=== PATIENT | male | born 1940 | race Caucasian/White ===

== ENCOUNTER 2021-06-15 15:12 | Inpatient (IN) ==
--- NOTE | 2021-06-15 16:25 | Emergency Department Note ---
Impression & Plan Hypotension, Hypomagnesemia, Acute hyponatremia, Elevated lactic acid level, Weakness ED Provider Note NAME: EZRA MACIAS AGE: 80 SEX: M : 1940 ARRIVES VIA: Ambulance INFORMANT: [Patient][nursing, family] ED PROVIDER(S): [Amaury Fu MD] CHIEF COMPLAINT: Weakness HISTORY OF PRESENT ILLNESS: The patient is an 80-year-old male who has been in [place] for just over 24 hours. He came from [place]. He came from a rehab center there. The patient has been having weakness and falling for the last 5 or so weeks. He has fallen at least 5 times. The patient states that he was seen in the ER several times and again, was to rehab. The rehab did not help him with his strength. He still is very short of breath doing anything and he is very short of breath lying flat. He has to sleep sitting up. The patient states there is a sore forming on the area of his sacrum which has been present for months. It just will not heal. The patient states that the weakness is generalized, it is not one-sided. He has not had fever, chills or cough although, he does feel cold all the time. No urinary burning although, he does have some urinary incontinence. The patient states that he has lost 40 pounds in the last few months. Of note, the patient's blood pressure was 70/30 prior to arrival. He was given a 400 cc saline bolus and the blood pressure has improved. His blood sugar was recorded at 317. He initially, when his blood pressure was low, complained of left facial numbness. The numbness seems to have resolved. The patient blames the Moderna vaccine for his issues. All his problems started after this vaccination. REVIEW OF SYSTEMS: See HPI for pertinent positives and negatives. A total of ten systems were reviewed and were otherwise negative. PMHx/PSHx: See Below SOCIAL HISTORY: See Below. PHYSICAL EXAM: GENERAL: Patient is in no acute distress. HEENT: No acute trauma, normocephalic atraumatic, mucous membranes moist, no nasal congestion, no scleral icterus. NECK: No stridor, no adenopathy, no meningismus, trachea is midline. LUNGS: Clear to auscultation bilaterally, no wheeze, no rhonchi, breath sounds equal. Breath sounds diminished bilaterally. HEART: Without murmurs gallops or rubs, regular rate and rhythm. Distant heart tones. ABDOMEN: Soft, nontender, bowel sounds positive, no hernias, no peritonitis. EXTREMITIES: No cyanosis, mild bilateral pedal edema, full range of motion of all the joints without pain or difficulty, no signs for acute trauma. NEUROLOGIC: Oriented x 3, no acute motor or sensory deficits, no focal weakness. Does seem generally weak. SKIN: No rash, no jaundice, no diaphoresis. Buttock: He does have an open fairly superficial wound to the superior sacrum. There is some surrounding erythema. A dressing is in place. DIFFERENTIAL DIAGNOSIS: Infection, dehydration, metabolic abnormality, hypo/hyperglycemia, vaccine reaction, malignancy, Doris Lima syndrome. Electrolyte disturbance, anemia, hypoxia, cardiac sources, intracerebral event, toxicologic issues, stroke, TIA, as well as other pathologies. EMERGENCY DEPARTMENT COURSE/PROCEDURES: ECG: Indication was weakness. The ECG shows a ventricular pacemaker with a rate of 70. There is no ST elevation, no PVCs. The QTc is 505. Continuous Cardiac Monitoring: An order was placed for continuous cardiac monitoring. The monitor shows a rate of 70 with ventricular pacemaker. Critical Care Note: I have personally spent 43 minutes of critical care time in the direct management of this patient. This includes bedside care, interpretation of diagnostic studies, and testing, discussion with consultants, patient, and family members, and other required patient management activities. This 43 minutes is in excess of all separately billable procedures. MEDICAL DECISION MAKING: There is no leukocytosis. The patient does have a mild anemia with a hemoglobin around 10. There was a normal platelet count. Sed rate was not significantly elevated. Sodium was low at 131, there was some mild renal insufficiency with a creatinine of 1.54. Magnesium was quite low at 1.3. Lactic acid level was elevated at over 3. No concerning liver enzyme elevation. The patient appeared to be in a euthyroid state. ECG showed a ventricular pacemaker, no acute ischemic change. Cardiac enzyme testing x1 is not consistent with acute cardiac injury. Urinalysis does not show infection. Covid testing returned negative. Lyme disease testing returned negative. Chest x-ray did not show pneumonia or CHF. Brain CT showed some atrophy, no acute bleed or mass-effect. Patient presents hypotensive. The patient received IV saline, 500 cc. His blood pressure has improved. He was given IV magnesium, 2 g. He received IV cefepime as empiric antibiotic therapy. The patient presents with weakness and fatigue. He was hypotensive. He has several electrolyte abnormalities which certainly could be at least partly responsible for his presentation. He has an open sacral wound which may have led to some bacteremia. Given his findings, given his history, I do think a hospital stay is warranted. I spoke to the patient and case management. I spoke to his family. The on-call hospitalist was consulted. Past Med/Surg History Medical History Diabetes mellitus Hypertension Pacemaker Social History Smoking Status: Former smoker Do You Dip or Chew Tobacco: No; Hx Alcohol Use: Yes Alcohol type: wine Hx Substance Use: No Preferred Language: Iranian Communication Ability: Effective Beliefs That Will Affect Care: None Current Living Situation: [facility] Other Information That Helps Us Care for You: No Feels Safe at Home: Yes Safety Concerns: Feels Safe At This Time Assistive Devices: Walker and Wheelchair Allergies Allergies Allergy/AdvReac Type Severity Reaction Status Date / Time lisinopril Allergy Unknown Unknown Verified 06/15/21 17:27 Home Meds Home Medications Medication Instructions Recorded Confirmed acetaminophen 325 mg tablet 650 mg PO Q6 PRN 06/15/21 06/15/21 aspirin 81 mg tablet,delayed 81 mg PO DAILY 06/15/21 06/15/21 release (Aspirin Low Dose) atorvastatin 20 mg tablet 10 mg PO DAILY 06/15/21 06/15/21 carboxymethylcellulose sodium 0.5 1 drp OPHTHALMIC (EYE) 6XD PRN 06/15/21 06/15/21 % eye drops carvedilol 25 mg tablet 25 mg PO Q12H 06/15/21 06/15/21 ferrous sulfate 324 mg (65 mg 324 mg PO 3XWK 06/15/21 06/15/21 iron) tablet,delayed release finasteride 5 mg tablet 5 mg PO DAILY 06/15/21 06/15/21 fluticasone propionate 50 1 spray INTRANASAL BID PRN 06/15/21 06/15/21 mcg/actuation nasal spray,suspension glucose 4 gram chewable tablet 16 g PO UD PRN 06/15/21 06/15/21 insulin glargine 100 unit/mL 10 unit SUBCUT BID 06/15/21 06/15/21 subcutaneous solution (Lantus U-100 Insulin) ketoconazole 2 % shampoo 1 ea TOPICAL 3XWK 06/15/21 06/15/21 levothyroxine 88 mcg tablet 88 mcg PO DAILY 06/15/21 06/15/21 lidocaine 5 % topical ointment 1 applic TOPICAL Q6 PRN 06/15/21 06/15/21 loratadine 10 mg tablet 10 mg PO DAILY 06/15/21 06/15/21 losartan 100 mg tablet 100 mg PO DAILY 06/15/21 06/15/21 melatonin 3 mg tablet 3 mg PO HS PRN 06/15/21 06/15/21 menthol 0.44 %-zinc oxide 20.6 % 1 applic TOPICAL DAILY 06/15/21 06/15/21 topical ointment (Calmoseptine) metformin 1,000 mg tablet 1,000 mg PO BID 06/15/21 06/15/21 multivitamin with iron-mineral 1 tab PO DAILY 06/15/21 06/15/21 nifedipine 90 mg tablet,extended 90 mg PO QAM 06/15/21 06/15/21 release 24 hr omega 2-jyj-otk-fish oil 1,000 mg 1 cap PO BID 06/15/21 06/15/21 (120 mg-180 mg) capsule (Fish Oil) omeprazole 20 mg capsule,delayed 20 mg PO BID 06/15/21 06/15/21 release polyethylene glycol 3350 17 17 g PO DAILY PRN 06/15/21 06/15/21 gram/dose oral powder (Miralax) semaglutide (Ozempic) 0.5 mg SUBCUT WK 06/15/21 06/15/21 tamsulosin 0.4 mg capsule 0.4 mg PO BID 06/15/21 06/15/21 terbinafine HCl 1 % topical cream 1 applic TOPICAL BID 06/15/21 06/15/21 trazodone 50 mg tablet 50 mg PO HS 06/15/21 06/15/21 vit C 250 mg-vit E 90 mg-zinc 40 1 tab PO BID 06/15/21 06/15/21 mg-copper 1 [id number] capsule (PreserVision AREDS-2) Results & Data (ED) Vital Signs Vital Signs - 24 hr 06/15/21 15:16 06/15/21 15:21 06/15/21 15:29 Temperature 36.5 C Temperature Source Oral Pulse Rate 69 70 Pulse Rate from SpO2 Sensor 69 Pulse Rhythm Regular Pulse Strength Normal Respiratory Rate 24 20 Respiratory Effort / Characteristics Non-Labored Respiratory Depth Normal Respiratory Pattern Regular Blood Pressure 107/48 L 107/48 L Blood Pressure Mean 67 67 Blood Pressure Position Lying Pulse Oximetry 98 99 Oxygen Delivery Method Room Air Room Air Oxygen Flow Rate 98 Sepsis Recent Fever Within 48 Hours No Sepsis New/Unexplained Change in Mental Status No Sepsis Action Taken by Nursing No Action Required 06/15/21 15:30 06/15/21 15:54 06/15/21 16:00 Temperature Temperature Source Pulse Rate 69 71 66 Pulse Rate from SpO2 Sensor 69 72 66 Pulse Rhythm Pulse Strength Respiratory Rate 21 24 24 Respiratory Effort / Characteristics Respiratory Depth Respiratory Pattern Blood Pressure 97/46 L 103/56 L 88/58 L Blood Pressure Mean 63 71 68 Blood Pressure Position Pulse Oximetry 98 98 97 Oxygen Delivery Method Oxygen Flow Rate Sepsis Recent Fever Within 48 Hours Sepsis New/Unexplained Change in Mental Status Sepsis Action Taken by Nursing 06/15/21 16:15 06/15/21 16:20 06/15/21 16:30 Temperature Temperature Source Pulse Rate 78 71 Pulse Rate from SpO2 Sensor 71 Pulse Rhythm Pulse Strength Respiratory Rate 24 22 Respiratory Effort / Characteristics Respiratory Depth Respiratory Pattern Blood Pressure 105/66 97/53 L Blood Pressure Mean 79 67 Blood Pressure Position Pulse Oximetry 98 93 Oxygen Delivery Method Room Air Oxygen Flow Rate Sepsis Recent Fever Within 48 Hours Sepsis New/Unexplained Change in Mental Status Sepsis Action Taken by Nursing 06/15/21 16:45 06/15/21 17:00 06/15/21 17:16 Temperature Temperature Source Pulse Rate 76 87 69 Pulse Rate from SpO2 Sensor 68 Pulse Rhythm Pulse Strength Respiratory Rate 24 26 H 21 Respiratory Effort / Characteristics Respiratory Depth Respiratory Pattern Blood Pressure 101/59 L 106/48 L 78/56 L Blood Pressure Mean 73 67 63 Blood Pressure Position Pulse Oximetry 98 Oxygen Delivery Method Oxygen Flow Rate Sepsis Recent Fever Within 48 Hours Sepsis New/Unexplained Change in Mental Status Sepsis Action Taken by Nursing 06/15/21 17:30 06/15/21 17:45 06/15/21 18:11 Temperature Temperature Source Pulse Rate 66 68 70 Pulse Rate from SpO2 Sensor 68 69 Pulse Rhythm Pulse Strength Respiratory Rate 19 23 20 Respiratory Effort / Characteristics Respiratory Depth Respiratory Pattern Blood Pressure 102/53 L 101/52 L 94/72 L Blood Pressure Mean 69 68 79 Blood Pressure Position Pulse Oximetry 98 96 Oxygen Delivery Method Oxygen Flow Rate Sepsis Recent Fever Within 48 Hours Sepsis New/Unexplained Change in Mental Status Sepsis Action Taken by Nursing 06/15/21 18:15 06/15/21 18:30 06/15/21 18:45 Temperature Temperature Source Pulse Rate 68 67 63 Pulse Rate from SpO2 Sensor 67 66 67 Pulse Rhythm Pulse Strength Respiratory Rate 27 H 18 19 Respiratory Effort / Characteristics Respiratory Depth Respiratory Pattern Blood Pressure 116/60 102/49 L 110/53 L Blood Pressure Mean 78 66 72 Blood Pressure Position Pulse Oximetry 99 98 95 Oxygen Delivery Method Oxygen Flow Rate Sepsis Recent Fever Within 48 Hours Sepsis New/Unexplained Change in Mental Status Sepsis Action Taken by Nursing 06/15/21 19:00 06/15/21 19:30 Temperature Temperature Source Pulse Rate 69 63 Pulse Rate from SpO2 Sensor 64 63 Pulse Rhythm Pulse Strength Respiratory Rate 27 H 21 Respiratory Effort / Characteristics Respiratory Depth Respiratory Pattern Blood Pressure 110/57 L 108/57 L Blood Pressure Mean 74 74 Blood Pressure Position Pulse Oximetry 96 98 Oxygen Delivery Method Oxygen Flow Rate Sepsis Recent Fever Within 48 Hours Sepsis New/Unexplained Change in Mental Status Sepsis Action Taken by [facility] Medications Current Medication List: was personally reviewed by me Laboratory Data Attestation: I reviewed the patient's lab results. Result diagrams: 06/15/21 15:49 06/15/21 15:49 Lab Results 06/15/21 06/15/21 06/15/21 Range/Units 15:49 15:49 15:49 WBC 6.30 (4.8-10.8) K/uL RBC 3.31 L (4.7-6.1) M/uL Hgb 10.2 L (14.0-18.0) g/dL Hct 29.1 L (42-52) % MCV 87.9 (80-100) fL MCH 30.8 (25-34) pg MCHC 35.1 (32-36) g/dL RDW Std Deviation 42.1 (36.4-46.3) fL RDW Coeff of Dinorah 13.0 (11.5-14.5) % Plt Count 328 (130-400) K/uL MPV 9.0 (7.4-10.4) fL Immature Gran % (Auto) 0.3 % Neut % (Auto) 66.6 % Lymph % (Auto) 21.9 % [place] % (Auto) 9.0 % Eos % (Auto) 1.9 % Baso % (Auto) 0.3 % Neut # (Auto) 4.19 (1.4-6.5) K/uL Lymph # (Auto) 1.38 (1.2-3.4) K/uL [place] # (Auto) 0.57 (0.11-0.59) K/uL Eos # (Auto) 0.12 (0-0.5) K/uL Baso # (Auto) 0.02 (0-0.2) K/uL Immature Gran # (Auto) 0.02 (0.00-0.02) K/uL ESR (0-20) mm/hr Sodium 131 L (136-145) mmol/L Potassium 4.2 (3.5-5.1) mmol/L Chloride 94 L (98-107) mmol/L Carbon Dioxide 31 (21-32) mmol/L Anion Gap 6.0 (3-11) BUN 34 H (7-18) mg/dl Creatinine 1.54 H (0.6-1.4) mg/dl Est Cr Clr Drug Dosing 37.0 ml/min Est GFR ( Amer) 48.7 ml/min Est GFR (Non-Af Amer) 42.0 ml/min BUN/Creatinine Ratio 22.2 H (10-20) Glucose 254 H (70-99) mg/dl Lactate 3.2 H* (0.4-2.0) mmol/L Calcium 8.8 (8.5-10.1) mg/dl Phosphorus 2.5 (2.5-4.9) mg/dl Magnesium 1.3 L (1.8-2.4) mg/dl Total Bilirubin 0.4 (0.2-1) mg/dl AST 15 (15-37) U/L ALT 18 (12-78) U/L Alkaline Phosphatase 98 (45-117) U/L Total Creatine Kinase 255 (39-308) U/L Troponin I < 0.015 (0-0.045) ng/ml Total Protein 6.5 (6.4-8.2) gm/dl Albumin 3.0 L (3.4-5.0) gm/dl Globulin 3.5 (2.5-4.0) gm/dl Albumin/Globulin Ratio 0.9 (0.9-2) TSH 4.490 (0.300-4.500) uIu/ml Lyme Disease IgG Ab (Negative) Lyme Disease IgM Ab (Negative) COVID-19 Eval Order SARS-CoV-2 (PCR) (Negative) 06/15/21 06/15/21 06/15/21 Range/Units 15:49 15:49 16:30 WBC (4.8-10.8) K/uL RBC (4.7-6.1) M/uL Hgb (14.0-18.0) g/dL Hct (42-52) % MCV (80-100) fL MCH (25-34) pg MCHC (32-36) g/dL RDW Std Deviation (36.4-46.3) fL RDW Coeff of Dinorah (11.5-14.5) % Plt Count (130-400) K/uL MPV (7.4-10.4) fL Immature Gran % (Auto) % Neut % (Auto) % Lymph % (Auto) % [place] % (Auto) % Eos % (Auto) % Baso % (Auto) % Neut # (Auto) (1.4-6.5) K/uL Lymph # (Auto) (1.2-3.4) K/uL [place] # (Auto) (0.11-0.59) K/uL Eos # (Auto) (0-0.5) K/uL Baso # (Auto) (0-0.2) K/uL Immature Gran # (Auto) (0.00-0.02) K/uL ESR 22 H (0-20) mm/hr Sodium (136-145) mmol/L Potassium (3.5-5.1) mmol/L Chloride (98-107) mmol/L Carbon Dioxide (21-32) mmol/L Anion Gap (3-11) BUN (7-18) mg/dl Creatinine (0.6-1.4) mg/dl Est Cr Clr Drug Dosing ml/min Est GFR ( Amer) ml/min Est GFR (Non-Af Amer) ml/min BUN/Creatinine Ratio (10-20) Glucose (70-99) mg/dl Lactate (0.4-2.0) mmol/L Calcium (8.5-10.1) mg/dl Phosphorus (2.5-4.9) mg/dl Magnesium (1.8-2.4) mg/dl Total Bilirubin (0.2-1) mg/dl AST (15-37) U/L ALT (12-78) U/L Alkaline Phosphatase (45-117) U/L Total Creatine Kinase (39-308) U/L Troponin I (0-0.045) ng/ml Total Protein (6.4-8.2) gm/dl Albumin (3.4-5.0) gm/dl Globulin (2.5-4.0) gm/dl Albumin/Globulin Ratio (0.9-2) TSH (0.300-4.500) uIu/ml Lyme Disease IgG Ab Negative (Negative) Lyme Disease IgM Ab Negative (Negative) COVID-19 Eval Order Covid19 at [facility] SARS-CoV-2 (PCR) (Negative) 06/15/21 Range/Units 16:30 WBC (4.8-10.8) K/uL RBC (4.7-6.1) M/uL Hgb (14.0-18.0) g/dL Hct (42-52) % MCV (80-100) fL MCH (25-34) pg MCHC (32-36) g/dL RDW Std Deviation (36.4-46.3) fL RDW Coeff of Dinorah (11.5-14.5) % Plt Count (130-400) K/uL MPV (7.4-10.4) fL Immature Gran % (Auto) % Neut % (Auto) % Lymph % (Auto) % [place] % (Auto) % Eos % (Auto) % Baso % (Auto) % Neut # (Auto) (1.4-6.5) K/uL Lymph # (Auto) (1.2-3.4) K/uL [place] # (Auto) (0.11-0.59) K/uL Eos # (Auto) (0-0.5) K/uL Baso # (Auto) (0-0.2) K/uL Immature Gran # (Auto) (0.00-0.02) K/uL ESR (0-20) mm/hr Sodium (136-145) mmol/L Potassium (3.5-5.1) mmol/L Chloride (98-107) mmol/L Carbon Dioxide (21-32) mmol/L Anion Gap (3-11) BUN (7-18) mg/dl Creatinine (0.6-1.4) mg/dl Est Cr Clr Drug Dosing ml/min Est GFR ( Amer) ml/min Est GFR (Non-Af Amer) ml/min BUN/Creatinine Ratio (10-20) Glucose (70-99) mg/dl Lactate (0.4-2.0) mmol/L Calcium (8.5-10.1) mg/dl Phosphorus (2.5-4.9) mg/dl Magnesium (1.8-2.4) mg/dl Total Bilirubin (0.2-1) mg/dl AST (15-37) U/L ALT (12-78) U/L Alkaline Phosphatase (45-117) U/L Total Creatine Kinase (39-308) U/L Troponin I (0-0.045) ng/ml Total Protein (6.4-8.2) gm/dl Albumin (3.4-5.0) gm/dl Globulin (2.5-4.0) gm/dl Albumin/Globulin Ratio (0.9-2) TSH (0.300-4.500) uIu/ml Lyme Disease IgG Ab (Negative) Lyme Disease IgM Ab (Negative) COVID-19 Eval Order SARS-CoV-2 (PCR) NEGATIVE (Negative) Administered Medications Sodium Chloride (Nss 1000ml) 1,000 mls @ 80 mls/hr IV .[id number] DINORAH Stop: 06/16/21 10:25 Last Admin: 06/15/21 23:38 Dose: 80 mls/hr Documented by: [id number] Discontinued Medications Sodium Chloride (Nss 1000ml) 500 mls @ 999 mls/hr IV .Q31M ONE Stop: 06/15/21 17:02 Last Infusion: 06/15/21 18:26 Dose: 0 mls/hr Documented by: [id number] Admin: 06/15/21 17:43 Dose: 999 mls/hr Documented by: [id number] Magnesium Sulfate/Dextrose (Magnesium Sulfate / D5w) 1 gm in 100 mls @ 100 mls/hr IV Q1H DINORAH Stop: 06/15/21 18:43 Last Infusion: 06/15/21 20:51 Dose: 0 mls/hr Documented by: [id number] Admin: 06/15/21 18:44 Dose: 100 mls/hr Documented by: [id number] Infusion: 06/15/21 17:44 Dose: 100 mls/hr Documented by: [id number] Admin: 06/15/21 17:43 Dose: 100 mls/hr Documented by: [id number] Cefepime HCl (Maxipime) 2,000 mg in 20 mls @ 5 mls/min IV NOW STA; Protocol Stop: 06/15/21 16:57 Last Admin: 06/15/21 17:42 Dose: 5 mls/min Documented by: [id number] Thiamine HCl 200 mg/ Sodium (Chloride) 52 mls @ 208 mls/hr IV NOW STA Stop: 06/15/21 19:46 Last Infusion: 06/15/21 21:19 Dose: 0 mls/hr Documented by: [id number] Admin: 06/15/21 21:03 Dose: 208 mls/hr Documented by: [id number] Magnesium Sulfate/Dextrose (Magnesium Sulfate / D5w) 1 gm in 100 mls @ 50 mls/hr IV Q2H STA Stop: 06/15/21 21:31 Last Infusion: 06/15/21 23:32 Dose: 0 mls/hr Documented by: [id number] Admin: 06/15/21 20:45 Dose: 50 mls/hr Documented by: [id number] Imaging Data Radiologist's Impression: Chest X-Ray 06/15/21 16:20 XR chest 1V portable HISTORY: 80 years-old Male weakness acute weakness COMPARISON: None TECHNIQUE: Portable AP view the chest FINDINGS: Cardiac silhouette is mildly enlarged. Left subclavian pacer/AICD. Mild right hemidiaphragm elevation. No pneumothorax, pleural effusion, airspace consolidation or overt pulmonary edema. Degenerative changes of the shoulders and spine. IMPRESSION: No acute process. ACT 112: Negative or not required by law. The above report was generated using voice recognition software. It may contain grammatical, syntax or spelling errors. Electronically signed by: Cesar Davis M.D. 06/15/2021 4:[address] 06/15/21 16:[address] DOSE: 614.27 mGy.cm HISTORY: weakness TECHNIQUE: Multiaxial CT images of the head were performed without the use of intravenous contrast. Automated exposure control was utilized for this study. A dose lowering technique was utilized adhering to the principles of ALARA. Comparison: None. Findings: The paranasal sinuses and mastoid air cells are clear. The calvarium and skull base are intact. There is no mass, hematoma, midline shift, acute infarct. White matter hypodensity is nonspecific but suggestive of microvascular ischemic change. The ventricles and sulci demonstrate mild age-related involutional changes. Impression: No acute intracranial abnormality. ACT 112: Negative or not required by law. Electronically signed by: Ap Gandhi M.D. 06/15/2021 6:23 PM Discharge Plan Visit Data Chief Complaint: Hypotension Stated Complaint: HYPOTENSION ED Provider: Amaury Fu Discharge Problem: Hypotension, Hypomagnesemia, Acute hyponatremia, Elevated lactic acid level, Weakness Patient Disposition: Admitted As Inpatient Condition: Fair Discharge Instructions Interventions: ED Discharge Assessment Last Done: 06/15/21 21:21
[2021-06-15 16:26] LABS: Basophils # (auto) 0.02 K/uL (0-0.2); Basophils % (auto) 0.3 %; Eosinophils # (auto) 0.12 K/uL (0-0.5); Eosinophils % (auto) 1.9 %; Hematocrit (blood only) 29.1 % (42-52); Hemoglobin 10.2 g/dL (14.0-18.0); Immature Granulocytes # (auto) 0.02 K/uL (0.00-0.02); Immature Granulocytes % (auto) 0.3 %; Lymphocytes # (auto) 1.38 K/uL (1.2-3.4); Lymphocytes % (auto) 21.9 %; Mean Corpuscular Hemoglobin 30.8 pg (25-34); Mean Corpuscular Hgb Conc 35.1 g/dL (32-36); Mean Corpuscular Volume 87.9 fL (80-100); Monocytes # (auto) 0.57 K/uL (0.11-0.59); Neutrophils # (auto) 4.19 K/uL (1.4-6.5); Neutrophils % (auto) 66.6 %; Platelet Count 328 K/uL (130-400); RDW Standard Deviation 42.1 fL (36.4-46.3); Red Blood Count 3.31 M/uL (4.7-6.1)
--- NOTE | 2021-06-15 16:29 | XRay Report ---
XR chest 1V portable HISTORY: 80 years-old Male weakness acute weakness COMPARISON: None TECHNIQUE: Portable AP view the chest FINDINGS: Cardiac silhouette is mildly enlarged. Left subclavian pacer/AICD. Mild right hemidiaphragm elevation . No pneumothorax, pleural effusion, airspace consolidation or overt pulmonary edema. Degenerative ch anges of the shoulders and spine. IMPRESSION: No acute process. ACT 112: Negative or not required by law. The above report was generated using voice recognition software. It may contain grammatical, syntax o r spelling errors. Electronically signed by: Cesar Davis M.D. 06/15/2021 4:27 PM
[2021-06-15] MEDS ORDERED: SODIUM CHLORIDE 0.9% 1000ML 500 ML IV ONE (16:32)
[2021-06-15 16:36] LABS: Alanine Aminotransferase 18 U/L (12-78); Aspartate Aminotransferase 15 U/L (15-37); BUN Creatinine Ratio 22.2 (10-20); Blood Urea Nitrogen 34 mg/dl (7-18); Calcium 8.8 mg/dl (8.5-10.1); Carbon Dioxide 31 mmol/L (21-32); Chloride 94 mmol/L (98-107); Est GFR (African American) 48.7 ml/min; Glucose 254 mg/dl (70-99); Magnesium 1.3 mg/dl (1.8-2.4); Potassium 4.2 mmol/L (3.5-5.1); Sodium 131 mmol/L (136-145)
[2021-06-15 16:47] LABS: Albumin Globulin Ratio 0.9 (0.9-2); Alkaline Phosphatase 98 U/L (45-117); Bilirubin,Total 0.4 mg/dl (0.2-1); Creatine Kinase 255 U/L (39-308); Globulin 3.5 gm/dl (2.5-4.0); Phosphorus 2.5 mg/dl (2.5-4.9); Total Protein 6.5 gm/dl (6.4-8.2); Troponin I < 0.015 ng/ml (0-0.045)
[2021-06-15] MEDS ORDERED: CEFEPIME 2,000 MG/20 ML VIAL IV STA (16:54)
[2021-06-15] MEDS: MAGNESIUM SULFATE / D5W 1 GM/100 ML BAG IV SCH ×3 (17:43→18:44)
[2021-06-15 18:02] LABS: Lyme Ab IgG w/WB Rflx Negative (Negative); Lyme Ab IgM w/WB Rflx Negative (Negative)
--- NOTE | 2021-06-15 18:24 | CT Scan Report ---
HEAD CT NONCONTRAST CT DOSE: 614.27 mGy.cm HISTORY: weakness TECHNIQUE: Multiaxial CT images of the head were performed without the use of intravenous contrast. A utomated exposure control was utilized for this study. A dose lowering technique was utilized adheri ng to the principles of ALARA. Comparison: None. Findings: The paranasal sinuses and mastoid air cells are clear. The calvarium and skull base are int act. There is no mass, hematoma, midline shift, acute infarct. White matter hypodensity is nonspecifi c but suggestive of microvascular ischemic change. The ventricles and sulci demonstrate mild age-rela ron involutional changes. Impression: No acute intracranial abnormality. ACT 112: Negative or not required by law. Electronically signed by: Ap Gandhi M.D. 06/15/2021 6:23 PM
--- NOTE | 2021-06-15 18:53 | History & Physical Report ---
Date of Service June 15, 2021 Assessment & Plan (1) Shortness of breath: Plan: Patient met with shortness of breath and some mild hypotension. Concerns of these issues occurring after immunization with Covid vaccine however the time course is from January. Initially it sounds like he has had a fairly substantial work-up in his hospitals in [place] but he does sound like he had fairly significant weakness and does have some persistent weakness of his proximal shoulder muscles and hips difficulty walking lifting his arms he also has shortness of breath and orthopnea and has difficulty positioning his head. In the emergency department he was not in any significant heart failure he does have a pacemaker present in his chest which he claims also defibrillator and echocardiogram will be undertaken he is not need any additional diuretic therapy from what it appears (2) Acute hyponatremia: Plan: Patient's hyponatremia is mild in presentation we will fluid restrict and follow (3) Hypomagnesemia: Plan: Patient's hypomagnesemia is profound augmented with intravenous magnesium (4) Diabetes mellitus: Plan: Patient is a history of diabetes certainly is slightly elevated glucose will employ sliding scale insulin continue his basal insulin and have him on a diabetic diet (5) Hypertension: Plan: Patient's blood pressures were initially low on presentation, carvedilol was held and watch for beta-keysha rebound no apparent infection is present at this time we will not associate hypotension with sepsis will screen for infectious source especially with urinary incontinence such as urine. He was given cefepime in the emergency department (6) DVT prophylaxis: Plan: Enoxaparin for DVT prevention History of Present Illness Primary Care Provider: UBALDO Klein 80-year-old male who has been in [place] for just over a day, moving from a physical rehab in [place] to be closer to family. The patient has been having weakness and falling for the last 5 or so weeks. He has fallen at least 5 times. He complains of being short of breath doing anything and he is very short of breath lying flat. He has to sleep sitting up. The patient states there is a sore forming on the area of his sacrum which has been present for months. He has not had fever, chills or cough. No urinary burning although, he does have some urinary incontinence. The patient states that he has lost 40 pounds in the last few months. Of note, the patient's blood pressure was 70/30 prior to arrival. He was given a 400 cc saline bolus and the blood pressure has improved. His blood sugar was recorded at 317. He initially, when his blood pressure was low, complained of left facial numbness. The numbness seems to have resolved. The patient blames the Moderna vaccine for his issues. All his problems started after this vaccination. Allergies Allergy/AdvReac Type Severity Reaction Status Date / Time lisinopril Allergy Unknown Unknown Verified 06/15/21 17:27 Home Medications Medication Instructions Recorded Confirmed Type acetaminophen 325 mg tablet 650 mg PO Q6 PRN 06/15/21 06/15/21 History aspirin 81 mg tablet,delayed 81 mg PO DAILY 06/15/21 06/15/21 History release (Aspirin Low Dose) atorvastatin 20 mg tablet 10 mg PO DAILY 06/15/21 06/15/21 History carboxymethylcellulose sodium 0.5 1 drp OPHTHALMIC (EYE) 6XD PRN 06/15/21 06/15/21 History % eye drops carvedilol 25 mg tablet 25 mg PO Q12H 06/15/21 06/15/21 History ferrous sulfate 324 mg (65 mg 324 mg PO 3XWK 06/15/21 06/15/21 History iron) tablet,delayed release finasteride 5 mg tablet 5 mg PO DAILY 06/15/21 06/15/21 History fluticasone propionate 50 1 spray INTRANASAL BID PRN 06/15/21 06/15/21 History mcg/actuation nasal spray,suspension glucose 4 gram chewable tablet 16 g PO UD PRN 06/15/21 06/15/21 History insulin glargine 100 unit/mL 10 unit SUBCUT BID 06/15/21 06/15/21 History subcutaneous solution (Lantus U-100 Insulin) ketoconazole 2 % shampoo 1 ea TOPICAL 3XWK 06/15/21 06/15/21 History levothyroxine 88 mcg tablet 88 mcg PO DAILY 06/15/21 06/15/21 History lidocaine 5 % topical ointment 1 applic TOPICAL Q6 PRN 06/15/21 06/15/21 History loratadine 10 mg tablet 10 mg PO DAILY 06/15/21 06/15/21 History losartan 100 mg tablet 100 mg PO DAILY 06/15/21 06/15/21 History melatonin 3 mg tablet 3 mg PO HS PRN 06/15/21 06/15/21 History menthol 0.44 %-zinc oxide 20.6 % 1 applic TOPICAL DAILY 06/15/21 06/15/21 History topical ointment (Calmoseptine) metformin 1,000 mg tablet 1,000 mg PO BID 06/15/21 06/15/21 History multivitamin with iron-mineral 1 tab PO DAILY 06/15/21 06/15/21 History nifedipine 90 mg tablet,extended 90 mg PO QAM 06/15/21 06/15/21 History release 24 hr omega 6-mqv-ybe-fish oil 1,000 mg 1 cap PO BID 06/15/21 06/15/21 History (120 mg-180 mg) capsule (Fish Oil) omeprazole 20 mg capsule,delayed 20 mg PO BID 06/15/21 06/15/21 History release polyethylene glycol 3350 17 17 g PO DAILY PRN 06/15/21 06/15/21 History gram/dose oral powder (Miralax) semaglutide (Ozempic) 0.5 mg SUBCUT WK 06/15/21 06/15/21 History tamsulosin 0.4 mg capsule 0.4 mg PO BID 06/15/21 06/15/21 History terbinafine HCl 1 % topical cream 1 applic TOPICAL BID 06/15/21 06/15/21 History trazodone 50 mg tablet 50 mg PO HS 06/15/21 06/15/21 History vit C 250 mg-vit E 90 mg-zinc 40 1 tab PO BID 06/15/21 06/15/21 History mg-copper 1 lq-coxufx-kbfcnw capsule (PreserVision AREDS-2) Past Med/Surg History Medical History (Updated 06/16/21 @ 14:44 by Jerry Goldman MD) Diabetes mellitus Hypertension Pacemaker Social History Smoking Status: Former smoker Do You Dip or Chew Tobacco: No; Hx Alcohol Use: Yes Alcohol type: wine Hx Substance Use: No Preferred Language: Welsh Communication Ability: Effective Beliefs That Will Affect Care: None Current Living Situation: Prison Other Information That Helps Us Care for You: No Feels Safe at Home: Yes Safety Concerns: Feels Safe At This Time Assistive Devices: Walker Review of Systems Review of Systems: Mild distress and fatigue no headache, no visual changes no speech or swallowing issues no chest pain, pressure or palpitations no shortness of breath, cough or wheezes no abdominal pain, nausea or vomiting, diarrhea or constipation no dysuria, hematuria or frequency no focal joint pain or swelling no back pain, CVA tenderness or radicular pain no bruising, bleeding or rashes no focal signs of weakness or numbness or altered sensation no complaints of anxiety or depression.. Physical Exam Physical Exam: The patient appeared well nourished and normally developed. Vital signs as documented. Head exam is normocephalic atraumatic Neck is without JVD, thyromegaly, or carotid bruits. Lungs are clear to auscultation, no focal loss of breath sounds Cardiac exam, Rhythm is regular.. No murmurs, rubs or gallops. Abdominal exam reveals normal bowel sounds, soft non tender, no masses Extremities are nonedematous and both pedal pulses are present Neurologic exam is alert and oriented, no focal loss of strength or sensation Skin is without bruises or rashes Psychologically is without concerns for anxiety or depression Results & Data Results & Data ([facility]) Vital Signs (Past 12 Hours) Vital Signs Temp Pulse Resp BP Pulse Ox 06/15/21 17:30 66 19 102/53 L 06/15/21 17:16 69 21 78/56 L 98 06/15/21 17:00 87 26 H 106/48 L 06/15/21 16:45 76 24 101/59 L 06/15/21 16:30 71 22 97/53 L 93 06/15/21 16:20 98 06/15/21 16:15 78 24 105/66 06/15/21 16:00 66 24 88/58 L 97 06/15/21 15:54 71 24 103/56 L 98 06/15/21 15:30 69 21 97/46 L 98 06/15/21 15:21 97.7 F 70 20 107/48 L 99 06/15/21 15:16 69 24 107/48 L 98 Diagnostic Findings Chest X-Ray 06/15/21 16:20 XR chest 1V portable HISTORY: 80 years-old Male weakness acute weakness COMPARISON: None TECHNIQUE: Portable AP view the chest FINDINGS: Cardiac silhouette is mildly enlarged. Left subclavian pacer/AICD. Mild right hemidiaphragm elevation. No pneumothorax, pleural effusion, airspace consolidation or overt pulmonary edema. Degenerative changes of the shoulders and spine. IMPRESSION: No acute process. ACT 112: Negative or not required by law. The above report was generated using voice recognition software. It may contain grammatical, syntax or spelling errors. Electronically signed by: Cesar Davis M.D. 06/15/2021 4:[address] 06/15/21 16:[address] DOSE: 614.27 mGy.cm HISTORY: weakness TECHNIQUE: Multiaxial CT images of the head were performed without the use of intravenous contrast. Automated exposure control was utilized for this study. A dose lowering technique was utilized adhering to the principles of ALARA. Comparison: None. Findings: The paranasal sinuses and mastoid air cells are clear. The calvarium and skull base are intact. There is no mass, hematoma, midline shift, acute infarct. White matter hypodensity is nonspecific but suggestive of microvascular ischemic change. The ventricles and sulci demonstrate mild age-related involutional changes. Impression: No acute intracranial abnormality. ACT 112: Negative or not required by law. Electronically signed by: Ap Gandhi M.D. 06/15/2021 6:23 PM PG Care Time/CCT Total # of Minutes Spent Total Time Spent with Patient: Total time spent is greater than 50% in coordination of care (as documented) at patient's floor/unit and/or counseling patient: Coding Level of Care Code 90252 Initial Inpt Care Lvl 3 Diagnoses Acute hyponatremia E87.1 Hypomagnesemia E83.42 Diabetes mellitus E11.9 Hypertension I10 Shortness of breath R06.02 DVT prophylaxis Z29.9
[2021-06-15] MEDS ORDERED: THIAMINE HCL 200 MG in SODIUM CHLORIDE 0.9% 50 ML IV STA (19:32)
[2021-06-15] MEDS ORDERED: MAGNESIUM SULFATE / D5W 1 GM/100 ML BAG IV STA (19:32)
[2021-06-15 21:22] LABS: Appearance Urine Clear (Clear); Bilirubin Urine Negative (Negative); Blood Urine Negative (Negative); Color Urine Yellow; Glucose Urine UA Negative (Negative); Ketones Urine Negative (Negative); Leukocyte Esterase Urine Negative (Negative); Nitrite Urine Negative (Negative); Protein Urine Negative (Negative); Specific Gravity Urine 1.014 (1.000-1.030); Urobilinogen Urine Negative (Negative)
[2021-06-15] MEDS ORDERED: ACETAMINOPHEN 325 MG TAB PO PRN (21:56)
[2021-06-15] MEDS ORDERED: ONDANSETRON INJ 2 MG/ML 2 ML VIAL IV PRN (21:56)
[2021-06-15] MEDS ORDERED: DEXTROSE 50% 50 ML SYRINGE IV PRN (21:56)
[2021-06-15] MEDS ORDERED: SODIUM CHLORIDE 0.9% 1000ML 1,000 ML IV SCH (21:56)
[2021-06-15] MEDS ORDERED: GLUCAGON FOR INJ 1 MG VIAL SQ PRN (21:56)
[2021-06-15] MEDS ORDERED: GLUCOSE 10 TABS/TUBE PO PRN (21:56)
[2021-06-15] MEDS ORDERED: FLUTICASONE PROPIONATE NA SPR 16 GM BTL NAE PRN (21:56)
[2021-06-15] MEDS ORDERED: GLUCOSE 40% GEL 15 GM TUBE PO PRN (21:56)
[2021-06-15] MEDS ORDERED: CARBOHYDRATES FOR HYPOGLYCEMIA PO PRN (21:56)
[2021-06-15] MEDS: PANTOprazole 40 MG TAB PO SCH (23:59)
[2021-06-16] MEDS: INSULIN ASPART 100 UNITS/ML 3 ML PEN SC SCH ×5 (00:01→21:31)
[2021-06-16] MEDS: ACETAMINOPHEN 325 MG TAB PO PRN ×2 (00:19→11:38)
[2021-06-16] MEDS ORDERED: hydrOXYzine HCl 10 MG TAB PO ONE (00:27)
[2021-06-16] MEDS ORDERED: ARTIFICIAL TEARS OP PRN (01:10)
[2021-06-16] MEDS: LEVOTHYROXINE SODIUM 88 MCG TABLET PO SCH (06:11)
[2021-06-16] MEDS: TERBINAFINE CR 30 GM TUBE EXT SCH ×3 (08:35→21:33)
[2021-06-16] MEDS: PANTOprazole 40 MG TAB PO SCH ×2 (08:35→21:28)
[2021-06-16] MEDS: CEROVITE ADV FORMULA TAB PO SCH (08:35)
[2021-06-16] MEDS: INSULIN GLARGINE SOLOSTAR 100 UNITS/ML 3 ML PEN SC SCH ×3 (08:35→21:32)
[2021-06-16] MEDS: ASPIRIN 81 MG ECTAB PO SCH (08:35)
[2021-06-16] MEDS: FINASTERIDE 5 MG TAB PO SCH (08:35)
[2021-06-16] MEDS: ENOXAPARIN INJ 40 MG/0.4 ML SYR SQ SCH (09:20)
[2021-06-16] MEDS: THIAMINE HCL 200 MG in SODIUM CHLORIDE 0.9% 50 ML IV SCH (09:21)
--- NOTE | 2021-06-16 10:01 | Neurology Consultation ---
Date of Consultation June 16, 2021 Assessment & Plan (1) Weakness: Progressive generalized weakness beginning this past January, approximately 1 week after receiving his second Moderna COVID-19 vaccination while in [place]. He has weakness of head and neck extensors as well as shoulder and hip girdle musculature. He does not have foot drops. He has developed associated shortness of breath and dysphagia over the past few weeks. He has absent Achilles tendon reflexes, deep tendon reflexes are otherwise reduced. He has some associated vibratory sensory loss affecting the distal lower limbs. He does not have significant associated myalgia. A total CK and ESR are benign. A variant of Guillain-Lima syndrome or acute inflammatory demyelinating polyneuropathy is possible although his symptoms are quite protracted, getting progressively worse over several months. Typical cases of GBS are more acute and monophasic. Chronic inflammatory demyelinating polyneuropathy or CIDP is also possible. Furthermore, patient's pattern of proximal weakness is potentially suggestive of myopathy or myositis. Inclusion body myositis is possible and may also affect swallowing function. Would also consider myasthenia gravis or Lambert-Eaton myasthenic syndrome. He does not have diplopia or ptosis which would often make myasthenia gravis unlikely. Would also consider transverse myelitis in the differential diagnosis. However, patient does not have spastic weakness and his deep tendon reflexes are reduced to absent which would not be consistent with this diagnosis. There are likely some other factors contributing to this patient's functional decline including poor p.o. intake, anemia, hyponatremia, dehydration, and deconditioning. Would recommend a lumbar puncture under fluoroscopy to further evaluate for possible Guillain-Lima syndrome and associated variants of subacute neuritis. If patient does have significant albuminocytologic dissociation on CSF analysis would recommend treatment with IVIG. IVIG would be given for 5 days at a dose of 0.4 g/kg/day. We will check serum IgA prior to initiation of treatment. Patient does have some mild to moderate respiratory compromise, however. His respiratory status will need to be monitored closely. Would have a low threshold to transfer this patient to given the potential for further decompensation and need for neuro critical care services including possible plasmapheresis. As above, inflammatory myopathy is not completely excluded in this patient. The differential diagnosis would include inclusion body myositis polymyositis, and dermatomyositis. However, it is notable that patient's CK is normal which is typically a sensitive muscle enzyme marker which would often be elevated in these conditions. Also, the patient and his daughter both report that his EMG completed in [place] was suggestive of neuropathy or Guillain-Lima syndrome rather than a muscle disease. An up-to-date outpatient EMG with repetitive stimulation would likely be useful as well. In addition to the above lumbar puncture would also recommend checking acetylcholine receptor antibodies, binding, blocking, and modulating (testing for myasthenia). Would check antibodies against the P/Q type voltage-gated calcium channel (testing for Lambert-Eaton) would check an anti-Alem one antibody which may be elevated and inclusion body myositis. Will check serum IgG antibodies to GQ 1B which is useful diagnostically for Peacock Kiser syndrome variant of Guillain-Lima syndrome. Would also recommend an MRI of the cervical and thoracic spine without contrast to exclude significant spinal stenosis or myelopathy. History of Present Illness Reason for Consultation: Weakness, concern for myopathy versus Guillain-Lima syndrome Requesting Physician: Jerry Goldman MD Attending Physician: Jerry Goldman MD History of Present Illness The patient is an 80-year-old male with a chief complaint of weakness that began this past January, about 1 week after receiving his second Moderna COVID-19 vaccination. He was living in [place] at the time. Initially, his weakness was episodic and noted upon attempting to get out of bed in the morning ch aracterized by several episodes of inability to stand up and walk on his own. Over the ensuing months, however, his weakness has become more of a persistent problem and has affected head and neck extension as well as the shoulder and hip girdles. He is unable to abduct the arms to 90 and has increasing difficulty getting up out of chairs. He has not developed a foot drop. He does complain of some mild numbness affecting the lower limbs. He denies any muscle pain. Over the past few weeks his symptoms have continued to decline and he has developed mild to moderate shortness of breath and difficulty swallowing. He denies experiencing any double vision or ptosis. He has not been eating or drinking very well and his functional status has continued to decline. The patient's daughter was listening in on my assessment of the patient on the patient's cellular phone. 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 There were apparently plans for him to have a lumbar puncture completed although he came to [facility] to be closer to family further assistance during this progressive subacute illness. Past medical history is notable for diabetes mellitus, hypothyroidism and hypertension. Patient has a cardiac pacer. Family history noncontributory Allergies Allergy/AdvReac Type Severity Reaction Status Date / Time lisinopril Allergy Unknown Unknown Verified 06/15/21 17:27 Home Medications Medication Instructions Recorded Confirmed Type acetaminophen 325 mg tablet 650 mg PO Q6 PRN 06/15/21 06/15/21 History aspirin 81 mg tablet,delayed 81 mg PO DAILY 06/15/21 06/15/21 History release (Aspirin Low Dose) atorvastatin 20 mg tablet 10 mg PO DAILY 06/15/21 06/15/21 History carboxymethylcellulose sodium 0.5 1 drp OPHTHALMIC (EYE) 6XD PRN 06/15/21 06/15/21 History % eye drops carvedilol 25 mg tablet 25 mg PO Q12H 06/15/21 06/15/21 History ferrous sulfate 324 mg (65 mg 324 mg PO 3XWK 06/15/21 06/15/21 History iron) tablet,delayed release finasteride 5 mg tablet 5 mg PO DAILY 06/15/21 06/15/21 History fluticasone propionate 50 1 spray INTRANASAL BID PRN 06/15/21 06/15/21 History mcg/actuation nasal spray,suspension glucose 4 gram chewable tablet 16 g PO UD PRN 06/15/21 06/15/21 History insulin glargine 100 unit/mL 10 unit SUBCUT BID 06/15/21 06/15/21 History subcutaneous solution (Lantus U-100 Insulin) ketoconazole 2 % shampoo 1 ea TOPICAL 3XWK 06/15/21 06/15/21 History levothyroxine 88 mcg tablet 88 mcg PO DAILY 06/15/21 06/15/21 History lidocaine 5 % topical ointment 1 applic TOPICAL Q6 PRN 06/15/21 06/15/21 History loratadine 10 mg tablet 10 mg PO DAILY 06/15/21 06/15/21 History losartan 100 mg tablet 100 mg PO DAILY 06/15/21 06/15/21 History melatonin 3 mg tablet 3 mg PO HS PRN 06/15/21 06/15/21 History menthol 0.44 %-zinc oxide 20.6 % 1 applic TOPICAL DAILY 06/15/21 06/15/21 History topical ointment (Calmoseptine) metformin 1,000 mg tablet 1,000 mg PO BID 06/15/21 06/15/21 History multivitamin with iron-mineral 1 tab PO DAILY 06/15/21 06/15/21 History nifedipine 90 mg tablet,extended 90 mg PO QAM 06/15/21 06/15/21 History release 24 hr omega 1-urb-obx-fish oil 1,000 mg 1 cap PO BID 06/15/21 06/15/21 History (120 mg-180 mg) capsule (Fish Oil) omeprazole 20 mg capsule,delayed 20 mg PO BID 06/15/21 06/15/21 History release polyethylene glycol 3350 17 17 g PO DAILY PRN 06/15/21 06/15/21 History gram/dose oral powder (Miralax) semaglutide (Ozempic) 0.5 mg SUBCUT WK 06/15/21 06/15/21 History tamsulosin 0.4 mg capsule 0.4 mg PO BID 06/15/21 06/15/21 History terbinafine HCl 1 % topical cream 1 applic TOPICAL BID 06/15/21 06/15/21 History trazodone 50 mg tablet 50 mg PO HS 06/15/21 06/15/21 History vit C 250 mg-vit E 90 mg-zinc 40 1 tab PO BID 06/15/21 06/15/21 History mg-copper 1 qa-dbljby-hglkoh capsule (PreserVision AREDS-2) Patient History Medical History Diabetes mellitus Hypertension Pacemaker Social History Smoking Status: Former smoker Do You Dip or Chew Tobacco: No; Hx Alcohol Use: Yes Alcohol type: wine Hx Substance Use: No Preferred Language: French Communication Ability: Effective Beliefs That Will Affect Care: None Current Living Situation: Long Term Other Information That Helps Us Care for You: No Feels Safe at Home: Yes Safety Concerns: Feels Safe At This Time Assistive Devices: Walker and Wheelchair Review of Systems Constitutional: no fever and no chills Eyes: no blind spots and no diplopia Ear, Nose, Mouth, Throat: Difficulty swallowing noted, no pain with swallowing Respiratory: + dyspnea; no pain on inspiration Cardiovascular: no chest pain and no palpitations Gastrointestinal: no constipation and no diarrhea/loose stools Genitourinary: no urinary incontinence or no urinary urgency Musculoskeletal: no muscle weakness and no muscle atrophy Integumentary: no rash and no lesions Neurologic: as per Subjective / HPI Psychiatric: no behavioral changes, no depression, no abnormal sleep pattern and no anxiety Hematologic / Lymphatic: no easy bruising and no lymphadenopathy Exam (Neuro) Constitutional: well developed and well nourished; no acute distress Eyes: normal visual casas by confrontation, PERRL, normal accommodation and EOM intact bilaterally; no fundoscopic abnormality, no nystagmus and no papilledema Cardiovascular: Vessels: normal carotid upstroke; no carotid bruit Neurologic: Oriented to:: Person, Place and Time Memory: Short Term Intact and Remote Intact Attention: Span Intact and Concentration Intact Language: Naming Objects and Repeating Phrases Speech Fluency: negative Dysarthria Speech Aphasia: negative Aphasia Fund of Knowledge: Current Events, Past History and Vocabulary Cranial Nerves: Normal II (Visual casas full to confrontation, visual acuity normal), III, IV, (Pupils equal round reactive to light and accommodation, eye movements normal), V (Facial sensation intact), VII (There is no facial droop or weakness), VIII (Hearing intact), IX, X (Palate elevates to midline), XI (Shoulder shrug intact) and XII (Tongue protrudes to midline) Motor Strength: negative Normal Lower Extremities, Normal Upper Extremities or Pronator Drift Motor Tone: Normal Lower Extremities and Normal Upper Extremities Muscle Bulk/Involuntary Movements: No Involuntary Movements (No twitching or muscular fasciculations observed.) and Muscle Atrophy (Atrophy of the shoulder girdle/trapezius muscle groups noted.) Sensation: Light Touch Intact and Pain/Temperature Intact; negative Vibration Intact or Proprioception Intact Coordination: Normal, Limited Balance, Finger-Nose Abnormal (Difficulty performing pjkjch-[id number] due to bilateral shoulder girdle weakness.) and Heel-Peralta Abnormal (Unable to perform [id number] due to bilateral proximal lower extremity weakness.); negative Dysdiadochokinesia Deep Tendon Reflexes: Rt Triceps: 1+, Lt Triceps: 1+, Rt Biceps: 1+, Lt Biceps: 1+, Rt Brachioradialis: 1+, Lt Brachioradialis: 1+, Rt Patellar: 1+, Lt Patellar: 1+, Rt Ankle: 0 and Lt Ankle: 0 Special Tests: negative Babinski Present Details: Patient able to stand up at a bedside chair on his own. Appears unsteady. Able take only a few short steps. Results & Data ([facility]) Vital Signs (Past 12 Hours) Vital Signs Temp Pulse Pulse Pulse Resp BP BP 06/16/21 07:38 36.7 C 67 20 121/67 06/16/21 04:29 35.8 C L 66 18 118/55 L 06/16/21 01:53 67 06/16/21 00:08 37.4 C 66 18 104/58 L 06/15/21 21:59 36.2 C L 77 25 H 143/74 H 06/15/21 21:56 77 06/15/21 21:21 37.2 C 72 20 132/67 Pulse Ox 06/16/21 07:38 100 06/16/21 04:29 100 06/16/21 01:53 06/16/21 00:08 100 06/15/21 21:59 100 06/15/21 21:56 06/15/21 21:21 100 Laboratory Results WBC 6.30, hemoglobin 10.2, hematocrit 29.1, platelet count 328, ESR 22, sodium 131, potassium 4.2, BUN 34, creatinine 1.54, glucose 254, calcium 8.8, magnesium 1.3, AST 15, ALT 18, total CK 211, troponin less than 0.015, TSH 4.490, Lyme serology negative, COVID-19 PCR negative Diagnostic Findings A CT of the head reveals chronic microvascular ischemic change. Mild generalized atrophy. No imaging findings suggestive of normal pressure hydrocephalus. No hemorrhage or acute process. I reviewed the images as well as the radiologist's interpretation of this test and agree. Electrocardiogram reveals an atrial sensed ventricular paced rhythm, 70 bpm. Coding Level of Care Code 16283 Initial Inpt Care Lvl 3 Diagnoses Weakness R53.1
[2021-06-16] MEDS: FERROUS SULFATE 325 MG TAB PO SCH (12:26)
--- NOTE | 2021-06-16 12:48 | XCELERA ---
[id number]
[2021-06-16 13:15] LABS: Hemoglobin 9.3 g/dL (14.0-18.0); Mean Corpuscular Hemoglobin 30.5 pg (25-34); Mean Corpuscular Hgb Conc 34.4 g/dL (32-36); Mean Corpuscular Volume 88.5 fL (80-100); Mean Platelet Volume 8.7 fL (7.4-10.4); Platelet Count 315 K/uL (130-400); RDW Coefficient of Variation 13.2 % (11.5-14.5); RDW Standard Deviation 43.2 fL (36.4-46.3); Red Blood Count 3.05 M/uL (4.7-6.1); White Blood Count 5.88 K/uL (4.8-10.8)
[2021-06-16 13:28] LABS: Estimated Average Glucose 240 mg/dl
[2021-06-16 13:31] LABS: BUN Creatinine Ratio 26.8 (10-20); Calcium 8.1 mg/dl (8.5-10.1); Creatinine Clr Calc Pharmacy 49.6 ml/min; Est GFR (African American) 69.3 ml/min; Est GFR (Non-African American) 59.8 ml/min; Magnesium 2.1 mg/dl (1.8-2.4); Potassium 4.3 mmol/L (3.5-5.1)
--- NOTE | 2021-06-16 13:41 | Electrocardiogram Report ---
Test Reason : Blood Pressure : / mmHG Vent. Rate : 070 BPM Atrial Rate : 070 BPM P-R Int : 172 ms QRS Dur : 134 ms QT Int : 468 ms P-R-T Axes : 094 -47 079 degrees QTc Int : 505 ms Atrial-sensed ventricular-paced rhythm Biventricular pacemaker detected Abnormal ECG No previous ECGs available Confirmed by Modesto Knight ([id number]) on 06/16/2021 1:40:48 PM Referred By: Haven Hernandez [place] Confirmed By:Eric Knight
--- NOTE | 2021-06-16 16:36 | Billing Data ---
Date of Service June 16, 2021 Coding Level of Care Code Critical Care 1st -74 mins
[2021-06-16] MEDS ORDERED: IMMUNE GLOBULIN (HUMAN) SOLN IV SCH (16:45)
--- NOTE | 2021-06-16 16:53 | Critical Care Consultation ---
Date of Consultation June 16, 2021 Assessment & Plan (1) Shortness of breath: Reason Critically Ill: Eamon is a very pleasant 80-year-old male with a notable past medical history of diabetes, hypothyroidism, hypertension, and ICD placement who presented [facility] for evaluation of weakness that began after receiving COVID-19 immunization in January, and was subsequently found to have evidence of proximal muscle weakness, hyporeflexia, sensation difficulties, and positionally-related respiratory distress. The current thought is that this patient's symptoms may be related to an acute/ewlxd-xp-puvgfpz demyelinating polyneuropathy versus neuromuscular disease. Given evidence of inspiratory compromise discovered at the bedside, his presenting HoTN, and overall clinical picture, Mr. Florentino requires ICU-level care for intensive respiratory and hemodynamic monitoring. 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 neuromuscular (e.g., MG, LEMS) vs. spinal process (e.g., transverse myelitis) * NIF of -12 at bedside assessment -- suspect diaphragm weakness secondary to underlying disease process * Given progression of symptoms --> significant concern that this could progress towards laundry paralysis and potential for autonomic/hemodynamic instability -- Arrange for EtCO2 -- Given the severity of his symptoms and recent aspiration, significant concern at this point that this patient will fail to protect his airway -- Will discuss proceeding with mechanical ventilation via ETT, possible transition to tracheostomy after 2 weeks -- CCM, A-line if needed * Will check IgA -- So long as no IgA deficiency: initiate IVIG x 5 days (0.4 g / kg / day) * CSF sample obtained -- await labs, cultures * Neuro following, appreciate insight and recommendations * PT, OT when appropriate Cardiac - HTN, ASCVD * Hold home Coreg, nifedipine in setting of HoTN in the ER (fluid responsive) * Continue ASA, statin Reported H/O HFrEF * Echocardiography demonstrating grossly normal biventricular function * Patient has ICD in place -- Await interrogation. Respiratory, GI - Aspiration / At Risk for Aspiration * Aspiration event at 1715 on 06/16 - patient reporting this has happened several times at home * Suspect secondary to neuromuscular weakness in setting of neurologic disease process * RECREATION PROGRAM COORDINATOR consulted * NPO now * CXR tonight RENAL/LYTES - Acute Kidney Injury * Presented with BUN 34, Cr 1.54 - in context of HoTN, weight loss, suspect sec to anorexia / poor PO intake / dehydration * Resolved on AM labs * Replete lytes as needed - * No acute concerns at this time ENDO - Type 2 Diabetes Mellitus * Patient hyperglycemic to 300s on arrival * Hold home medications * Glycemic consult - appreciate pharmacy assistance - Lantus and SSI HEME - * Stable H&H ID - * In setting of ongoing neuromuscular disease work-up, will await CSF studies and cultures * BCX demonstrated NGTD * Continue to monitor temperatures INTEGUMENTARY - * Sacral wound - appreciate wound care consult LINES/IV ACCESS - PIVs intact. DVT PROPHYLAXIS - Lovenox CODE STATUS - DNR/DNI Thank you for allowing us to be part of this patient's care. Please refer to Dr. Frank's documentation for any further recommendations. (2) Hypertension: (3) Diabetes mellitus: (4) Hypotension: (5) Hypomagnesemia: (6) Acute hyponatremia: (7) Weakness: (8) Elevated lactic acid level: (9) DVT prophylaxis: Supervising Physician Co-Signing Physician Notes Dr. Pompa was resident physician during care of patient. I separately evaluated patient for tafoya portions of the history and the exam. I was present during the critical portion of medical decision making, and I discussed the case with the resident. I generally agree with the findings and plan. 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 He discussed this with additional family members. We are starting IVIG. After more discussion patient desires to think about it overnight with regards to intubation, I advised there is a high possibility of him losing awareness and slipping into a coma and/or having a respiratory arrest, in the event of either he does not want a breathing tube placed and accordingly he is DNR/DNI in event of respiratory insufficiency. I have personally spent 55 minutes of critical care time in the direct management of this patient. This is a life/limb threatening event. This includes time spent evaluating patient, direct bedside care, chart review, placing orders, interpretation of diagnostic studies, discussion with consultants, patient, and/or family members regarding treatment decisions, as well as other required patient management activities. This time is exclusive of all separately billable procedures, and teaching time and separate from and in addition to any other critical care service time. History of Present Illness Requesting Physician: Jerry Goldman MD Attending Physician: Malik Frank DO History of Present Illness This is an 80-year-old male with a notable past medical history of diabetes, hypothyroidism, hypertension, and ICD placement who presented to [facility] for evaluation of ongoing weakness. According to patient's record, the onset of his symptoms seem to be a few months ago at the beginning of January, approximately 1 week after receiving the maternal COVID-19 vaccine. He describes that the weakness was most noticeable and actions that required proximal muscle recruitment, including getting out of the bed, and inability to ambulate on occasion. Further, he has endorsed difficulty raising his arms, getting out of chairs, and has fallen a few times as a result of his dysfunction. In addition to this, he has endorsed progressive shortness of breath, particularly with lying flatso much so that he has to sleep sitting up. In addition to the symptoms, he has endorsed numbness and tingling in his lower extremities, occasional urinary incontinence, as well as an approximate 40 pound weight loss over the last few months. In the ER, he was found to be hypotensive to 70/30, which subsequently improved following a small fluid bolus. He was also hyperglycemic. Otherwise, his labs were significant for mild hyponatremia (131), mild BEKA (34/1.54), lactate 3.2, magnesium 1.3, normal thyroid, normal CK, normal troponin, without acute processes on head CT other than chronic, microvascular ischemic change, and normal chest x-ray and EKG. Preliminary blood cultures demonstrating no growth after 24 hours. Echocardiography demonstrating normal biventricular function. He was started on insulin sliding scale, beta-blockade was held as work-up was ongoing. He was given cefepime x 1 in the ED. Neurology was consulted for aid in work-up and possible neuromuscular disease. Based on his pattern of central and proximal muscle weakness, hyporeflexia, sensation alterations, and positionally related shortness of breath that began after receiving the COVID-19 immunization, the current impression was that patient symptoms could be corporate representative of Guillain-Lima syndrome, acute inflammatory demyelinating polyneuropathy, chronic inflammatory demyelinating polyneuropathy, myopathy or myositis, myasthenia gravis or Lambert-Eaton, transverse myelitis -- though work-up is still ongoing. NIF bedside testing performed by respiratory therapy with significant for value of -12. Given this and the concern for possible progression of his symptoms in to laundry paralysis, and while work-up is ongoing, patient was transferred to the ICU for intensive hemodynamic and respiratory monitoring. EDIT: Of note, upon transfer down to ICU, patient aspirated some of his dinner and did briefly require Heimlich and suctioning to clear airway. Intermittent coughing present following clearance, but is now speaking fine. Says this has been happening a lot at home - to the point of choking sometimes. He endorses significant difficulty blowing his nose, sneezing, coughing. Allergies Allergy/AdvReac Type Severity Reaction Status Date / Time lisinopril Allergy Unknown Unknown Verified 06/15/21 17:27 Home Medications Medication Instructions Recorded Confirmed Type acetaminophen 325 mg tablet 650 mg PO Q6 PRN 06/15/21 06/15/21 History aspirin 81 mg tablet,delayed 81 mg PO DAILY 06/15/21 06/15/21 History release (Aspirin Low Dose) atorvastatin 20 mg tablet 10 mg PO DAILY 06/15/21 06/15/21 History carboxymethylcellulose sodium 0.5 1 drp OPHTHALMIC (EYE) 6XD PRN 06/15/21 06/15/21 History % eye drops carvedilol 25 mg tablet 25 mg PO Q12H 06/15/21 06/15/21 History ferrous sulfate 324 mg (65 mg 324 mg PO 3XWK 06/15/21 06/15/21 History iron) tablet,delayed release finasteride 5 mg tablet 5 mg PO DAILY 06/15/21 06/15/21 History fluticasone propionate 50 1 spray INTRANASAL BID PRN 06/15/21 06/15/21 History mcg/actuation nasal spray,suspension glucose 4 gram chewable tablet 16 g PO UD PRN 06/15/21 06/15/21 History insulin glargine 100 unit/mL 10 unit SUBCUT BID 06/15/21 06/15/21 History subcutaneous solution (Lantus U-100 Insulin) ketoconazole 2 % shampoo 1 ea TOPICAL 3XWK 06/15/21 06/15/21 History levothyroxine 88 mcg tablet 88 mcg PO DAILY 06/15/21 06/15/21 History lidocaine 5 % topical ointment 1 applic TOPICAL Q6 PRN 06/15/21 06/15/21 History loratadine 10 mg tablet 10 mg PO DAILY 06/15/21 06/15/21 History losartan 100 mg tablet 100 mg PO DAILY 06/15/21 06/15/21 History melatonin 3 mg tablet 3 mg PO HS PRN 06/15/21 06/15/21 History menthol 0.44 %-zinc oxide 20.6 % 1 applic TOPICAL DAILY 06/15/21 06/15/21 History topical ointment (Calmoseptine) metformin 1,000 mg tablet 1,000 mg PO BID 06/15/21 06/15/21 History multivitamin with iron-mineral 1 tab PO DAILY 06/15/21 06/15/21 History nifedipine 90 mg tablet,extended 90 mg PO QAM 06/15/21 06/15/21 History release 24 hr omega 3-har-frb-fish oil 1,000 mg 1 cap PO BID 06/15/21 06/15/21 History (120 mg-180 mg) capsule (Fish Oil) omeprazole 20 mg capsule,delayed 20 mg PO BID 06/15/21 06/15/21 History release polyethylene glycol 3350 17 17 g PO DAILY PRN 06/15/21 06/15/21 History gram/dose oral powder (Miralax) semaglutide (Ozempic) 0.5 mg SUBCUT WK 06/15/21 06/15/21 History tamsulosin 0.4 mg capsule 0.4 mg PO BID 06/15/21 06/15/21 History terbinafine HCl 1 % topical cream 1 applic TOPICAL BID 06/15/21 06/15/21 History trazodone 50 mg tablet 50 mg PO HS 06/15/21 06/15/21 History vit C 250 mg-vit E 90 mg-zinc 40 1 tab PO BID 06/15/21 06/15/21 History mg-copper 1 nz-ihuakp-aehlfs capsule (PreserVision AREDS-2) Patient History Medical History (Updated 06/16/21 @ 14:44 by Jerry Goldman MD) Diabetes mellitus Hypertension Pacemaker Social History Smoking Status: Former smoker Do You Dip or Chew Tobacco: No; Hx Alcohol Use: Yes Alcohol type: wine Hx Substance Use: No Preferred Language: Yemeni Communication Ability: Effective Beliefs That Will Affect Care: None Current Living Situation: Prison Other Information That Helps Us Care for You: No Feels Safe at Home: Yes Safety Concerns: Feels Safe At This Time Assistive Devices: Walker Review of Systems Review of Systems: Constitutional: Denies fever, chills, malaise Eyes: Denies double vision, vision change ENT: Denies ear pain, sore throat Cardiovascular: Denies Chest pain, chest pressure, palpitations Respiratory: Denies shortness of breath worse than baseline, cough Gastrointestinal: Denies abdominal pain, nausea, vomiting Genitourinary: Denies urinary symptoms including dysuria Musculoskeletal: + weakness, + back pain at LP site Integumentary:Denies rash, lesions, bruising Neurological: Denies headache, numbness, tingling, focal weakness Physical Exam Physical Exam: General: Tired and frail appearing 80 year old male who is sitting back in his hospital chair, hunched over, covered in blankets. HEENT: NCAT. Eyes - Sclera are white, anicteric, and without injection. PERRL. EOMs display full ROM bilaterally. Mouth - MMM with no tonsillar edema or exudates. Cardiac: Normal rate and regular rhythm; S1 and S2 present with no murmurs, rubs, or gallops. Pulmonary: Good respiratory effort with symmetric expansion of the chest. No use of accessory muscles. Lungs were clear to auscultation bilaterally with no crackles or wheezes. Abdominal: Abdomen was soft, nondistended, and non-tender to palpation. No hepatomegaly or splenomegaly. Extremities: Upper and lower extremities are warm and well perfused. LE swelling 1+ bilaterally, slightly greater on R > L Neuro: - Cranial Nerves: CN I, VIII, and X - not assessed. II - PERRL. III/IV/ - EOMs WNL. No nystagmus. V - Facial sensation in tact in all three divisions; jaw opening WNL. VII - Patient is able to smile symmetrically and keep eyes close against resistance. IX - Patient is able to rotate head and shrug shoulders against resistance. XI - Soft palate raises equally and appropriately while saying "ah." XII - patient is able to stick out tongue and deviate from wrhy-av-zxuq appropriately. - Motor: UE - Finger, wrist, elbow, and shoulder strength is 4/5 bilaterally. LE - Hip strength 3/5 b/l, knee strength 4/5 bilaterally. - Reflexes - Globally 1+ on my exam Results & Data Results & Data ([facility]) Vital Signs (Past 12 Hours) Vital Signs Temp Pulse Resp BP Pulse Ox 06/16/21 15:12 36.5 C 69 20 153/73 H 98 06/16/21 11:36 36.4 C L 72 20 143/62 H 94 06/16/21 07:38 36.7 C 67 20 121/67 100 Resident Activity Tracking Resident Involvement: Resident Care Provided Care Provided: Adult Hospital Medicine (1) Hypotension Hypotension type: unspecified hypotension type Qualified Code(s): I95.9 - Hypotension, unspecified
--- NOTE | 2021-06-16 17:04 | Procedure Note ---
Procedure Note Date of Service June 16, 2021 Note Asked to assist with lumbar puncture to help with diagnosis - progressive weakening. Patient had lumbar spine surgery at unknown level. Allergy to lisinopril. History of diabetes, also has pacemaker - no anticoagulation meds. Dr Cool spoke with him and his daughter and obtained consent. 153/73 69 20 36.5 98% on RA O2 placed on patient, monitors. Patient sitting, prepped and draped. 1% lidocaine 2ml to numb skin. L3-4, 24g spinal needle to find space, collected CSF in 4 tubes without trouble. Patient tolerated well - he will be transferred to ICU for further respiratory monitoring. Coding
[2021-06-16 17:40] LABS: CSF Glucose 103 mg/dl (40-70)
[2021-06-16 17:55] LABS: Appearance CSF Clear; CSF Count Tube # 3; CSF Xanthrochromic No xanthochromia; Color CSF Colorless; Red Blood Cell CSF (A) 0 /uL (0-); Red Blood Cell CSF (B) 0 /uL (0-); White Blood Cell CSF (A) 0 /uL (0-5); White Blood Cell CSF (B) 0 /uL (0-5)
[2021-06-16 18:32] LABS: CSF Chemistry Tube # 2
--- NOTE | 2021-06-16 19:15 | XRay Report ---
XR chest 1V portable CLINICAL HISTORY: aspiration at 1715 COMPARISON STUDY: Chest radiograph June 15, 2021. FINDINGS: A left subclavian biventricular pacer/AICD is in place. There is no pneumothorax or pleural effusion. The heart is mildly enlarged. There is no evidence for pulmonary edema. No consolidation i s noted. The appearance of the chest is unchanged. IMPRESSION: No acute cardiopulmonary findings. ACT 112: Negative or not required by law. Electronically signed by: Lalo Hough M.D. 06/16/2021 7:14 PM
[2021-06-16] MEDS: IMMUNE GLOBULIN(HUMAN) 10% 100 ML IV SCH ×3 (19:26→21:56)
--- NOTE | 2021-06-16 19:47 | Hospitalist Progress Note ---
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 Patient had a lumbar puncture which results are pending and serology sent per recommendations of neurology. Immunoglobulin treatment was begun on the evening of 06/16 with movement intensive care unit neurology following. (2) Shortness of breath: Plan: Patient presented with shortness of breath and some mild hypotension. Concerns of these issues occurring after immunization with Covid vaccine however the time course is from January. Initially it sounds like he has had a fairly subst antial work-up in his hospitals in [place] but he does sound like he had fairly significant weakness and does have some persistent weakness of his proximal shoulder muscles and hips difficulty walking lifting his arms he also has shortness of breath and orthopnea and has difficulty positioning his head. With his significant reduction in his negative inspiratory force his shortness of breath is felt to be secondary to muscular weakness of his respiratory muscles with concern for gamma ray or similar syndrome subsequently lumbar puncture was performed send out laboratories were undertaken and immune globulin was initiated he has moved to intensive care unit for end-tidal CO2 monitoring (3) Acute hyponatremia: Plan: Patient's hyponatremia is mild in presentation did improve with l fluid restrict and follow (4) Hypomagnesemia: Plan: Patient's hypomagnesemia is replete at this time (5) Diabetes mellitus: Plan: Patient is a history of diabetes certainly is slightly elevated glucose will employ sliding scale insulin continue his basal insulin and have him on a diabetic diet (6) Hypertension: Plan: Patient's blood pressures were initially low on presentation, carvedilol was held and watch for beta-keysha rebound no apparent infection is present at this time we will not associate hypotension with sepsis will screen for infectious source especially with urinary incontinence such as urine. He was given cefepime in the emergency department (7) DVT prophylaxis: Plan: Enoxaparin for DVT prevention Admission and Anticipated Discharge Date Admission Date: June 15, 2021 Subjective Patient continues about the same situation where he has significant orthopnea afraid to lay flat we did test his negative inspiratory force it was -12. Patient tolerated a lumbar puncture sitting up. Patient moved to ICU for further surveillance of his respiratory status initiation of immunoglobulin by the intensive care unit team Review of Systems Review of Systems: Mild distress and moderate fatigue especially respiratory muscles no headache, no visual changes no speech or swallowing issues no chest pain, pressure or palpitations Markedly short of breath when lying flat no abdominal pain, nausea or vomiting, diarrhea or constipation no dysuria, hematuria or frequency no focal joint pain or swelling no back pain, CVA tenderness or radicular pain no bruising, bleeding or rashes patient has occipital muscle weakness and [id number] no complaints of anxiety or depression.. Physical Exam Physical Exam: The patient appeared well nourished and normally developed. However prefers to sit bolt upright Vital signs as documented. Head exam is normocephalic atraumatic Neck is without JVD, thyromegaly, or carotid bruits. Lungs are clear to auscultation, reasonable air movement, no focal loss of breath sounds Cardiac exam, Rhythm is regular.. No murmurs, rubs or gallops. Abdominal exam reveals normal bowel sounds, soft non tender, no masses Extremities are nonedematous and both pedal pulses are present Neurologic exam is alert and oriented, strength to his shoulders and hip flexors are limited to 2.5 out of 5. He is hyporeflexic throughout Skin is without bruises or rashes Psychologically is without concerns for anxiety or depression Results & Data Results & Data ([facility]) Vital Signs (Past 12 Hours) Vital Signs Temp Pulse Resp BP Pulse Ox 06/16/21 15:12 97.7 F 69 20 153/73 H 98 06/16/21 11:36 97.5 F L 72 20 143/62 H 94 PG Care Time/CCT Total # of Minutes Spent Total Time Spent with Patient: Total time spent is greater than 50% in coordination of care (as documented) at patient's floor/unit and/or counseling patient: Coding Level of Care Code 78368 Subseq Hosp Care Lvl 3 Diagnoses Shortness of breath R06.02 Acute hyponatremia E87.1 Hypomagnesemia E83.42 Diabetes mellitus E11.9 Hypertension I10 DVT prophylaxis Z29.9 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
[2021-06-16] MEDS: FAMOTIDINE 20 MG in SYRINGE 3 ML IV SCH (21:56)
[2021-06-17 05:00] LABS: Hematocrit (blood only) 28.6 % (42-52); Hemoglobin 9.8 g/dL (14.0-18.0); Mean Corpuscular Hgb Conc 34.3 g/dL (32-36); Mean Corpuscular Volume 90.5 fL (80-100); Mean Platelet Volume 8.9 fL (7.4-10.4); Platelet Count 307 K/uL (130-400); RDW Coefficient of Variation 13.3 % (11.5-14.5); RDW Standard Deviation 44.4 fL (36.4-46.3); Red Blood Count 3.16 M/uL (4.7-6.1); White Blood Count 6.51 K/uL (4.8-10.8)
[2021-06-17 05:27] LABS: BUN Creatinine Ratio 26.3 (10-20); Calcium 8.8 mg/dl (8.5-10.1); Est GFR (Non-African American) 70.8 ml/min; Potassium 3.9 mmol/L (3.5-5.1)
[2021-06-17] MEDS: LEVOTHYROXINE SODIUM 88 MCG TABLET PO SCH (06:35)
[2021-06-17] MEDS ORDERED: Nursing to Pharmacy Communication SCH ×3 (07:30→13:00)
[2021-06-17] MEDS: INSULIN ASPART 100 UNITS/ML 3 ML PEN SC SCH ×5 (07:57→21:11)
[2021-06-17] MEDS: POLYETHYLENE (MIRALAX) 17 GM PACK PO PRN (08:00)
[2021-06-17] MEDS: ACETAMINOPHEN 325 MG TAB PO PRN (08:00)
[2021-06-17] MEDS: ENOXAPARIN INJ 40 MG/0.4 ML SYR SQ SCH (08:02)
[2021-06-17] MEDS: FINASTERIDE 5 MG TAB PO SCH (08:02)
[2021-06-17] MEDS: ASPIRIN 81 MG ECTAB PO SCH (08:02)
[2021-06-17] MEDS: TERBINAFINE CR 30 GM TUBE EXT SCH ×2 (08:03→21:10)
[2021-06-17] MEDS: CEROVITE ADV FORMULA TAB PO SCH (08:03)
[2021-06-17] MEDS: THIAMINE HCL 200 MG in SODIUM CHLORIDE 0.9% 50 ML IV SCH (09:15)
[2021-06-17] MEDS: FAMOTIDINE 20 MG in SYRINGE 3 ML IV SCH ×2 (09:18→21:14)
[2021-06-17] MEDS: INSULIN GLARGINE SOLOSTAR 100 UNITS/ML 3 ML PEN SC SCH ×2 (09:18→21:12)
--- NOTE | 2021-06-17 10:57 | Critical Care Progress Note ---
Date of Service June 17, 2021 Assessment & Plan (1) Shortness of breath: Plan: Reason Critically Ill: Eamon is a very pleasant 80-year-old male with a notable past medical history of diabetes, hypothyroidism, hypertension, and ICD placement who presented [facility] for evaluation of weakness that began after receiving COVID-19 immunization in January, and was subsequently found to have evidence of proximal muscle weakness, hyporeflexia, sensation difficulties, and positionally-related respiratory distress. The current thought is that this patient's symptoms may be related to an acute/hrjhx-xu-yznbhch demyelinating polyneuropathy versus neuromuscular disease. Given evidence of inspiratory compromise discovered at the bedside, his presenting HoTN, and overall clinical picture, Mr. Florentino requires ICU-level care for intensive respiratory and hemodynamic monitoring. 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 neuromuscular (e.g., MG, LEMS) vs. spinal process (e.g., transverse myelitis) * NIF of -12 at bedside assessment -- suspect diaphragm weakness secondary to underlying disease process * Given progression of symptoms --> significant concern that this could progress towards laundry paralysis and potential for autonomic/hemodynamic instability -- EtCO2 -- Given the severity of his symptoms and recent aspiration, significant concern at this point that this patient will fail to protect his airway * Will check IgA: Normal -- IVIG x 5 days (0.4 g / kg / day) day 2 * CSF sample obtained -- await labs, cultures * Neuro following, appreciate insight and recommendations * PT, OT when appropriate Cardiac - HTN, ASCVD * Hold home Coreg, nifedipine in setting of HoTN in the ER (fluid responsive) * Continue ASA, statin Reported H/O HFrEF * Echocardiography demonstrating grossly normal biventricular function * Patient has ICD in place -- Await interrogation. Respiratory, GI - Aspiration / At Risk for Aspiration * Aspiration event at 1715 on 06/16 - patient reporting this has happened several times at home * Suspect secondary to neuromuscular weakness in setting of neurologic disease p rocess * TRIPE SCRAPER consulted * NPO now -Course a feeding tube for nutrition RENAL/LYTES - Acute Kidney Injury * Presented with BUN 34, Cr 1.54 - in context of HoTN, weight loss, suspect sec to anorexia / poor PO intake / dehydration * Resolved on AM labs * Replete lytes as needed - * No acute concerns at this time ENDO - Type 2 Diabetes Mellitus * Patient hyperglycemic to 300s on arrival * Hold home medications * Glycemic consult - appreciate pharmacy assistance - Lantus and SSI HEME - * Stable H&H ID - * In setting of ongoing neuromuscular disease work-up, will await CSF studies and cultures * BCX demonstrated NGTD * Continue to monitor temperatures INTEGUMENTARY - * Sacral wound - appreciate wound care consult LINES/IV ACCESS - PIVs intact. DVT PROPHYLAXIS - Lovenox CODE STATUS - DNR/DNI - I still believe the patient would benefit from mechanical ventilation he declines at this time and can still does not want intubation in event of respiratory insufficiency. Continued ICU monitoring at this time if patient decides he does not want mechanical ventilation would engage palliative care and downgrade from ICU (2) Hypertension: (3) Diabetes mellitus: (4) Hypotension: (5) Hypomagnesemia: (6) Acute hyponatremia: (7) Weakness: (8) Elevated lactic acid level: (9) DVT prophylaxis: Admission and Anticipated Discharge Date Admission Date: June 15, 2021 Supervising Physician Co-Signing Physician Notes I have personally spent 35 minutes of critical care time in the direct management of this patient. This is a life/limb threatening event. This includes time spent evaluating patient, direct bedside care, chart review, placing orders, interpretation of diagnostic studies, discussion with consultants, patient, and/or family members regarding treatment decisions, as well as other required patient management activities. This time is exclusive of all separately billable procedures, and teaching time and separate from and in addition to any other critical care service time. Subjective Feels improved compared to yesterday still does not desire intubation at this time despite lack of improvement of neph minimal improvement in vital capacity Physical Exam Physical Exam: General: Alert. Sitting in chair slumping Skin: Warm, dry, Head: Atraumatic Ears, nose, mouth and throat: airway patent, occasionally drooling Cardiovascular: Normal peripheral perfusion Respiratory: no respiratory distress Gastrointestinal: Non distended Musculoskeletal: No deformity Results & Data Results & Data ([place]) Vital Signs (Past 12 Hours) Vital Signs Temp Pulse BP Pulse Ox 06/17/21 09:03 75 127/59 L 92 06/17/21 08:03 79 131/75 97 06/17/21 08:00 36.6 C 65 06/17/21 07:03 85 144/82 H 95 06/17/21 06:04 36.6 C 75 135/67 97 06/17/21 03:03 36.6 C 72 111/48 L 94 06/17/21 02:04 36.6 C 82 106/54 L 96 06/17/21 01:03 36.6 C 83 114/61 93 06/17/21 00:03 36.7 C 88 131/67 94 06/16/21 23:04 36.6 C 88 124/63 93 Coding Level of Care Code Critical Care 1st 30-74 mins Diagnoses Shortness of breath R06.02 Hypertension I10 Diabetes mellitus E11.9 Hypotension I95.9 Hypotension type: unspecified hypotension type Hypomagnesemia E83.42 Acute hyponatremia E87.1 Weakness R53.1 Elevated lactic acid level R79.89 DVT prophylaxis Z29.9 (1) Hypotension Hypotension type: unspecified hypotension type Qualified Code(s): I95.9 - Hypotension, unspecified
--- NOTE | 2021-06-17 16:12 | Hospitalist Progress Note ---
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 Patient had a lumbar puncture which results are relatively normal but some values are still pending and serology sent per recommendations of neurology. Immunoglobulin treatment was begun on the evening of 06/16 with movement intensive care unit neurology following. (2) Shortness of breath: Plan: Patient presented with shortness of breath and some mild hypotension. Concerns of these issues occurring after immunization with Covid vaccine however the time course is from January. Initially it sounds like he has had a fairly substantial work-up in his hospitals in [place] but he does sound like he had fairly significant weakness and does have some persistent weakness of his proximal shoulder muscles and hips difficulty walking lifting his arms he also has shortness of breath and orthopnea and has difficulty positioning his head. With his significant reduction in his negative inspiratory force his shortness of breath is felt to be secondary to muscular weakness of his respiratory muscles with concern for guillane Kingsley or similar syndrome subsequently lumbar puncture was performed send out laboratories were undertaken and immune globulin was initiated he has moved for end-tidal CO2 monitoring (3) Acute hyponatremia: Plan: Patient's hyponatremia is mild in presentation did improve with l fluid restrict and follow (4) Hypomagnesemia: Plan: Patient's hypomagnesemia is replete at this time (5) Diabetes mellitus: Plan: Patient is a history of diabetes certainly is slightly elevated glucose will employ sliding scale insulin continue his basal insulin and have him on a diabetic diet (6) Hypertension: Plan: Patient's blood pressures were initially low on presentation, carvedilol was held and watch for beta-keysha rebound no apparent infection is present at this time we will not associate hypotension with sepsis will screen for infectious source especially with urinary incontinence such as urine. He was given cefepime in the emergency department (7) DVT prophylaxis: Plan: Enoxaparin for DVT prevention Admission and Anticipated Discharge Date Admission Date: June 15, 2021 Subjective Feels improved compared to yesterday still does not desire intubation at this time despite lack of improvement of nif, and minimal improvement in vital capacity. I had a long talk at the bedside with this patient about intubation he seemed to have many questions that influence his earlier decision. The biggest is that he wants to be able to to speak to his family who are coming to visit in August. I talked a lot about if he were to progress to intubation and it would be prolonged he would still be able to communicate although not speak as he may need to progress towards tracheostomy. At the end of our discussion we left a that were taking this on a day by day basis. Otherwise patient does not feel much different Review of Systems Review of Systems: Mild distress and moderate fatigue especially respiratory muscles no headache, no visual changes no speech or swallowing issues no chest pain, pressure or palpitations Markedly short of breath when lying flat, very little reserve no abdominal pain, nausea or vomiting, diarrhea or constipation no dysuria, hematuria or frequency no focal joint pain or swelling no back pain, CVA tenderness or radicular pain no bruising, bleeding or rashes patient has occipital muscle weakness and [id number] no complaints of anxiety or depression.. Physical Exam Physical Exam: The patient appeared well nourished and normally developed. However prefers to sit bolt upright Vital signs as documented. Head exam is normocephalic atraumatic Neck is without JVD, thyromegaly, or carotid bruits. Lungs are clear to auscultation, reasonable air movement, no focal loss of breath sounds Cardiac exam, Rhythm is regular.. No murmurs, rubs or gallops. Abdominal exam reveals normal bowel sounds, soft non tender, no masses Extremities are nonedematous and both pedal pulses are present Neurologic exam is alert and oriented, strength to his shoulders and hip flexors are limited to 2.5 out of 5. He is hyporeflexic throughout Skin is without bruises or rashes Psychologically is without concerns for anxiety or depression Results & Data Results & Data ([facility]) Vital Signs (Past 12 Hours) Vital Signs Temp Pulse BP Pulse Ox 06/17/21 14:03 70 135/98 98 06/17/21 13:03 60 134/71 97 06/17/21 12:03 68 133/72 97 06/17/21 11:03 71 141/79 H 96 06/17/21 10:03 60 140/69 94 06/17/21 09:03 75 127/59 L 92 06/17/21 08:03 79 131/75 97 06/17/21 08:00 97.9 F 65 06/17/21 07:03 85 144/82 H 95 06/17/21 06:04 97.9 F 75 135/67 97 PG Care Time/CCT Total # of Minutes Spent Total Time Spent with Patient: Total time spent is greater than 50% in coordination of care (as documented) at patient's floor/unit and/or counseling patient: Coding Level of Care Code 05833 Subseq Hosp Care Lvl 3 Diagnoses Guillain-Kingsley G61.0 Shortness of breath R06.02 Acute hyponatremia E87.1 Hypomagnesemia E83.42 Diabetes mellitus E11.9 Hypertension I10 DVT prophylaxis Z29.9
[2021-06-17] MEDS: IMMUNE GLOBULIN(HUMAN) 10% 100 ML IV SCH ×3 (17:05→19:00)
[2021-06-17] MEDS: MELATONIN 3 MG TAB PO PRN (21:44)
[2021-06-18 06:25] LABS: Hematocrit (blood only) 26.9 % (42-52); Hemoglobin 9.4 g/dL (14.0-18.0); Mean Corpuscular Hemoglobin 31.5 pg (25-34); Mean Corpuscular Hgb Conc 34.9 g/dL (32-36); Mean Corpuscular Volume 90.3 fL (80-100); Mean Platelet Volume 8.7 fL (7.4-10.4); Platelet Count 264 K/uL (130-400); RDW Coefficient of Variation 13.4 % (11.5-14.5); RDW Standard Deviation 44.1 fL (36.4-46.3); Red Blood Count 2.98 M/uL (4.7-6.1); White Blood Count 3.35 K/uL (4.8-10.8)
[2021-06-18] MEDS: LEVOTHYROXINE SODIUM 88 MCG TABLET PO SCH (06:50)
[2021-06-18 07:02] LABS: BUN Creatinine Ratio 23.5 (10-20); Calcium 8.9 mg/dl (8.5-10.1); Est GFR (African American) 90.7 ml/min; Est GFR (Non-African American) 78.3 ml/min
--- NOTE | 2021-06-18 07:19 | Hospitalist Progress Note ---
Date of Service June 18, 2021 Assessment & Plan (1) Guillain-[place]: Plan: Concern is a Guilliane [place]-like syndrome. Patient had a lumbar puncture which results are relatively normal but some values are still pending and serology sent per recommendations of neurology. Immunoglobulin treatment was begun on the evening of 06/16 with movement intensive care unit, very slight improvement in NIF and FVC, continue for 5 days of therapy Neurology feels this may be more of a myopathy although cannot completely rule out as spinal fluid analysis is negative. Also may be a flavor of myasthenia. Subsequently or adding steroids to the immunoglobulin therapy beginning today on 06/18 (2) Shortness of breath: Plan: Patient presented with shortness of breath and some mild hypotension. Concerns of these issues occurring after immunization with Covid vaccine however the time course is from January. Initially it sounds like he has had a fairly substantial work-up in his hospitals in [place] but he does sound like he had fairly significant weakness and does have some persistent weakness of his proximal shoulder muscles and hips difficulty walking lifting his arms he also has shortness of breath and orthopnea and has difficulty positioning his head. With his significant reduction in his negative inspiratory force his shortness of breath is felt to be secondary to muscular weakness of his respiratory muscles with concern for guillane [place] or similar syndrome subsequently lumbar puncture was performed send out laboratories were undertaken and immune globulin was initiated he has moved for end-tidal CO2 monitoring Very very small improvements in [place] and FVC continue with watchful waiting (3) Acute hyponatremia: Plan: Patient's hyponatremia is mild in presentation did improve with fluid restrict and follow (4) Hypomagnesemia: Plan: Patient's hypomagnesemia is replete at this time (5) Diabetes mellitus: Plan: Patient is a history of diabetes certainly is slightly elevated glucose will employ sliding scale insulin continue his basal insulin and have him on a diabetic diet (6) Hypertension: Plan: Patient's blood pressures were initially low on presentation, carvedilol was held and watch for beta-keysha rebound no apparent infection is present at this time we will not associate hypotension with sepsis will screen for infectious source especially with urinary incontinence such as urine. He was given cefepime in the emergency department (7) DVT prophylaxis: Plan: Enoxaparin for DVT prevention (8) BPH (benign prostatic hyperplasia): Plan: adding flomax back Admission and Anticipated Discharge Date Admission Date: June 15, 2021 Subjective Patient states he is feeling slightly improved his breathing he still has a fairly significant sacral pain which prevents him from laying down. He does some urinary incontinence which she attributes to lack of Flomax therapy. Initially Flomax was held due to concerns for lower blood pressures. This will be restarted today. Neurology has seen and also agrees with continuing the immunoglobulin but does consider initiating steroid therapy which will begin at 60 mg daily and every 2 days reduce by 10 Review of Systems Review of Systems: Mild distress and moderate fatigue especially respiratory muscles no headache, no visual changes no speech or swallowing issues no chest pain, pressure or palpitations Markedly short of breath when lying flat, very little reserve no abdominal pain, nausea or vomiting, diarrhea or constipation no dysuria, hematuria or frequency no focal joint pain or swelling no back pain, CVA tenderness or radicular pain no bruising, bleeding or rashes patient has occipital muscle weakness and [id number] no complaints of anxiety or depression.. Physical Exam Physical Exam: The patient appeared well nourished and normally developed. However prefers to sit bolt upright Vital signs as documented. Head exam is normocephalic atraumatic Neck is without JVD, thyromegaly, or carotid bruits. Lungs are clear to auscultation, reasonable air movement, no focal loss of breath sounds Cardiac exam, Rhythm is regular.. No murmurs, rubs or gallops. Abdominal exam reveals normal bowel sounds, soft non tender, no masses Extremities are nonedematous and both pedal pulses are present Neurologic exam is alert and oriented, strength to his shoulders and hip flexors are limited to 2.5 out of 5. He is hyporeflexic throughout Skin is without bruises or rashes Psychologically is without concerns for anxiety or depression Results & Data Results & Data ([facility]) Vital Signs (Past 12 Hours) Vital Signs Temp Pulse Resp BP Pulse Ox 06/18/21 04:26 97.9 F 68 18 144/81 H 06/17/21 23:48 98.2 F 75 19 99/57 L 95 06/17/21 19:56 98.2 F 69 20 123/76 97 PG Care Time/CCT Total # of Minutes Spent Total Time Spent with Patient: Total time spent is greater than 50% in coordination of care (as documented) at patient's floor/unit and/or counseling patient: Coding Level of Care Code 41074 Subseq Hosp Care Lvl 3 Diagnoses Guillain-[place] G61.0 Shortness of breath R06.02 Acute hyponatremia E87.1 Hypomagnesemia E83.42 Diabetes mellitus E11.9 Hypertension I10 DVT prophylaxis Z29.9 BPH (benign prostatic hyperplasia) N40.0
[2021-06-18] MEDS: INSULIN GLARGINE SOLOSTAR 100 UNITS/ML 3 ML PEN SC SCH ×2 (08:27→20:48)
[2021-06-18] MEDS: INSULIN ASPART 100 UNITS/ML 3 ML PEN SC SCH ×4 (08:28→20:48)
[2021-06-18] MEDS: ENOXAPARIN INJ 40 MG/0.4 ML SYR SQ SCH (08:29)
[2021-06-18] MEDS: FAMOTIDINE 20 MG in SYRINGE 3 ML IV SCH ×2 (08:29→20:49)
[2021-06-18] MEDS: FINASTERIDE 5 MG TAB PO SCH (08:30)
[2021-06-18] MEDS: CEROVITE ADV FORMULA TAB PO SCH (08:30)
[2021-06-18] MEDS: TERBINAFINE CR 30 GM TUBE EXT SCH ×2 (08:31→20:46)
[2021-06-18] MEDS: ASPIRIN 81 MG ECTAB PO SCH (08:31)
[2021-06-18] MEDS: THIAMINE HCL 200 MG in SODIUM CHLORIDE 0.9% 50 ML IV SCH (08:34)
--- NOTE | 2021-06-18 09:18 | Neurology Progress Note ---
Date of Service June 18, 2021 Assessment & Plan (1) Muscle weakness (generalized): (2) Diabetic polyneuropathy: Plan: neurologically, this patient is complicated and not entirely straightforward. He has had the relatively recent onset of weakness starting in January of this year, 5 days after the 2nd Moderna vaccine. Interestingly, the weakness was episodic at 1st lasting anywhere from minutes to hours, and then episodes lasted hours to days. Finally, he has had weakness in the last month or so with a flare up June 15 which caused this current hospitalization. Clearly, this seems to be a progressive condition, however, he has achieved some improveme nt/stability this weekend with treatment. On neurologic examination he has proximal muscle weakness consistent with myopathy. Distal muscles are spared. He has normal reflexes in the arms (although the brachioradialis reflexes are slightly less than the biceps and triceps bilaterally ) and diminished reflexes in the quadriceps tendons bilaterally. Achilles tendon reflexes are absent and I attribute this to his longstanding diabetic polyneuropathy. He has a stocking decreased sensory loss in the feet consistent with his diabetic polyneuropathy as well. His exam and history do not fit Guillain-Yuma syndrome or chronic inflammatory demyelinating polyneuropathy (which is a more indolent, progressive form of inflammatory polyneuropathy) With the normal CK and sed rate, and lack of muscle pain and tenderness, I doubt this represents an inflammatory myopathy such as polymyositis or dermatomyositis ( no skin lesions either). There have been cases of the Covid-19 vaccines causing acute (poly)myositis. There is no evidence for upper motor neuron disease although a polyneuropathy will mask upper motor neuron signs in the feet and legs. The patient has some weakness of small muscles up in the eyes as well as some swallowing and breathing difficulties. With the fluctuating weakness and his current condition, I cannot exclude myasthenia gravis or other neuromuscular junction condition. Acetylcholine Receptor antibody titers are pending. I am not convinced that the IVIG has made a significant difference in this patient Recommendations: 1. physical and occupational therapy, increasing activity as able. He may be a rehabilitation hospital candidates. 2. EMG and nerve conduction studies of all 4 limbs, but I can only do this study as an outpatient. 3. Awaiting final CSF studies as well as immunologic lab studies which are pending. 4. consider CT scan of the chest to look for thymus area tumor. 5. ideally, I would want an MRI of the cervical spine but the patient has difficulty lying flat. He might be able to tolerate a CT scan of the cervical spine. 6. finish 5 days of IVIG. Consider adding prednisone 60 mg a day for 2 days. Overall, I spent 110 minutes with this case including review of records, review of the case/entire history with the patient at bedside, direct evaluation of the patient, and discussion of the case with patient at bedside, RN at bedside, and Dr. Goldman including differential diagnosis and treatment options. Admission and Anticipated Discharge Date Admission Date: June 15, 2021 Subjective Patient feels stable but he is still weak. He feels that his weakness is a 7 out of 10 currently (with 0 being normal). The weakness is "everywhere". He has numbness in his feet and lower legs but he has had this chronically for years. He has diabetes. He denies confusion, speech issues, incontinence of bowel or bladder, or new vision problems (he does have macular degeneration for which he receives injections in the eyes regularly). He denies droopy eyelids or double vision but he does have problems breathing and swallowing currently. He has no numbness in the limbs or lack of feeling and no Limb pain. He does have posterior cervical spine pain at the base. He does have some low back pain as well and he is post cervical lumbar spine surgery for degenerative changes in the past. He has neck pain and stiffness currently. Blood pressure is 125/60. CBC shows a low white count and mild anemia. Chem profile is largely unremarkable although hemoglobin A1c is 10. LP results show 0 white cells and a protein of 38 with no growth in cultures so far. Special protein studies are pending. A number of immunologic laboratory studies are pending as well. TSH and Lyme antibody titers were unremarkable. B vitamin levels are pending as well. CT scan of the head was unremarkable. I reviewed the history of this patient's problems once again. He had no new issues or problems prior to January of this year. He had his Moderna vaccine without issue. Five days after receiving the 2nd vaccine shot, he woke up 1 morning and could not get out of bed. All 4 limbs were weak diffusely. There was no numbness or pain and he had no double vision problems, swallowing problems, or breathing problems. He had no droopy eyelids. He managed to get himself up and noticed that the entire episode was gone in 20 minutes and he was back to his normal strength. He then drove to his eye appointment and then to the ER. they wanted to keep him but he refused to stay because he had to take care of his dogs at home. A few days later he had a 2nd episode only this lasted hours. He went to the [facility] in [facility] and they evaluated him with no specific diagnosis. He had a total of 4 or 5 episodes in January all consisting of weakness when he got out of bed 1 morning lasting hours to several days. No other symptoms were present at that time. Once, in mid January he woke up and had a blood sugar of 40. Past out and ended up being hospitalized for hypoglycemia. About 4 weeks ago he had an episode of weakness waking up as before but only this time the weakness did not resolve. Improve some but he remained weak since. he woke up on the 15 of June with worsened weakness in his limbs. He came to our emergency room and was admitted. He refused intubation even though he has some trouble swallowing and breathing. He has since improved. He could not lay down flat so an MRI was not obtained. Results & Data ([facility]) Vital Signs (Past 12 Hours) Vital Signs Temp Pulse Resp BP Pulse Ox 06/18/21 08:00 36.8 C 110 H 18 125/60 96 06/18/21 04:26 36.6 C 68 18 144/81 H 06/17/21 23:48 36.8 C 75 19 99/57 L 95 Exam (Neuro) Physical Exam: The patient is awake, alert, and attentive. Speech is normal without any aphasia or dysarthria. The patient can name objects, repeat phrases, and has normal spontaneous speech. Mentation and thought processes are intact, with orientation to person, place and time, and normal fund of knowledge. Attention and concentration are normal. MoodHe is mildly down and affect is mildly flat but he is otherwise very pleasant and cooperative. General appearance and grooming are normal. Short and long-term memory are intact. The discs are somewhat difficult to view with the ophthalmoscope bilaterally due to his eye problem. Pupils are 3 mm bilaterally and reactive to light. Extraocular eye muscles are intact without nystagmus. Visual acuity and visual casas seem normal grossly to confrontation. There are no deficits to sensation in the face in all 3 distributions of the fifth cranial nerve bilaterally. Corneal reflexes are positive bilaterally. his upper lids are mildly weak and is pupils can only come to the top of his cornea bilaterally. Forehead seems weak bilaterally. Facial strength is without droop or asymmetry and seems symmetrical. Hearing seems normal bilaterally. Palate moves well without asymmetry. There is normal sternocleidomastoid and trapezius (shoulder shrug) strength bilaterally. Tongue is midline with reasonable strength bilaterally. Neck has a mildly limited range of motion and strength is reasonable in all directions. Cervical, thoracic, and lumbar spine are nontender to palpation. Gait is Not tested but stance sitting in the chair is quite good. He tends to hang his head forward when he sits in neutral position. With outstretched arms there is no drift , but his shoulders are weak bilaterally. There are no resting, postural, or action tremors. There is no ataxia with finger to nose testing. There is reasonable facility in the hands. No other abnormal involuntary movements are noted. Motor strength is 4/5 in the biceps and triceps muscles bilaterally with deltoids being 4-/5. 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 In the legs, strength is 4/5 in the hip flexors, quads, and hamstrings. It is closer to 5/5 in the tibialis anterior, gastrocnemius, and toe extensors bilaterally. The limbs have good tone without rigidity or spasticity. There is mild atrophy and small muscles of the hand bilaterally. he has swollen feet so I cannot tell about atrophy in foot muscles. Muscle bulk is normal, there is no tenderness to palpation, no myotonia to percussion, and no fasciculations seen. Sensory examination reveals a stocking decreased pinprick loss to the knees bilaterally. Hands are spared. Reflexes are 2/4 in the biceps, triceps, and brachioradialis tendons bilaterally. Quadriceps tendon reflexes are 1/4 bilaterally and Achilles reflexes are absent bilaterally. There is no clonus bilaterally. Toes are downgoing with plantar stimulation bilaterally. There is moderate edema in the feet bilaterally PG Care Time/CCT Total # of Minutes Spent Total Time Spent with Patient: Total time spent is greater than 50% in coordination of care (as documented) at patient's floor/unit and/or counseling patient: Coding Level of Care Code 48564 Subseq Hosp Care Lvl 3 Diagnoses Muscle weakness (generalized) M62.81 Diabetic polyneuropathy E11.42 Time Spent (min) 120 Comment Add modifiers as needed
[2021-06-18] MEDS: TAMSULOSIN HCL 0.4 MG CAP PO SCH ×2 (11:39→20:45)
[2021-06-18] MEDS ORDERED: predniSONE 20 MG TAB PO ONE (12:00)
[2021-06-18] MEDS: POLYETHYLENE (MIRALAX) 17 GM PACK PO PRN (15:20)
[2021-06-18] MEDS: IMMUNE GLOBULIN(HUMAN) 10% 100 ML IV SCH ×3 (17:33→18:40)
[2021-06-18] MEDS: ACETAMINOPHEN 325 MG TAB PO PRN (20:44)
[2021-06-19] MEDS: ACETAMINOPHEN 325 MG TAB PO PRN ×2 (02:12→22:12)
[2021-06-19] MEDS: MELATONIN 3 MG TAB PO PRN ×2 (02:12→22:13)
[2021-06-19 06:08] LABS: Hematocrit (blood only) 24.3 % (42-52); Hemoglobin 8.5 g/dL (14.0-18.0); Mean Corpuscular Hemoglobin 30.5 pg (25-34); Mean Corpuscular Volume 87.1 fL (80-100); Mean Platelet Volume 8.6 fL (7.4-10.4); Platelet Count 224 K/uL (130-400); RDW Coefficient of Variation 13.2 % (11.5-14.5); RDW Standard Deviation 42.8 fL (36.4-46.3); Red Blood Count 2.79 M/uL (4.7-6.1); White Blood Count 4.06 K/uL (4.8-10.8)
[2021-06-19] MEDS: LEVOTHYROXINE SODIUM 88 MCG TABLET PO SCH (06:28)
[2021-06-19 06:40] LABS: BUN Creatinine Ratio 23.7 (10-20); Calcium 8.7 mg/dl (8.5-10.1); Creatinine Clr Calc Pharmacy 63.3 ml/min; Est GFR (African American) 93.2 ml/min; Est GFR (Non-African American) 80.4 ml/min; Potassium 4.2 mmol/L (3.5-5.1)
--- NOTE | 2021-06-19 08:52 | Hospitalist Progress Note ---
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 Patient had a lumbar puncture which results are relatively normal but some values are still pending and serology sent per recommendations of neurology. Immunoglobulin treatment was begun on the evening of 06/16 with movement intensive care unit, very slight improvement in NIF and FVC, continue for 5 days of therapy Neurology feels this may be more of a myopathy although cannot completely rule out as spinal fluid analysis is negative. Also may be a flavor of myasthenia. Subsequently or adding steroids to the immunoglobulin therapy beginning today on 06/18 no with the complaints of fatigue with repetitive activity will consider Myasthenia?? serology is pending neurology is following (2) Shortness of breath: Plan: Patient presented with shortness of breath and some mild hypotension. Concerns of these issues occurring after immunization with Covid vaccine however the time course is from January. Initially it sounds like he has had a fairly substantial work-up in his hospitals in [place] but he does sound like he had fairly significant weakness and does have some persistent weakness of his proximal shoulder muscles and hips difficulty walking lifting his arms he also has shortness of breath and orthopnea and has difficulty positioning his head. With his significant reduction in his negative inspiratory force his shortness of breath is felt to be secondary to muscular weakness of his respiratory muscles with concern for guillane Luray or similar syndrome subsequently lumbar puncture was performed send out laboratories were undertaken and immune globulin was initiated he has moved for end-tidal CO2 monitoring Very very small improvements in [place] and FVC continue with watchful waiting (3) Anemia: Plan: Pt developed progressive anemia over last few days, change pepcid to protionix, check hgb at 1300 with type and screen, pt without symptoms at this time also check iron and b12 although normocytic (4) Acute hyponatremia: Plan: Patient's hyponatremia is mild in presentation did improve with fluid restrict and follow (5) Hypomagnesemia: Plan: Patient's hypomagnesemia is replete at this time (6) Diabetes mellitus: Plan: Patient is a history of diabetes certainly is slightly elevated glucose will employ sliding scale insulin continue his basal insulin and have him on a diabetic diet (7) Hypertension: Plan: Patient's blood pressures were initially low on presentation, carvedilol was held and watch for beta-keysha rebound no apparent infection is present at this time we will not associate hypotension with sepsis will screen for infectious source especially with urinary incontinence such as urine. He was given cefepime in the emergency department (8) DVT prophylaxis: Plan: Enoxaparin on hold due to anemia (9) BPH (benign prostatic hyperplasia): Plan: adding flomax back Admission and Anticipated Discharge Date Admission Date: June 15, 2021 Subjective pt does not feel much improved and NIF and FVC have had only modest improvement with IGG and now steroids, pt does suggest fatiguable from prolonged activity unknown issue with not anemia, no obvious blood loss seen, will heme check stools adding ppi, npo after mn in case egd is recommended. Review of Systems Review of Systems: Mild distress and moderate fatigue especially respiratory muscles no headache, no visual changes no speech or swallowing issues no chest pain, pressure or palpitations Markedly short of breath when lying flat, very little reserve no abdominal pain, nausea or vomiting, diarrhea or constipation no dysuria, hematuria or frequency no focal joint pain or swelling no back pain, CVA tenderness or radicular pain no bruising, bleeding or rashes patient has occipital muscle weakness and [id number] no complaints of anxiety or depression.. Physical Exam Physical Exam: The patient appeared well nourished and normally developed. However prefers to sit bolt upright Vital signs as documented. Head exam is normocephalic atraumatic Neck is without JVD, thyromegaly, or carotid bruits. Lungs are clear to auscultation, reasonable air movement, no focal loss of breath sounds Cardiac exam, Rhythm is regular.. No murmurs, rubs or gallops. Abdominal exam reveals normal bowel sounds, soft non tender, no masses Extremities are nonedematous and both pedal pulses are present Neurologic exam is alert and oriented, strength to his shoulders and hip flexors are limited to 2.5 out of 5. He is hyporeflexic throughout Skin is without bruises or rashes Psychologically is without concerns for anxiety or depression Results & Data Results & Data ([facility]) Vital Signs (Past 12 Hours) Vital Signs Temp Pulse Resp BP Pulse Ox 06/19/21 07:20 98.2 F 61 17 148/71 H 96 06/19/21 04:13 98.6 F 73 20 161/76 H 97 06/18/21 23:29 97.6 F 96 H 22 165/80 H 98 PG Care Time/CCT Total # of Minutes Spent Total Time Spent with Patient: Total time spent is greater than 50% in coordination of care (as documented) at patient's floor/unit and/or counseling patient: Coding Level of Care Code 92910 Subseq Hosp Care Lvl 3 Diagnoses Guillain-Luray G61.0 Shortness of breath R06.02 Acute hyponatremia E87.1 Hypomagnesemia E83.42 Diabetes mellitus E11.9 Hypertension I10 DVT prophylaxis Z29.9 BPH (benign prostatic hyperplasia) N40.0 Anemia D64.9
[2021-06-19] MEDS: INSULIN ASPART 100 UNITS/ML 3 ML PEN SC SCH ×4 (09:03→20:25)
[2021-06-19] MEDS: ASPIRIN 81 MG ECTAB PO SCH (09:06)
[2021-06-19] MEDS: INSULIN GLARGINE SOLOSTAR 100 UNITS/ML 3 ML PEN SC SCH ×2 (09:07→20:24)
[2021-06-19] MEDS: FINASTERIDE 5 MG TAB PO SCH (09:07)
[2021-06-19] MEDS: CEROVITE ADV FORMULA TAB PO SCH (09:08)
[2021-06-19] MEDS: TAMSULOSIN HCL 0.4 MG CAP PO SCH ×2 (09:09→20:16)
[2021-06-19] MEDS: predniSONE 20 MG TAB PO SCH (09:09)
[2021-06-19] MEDS: TERBINAFINE CR 30 GM TUBE EXT SCH ×2 (09:10→20:16)
[2021-06-19] MEDS: THIAMINE HCL 200 MG in SODIUM CHLORIDE 0.9% 50 ML IV SCH (09:12)
[2021-06-19] MEDS: PANTOprazole 40 MG in SYRINGE 0 ML IV SCH ×2 (09:29→20:16)
--- NOTE | 2021-06-19 09:32 | Neurology Progress Note ---
Date of Service June 19, 2021 Assessment & Plan (1) Muscle weakness (generalized): (2) Diabetic polyneuropathy: Plan: Neurologically, this patient is complicated and not entirely straightforward. He has had the relatively recent onset of weakness starting in January of this year, 5 days after the 2nd Moderna vaccine. Interestingly, the weakness was episodic at 1st lasting anywhere from minutes to hours, and then episodes lasted hours to days. Finally, he has had weakness in the last month or so with a flare up June 15 which caused this current hospitalization. Clearly, this seems to be a progressive condition, however, he has achieved some improvemen t/stability this weekend with treatment. On neurologic examination he has proximal muscle weakness consistent with myopathy. Distal muscles are spared. He has normal reflexes in the arms (although the brachioradialis reflexes are slightly less than the biceps and triceps bilaterally ) and diminished reflexes in the quadriceps tendons bilaterally. Achilles tendon reflexes are absent and I attribute this to his longstanding diabetic polyneuropathy. He has a stocking decreased sensory loss in the feet consistent with his diabetic polyneuropathy as well. His exam and history do not fit Guillain-Lafe syndrome or chronic inflammatory demyelinating polyneuropathy (which is a more indolent, progressive form of inflammatory polyneuropathy) With the normal CK and sed rate, and lack of muscle pain and tenderness, I doubt this represents an inflammatory myopathy such as polymyositis or dermatomyositis ( no skin lesions either). There have been cases of the Covid-19 vaccines causing acute (poly)myositis. There is no evidence for upper motor neuron disease although a polyneuropathy will mask upper motor neuron signs in the feet and legs. The patient has some weakness of small muscles up in the eyes as well as some swallowing and breathing difficulties. With the fluctuating weakness and his current condition, I cannot exclude myasthenia gravis or other neuromuscular junction condition. Acetylcholine Receptor antibody titers are pending. I am not convinced that the IVIG has made a significant difference in this patient . Recommendations: 1. physical and occupational therapy, increasing activity as able. He may be a rehabilitation hospital candidates. 2. EMG and nerve conduction studies of all 4 limbs, but I can only do this study as an outpatient. 3. Awaiting final CSF studies as well as immunologic lab studies which are pending. 4. consider CT scan of the chest to look for thymus area tumor. 5. ideally, I would want an MRI of the cervical spine but the patient has difficulty lying flat. He might be able to tolerate a CT scan of the cervical spine. 6. finish 5 days of IVIG. 7. prednisone 60 mg a day for 2 days. after this decrease to 50 milligrams a day for 2 days Overall, I spent 25 minutes with this case including review of records, direct evaluation of the patient, and discussion of the case with patient at bedside, RN at bedside, and Dr. Goldman including differential diagnosis and treatment options. Admission and Anticipated Discharge Date Admission Date: June 15, 2021 Subjective patient states that he is about the same as yesterday and certainly nothing worse. He seems to be breathing and swallowing fairly well. He does not want to get up out of bed to urinate so he tends to have incontinence in the chair. According to nursing he refused a condom catheter. CBC today shows worsening anemia and his glucose is elevated at 178. blood pressure is 148/71. Results & Data ([facility]) Vital Signs (Past 12 Hours) Vital Signs Temp Pulse Resp BP Pulse Ox 06/19/21 07:20 36.8 C 61 17 148/71 H 96 06/19/21 04:13 37.0 C 73 20 161/76 H 97 06/18/21 23:29 36.4 C 96 H 22 165/80 H 98 Exam (Neuro) Physical Exam: He is awake and alert. Speech is without aphasia or dysarthria. Mood is slightly down and affect is flat. Thought processes are intact and he is pleasant and cooperative otherwise. Coordination is normal in the arms without tremor or ataxia. There is no facial droop. Strength exam is similar to yesterday. PG Care Time/CCT Total # of Minutes Spent Total Time Spent with Patient: Total time spent is greater than 50% in coordination of care (as documented) at patient's floor/unit and/or counseling patient: Coding Level of Care Code 73410 Subseq Hosp Care Lvl 2 Diagnoses Muscle weakness (generalized) M62.81 Diabetic polyneuropathy E11.42 Time Spent (min) 25
[2021-06-19] MEDS: FERROUS SULFATE 325 MG TAB PO SCH (12:17)
[2021-06-19 13:43] LABS: Iron 104 mcg/dl (35-175); Total Iron Binding Capacity 244 mcg/dl (250-450)
[2021-06-19 15:20] LABS: Folate (Folic Acid) > 20.00 ng/ml (>5.38); Vitamin B12 523 pg/ml (193-986)
[2021-06-19] MEDS ORDERED: hydrALAZINE HCL 20 MG/ML VIAL IV PRN (16:30)
[2021-06-19] MEDS: IMMUNE GLOBULIN(HUMAN) 10% 100 ML IV SCH ×3 (17:05→21:32)
[2021-06-19] MEDS: LOSARTAN POTASSIUM 50 MG TAB PO SCH (17:08)
[2021-06-20] MEDS: LEVOTHYROXINE SODIUM 88 MCG TABLET PO SCH (06:03)
[2021-06-20] MEDS: INSULIN ASPART 100 UNITS/ML 3 ML PEN SC SCH ×5 (07:49→23:58)
[2021-06-20] MEDS: predniSONE 20 MG TAB PO SCH (07:57)
[2021-06-20] MEDS: TAMSULOSIN HCL 0.4 MG CAP PO SCH ×2 (07:58→20:35)
[2021-06-20] MEDS: FINASTERIDE 5 MG TAB PO SCH (07:58)
[2021-06-20] MEDS: LOSARTAN POTASSIUM 50 MG TAB PO SCH (07:58)
[2021-06-20] MEDS: ASPIRIN 81 MG ECTAB PO SCH (07:58)
[2021-06-20] MEDS: CEROVITE ADV FORMULA TAB PO SCH (07:58)
[2021-06-20] MEDS: PANTOprazole 40 MG in SYRINGE 0 ML IV SCH ×2 (07:59→20:34)
[2021-06-20] MEDS: TERBINAFINE CR 30 GM TUBE EXT SCH ×2 (07:59→19:40)
[2021-06-20] MEDS ORDERED: PHARMACY GLYCEMIC MGMT CONSULT PRN (08:23)
[2021-06-20 08:35] LABS: Eosinophils # (auto) 0.02 K/uL (0-0.5); Eosinophils % (auto) 0.4 %; Hematocrit (blood only) 24.9 % (42-52); Hemoglobin 8.7 g/dL (14.0-18.0); Immature Granulocytes # (auto) 0.01 K/uL (0.00-0.02); Immature Granulocytes % (auto) 0.2 %; Lymphocytes # (auto) 1.02 K/uL (1.2-3.4); Lymphocytes % (auto) 20.5 %; Mean Corpuscular Hemoglobin 30.7 pg (25-34); Mean Corpuscular Hgb Conc 34.9 g/dL (32-36); Mean Platelet Volume 8.4 fL (7.4-10.4); Monocytes # (auto) 0.42 K/uL (0.11-0.59); Monocytes % (auto) 8.4 %; Neutrophils # (auto) 3.51 K/uL (1.4-6.5); Neutrophils % (auto) 70.5 %; Platelet Count 226 K/uL (130-400); RDW Coefficient of Variation 13.3 % (11.5-14.5); RDW Standard Deviation 43.3 fL (36.4-46.3); Red Blood Count 2.83 M/uL (4.7-6.1); White Blood Count 4.98 K/uL (4.8-10.8)
[2021-06-20 08:45] LABS: Partial Thromboplastin Ratio 0.9; Partial Thromboplastin Time 23.4 Seconds (21.0-31.0); Prothrombin Time 10.2 Seconds (9.0-12.0)
[2021-06-20 09:01] LABS: Albumin Level 2.5 gm/dl (3.4-5.0); BUN Creatinine Ratio 27.3 (10-20); Calcium 8.8 mg/dl (8.5-10.1); Est GFR (African American) 93.6 ml/min; Est GFR (Non-African American) 80.8 ml/min; Potassium 3.7 mmol/L (3.5-5.1)
[2021-06-20 09:04] LABS: Albumin Globulin Ratio 0.5 (0.9-2); Bilirubin,Total 0.3 mg/dl (0.2-1); Globulin 5.4 gm/dl (2.5-4.0); Total Protein 7.9 gm/dl (6.4-8.2)
[2021-06-20] MEDS: INSULIN GLARGINE SOLOSTAR 100 UNITS/ML 3 ML PEN SC SCH ×2 (10:06→20:35)
[2021-06-20] MEDS: THIAMINE HCL 200 MG in SODIUM CHLORIDE 0.9% 50 ML IV SCH (10:06)
--- NOTE | 2021-06-20 10:29 | Neurology Progress Note ---
Date of Service June 20, 2021 Assessment & Plan (1) Muscle weakness (generalized): (2) Diabetic polyneuropathy: Plan: Neurologically, this patient is complicated and not entirely straightforward. He has had the relatively recent onset of weakness starting in January of this year, 5 days after the 2nd Moderna vaccine. Interestingly, the weakness was episodic at 1st lasting anywhere from minutes to hours, and then episodes lasted hours to days. Finally, he has had weakness in the last month or so with a flare up June 15 which caused this current hospitalization. Clearly, this seems to be a progressive condition, however, he has achieved some improvemen t/stability this weekend with treatment. On neurologic examination he has proximal muscle weakness consistent with myopathy. Distal muscles are spared. He has normal reflexes in the arms (although the brachioradialis reflexes are slightly less than the biceps and triceps bilaterally ) and diminished reflexes in the quadriceps tendons bilaterally. Achilles tendon reflexes are absent and I attribute this to his longstanding diabetic polyneuropathy. He has a stocking decreased sensory loss in the feet consistent with his diabetic polyneuropathy as well. His exam and history do not fit Guillain-[place] syndrome or chronic inflammatory demyelinating polyneuropathy (which is a more indolent, progressive form of inflammatory polyneuropathy) With the normal CK and sed rate, and lack of muscle pain and tenderness, I doubt this represents an inflammatory myopathy such as polymyositis or dermatomyositis ( no skin lesions either). There have been cases of the Covid-19 vaccines causing acute (poly)myositis. There is no evidence for upper motor neuron disease although a polyneuropathy will mask upper motor neuron signs in the feet and legs. The patient has some weakness of small muscles up in the eyes as well as some swallowing and breathing difficulties. With the fluctuating weakness and his current condition, I cannot exclude myasthenia gravis or other neuromuscular junction condition. Acetylcholine Receptor antibody titers are pending. I am not convinced that the IVIG has made a significant difference in this patient . Recommendations: 1. physical and occupational therapy, increasing activity as able. He may be a rehabilitation hospital candidates. 2. EMG and nerve conduction studies of all 4 limbs, but I can only do this study as an outpatient. 3. Awaiting final CSF studies as well as immunologic lab studies which are pending. 4. CT scan of the chest to look for thymus area tumor when able to lay flat. 5. CT scan of the cervical spine when able to lay flat. an MRI would be ideal but he would not tolerate that length of time lying. 6. finish 5 days of IVIG To day. 7. rednisone 50 milligrams a day for 2 days, starting today, then decrease to 40 milligrams a day and stay on that for several days. Overall, I spent 35 minutes with this case including review of records, direct evaluation of the patient, and discussion of the case with patient at bedside, RN at bedside, and Dr. Padgett, including differential diagnosis and treatment options. Admission and Anticipated Discharge Date Admission Date: June 15, 2021 Subjective He is the same with his strength/weakness. He can swallow some and he is breathing well. He is not choking. Diet will be advanced slowly. CBC showed anemia and Chem profile a glucose of 120. yesterday, and temp was made to have him lay down in bed but he could not breathe and did not tolerated. CT scans could not be done either. Results & Data ([facility]) Vital Signs (Past 12 Hours) Vital Signs Temp Pulse Resp BP Pulse Ox 06/20/21 07:26 36.7 C 61 22 143/79 H 99 06/20/21 04:00 36.7 C 63 20 138/74 99 Exam (Neuro) Physical Exam: He is awake and alert. Speech is without aphasia or dysarthria. Mood is reasonable and affect is appropriate. Thought processes are intact. He has significant proximal weakness 4-/5 in the arms and 4/5 in the legs. Distal strength is closer to 5/5 in all 4 limbs. There are no abnormal involuntary movements. PG Care Time/CCT Total # of Minutes Spent Total Time Spent with Patient: Total time spent is greater than 50% in coordination of care (as documented) at patient's floor/unit and/or counseling patient: Coding Level of Care Code 62795 Subseq Hosp Care Lvl 3 Diagnoses Muscle weakness (generalized) M62.81 Diabetic polyneuropathy E11.42 Time Spent (min) 35
[2021-06-20] MEDS ORDERED: INSULIN HUMAN NPH SC SCH (10:30)
--- NOTE | 2021-06-20 10:34 | Hospitalist Progress Note ---
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 Patient had a lumbar puncture which results are relatively normal but some values are still pending and serology sent per recommendations of neurology. Immunoglobulin treatment was begun on the evening of 06/16 with movement intensive care unit, very slight improvement in NIF and FVC, continue for 5 days of therapy Neurology feels this may be more of a myopathy although cannot completely rule out as spinal fluid analysis is negative. Also may be a flavor of myasthenia, although fatigue is worse at beginning of the day. Subsequently adding steroids to the immunoglobulin therapy beginning 06/18 no with the complaints of fatigue with repetitive activity will consider Myasthenia?? serology is pending neurology is following Patient unable to complete CTs at this stage as unable to lie flat (2) Shortness of breath: Plan: Patient presented with shortness of breath and some mild hypotension. Concerns of these issues occurring after immunization with Covid vaccine however the time course is from January. Initially it sounds like he has had a fairly substantial work-up in his hospitals in [place] but he does sound like he had fairly significant weakness and does have some persistent weakness of his proximal shoulder muscles and hips difficulty walking lifting his arms he also has shortness of breath and orthopnea and has difficulty positioning his head. With his significant reduction in his negative inspiratory force his shortness of breath is felt to be secondary to muscular weakness of his respiratory muscles with concern for Guillian Agra or similar syndrome subsequently lumbar puncture was performed send out laboratories were undertaken and immune globulin was initiated he has moved for end-tidal CO2 monitoring (3) Anemia: Plan: Iron, B12 and folate WNL Progressive anemia, appears stable today. Patient respiratory status excludes him from having EGD therefore no need to consult GI at this stage. Repeat tomorrow (4) Acute hyponatremia: Plan: Patient's hyponatremia is mild in presentation did improve with fluid restrict and follow (5) Hypomagnesemia: Plan: Hypomagnesemia on admission. Now resolved (6) Diabetes mellitus: Plan: Patient is a history of diabetes certainly is slightly elevated glucose will employ sliding scale insulin continue his basal insulin and have him on a diabetic diet Consult pharmacy for glycemic control (7) Hypertension: Plan: Patient's blood pressures were initially low on presentation, carvedilol was held and watch for beta-keysha rebound no apparent infection is present at this time we will not associate hypotension with sepsis will screen for infectious source especially with urinary incontinence such as urine. He was given cefepime in the emergency department (8) BPH (benign prostatic hyperplasia): Plan: adding flomax back (9) DVT prophylaxis: Plan: Enoxaparin on hold due to anemia Admission and Anticipated Discharge Date Admission Date: June 15, 2021 Subjective Choked on breakfast (toast) this morning. Difficulty coughing after this but did bring up some mucus. Shortness of breath at baseline prior to episode. No fever, chills, abdominal pain, nausea, vomiting. No significant improvement in his muscle weakness. Review of Systems Review of Systems: All systems reviewed & are unremarkable except as noted in HPI & below Mild distress and moderate fatigue especially respiratory muscles Markedly short of breath when lying flat, very little reserve Proximal muscle weakness worse at the start of the day patient has occipital muscle weakness and hyporeflexia Physical Exam Constitutional: well developed; no acute distress Respiratory: + abnormal respiratory effort (reduced), no retractions and does not use accessory muscles Auscultation: + crackles (bibasal); no diminished lung sounds and no wheezes Cardiovascular: Rate/Rhythm: regular rate and regular rhythm Extremities: + pedal edema (2+ b/l LE pitting) Gastrointestinal (Abdomen): normal bowel sounds, soft, nontender, no hepatosplenomegaly Neurologic: + focal motor deficit (bilateral proximal > peripheral) and awake Psychiatric: A+Ox3, euthymic affect Results & Data Results & Data ([facility]) Vital Signs (Past 12 Hours) Vital Signs Temp Pulse Resp BP Pulse Ox 06/20/21 07:26 36.7 C 61 22 143/79 H 99 06/20/21 04:00 36.7 C 63 20 138/74 99 PG Care Time/CCT Total # of Minutes Spent Total Time Spent with Patient: Total time spent is greater than 50% in coordination of care (as documented) at patient's floor/unit and/or counseling patient: Coding Level of Care Code 29434 Subseq Hosp Care Lvl 3 Diagnoses Guillain-[place]ra G61.0 Shortness of breath R06.02 Anemia D64.9 Acute hyponatremia E87.1 Hypomagnesemia E83.42 Diabetes mellitus E11.9 Hypertension I10 DVT prophylaxis Z29.9 BPH (benign prostatic hyperplasia) N40.0
[2021-06-20] MEDS ORDERED: INSULIN HUMAN NPH SC STA (10:48)
[2021-06-20] MEDS: ACETAMINOPHEN 325 MG TAB PO PRN ×3 (10:55→20:34)
--- NOTE | 2021-06-20 11:29 | XRay Report ---
SINGLE VIEW CHEST CLINICAL HISTORY: Aspiration. FINDINGS: An AP, portable, upright chest radiograph is compared to study dated 06/16/2021. The examina tion is degraded by portable technique and patient rotation. A 3-lead cardiac AICD is unchanged in p osition and partially obscures the left mid chest. The heart is mildly enlarged. The pulmonary vascul ature is noncongested. No airspace consolidation or large pleural effusion is identified. No pneumoth orax is seen. The skeletal structures are osteopenic. The bony thorax is grossly intact. IMPRESSION: 1. Cardiomegaly and AICD. There is no radiographic evidence of congestive failure. 2. No airspace consolidation or large pleural effusion is identified. ACT 112: Negative or not required by law. Electronically signed by: Amaury Torre M.D. 06/20/2021 11:28 AM
--- NOTE | 2021-06-20 14:33 | Pharmacy Report ---
Pharmacy Glycemic Short Note 2 - Date of Service June 20, 2021 - Glycemic Short BSG Results (Last 24 hours): 06/19/21 06/19/21 06/20/21 16:27 20:17 07:27 Glucose POC Glucose 225 H 272 H 140 H 06/20/21 06/20/21 08:16 11:38 Glucose 120 H POC Glucose 227 H OUTPATIENT ANTIDIABETIC REGIMEN: * metformin 1000mg BID * Lantus 10 units BID * Ozempic 0.5mg SC weekly * A1c: 10% 06-16-21 ASSESSMENT: * Consulted for glycemic management after patient was initiate on steroids and began experiencing steroid induced hyperglycemia. * Initial plan was to start NPH this morning with prednisone, however patient began choking on his breakfast after the only a few bites and it was unclear how much he would be able to consume for the rest of the day. Will utilize a tightened NovoLog scale for coverage today with overnight checks. If able to consistently eat throughout today will plan to initiate NPH tomorrow morning. Will continue with home lantus dosing for now. PLAN FOR INPATIENT GLYCEMIC CONTROL: * Hold outpatient oral diabetes medications * Basal insulin * Lantus 10 units SQ BID * NPH 30 units qam starting tomorrow * Bolus insulin * NovoLog per scale ACHS or Q6hrs while NPO * Goal Range: Low 110 mg/dL - High 140 mg/dL * Correction Factor: 20 mg/dL/unit * Nutritional / Prandial insulin per carb ratio of 1 unit per 7 grams CHO consumed
[2021-06-20 14:51] LABS: CMV DNA Qnt Real Time PCR <200 IU/mL (<200); CMV DNA Quant PCR <2.30 log IU/mL (<2.30); HSV Type 1 DNA Not Detected (Not Detected); HSV Type 1&2 DNA Source CSF; HSV Type 2 DNA Not Detected (Not Detected)
[2021-06-20] MEDS: POLYETHYLENE (MIRALAX) 17 GM PACK PO PRN (15:28)
[2021-06-20] MEDS ORDERED: INSULIN HUMAN NPH SC ONE (17:00)
[2021-06-20] MEDS: IMMUNE GLOBULIN(HUMAN) 10% 100 ML IV SCH ×3 (17:40→21:39)
[2021-06-21] MEDS: MELATONIN 3 MG TAB PO PRN ×2 (00:05→20:26)
[2021-06-21] MEDS: ACETAMINOPHEN 325 MG TAB PO PRN ×2 (00:05→20:26)
[2021-06-21] MEDS: INSULIN ASPART 100 UNITS/ML 3 ML PEN SC SCH ×5 (04:15→21:08)
[2021-06-21] MEDS: LEVOTHYROXINE SODIUM 88 MCG TABLET PO SCH (06:03)
[2021-06-21] MEDS: predniSONE 20 MG TAB PO SCH (08:46)
[2021-06-21] MEDS: FINASTERIDE 5 MG TAB PO SCH (08:47)
[2021-06-21] MEDS: CEROVITE ADV FORMULA TAB PO SCH (08:47)
[2021-06-21] MEDS: LOSARTAN POTASSIUM 50 MG TAB PO SCH (08:48)
[2021-06-21] MEDS: TERBINAFINE CR 30 GM TUBE EXT SCH ×2 (08:48→20:23)
[2021-06-21] MEDS: ASPIRIN 81 MG ECTAB PO SCH (08:48)
[2021-06-21] MEDS: TAMSULOSIN HCL 0.4 MG CAP PO SCH ×2 (08:48→20:26)
[2021-06-21] MEDS: PANTOprazole 40 MG in SYRINGE 0 ML IV SCH (08:49)
[2021-06-21] MEDS ORDERED: INSULIN HUMAN NPH SC SCH ×2 (09:00)
[2021-06-21] MEDS: THIAMINE HCL 200 MG in SODIUM CHLORIDE 0.9% 50 ML IV SCH (10:13)
[2021-06-21] MEDS: INSULIN GLARGINE SOLOSTAR 100 UNITS/ML 3 ML PEN SC SCH ×2 (10:15→20:27)
[2021-06-21 11:21] LABS: Enterovirus RNA by PCR Not Detected (Not Detected); Herpes Virus 6 (DNA) Not Detected (Not Detected); Herpes Virus 6 (DNA) Source Whole Blood
[2021-06-21] MEDS: FERROUS SULFATE 325 MG TAB PO SCH (12:09)
[2021-06-21 12:31] LABS: Eosinophils # (auto) 0.03 K/uL (0-0.5); Eosinophils % (auto) 0.5 %; Hematocrit (blood only) 27.6 % (42-52); Hemoglobin 9.5 g/dL (14.0-18.0); Immature Granulocytes # (auto) 0.01 K/uL (0.00-0.02); Immature Granulocytes % (auto) 0.2 %; Lymphocytes % (auto) 9.9 %; Mean Corpuscular Hemoglobin 31.3 pg (25-34); Mean Corpuscular Hgb Conc 34.4 g/dL (32-36); Mean Corpuscular Volume 90.8 fL (80-100); Mean Platelet Volume 8.4 fL (7.4-10.4); Monocytes # (auto) 0.38 K/uL (0.11-0.59); Monocytes % (auto) 6.3 %; Neutrophils # (auto) 5.06 K/uL (1.4-6.5); Neutrophils % (auto) 83.1 %; Platelet Count 264 K/uL (130-400); RDW Coefficient of Variation 13.8 % (11.5-14.5); RDW Standard Deviation 46.1 fL (36.4-46.3); Red Blood Count 3.04 M/uL (4.7-6.1); White Blood Count 6.08 K/uL (4.8-10.8)
[2021-06-21 13:03] LABS: BUN Creatinine Ratio 24.3 (10-20); Calcium 8.7 mg/dl (8.5-10.1); Est GFR (African American) 90.7 ml/min; Est GFR (Non-African American) 78.3 ml/min; Potassium 4.2 mmol/L (3.5-5.1)
--- NOTE | 2021-06-21 16:16 | Fluoroscopy Report ---
FL video swallow HISTORY: determine if pt is aspirating TECHNIQUE: Video fluoroscopic evaluation of swallowing was performed in the AP and lateral projection s by the speech pathology staff. The patient is fed nectar-thick and thin liquid barium, a barium coa ron wafer, and barium pudding. FLUOROSCOPY TIME: 2.9 minutes. NUMBER OF FLUOROSCOPY IMAGES: [id number] COMPARISON STUDY: None. FINDINGS: There is delayed contrast material within hypopharynx without definite aspiration. Disorganized esophageal contraction and delayed transfer of the contrast material to the stomach. Th ere is mild reflux. IMPRESSION: 1. No aspiration identified. 2. Please see the speech pathologist report for detailed findings and recommendations. ACT 112: Negative or not required by law. The above report was generated using voice recognition software. It may contain grammatical, syntax o r spelling errors. Electronically signed by: Balnk Up DO 06/21/2021 4:14 PM
[2021-06-21 18:37] LABS: Lyme DNA PCR CSF or Synovial Not detected (Not Detected); Lyme DNA Source CSF; VDRL Qualitative CSF Nonreactive (Nonreactive)
[2021-06-21] MEDS: PANTOprazole 40 MG TAB PO SCH (20:26)
[2021-06-21] MEDS: ENOXAPARIN INJ 40 MG/0.4 ML SYR SQ SCH (20:26)
--- NOTE | 2021-06-21 22:10 | Hospitalist Progress Note ---
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 Patient had a lumbar puncture which results are relatively normal but some values are still pending and serology sent per recommendations of neurology. Immunoglobulin treatment was begun on the evening of 06/16 with movement intensive care unit, very slight improvement in NIF and FVC (now appears realitively stable NIF but FVC reduced today but was tired when he did this), continue for 5 days of therapy Steroids added to the immunoglobulin therapy beginning 06/18 Myasthenia antibodies pending Patient unable to complete CTs at this stage as unable to lie flat Appreciate ongoing neurology management (2) Shortness of breath: Plan: Suspect secondary to neurological condition as above. High aspiration risk. Appreciate SLT recommendations. Small meals throughout the day. Do not tackle hard to eat foods when tired or at the end of meals. (3) Anemia: Plan: Iron, B12 and folate WNL Progressive anemia, appears stable today. Patient respiratory status excludes him from having EGD therefore no need to consult GI at this stage. Stable (4) Acute hyponatremia: Plan: Patient's hyponatremia is mild in presentation did improve with fluid restrict and follow (5) Hypomagnesemia: Plan: Hypomagnesemia on admission. Now resolved (6) Diabetes mellitus: Plan: Patient is a history of diabetes certainly is slightly elevated glucose will employ sliding scale insulin continue his basal insulin and have him on a diabetic diet Consult pharmacy for glycemic control (7) Hypertension: Plan: Patient's blood pressures were initially low on presentation, carvedilol and nifedipine held, losartan reduced. Continue to monitor. (8) BPH (benign prostatic hyperplasia): Plan: adding flomax back (9) DVT prophylaxis: Plan: Restart Lovenox 40mg SQ daily Admission and Anticipated Discharge Date Admission Date: June 15, 2021 Subjective Patient much more alert than yesterday, although patient was seen after coughing episode yesterday. Continued significant proximal muscle weakness associated with any kind of exertion. He reports not feeling significant improvement since admission although his NIF has improved and appears more stable. Unable to complete CT scans due to shortness of breath while lying flat and he refuses trying this again at the current time. Review of Systems Review of Systems: All systems reviewed & are unremarkable except as noted in HPI & below Physical Exam Constitutional: well developed; no acute distress Respiratory: + abnormal respiratory effort (reduced), no retractions and does not use accessory muscles Auscultation: + crackles (bibasal); no diminished lung sounds and no wheezes Cardiovascular: Rate/Rhythm: regular rate and regular rhythm Extremities: + pedal edema (2+ b/l LE pitting) Gastrointestinal (Abdomen): normal bowel sounds, soft, nontender, no hepatosplenomegaly Neurologic: + focal motor deficit (bilateral proximal > distal) and awake Psychiatric: A+Ox3, euthymic affect Results & Data Results & Data ([facility]) Vital Signs (Past 12 Hours) Vital Signs Temp Pulse Resp BP BP Pulse Ox 06/21/21 19:17 36.7 C 75 18 180/84 H 92 06/21/21 16:56 36.5 C 85 20 164/75 H 97 06/21/21 11:25 36.8 C 83 18 161/65 H 98 PG Care Time/CCT Total # of Minutes Spent Total Time Spent with Patient: Total time spent is greater than 50% in coordination of care (as documented) at patient's floor/unit and/or counseling patient: Coding Level of Care Code 47132 Subseq Hosp Care Lvl 2 Diagnoses Guillain-[place] G61.0 Shortness of breath R06.02 Anemia D64.9 Acute hyponatremia E87.1 Hypomagnesemia E83.42 Diabetes mellitus E11.9 Hypertension I10 BPH (benign prostatic hyperplasia) N40.0 DVT prophylaxis Z29.9
[2021-06-22] MEDS: LEVOTHYROXINE SODIUM 88 MCG TABLET PO SCH (05:41)
[2021-06-22 07:14] LABS: Basophils # (auto) 0.01 K/uL (0-0.2); Basophils % (auto) 0.1 %; Eosinophils # (auto) 0.04 K/uL (0-0.5); Eosinophils % (auto) 0.6 %; Hematocrit (blood only) 27.9 % (42-52); Hemoglobin 9.6 g/dL (14.0-18.0); Immature Granulocytes # (auto) 0.02 K/uL (0.00-0.02); Immature Granulocytes % (auto) 0.3 %; Lymphocytes # (auto) 1.47 K/uL (1.2-3.4); Lymphocytes % (auto) 20.9 %; Mean Corpuscular Hemoglobin 30.9 pg (25-34); Mean Corpuscular Hgb Conc 34.4 g/dL (32-36); Mean Corpuscular Volume 89.7 fL (80-100); Mean Platelet Volume 8.7 fL (7.4-10.4); Monocytes # (auto) 0.67 K/uL (0.11-0.59); Monocytes % (auto) 9.5 %; Neutrophils # (auto) 4.81 K/uL (1.4-6.5); Neutrophils % (auto) 68.6 %; Platelet Count 271 K/uL (130-400); RDW Coefficient of Variation 13.9 % (11.5-14.5); RDW Standard Deviation 45.6 fL (36.4-46.3); Red Blood Count 3.11 M/uL (4.7-6.1); White Blood Count 7.02 K/uL (4.8-10.8)
[2021-06-22 08:06] LABS: BUN Creatinine Ratio 26.1 (10-20); Creatinine Clr Calc Pharmacy 63.3 ml/min; Est GFR (African American) 93.2 ml/min; Est GFR (Non-African American) 80.4 ml/min; Potassium 3.5 mmol/L (3.5-5.1)
[2021-06-22] MEDS: INSULIN ASPART 100 UNITS/ML 3 ML PEN SC SCH ×4 (08:14→21:12)
[2021-06-22] MEDS: INSULIN GLARGINE SOLOSTAR 100 UNITS/ML 3 ML PEN SC SCH (08:16)
[2021-06-22] MEDS: ASPIRIN 81 MG ECTAB PO SCH (08:19)
[2021-06-22] MEDS: predniSONE 20 MG TAB PO SCH (08:19)
[2021-06-22] MEDS: TAMSULOSIN HCL 0.4 MG CAP PO SCH ×2 (08:19→22:01)
[2021-06-22] MEDS: PANTOprazole 40 MG TAB PO SCH ×2 (08:19→22:01)
[2021-06-22] MEDS: LOSARTAN POTASSIUM 50 MG TAB PO SCH (08:19)
[2021-06-22] MEDS: CEROVITE ADV FORMULA TAB PO SCH (08:19)
[2021-06-22] MEDS: FINASTERIDE 5 MG TAB PO SCH (08:19)
[2021-06-22] MEDS: TERBINAFINE CR 30 GM TUBE EXT SCH ×2 (08:19→21:13)
[2021-06-22] MEDS ORDERED: INSULIN HUMAN NPH SC SCH (09:00)
[2021-06-22] MEDS: THIAMINE HCL 200 MG in SODIUM CHLORIDE 0.9% 50 ML IV SCH (09:31)
--- NOTE | 2021-06-22 10:57 | Pharmacy Report ---
Pharmacy Glycemic Short Note 2 - Date of Service June 22, 2021 - Glycemic Short BSG Results (Last 24 hours): 06/21/21 06/21/21 06/21/21 11:24 12:20 16:32 Glucose 209 H POC Glucose 202 H 175 H 06/21/21 06/22/21 06/22/21 20:41 06:50 06:54 Glucose 87 POC Glucose 177 H 100 H OUTPATIENT ANTIDIABETIC REGIMEN: * metformin 1000mg BID * Lantus 10 units BID * Ozempic 0.5mg SC weekly * A1c: 10% 06-16-21 ASSESSMENT: 06/22 * BSGs well controlled over last 24 hrs * 62 units of SQ have been administered over last 24 hrs while tolerating a diet, albeit low intake of carbs * Fasting BSG 100 this AM with 20 units Lantus on board and after receiving 25 units NPH yesterday AM * Will reduce NPH dose today as Prednisone dose will step down to 40mg daily * Novolog CF/CR doses will be continued today given reasonable control yesterday 06/21 * Consulted for glycemic management after patient was initiate on steroids and began experiencing steroid induced hyperglycemia. * Initial plan was to start NPH this morning with prednisone, however patient began choking on his breakfast after the only a few bites and it was unclear how much he would be able to consume for the rest of the day. Will utilize a t ightened NovoLog scale for coverage today with overnight checks. If able to consistently eat throughout today will plan to initiate NPH tomorrow morning. Will continue with home lantus dosing for now. PLAN FOR INPATIENT GLYCEMIC CONTROL: * Hold outpatient oral diabetes medications * Basal insulin * continue Lantus 10 units SQ BID * decrease NPH to 20 units QAM starting today * Bolus insulin * NovoLog per scale ACHS or Q6hrs while NPO * Goal Range: Low 110 mg/dL - High 140 mg/dL * Correction Factor: 25 mg/dL/unit * Nutritional / Prandial insulin per carb ratio of 1 unit per 8 grams CHO consumed
[2021-06-22] MEDS: MELATONIN 3 MG TAB PO PRN (21:21)
[2021-06-22] MEDS: ACETAMINOPHEN 325 MG TAB PO PRN (21:21)
[2021-06-22] MEDS: ENOXAPARIN INJ 40 MG/0.4 ML SYR SQ SCH (22:00)
--- NOTE | 2021-06-22 22:44 | Hospitalist Progress Note ---
Date of Service June 22, 2021 Assessment & Plan (1) Guillain-[place]: Plan: Myasthenia gravis (antibodies pending) vs. CIDP vs. myopathy (atorvastatin held, CPK negative). Full LP results pending. Immunoglobulin treatment was begun on the evening of 06/16 with movement i ntensive care unit, very slight improvement in NIF and FVC, finished 5 days Steroids added to the immunoglobulin therapy beginning 06/18. Continue 40mg PO daily. Patient unable to complete CTs at this stage as unable to lie flat HIM request for [place] clinic notes and from [place] requested - although no LP was performed in [place]. (2) Shortness of breath: Plan: Secondary to neurological condition as above. (3) Anemia: Plan: Iron, B12 and folate WNL Progressive anemia, appears stable today. Patient respiratory status excludes him from having EGD therefore no need to consult GI at this stage. Stable (4) Acute hyponatremia: Plan: Now resolved Patient's hyponatremia is mild in presentation did improve with fluid restrict and follow (5) Hypomagnesemia: Plan: Hypomagnesemia on admission. Now resolved (6) Diabetes mellitus: Plan: HbA1C 10 Consult pharmacy for glycemic control (7) Hypertension: Plan: Hypotension on presentation. Nifedipine, carvedilol on hold. Losartan reduced to 50mg PO daily. (8) BPH (benign prostatic hyperplasia): Plan: Continue tamsulosin 4mg PO BID (9) DVT prophylaxis: Plan: Lovenox 40mg SQ daily Plan: Medically stable for discharge pending placement Admission and Anticipated Discharge Date Admission Date: June 15, 2021 Subjective No acute events overnight. No significant change from yesterday. Updated his daughter over the phone. Physical Exam Constitutional: well developed; no acute distress Respiratory: + abnormal respiratory effort (reduced), no retractions and does not use accessory muscles Auscultation: + crackles (bibasal); no diminished lung sounds and no wheezes Cardiovascular: Rate/Rhythm: regular rate and regular rhythm Extremities: + pedal edema (2+ b/l LE pitting) Gastrointestinal (Abdomen): normal bowel sounds, soft, nontender, no hepatosplenomegaly Neurologic: + focal motor deficit (bilateral proximal > distal) and awake Psychiatric: A+Ox3, euthymic affect Results & Data Results & Data ([facility]) Vital Signs (Past 12 Hours) Vital Signs Temp Pulse Resp BP BP Pulse Ox 06/22/21 22:22 36.6 C 84 18 169/68 H 97 06/22/21 16:04 37.7 C H 102 H 18 132/70 92 06/22/21 10:54 36.8 C 78 22 132/96 97 PG Care Time/CCT Total # of Minutes Spent Total Time Spent with Patient: Total time spent is greater than 50% in coordination of care (as documented) at patient's floor/unit and/or counseling patient: Coding Level of Care Code 48188 Subseq Hosp Care Lvl 1 Diagnoses Guillain-[place] G61.0 Shortness of breath R06.02 Anemia D64.9 Acute hyponatremia E87.1 Hypomagnesemia E83.42 Diabetes mellitus E11.9 Hypertension I10 BPH (benign prostatic hyperplasia) N40.0 DVT prophylaxis Z29.9
[2021-06-23] MEDS: LEVOTHYROXINE SODIUM 88 MCG TABLET PO SCH (06:23)
[2021-06-23] MEDS: PANTOprazole 40 MG TAB PO SCH ×2 (08:31→20:05)
[2021-06-23] MEDS: THIAMINE HCL 100 MG TAB PO SCH (08:31)
[2021-06-23] MEDS: TERBINAFINE CR 30 GM TUBE EXT SCH ×2 (08:31→09:44)
[2021-06-23] MEDS: TAMSULOSIN HCL 0.4 MG CAP PO SCH ×2 (08:31→20:06)
--- NOTE | 2021-06-23 08:36 | Neurology Progress Note ---
Date of Service June 23, 2021 Assessment & Plan (1) Muscle weakness (generalized): (2) Diabetic polyneuropathy: Plan: He has had the relatively recent onset of weakness, starting in January of this year, 5 days after the 2nd Moderna vaccine. Interestingly, the weakness was episodic at first, lasting anywhere from minutes to hours, and then the episodes lasted hours to days. Finally, he has had continuous weakness in the last month or so with a flare up June 15 which caused this current hospitalization. Clearly, this seems to be a progressive condition, however, he has achieved some improvement/stability over this week. He is improved the last few days compared to last weekend. On neurologic examination, he has proximal muscle weakness consistent with myopathy. Distal muscles are spared. The proximal arms are worse than the proximal legs. He has normal reflexes in the arms (although the brachioradialis reflexes are slightly less than the biceps and triceps bilaterally ) and diminished reflexes in the quadriceps tendons bilaterally. Achilles tendon reflexes are absent and I attribute this to his longstanding diabetic polyneuropathy. He has a stocking decreased sensory loss in the feet consistent with his diabetic polyneuropathy as well. His exam and history do not fit Guillain-[place] syndrome or chronic inflammatory demyelinating polyneuropathy (which is a more indolent, progressive form of inflammatory polyneuropathy) With the normal CK and sed rate, and lack of muscle pain and tenderness, I doubt this represents an inflammatory myopathy such as polymyositis or dermatomyositis ( no skin lesions either). There have been cases of the Covid-19 vaccines causing acute (poly)myositis. There is no evidence for upper motor neuron disease although a polyneuropathy will mask upper motor neuron signs in the feet and legs. I am concerned about a possible cervical spinal stenosis /myelopathy The patient has some weakness of small muscles up in the eyes as well as some swallowing and breathing difficulties. With the fluctuating weakness and his current condition, I cannot exclude myasthenia gravis or other neuromuscular junction condition. Acetylcholine Receptor antibody titers are pending. I am not convinced that the IVIG made a significant difference in his symptoms, but the tapering steroids likely helped most recently . Recommendations: 1. physical and occupational therapy, increasing activity as able. He may be a rehabilitation hospital candidates. 2. EMG and nerve conduction studies of all 4 limbs, but I can only do this study as an outpatient. 3. Awaiting final CSF studies as well as most immunologic lab studies (still pending). 4. CT scan of the chest to look for thymus area tumor when able to lay flat. 5. CT scan of the cervical spine when able to lay flat. an MRI would be ideal but he would not tolerate that length of time lying. 6. Prednisone 40mg daily for a total of 5 days then 30mg daily Overall, I spent 25 minutes with this case including review of records, direct evaluation of the patient, and discussion of the case with patient and RN at bedside, and Dr. Padgett, including differential diagnosis and treatment options. Admission and Anticipated Discharge Date Admission Date: June 15, 2021 Subjective Patient has no complaint of pain although he has a little soreness on his buttocks ( has a pressure sore). His neck has some discomfort but he has no radicular pain into the arms. His weakness is about the same the arms and legs. He is swallowing and breathing reasonably well. Patient had a video swallowing study and had no aspiration. Glucose was 84 this. Yesterday CBC showed anemia, as before Blood pressure is 183/72 and he is afebrile. Results & Data ([facility]) Vital Signs (Past 12 Hours) Vital Signs Temp Pulse Resp BP Pulse Ox 06/23/21 07:24 36.4 C L 69 18 183/72 H 99 06/22/21 22:22 36.6 C 84 18 169/68 H 97 Exam (Neuro) Physical Exam: He was sleeping when I came into the room but easily arouse with voice. He follows one-step commands very well and is pleasant and cooperative. Mood is reasonable. Speech is without aphasia or dysarthria. Distal strength in the limbs is close to 5/5. He is 4/5 strength proximally in the legs and arms although the deltoids are the weakest at 4-/5. He has no abnormal involuntary. PG Care Time/CCT Total # of Minutes Spent Total Time Spent with Patient: Total time spent is greater than 50% in coordination of care (as documented) at patient's floor/unit and/or counseling patient: Coding Level of Care Code 91787 Subseq Hosp Care Lvl 2 Diagnoses Muscle weakness (generalized) M62.81 Diabetic polyneuropathy E11.42 Time Spent (min) 25
[2021-06-23] MEDS ORDERED: INSULIN HUMAN NPH SC SCH ×2 (09:00)
[2021-06-23] MEDS: carvediloL 6.25 MG TAB PO SCH ×2 (09:26→20:09)
[2021-06-23] MEDS: ASPIRIN 81 MG ECTAB PO SCH (09:27)
[2021-06-23] MEDS: CEROVITE ADV FORMULA TAB PO SCH (09:27)
[2021-06-23] MEDS: FINASTERIDE 5 MG TAB PO SCH (09:27)
[2021-06-23] MEDS: predniSONE 20 MG TAB PO SCH (09:28)
[2021-06-23] MEDS: LOSARTAN POTASSIUM 50 MG TAB PO SCH (09:29)
[2021-06-23] MEDS: INSULIN GLARGINE SOLOSTAR 100 UNITS/ML 3 ML PEN SC SCH (09:29)
[2021-06-23] MEDS: INSULIN ASPART 100 UNITS/ML 3 ML PEN SC SCH ×4 (09:31→20:05)
--- NOTE | 2021-06-23 11:28 | Pharmacy Report ---
Pharmacy Glycemic Short Note 2 - Date of Service June 23, 2021 - Glycemic Short BSG Results (Last 24 hours): 06/22/21 06/22/21 06/23/21 17:31 20:56 08:09 POC Glucose 106 H 164 H 84 OUTPATIENT ANTIDIABETIC REGIMEN: * metformin 1000mg BID * Lantus 10 units BID * Ozempic 0.5mg SC weekly * A1c: 10% 06-16-21 ASSESSMENT: 06/23 * Patient received total of 36 units of insulin yesterday, of which 20 units were NPH to cover steroids, 10 units were basal * Fasting BSG lower at 84 mg/dL - plan to scale back ~30% on basal to 7 units this AM * PO intake poorer yesterday, may also scale back slightly on NPH as well 06/22 * BSGs well controlled over last 24 hrs * 62 units of SQ have been administered over last 24 hrs while tolerating a diet, albeit low intake of carbs * Fasting BSG 100 this AM with 20 units Lantus on board and after receiving 25 units NPH yesterday AM * Will reduce NPH dose today as Prednisone dose will step down to 40mg daily * Novolog CF/CR doses will be continued today given reasonable control yesterday 06/21 * Consulted for glycemic management after patient was initiate on steroids and began experiencing steroid induced hyperglycemia. * Initial plan was to start NPH this morning with prednisone, however patient began choking on his breakfast after the only a few bites and it was unclear how much he would be able to consume for the rest of the day. Will utilize a tightened NovoLog scale for coverage today with overnight checks. If able to consistently eat throughout today will plan to initiate NPH tomorrow morning. Will continue with home lantus dosing for now. PLAN FOR INPATIENT GLYCEMIC CONTROL: * Hold outpatient oral diabetes medications * Basal insulin - decrease * Lantus 7 units daily * NPH to 17 units QAM * Bolus insulin * NovoLog per scale ACHS or Q6hrs while NPO * Goal Range: Low 110 mg/dL - High 140 mg/dL * Correction Factor: 25 mg/dL/unit * Nutritional / Prandial insulin per carb ratio of 1 unit per 8 grams CHO consumed PLAN FOR DISCHARGE: * A1c 10% - less stringent goal closer to 8% reasonable * DM educator met with patient and patient reports losing about ~30 lbs over last couple of months. He reports only fair appetite and difficulty in chewing/swallowing. * Agree with DM educator that continuation with Ozempic should be evaluated since it can promote weight loss. * Insulin regimen likely needs adjusted to better improve A1c - however, hard to assess during current hospital stay as patient also on steroids. * Per notes, patient needs to establish care with local provider now that he is living in [place] * Reasonable to continue same insulin regimen for now as long as patient is not reporting frequent lows. Okay also to continue with metformin * Feel that further adjustments to regimen could be evaluated outpatient once he establishes care with a provider
[2021-06-23] MEDS: FERROUS SULFATE 325 MG TAB PO SCH (13:23)
[2021-06-23] MEDS: ACETAMINOPHEN 325 MG TAB PO PRN ×2 (15:43→19:50)
[2021-06-23] MEDS: POLYETHYLENE (MIRALAX) 17 GM PACK PO SCH ×2 (15:43→20:04)
[2021-06-23] MEDS: ENOXAPARIN INJ 40 MG/0.4 ML SYR SQ SCH (20:02)
--- NOTE | 2021-06-23 22:57 | Hospitalist Progress Note ---
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 CIDP vs. myopathy (atorvastatin held, CPK negative). Full LP results pending. Immunoglobulin treatment was begun on the evening of 06/16 with movement i ntensive care unit, very slight improvement in NIF and FVC, finished 5 days Steroids added to the immunoglobulin therapy beginning 06/18. Continue prednisone taper. Patient unable to complete CTs at this stage as unable to lie flat HIM request for [place] clinic notes and from [place] requested - although no LP was performed in [place]. (2) Shortness of breath: Plan: Secondary to neurological condition as above. (3) Anemia: Plan: Iron, B12 and folate WNL Hgb stable. FOB negative. Patient respiratory status excludes him from having EGD therefore no need to consult GI. (4) Acute hyponatremia: Plan: Now resolved Patient's hyponatremia is mild in presentation did improve with fluid restrict and follow (5) Hypomagnesemia: Plan: Hypomagnesemia on admission. Now resolved (6) Diabetes mellitus: Plan: HbA1C 10 Appreciate pharmacy consult for glycemic control (7) Hypertension: Plan: Hypotension on presentation. Nifedipine, carvedilol on hold since admission. Increase losartan back to 100mg and will start him back on carvedilol at lower dose 6.25mg PO BID (8) BPH (benign prostatic hyperplasia): Plan: Continue tamsulosin 4mg PO BID (9) DVT prophylaxis: Plan: Lovenox 40mg SQ daily Plan: Medically stable for discharge pending placement Admission and Anticipated Discharge Date Admission Date: June 15, 2021 Subjective Patient had his legs give way earlier while coming back from the toilet, did not fall or hit his head. Had to sit on the floor. Ongoing shortness of breath and proximal muscle weakness, mildly improved from admission. NIF/FVC not performed today but has been stable. Awaiting rehabilitation at this time. Review of Systems Review of Systems: All systems reviewed & are unremarkable except as noted in HPI & below Neurologic: + generalized weakness (proximal > distal) Physical Exam Constitutional: well developed; no acute distress Respiratory: + abnormal respiratory effort (reduced), no retractions and does not use accessory muscles Auscultation: + crackles (bibasal); no diminished lung sounds and no wheezes Cardiovascular: Rate/Rhythm: regular rate and regular rhythm Extremities: + pedal edema (2+ b/l LE pitting) Gastrointestinal (Abdomen): normal bowel sounds, soft, nontender, no hepatosplenomegaly Neurologic: + focal motor deficit (bilateral proximal > distal) and awake Psychiatric: A+Ox3, euthymic affect Results & Data Results & Data ([facility]) Vital Signs (Past 12 Hours) Vital Signs Temp Pulse Pulse Resp BP Pulse Ox 06/23/21 20:11 73 173/72 H 06/23/21 15:39 36.5 C 63 16 163/74 H 98 PG Care Time/CCT Total # of Minutes Spent Total Time Spent with Patient: Total time spent is greater than 50% in coordination of care (as documented) at patient's floor/unit and/or counseling patient: Coding Level of Care Code 59773 Subseq Hosp Care Lvl 2 Diagnoses 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
[2021-06-24] MEDS: TERBINAFINE CR 30 GM TUBE EXT SCH ×4 (00:03→20:52)
[2021-06-24] MEDS: LEVOTHYROXINE SODIUM 88 MCG TABLET PO SCH (05:12)
[2021-06-24 07:14] LABS: Hematocrit (blood only) 26.1 % (42-52); Hemoglobin 8.8 g/dL (14.0-18.0); Mean Corpuscular Hemoglobin 30.6 pg (25-34); Mean Corpuscular Hgb Conc 33.7 g/dL (32-36); Mean Corpuscular Volume 90.6 fL (80-100); Mean Platelet Volume 8.5 fL (7.4-10.4); Platelet Count 224 K/uL (130-400); RDW Coefficient of Variation 14.6 % (11.5-14.5); RDW Standard Deviation 46.9 fL (36.4-46.3); Red Blood Count 2.88 M/uL (4.7-6.1); White Blood Count 6.36 K/uL (4.8-10.8)
[2021-06-24 07:34] LABS: BUN Creatinine Ratio 27.2 (10-20); Calcium 8.8 mg/dl (8.5-10.1); Creatinine Clr Calc Pharmacy 65.5 ml/min; Est GFR (African American) 94.5 ml/min; Est GFR (Non-African American) 81.5 ml/min; Potassium 4.1 mmol/L (3.5-5.1)
[2021-06-24] MEDS: carvediloL 6.25 MG TAB PO SCH ×2 (07:41→20:52)
[2021-06-24] MEDS: FINASTERIDE 5 MG TAB PO SCH (08:40)
[2021-06-24] MEDS: ASPIRIN 81 MG ECTAB PO SCH (08:40)
[2021-06-24] MEDS: LOSARTAN POTASSIUM 50 MG TAB PO SCH (08:41)
[2021-06-24] MEDS: PANTOprazole 40 MG TAB PO SCH ×2 (08:41→20:52)
[2021-06-24] MEDS: CEROVITE ADV FORMULA TAB PO SCH (08:41)
[2021-06-24] MEDS: predniSONE 20 MG TAB PO SCH (08:42)
[2021-06-24] MEDS: POLYETHYLENE (MIRALAX) 17 GM PACK PO SCH ×2 (08:42→20:44)
[2021-06-24] MEDS: TAMSULOSIN HCL 0.4 MG CAP PO SCH ×2 (08:43→20:51)
[2021-06-24] MEDS: THIAMINE HCL 100 MG TAB PO SCH (08:44)
[2021-06-24] MEDS ORDERED: INSULIN HUMAN NPH SC SCH (09:00)
[2021-06-24] MEDS: INSULIN ASPART 100 UNITS/ML 3 ML PEN SC SCH ×4 (09:40→20:50)
[2021-06-24] MEDS: INSULIN GLARGINE SOLOSTAR 100 UNITS/ML 3 ML PEN SC SCH (09:42)
[2021-06-24] MEDS: ACETAMINOPHEN 325 MG TAB PO PRN ×2 (10:46→20:01)
[2021-06-24 19:06] LABS: Acetylcholine Recept Blocking <15 (<15); Albumin 3.4 g/dL (3.2-4.6); Albumin, CSF 13.4 mg/dL (8.0-42.0); EBV DNA Quant PCR <200 copies/mL (<200); EBV DNA Quant Source Whole Blood; IgG CSF 1.7 mg/dL (0.8-7.7); IgG Index, CSF 0.51 (<0.66); IgG Serum 851 mg/dL (600-1540); JO 1 Antibody <1.0 NEG AI (<1.0 NEG); Lyme IgG Band Pattern CSF DNR; Lyme IgG CSF NO BANDS DETECTED; Lyme IgM Band Pattern CSF DNR; Lyme IgM CSF NO BANDS DETECTED; Myelin Basic Protein <2.0 mcg/L (2.0-4.0); Synthesis Rate, IgG CSF -2.3 mg/24 h (-9.9-3.3); VZ DNA Source CSF; Varicella Zoster Virus DNA PCR Not Detected (Not Detected)
[2021-06-24] MEDS: ENOXAPARIN INJ 40 MG/0.4 ML SYR SQ SCH (20:52)
[2021-06-24] MEDS ORDERED: INSULIN GLARGINE SOLOSTAR 100 UNITS/ML 3 ML PEN SC SCH (21:00)
--- NOTE | 2021-06-24 22:53 | Hospitalist Progress Note ---
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 CIDP vs. myopathy (atorvastatin held, CPK negative). Full LP results pending. Immunoglobulin treatment was begun on the evening of 06/16 with movement i ntensive care unit, very slight improvement in NIF and FVC, finished 5 days Steroids added to the immunoglobulin therapy beginning 06/18. Continue prednisone taper. Patient unable to complete CTs at this stage as unable to lie flat HIM request for [place] clinic notes and from [place] requested - although no LP was performed in [place]. NCS/EMG would be useful. (2) Shortness of breath: Plan: Secondary to neurological condition as above. (3) Bilateral leg edema: Plan: Suspect from steroid use and immobility. Will recheck BMP in AM and start on Lasix if BP able to tolerate. (4) Anemia: Plan: Iron, B12 and folate WNL Progressive anemia, appears stable today. Patient respiratory status excludes him from having EGD therefore no need to consult GI at this stage. Stable (5) Acute hyponatremia: Plan: Now resolved Patient's hyponatremia is mild in presentation did improve with fluid restrict and follow (6) Hypomagnesemia: Plan: Hypomagnesemia on admission. Now resolved (7) Diabetes mellitus: Plan: HbA1C 10 Consult pharmacy for glycemic control (8) Hypertension: Plan: Hypotension on presentation. Nifedipine on hold, would avoid restarting this due to peripheral edema. Continue losartan 100 mg PO daily Continue carvedilol (reduced dose) 6.25mg PO BID Lasix as above (9) BPH (benign prostatic hyperplasia): Plan: Continue tamsulosin 4mg PO BID (10) DVT prophylaxis: Plan: Lovenox 40mg SQ daily Plan: Medically stable for discharge pending placement Admission and Anticipated Discharge Date Admission Date: June 15, 2021 Subjective No acute events overnight. No questions or concerns for me today. Leg swelling getting progressively worse. Feels over the last week he is mildly progressing. Physical Exam Constitutional: well developed; no acute distress Respiratory: + abnormal respiratory effort (reduced), no retractions and does not use accessory muscles Auscultation: + diminished lung sounds (bibasal); no crackles and no wheezes Cardiovascular: Rate/Rhythm: regular rate and regular rhythm Extremities: + pedal edema (3+ b/l LE pitting) Gastrointestinal (Abdomen): normal bowel sounds, soft, nontender, no hepatosplenomegaly Neurologic: + focal motor deficit (bilateral proximal > distal) and awake Psychiatric: A+Ox3, euthymic affect Results & Data Results & Data ([facility]) Vital Signs (Past 12 Hours) Vital Signs Temp Pulse Pulse Resp BP BP Pulse Ox 06/24/21 22:41 36.5 C 60 16 178/75 H 98 06/24/21 15:03 36.6 C 61 17 153/71 H 99 06/24/21 11:44 36.6 C 68 17 130/78 99 PG Care Time/CCT Total # of Minutes Spent Total Time Spent with Patient: Total time spent is greater than 50% in coordination of care (as documented) at patient's floor/unit and/or counseling patient: Coding Level of Care Code 62652 Subseq Hosp Care Lvl 1 Diagnoses Guillain-[place] G61.0 Shortness of breath R06.02 Anemia D64.9 Acute hyponatremia E87.1 Hypomagnesemia E83.42 Diabetes mellitus E11.9 Hypertension I10 BPH (benign prostatic hyperplasia) N40.0 DVT prophylaxis Z29.9 Bilateral leg edema R60.0
[2021-06-25] MEDS: LEVOTHYROXINE SODIUM 88 MCG TABLET PO SCH (05:31)
[2021-06-25] MEDS ORDERED: INSULIN GLARGINE SOLOSTAR 100 UNITS/ML 3 ML PEN SC SCH (09:00)
[2021-06-25] MEDS: ASPIRIN 81 MG ECTAB PO SCH (09:16)
[2021-06-25] MEDS: LOSARTAN POTASSIUM 50 MG TAB PO SCH (09:17)
[2021-06-25] MEDS: carvediloL 6.25 MG TAB PO SCH (09:17)
[2021-06-25] MEDS: FINASTERIDE 5 MG TAB PO SCH (09:17)
[2021-06-25] MEDS: CEROVITE ADV FORMULA TAB PO SCH (09:18)
[2021-06-25] MEDS: PANTOprazole 40 MG TAB PO SCH ×2 (09:18→21:10)
[2021-06-25] MEDS: POLYETHYLENE (MIRALAX) 17 GM PACK PO SCH ×2 (09:18→21:10)
[2021-06-25] MEDS: predniSONE 20 MG TAB PO SCH (09:19)
[2021-06-25] MEDS: TAMSULOSIN HCL 0.4 MG CAP PO SCH ×2 (09:21→21:11)
[2021-06-25] MEDS: THIAMINE HCL 100 MG TAB PO SCH (09:21)
[2021-06-25] MEDS: INSULIN HUMAN NPH SC SCH (09:34)
[2021-06-25] MEDS: INSULIN ASPART 100 UNITS/ML 3 ML PEN SC SCH ×4 (09:41→21:12)
[2021-06-25] MEDS: TERBINAFINE CR 30 GM TUBE EXT SCH ×2 (09:46→21:11)
[2021-06-25 10:36] LABS: BUN Creatinine Ratio 27.9 (10-20); Calcium 8.6 mg/dl (8.5-10.1); Creatinine Clr Calc Pharmacy 63.3 ml/min; Est GFR (African American) 93.2 ml/min; Est GFR (Non-African American) 80.4 ml/min; Potassium 3.9 mmol/L (3.5-5.1)
[2021-06-25] MEDS: ACETAMINOPHEN 325 MG TAB PO PRN ×2 (11:58→22:32)
[2021-06-25] MEDS ORDERED: FUROSEMIDE 40 MG TAB PO ONE (12:41)
--- NOTE | 2021-06-25 13:17 | Pharmacy Report ---
Pharmacy Glycemic Short Note 2 - Date of Service June 25, 2021 - Glycemic Short BSG Results (Last 24 hours): 06/24/21 06/24/21 06/25/21 16:53 20:19 08:30 Glucose POC Glucose 273 H 280 H 93 06/25/21 06/25/21 10:08 12:08 Glucose 230 H POC Glucose 252 H OUTPATIENT ANTIDIABETIC REGIMEN: * metformin 1000mg BID * Lantus 10 units BID * Ozempic 0.5mg SC weekly * A1c: 10% 06-16-21 ASSESSMENT: 06/25: * Patient received 63 units of insulin yesterday * 32 units of basal (12 units of Lantus + 20 units of NPH) * Fasting BSG of 93 mg/dL this AM is at goal. I will slightly back of Lantus but increase NPH. NPH is being used for steroid induced hyperglycemia and patient did have significant post prandial BSG elevation yesterday. Will also tighten Novolog. * Prednisone continues at 30 mg PO daily. Dose will be decreased to 20 mg tomorrow. Doses may need adjusted at that time. 06/23 * Patient received total of 36 units of insulin yesterday, of which 20 units were NPH to cover steroids, 10 units were basal * Fasting BSG lower at 84 mg/dL - plan to scale back ~30% on basal to 7 units this AM * PO intake poorer yesterday, may also scale back slightly on NPH as well 06/22 * BSGs well controlled over last 24 hrs * 62 units of SQ have been administered over last 24 hrs while tolerating a diet, albeit low intake of carbs * Fasting BSG 100 this AM with 20 units Lantus on board and after receiving 25 units NPH yesterday AM * Will reduce NPH dose today as Prednisone dose will step down to 40mg daily * Novolog CF/CR doses will be continued today given reasonable control yesterday 06/21 * Consulted for glycemic management after patient was initiate on steroids and began experiencing steroid induced hyperglycemia. * Initial plan was to start NPH this morning with prednisone, however patient began choking on his breakfast after the only a few bites and it was unclear how much he would be able to consume for the rest of the day. Will utilize a tightened NovoLog scale for coverage today with overnight checks. If able to consistently eat throughout today will plan to initiate NPH tomorrow morning. Will continue with home lantus dosing for now. PLAN FOR INPATIENT GLYCEMIC CONTROL: * Hold outpatient oral diabetes medications * Basal insulin * Lantus 10 units daily * NPH to 25 units QAM * Bolus insulin * NovoLog per scale ACHS or Q6hrs while NPO * Goal Range: Low 110 mg/dL - High 140 mg/dL * Correction Factor: 20 mg/dL/unit * Nutritional / Prandial insulin per carb ratio of 1 unit per 6 grams CHO consumed PLAN FOR DISCHARGE: * A1c 10% - less stringent goal closer to 8% reasonable * DM educator met with patient and patient reports losing about ~30 lbs over last couple of months. He reports only fair appetite and difficulty in chewing/swallowing. * Agree with DM educator that continuation with Ozempic should be evaluated since it can promote weight loss. * Insulin regimen likely needs adjusted to better improve A1c - however, hard to assess during current hospital stay as patient also on steroids. * Per notes, patient needs to establish care with local provider now that he is living in [place] * Reasonable to continue same insulin regimen for now as long as patient is not reporting frequent lows. Okay also to continue with metformin * Feel that further adjustments to regimen could be evaluated outpatient once he establishes care with a provider
[2021-06-25] MEDS: carvediloL 12.5 MG TAB PO SCH (21:09)
[2021-06-25] MEDS: ENOXAPARIN INJ 40 MG/0.4 ML SYR SQ SCH (21:09)
--- NOTE | 2021-06-25 22:48 | Hospitalist Progress Note ---
Date of Service June 25, 2021 Assessment & Plan (1) Myasthenia gravis: Plan: Myasthenia gravis (CSF ACh receptor binding and serum modulating Ab detected) Immunoglobulin treatment was begun on the evening of 06/16 with movement intensive care unit, very slight improvement in NIF and FVC, finished 5 days Steroids added to the immunoglobulin therapy beginning 06/18. Continue prednisone taper. Patient unable to complete CTs at this stage as unable to lie flat HIM request for [place] clinic notes and from [place] requested - although no LP was performed in [place]. NCS/EMG would be useful. Repetitive nerve stimulation to be done in clinic. Appreciate neurology recommendations - now antibodies back will defer to neurology but consider starting pyridostigmine (2) Shortness of breath: Plan: Secondary to myasthenia gravis as above. (3) Bilateral leg edema: Plan: US venous doppler as he has not had a doppler to rule out DVT this admission. Suspect from steroid use and immobility. Lasix 40g IV daily. Would advise this is optimized somewhat prior to his discharge. (4) Anemia: Plan: Iron, B12 and folate WNL Progressive anemia, appears stable today. Patient respiratory status excludes him from having EGD therefore no need to consult GI at this stage. Stable (5) Acute hyponatremia: Plan: Now resolved Patient's hyponatremia is mild in presentation did improve with fluid restrict and follow (6) Hypomagnesemia: Plan: Hypomagnesemia on admission. Now resolved (7) Diabetes mellitus: Plan: HbA1C 10 Consult pharmacy for glycemic control (8) Hypertension: Plan: Hypotension on presentation. Nifedipine on hold, would avoid restarting this due to peripheral edema. Continue losartan 100 mg PO daily Continue carvedilol (reduced dose) 6.25mg PO BID Lasix as above (9) BPH (benign prostatic hyperplasia): Plan: Continue tamsulosin 4mg PO BID (10) DVT prophylaxis: Plan: Lovenox 40mg SQ daily Plan: Medically stable for discharge pending placement Admission and Anticipated Discharge Date Admission Date: June 15, 2021 Subjective No acute events overnight. No questions or concerns for me today. Not much urine output after PO Lasix given. Bilateral leg swelling more taught today and causing pain. No increased shortness of breath or chest pain. No further a spiration events since toast on 06/20. Feels over the last week he is mildly progressing regarding his proximal/respiratory/mastication muscle weakness. Review of Systems Review of Systems: All systems reviewed & are unremarkable except as noted in HPI & below Physical Exam Constitutional: well developed; no acute distress Respiratory: + abnormal respiratory effort (reduced), no retractions and does not use accessory muscles Auscultation: + diminished lung sounds (bibasal); no crackles and no wheezes Cardiovascular: Rate/Rhythm: regular rate and regular rhythm Extremities: + pedal edema (3+ b/l LE pitting) Gastrointestinal (Abdomen): normal bowel sounds, soft, nontender, no hepatosplenomegaly Neurologic: + focal motor deficit (bilateral proximal > distal) and awake Psychiatric: A+Ox3, euthymic affect Results & Data Results & Data ([facility]) Vital Signs (Past 12 Hours) Vital Signs Temp Pulse Pulse Resp BP BP Pulse Ox 06/25/21 22:42 36.9 C 68 20 184/78 H 96 06/25/21 21:04 90 172/83 H 06/25/21 16:24 169/67 H 06/25/21 15:56 37.1 C 66 17 183/81 H 95 06/25/21 11:50 36.9 C 85 16 164/80 H 96 PG Care Time/CCT Total # of Minutes Spent Total Time Spent with Patient: Total time spent is greater than 50% in coordination of care (as documented) at patient's floor/unit and/or counseling patient: Coding Level of Care Code 56847 Subseq Hosp Care Lvl 2 Diagnoses Shortness of breath R06.02 Bilateral leg edema R60.0 Anemia D64.9 Acute hyponatremia E87.1 Hypomagnesemia E83.42 Diabetes mellitus E11.9 Hypertension I10 BPH (benign prostatic hyperplasia) N40.0 DVT prophylaxis Z29.9 Myasthenia gravis G70.00
[2021-06-26] MEDS ORDERED: INSULIN ASPART 100 UNITS/ML 3 ML PEN SC SCH
[2021-06-26] MEDS: ACETAMINOPHEN 325 MG TAB PO PRN ×2 (03:12→16:12)
[2021-06-26] MEDS: LEVOTHYROXINE SODIUM 88 MCG TABLET PO SCH (06:17)
--- NOTE | 2021-06-26 07:21 | Ultrasound Report ---
BILATERAL LOWER EXTREMITY VENOUS DOPPLER HISTORY: bilateral leg swelling and pain, immobile, r/o DVT COMPARISON STUDY: None. FINDINGS: There is normal compressibility, flow, and augmentation within the bilateral lower extremit y deep venous systems. IMPRESSION: No DVT within the right or left lower extremity. ACT 112: Negative or not required by law. Electronically signed by: Ap Gandhi M.D. 06/26/2021 7:20 AM
--- NOTE | 2021-06-26 08:35 | Hospitalist Progress Note ---
Date of Service June 26, 2021 Assessment & Plan (1) Myasthenia gravis: Plan: Myasthenia gravis (CSF ACh receptor binding and serum modulating Ab detected) Immunoglobulin treatment was begun on the evening of 06/16 with movement intensive care unit, very slight improvement in NIF and FVC, finished 5 days Steroids added to the immunoglobulin therapy beginning 06/18. Continue prednisone taper. Patient unable to complete CTs at this stage as unable to lie flat HIM request for [place] clinic notes and from [place] requested - although no LP was performed in [place]. NCS/EMG would be useful. Repetitive nerve stimulation to be done in clinic. Appreciate neurology recommendations - pyridostigmine will start at lower dose 30 mg 3 times daily and watch for clinical improvement considering high-dose pulse steroids for 2 days (2) Shortness of breath: Plan: Secondary to myasthenia gravis as above. (3) Bilateral leg edema: Plan: US venous doppler as he has not had a doppler to rule out DVT this admission. Suspect from steroid use and immobility. Lasix 40g IV daily. Consider changing to p.o. if remains stable would advise this is optimized somewhat prior to his discharge. (4) Anemia: Plan: Iron, B12 and folate WNL Progressive anemia, appears stable Patient respiratory status excludes him from having EGD therefore no need to consult GI at this stage. (5) Acute hyponatremia: Plan: Now resolved Patient's hyponatremia is mild in presentation did improve with fluid restrict and follow (6) Hypomagnesemia: Plan: Hypomagnesemia on admission. Now resolved (7) Diabetes mellitus: Plan: HbA1C 10 Consult pharmacy for glycemic control (8) Hypertension: Plan: Hypotension on presentation. Nifedipine on hold, would avoid restarting this due to peripheral edema. Continue losartan 100 mg PO daily Continue carvedilol (reduced dose) 6.25mg PO BID Lasix as above (9) BPH (benign prostatic hyperplasia): Plan: Continue tamsulosin 4mg PO BID (10) DVT prophylaxis: Plan: Lovenox 40mg SQ daily Plan: Medically stable for discharge pending placement Admission and Anticipated Discharge Date Admission Date: June 15, 2021 Subjective The patient feels that he is little bit stronger than he was several days ago. He is now able to touch his head with his right arm he is able to position his neck more strong believes to his head does not flop around however he still has marked shortness of breath when he lays down and this may be more anxiety than physiologic however he is concerned about this most of all. Laboratory studies, which were obtained 10 days ago, show positive acetylcholine receptor modulating antibody of 86 (normal less than 32). Blocking antibody is negative at less than 15 and binding antibodies pending he has a negative J0-1 antibody. Viral DNA PCR studies were unremarkable. CSF was unremarkable so far. Neurology recommending a trial of pyridostigmine 30 low-dose 30 3 times daily escalating if improvement to 60 4 times daily if needed consideration of pulse dose steroids which significantly high dose will continue to ask for neurology recommendations and following the patient Review of Systems Review of Systems: Mild distress and lessening fatigue no headache, no visual changes no speech or swallowing issues no chest pain, pressure or palpitations Still feels orthopnea and fearful to lay back flat no abdominal pain, nausea or vomiting, diarrhea or constipation no dysuria, hematuria or frequency no focal joint pain or swelling no back pain, CVA tenderness or radicular pain Continues with sacral pressure areas Significant proximal muscle weakness and axial muscular weakness no complaints of anxiety or depression.. Physical Exam Physical Exam: The patient appeared well nourished and normally developed. Still concerned about lying flat Vital signs as documented. Head exam is normocephalic atraumatic Neck is without JVD, thyromegaly, or carotid bruits. Lungs are clear to auscultation, continues with reasonable air movement, no focal loss of breath sounds Cardiac exam, Rhythm is regular.. No murmurs, rubs or gallops. Abdominal exam reveals normal bowel sounds, soft non tender, no masses Extremities are nonedematous and both pedal pulses are present Neurologic exam is alert and oriented, strength to his shoulders and hip flexors are improving but still weakened Skin is without bruises or rashes Psychologically is without concerns for anxiety or depression Results & Data Results & Data ([facility]) Vital Signs (Past 12 Hours) Vital Signs Temp Pulse Pulse Resp BP BP Pulse Ox 06/26/21 08:01 97.9 F 65 18 177/92 H 98 06/25/21 22:42 98.4 F 68 20 184/78 H 96 06/25/21 21:04 90 172/83 H PG Care Time/CCT Total # of Minutes Spent Total Time Spent with Patient: Total time spent is greater than 50% in coordination of care (as documented) at patient's floor/unit and/or counseling patient: Coding Level of Care Code 21650 Subseq Hosp Care Lvl 3 Diagnoses Myasthenia gravis G70.00 Shortness of breath R06.02 Bilateral leg edema R60.0 Anemia D64.9 Acute hyponatremia E87.1 Hypomagnesemia E83.42 Diabetes mellitus E11.9 Hypertension I10 BPH (benign prostatic hyperplasia) N40.0 DVT prophylaxis Z29.9
[2021-06-26] MEDS: FUROSEMIDE 40 MG in SYRINGE 0 ML IV SCH (08:46)
[2021-06-26] MEDS: ASPIRIN 81 MG ECTAB PO SCH (08:47)
[2021-06-26] MEDS: predniSONE 20 MG TAB PO SCH (08:47)
[2021-06-26] MEDS: TAMSULOSIN HCL 0.4 MG CAP PO SCH ×2 (08:47→20:56)
[2021-06-26] MEDS: carvediloL 12.5 MG TAB PO SCH ×2 (08:47→20:55)
[2021-06-26] MEDS: LOSARTAN POTASSIUM 50 MG TAB PO SCH (08:47)
[2021-06-26] MEDS: PANTOprazole 40 MG TAB PO SCH ×2 (08:47→20:56)
[2021-06-26] MEDS: FINASTERIDE 5 MG TAB PO SCH (08:47)
[2021-06-26] MEDS: TERBINAFINE CR 30 GM TUBE EXT SCH ×2 (08:48→20:57)
[2021-06-26] MEDS: CEROVITE ADV FORMULA TAB PO SCH (08:48)
[2021-06-26] MEDS: POLYETHYLENE (MIRALAX) 17 GM PACK PO SCH ×2 (08:48→20:57)
--- NOTE | 2021-06-26 08:58 | Neurology Progress Note ---
Date of Service June 26, 2021 Assessment & Plan (1) Myasthenia gravis: (2) Muscle weakness (generalized): (3) Diabetic polyneuropathy: Plan: This patient had the relatively recent onset of weakness, starting in January of this year, 5 days after his 2nd Moderna vaccine shot. Interestingly, the weakness was episodic at first, lasting anywhere from minutes to hours, and then the episodes lasted hours to days. Finally, he had continuous weakness in the last 5-6 weeks, with a flare up June 15 which caused this current hospitalization. Clearly, this has been a progressive condition. He achieved improvement/stability over the last week and is much improved over the last few days compared to 7-10 days ago. The patient tells me that he may have had some mild weakness issues prior to January of 2021, but they were very minor and he "ignored them". On neurologic examination, he has proximal muscle weakness consistent with myopathy. Distal muscles are spared. The proximal arms are worse than the proximal legs. He has normal reflexes in the arms (although the brachioradialis reflexes are slightly less than the biceps and triceps bilaterally ) and diminished reflexes in the quadriceps tendons bilaterally. Achilles tendon reflexes are absent and I attribute this to his longstanding diabetic polyneuropathy. He has a stocking decreased sensory loss in the feet consistent with his diabetic polyneuropathy as well. I believe the tongue in the lids are week. Therefore, the patient clinically has a myopathy, but with fluctuation that would was suggested neuromuscular transmission defect. Acetylcholine receptor modulating antibodies were positive, consistent with myasthenia gravis. He is post IVIG for 5 days, with perhaps some improvement resulting in instability (but no significant improvement in the weakness). He has been on steroids over relatively low, tapering course over the last week which has created some mild improvement as well. Whereas, I am not sure that the Covid-19 vaccine he received in January caused the myasthenia, it could very well have exacerbated it or lead to it becoming more prominent. However, there have been rare cases of myasthenia gravis being caused by Covid-19 infection and 1 case this year of myasthenia gravis being caused by the Moderna vaccine. His exam and history did not fit Guillain-[place] syndrome or chronic inflammatory demyelinating polyneuropathy (which is a more indolent, progressive form of inflammatory polyneuropathy) With the normal CK and sed rate, and lack of muscle pain and tenderness, I doubt this is an inflammatory myopathy, such as polymyositis or dermatomyositis ( no skin lesions either). There have been cases of the Covid-19 vaccines causing acute (poly)myositis. There is no evidence for upper motor neuron disease although a polyneuropathy will mask upper motor neuron signs in the feet and legs. With his neck discomfort I am concerned about a possible cervical spinal stenosis/myelopathy superimposed. in addition, I am not certain why he is unable to or against lying down flat. Recommendations: 1. physical and occupational therapy, increasing activity as able. He is likely a rehabilitation hospital candidates. 2. EMG and nerve conduction studies of all 4 limbs, but I can only do this study as an outpatient. 3. CT scan of the chest to look for thymus area tumor 4. CT scan of the cervical spine to evaluate for spinal stenosis /myelopathy. An MRI would be idea,l but he would not tolerate that length of time lying. 5. Initiate pyridostigmine 30 milligrams 3 times a day. I can titrate this depending on his clinical course. Watch for GI side effects including diarrhea from this medication. 6. Continue prednisone 30 milligrams daily for now. Alternatively, we might give him a pulsed corticosteroid course for myasthenia which would consist of 1 gram IV Solu-Medrol a day for 2 days followed by 30 milligrams prednisone orally. I would titrate from there as an outpatient. 7. I called the pharmacist and she is going to look at his medication list to see if there are any contraindications regarding the diagnosis of myasthenia gravis Overall, I spent 85 minutes with this case including review of records, direct evaluation of the patient, and discussion of the case with patient and RN at bedside, pharmacist, Infectious Disease manager lpn Amanda Torres, and Dr. Goldman, including differential diagnosis and treatment options. Admission and Anticipated Discharge Date Admission Date: June 15, 2021 Subjective The patient feels that he is little bit stronger than he was several days ago. He feels that he is not choking on food at all and his breathing is a little bit easier. He has no new weakness but still feels that his neck and upper extremities proximally are weak. He can walk to the bathroom with assistance. He does not want to lay down still. He does not have much in the way of pain. Laboratory studies, which were obtained 10 days ago, show positive acetylcholine receptor modulating antibody of 86 (normal less than 32). Blocking antibody is negative at less than 15 and binding antibodies pending he has a negative J0-1 antibody. Viral DNA PCR studies were unremarkable. CSF was unremarkable so far. Blood pressure is 177/92. Results & Data ([facility]) Vital Signs (Past 12 Hours) Vital Signs Temp Pulse Pulse Resp BP BP Pulse Ox 06/26/21 08:01 36.6 C 65 18 177/92 H 98 06/25/21 22:42 36.9 C 68 20 184/78 H 96 06/25/21 21:04 90 172/83 H Exam (Neuro) Physical Exam: Patient is awake and alert. Speech is without any obvious aphasia or dysarthria. Mood is reasonable and affect is appropriate. Thought processes are intact conversation. Extraocular eye muscles were intact without nystagmus. Pupils cannot be raised over the tops of the corneas bilaterally. There is mild weakness in the tongue bilaterally and the neck. Proximal extremity weakness is the same as before. He is not short of breath sitting chair is respiratory rate is 18 PG Care Time/CCT Total # of Minutes Spent Total Time Spent with Patient: Total time spent is greater than 50% in coordination of care (as documented) at patient's floor/unit and/or counseling patient: Coding Level of Care Code 28539 Subseq Hosp Care Lvl 3 Diagnoses Muscle weakness (generalized) M62.81 Diabetic polyneuropathy E11.42 Myasthenia gravis G70.00 Time Spent (min) 85 Comment At modifiers as able
[2021-06-26] MEDS ORDERED: FUROSEMIDE 40 MG TAB PO SCH (09:00)
[2021-06-26] MEDS: INSULIN GLARGINE SOLOSTAR 100 UNITS/ML 3 ML PEN SC SCH (09:08)
[2021-06-26] MEDS: INSULIN ASPART 100 UNITS/ML 3 ML PEN SC SCH ×4 (09:08→20:56)
[2021-06-26] MEDS: INSULIN HUMAN NPH SC SCH (09:10)
[2021-06-26] MEDS: PYRIDOSTIGMINE BROMIDE 60 MG TAB PO SCH ×3 (09:10→20:56)
--- NOTE | 2021-06-26 12:20 | Pharmacy Report ---
Pharmacy Glycemic Short Note 2 - Date of Service June 26, 2021 - Glycemic Short BSG Results (Last 24 hours): 06/25/21 06/25/21 06/25/21 12:08 16:42 20:25 POC Glucose 252 H 208 H 310 H* 06/26/21 06/26/21 06/26/21 01:27 07:50 12:03 POC Glucose 138 H 92 259 H OUTPATIENT ANTIDIABETIC REGIMEN: * metformin 1000mg BID * Lantus 10 units BID * Ozempic 0.5mg SC weekly * A1c: 10% 06-16-21 ASSESSMENT: 06/26/21 * Patient's BSGs yesterday were [phone] iwth midnight check of 138 mg/dL * Fasting today is 92 mg/dL * Total insulin dose yesterday was 75 units (35 units of basal and 40 units of bolus). * Fasting is stable continue Lantus 10 units Prednisone dose is decreasing from 30 mg to 20 mg. Continue same NPH dose though since post-prandial BSGs were elevated. * Lunch BSG elevated so tightened CF/CR slightly. 06/25: * Patient received 63 units of insulin yesterday * 32 units of basal (12 units of Lantus + 20 units of NPH) * Fasting BSG of 93 mg/dL this AM is at goal. I will slightly back of Lantus but increase NPH. NPH is being used for steroid induced hyperglycemia and patient did have significant post prandial BSG elevation yesterday. Will also tighten Novolog. * Prednisone continues at 30 mg PO daily. Dose will be decreased to 20 mg tomorrow. Doses may need adjusted at that time. 06/23 * Patient received total of 36 units of insulin yesterday, of which 20 units were NPH to cover steroids, 10 units were basal * Fasting BSG lower at 84 mg/dL - plan to scale back ~30% on basal to 7 units this AM * PO intake poorer yesterday, may also scale back slightly on NPH as well 06/22 * BSGs well controlled over last 24 hrs * 62 units of SQ have been administered over last 24 hrs while tolerating a diet, albeit low intake of carbs * Fasting BSG 100 this AM with 20 units Lantus on board and after receiving 25 units NPH yesterday AM * Will reduce NPH dose today as Prednisone dose will step down to 40mg daily * Novolog CF/CR doses will be continued today given reasonable control yesterday 06/21 * Consulted for glycemic management after patient was initiate on steroids and began experiencing steroid induced hyperglycemia. * Initial plan was to start NPH this morning with prednisone, however patient began choking on his breakfast after the only a few bites and it was unclear how much he would be able to consume for the rest of the day. Will utilize a tightened NovoLog scale for coverage today with overnight checks. If able to consistently eat throughout today will plan to initiate NPH tomorrow morning. Will continue with home lantus dosing for now. PLAN FOR INPATIENT GLYCEMIC CONTROL: * Hold outpatient oral diabetes medications * Basal insulin * Lantus 10 units daily * NPH 25 units QAM * Bolus insulin * NovoLog per scale ACHS or Q6hrs while NPO * Goal Range: Low 110 mg/dL - High 140 mg/dL * Correction Factor: 18 mg/dL/unit * Nutritional / Prandial insulin per carb ratio of 1 unit per 5 grams CHO consumed PLAN FOR DISCHARGE: * A1c 10% - less stringent goal closer to 8% reasonable * DM educator met with patient and patient reports losing about ~30 lbs over last couple of months. He reports only fair appetite and difficulty in chewing/swallowing. * Agree with DM educator that continuation with Ozempic should be evaluated since it can promote weight loss. * Insulin regimen likely needs adjusted to better improve A1c - however, hard to assess during current hospital stay as patient also on steroids. * Per notes, patient needs to establish care with local provider now that he is living in [place] * Reasonable to continue same insulin regimen for now as long as patient is not reporting frequent lows. Okay also to continue with metformin * Feel that further adjustments to regimen could be evaluated outpatient once he establishes care with a provider
[2021-06-26] MEDS: FERROUS SULFATE 325 MG TAB PO SCH (13:13)
[2021-06-26] MEDS: ENOXAPARIN INJ 40 MG/0.4 ML SYR SQ SCH (20:55)
[2021-06-27] MEDS: LEVOTHYROXINE SODIUM 88 MCG TABLET PO SCH (06:14)
[2021-06-27 06:31] LABS: Hematocrit (blood only) 29.5 % (42-52); Hemoglobin 9.9 g/dL (14.0-18.0); Mean Corpuscular Hemoglobin 31.2 pg (25-34); Mean Corpuscular Hgb Conc 33.6 g/dL (32-36); Mean Corpuscular Volume 93.1 fL (80-100); Mean Platelet Volume 8.9 fL (7.4-10.4); Platelet Count 262 K/uL (130-400); RDW Standard Deviation 51.5 fL (36.4-46.3); Red Blood Count 3.17 M/uL (4.7-6.1); White Blood Count 5.77 K/uL (4.8-10.8)
[2021-06-27 06:59] LABS: BUN Creatinine Ratio 32.6 (10-20); Calcium 8.7 mg/dl (8.5-10.1); Creatinine Clr Calc Pharmacy 55.3 ml/min; Est GFR (African American) 79.1 ml/min; Est GFR (Non-African American) 68.3 ml/min; Potassium 3.5 mmol/L (3.5-5.1)
[2021-06-27] MEDS ORDERED: INSULIN HUMAN NPH SC SCH (09:00)
[2021-06-27] MEDS: carvediloL 12.5 MG TAB PO SCH (09:06)
[2021-06-27] MEDS: FUROSEMIDE 40 MG in SYRINGE 0 ML IV SCH (09:06)
[2021-06-27] MEDS: predniSONE 20 MG TAB PO SCH (09:07)
[2021-06-27] MEDS: TAMSULOSIN HCL 0.4 MG CAP PO SCH (09:07)
[2021-06-27] MEDS: FINASTERIDE 5 MG TAB PO SCH (09:07)
[2021-06-27] MEDS: PANTOprazole 40 MG TAB PO SCH (09:07)
[2021-06-27] MEDS: CEROVITE ADV FORMULA TAB PO SCH (09:07)
[2021-06-27] MEDS: PYRIDOSTIGMINE BROMIDE 60 MG TAB PO SCH ×2 (09:08→13:51)
[2021-06-27] MEDS: LOSARTAN POTASSIUM 50 MG TAB PO SCH (09:08)
[2021-06-27] MEDS: ASPIRIN 81 MG ECTAB PO SCH (09:08)
[2021-06-27] MEDS: POLYETHYLENE (MIRALAX) 17 GM PACK PO SCH (09:08)
[2021-06-27] MEDS: TERBINAFINE CR 30 GM TUBE EXT SCH (09:09)
[2021-06-27] MEDS: INSULIN GLARGINE SOLOSTAR 100 UNITS/ML 3 ML PEN SC SCH (09:13)
[2021-06-27] MEDS: INSULIN ASPART 100 UNITS/ML 3 ML PEN SC SCH ×2 (09:14→13:02)
--- NOTE | 2021-06-27 11:12 | Neurology Progress Note ---
Date of Service June 27, 2021 Assessment & Plan (1) Myasthenia gravis: (2) Muscle weakness (generalized): (3) Diabetic polyneuropathy: Plan: This patient had the relatively recent onset of weakness, starting in January of this year, 5 days after his 2nd Moderna vaccine shot. Interestingly, the weakness was episodic at first, lasting anywhere from minutes to hours, and then the episodes lasted hours to days. Finally, he had continuous weakness in the last 5-6 weeks, with a flare up June 15 which caused this current hospitalization. Clearly, this has been a progressive condition. He achieved improvement/stability over the last week and is much improved over the last few days compared to 7-10 days ago. The patient tells me that he may have had some mild weakness issues prior to January of 2021, but they were very minor and he "ignored them". On neurologic examination, he has proximal muscle weakness consistent with myopathy. Distal muscles are spared. The proximal arms are worse than the proximal legs. He has normal reflexes in the arms (although the brachioradialis reflexes are slightly less than the biceps and triceps bilaterally ) and diminished reflexes in the quadriceps tendons bilaterally. Achilles tendon reflexes are absent and I attribute this to his longstanding diabetic polyneuropathy. He has a stocking decreased sensory loss in the feet consistent with his diabetic polyneuropathy as well. I believe the tongue in the lids are week. Therefore, the patient clinically has a myopathy, but with fluctuation that would was suggested neuromuscular transmission defect. Acetylcholine receptor modulating antibodies were positive, consistent with myasthenia gravis. He is post IVIG for 5 days, with perhaps some improvement resulting in instability (but no significant improvement in the weakness). He has been on steroids over relatively low, tapering course over the last week which has created some mild improvement as well. Whereas, I am not sure that the Covid-19 vaccine he received in January caused the myasthenia, it could very well have exacerbated it or lead to it becoming more prominent. However, there have been rare cases of myasthenia gravis being caused by Covid-19 infection and 1 case this year of myasthenia gravis being caused by the Moderna vaccine. His exam and history did not fit Guillain-[place] syndrome or chronic inflammatory demyelinating polyneuropathy (which is a more indolent, progressive form of inflammatory polyneuropathy) With the normal CK and sed rate, and lack of muscle pain and tenderness, I doubt this is an inflammatory myopathy, such as polymyositis or dermatomyositis ( no skin lesions either). There have been cases of the Covid-19 vaccines causing acute (poly)myositis. There is no evidence for upper motor neuron disease although a polyneuropathy will mask upper motor neuron signs in the feet and legs. With his neck discomfort I am concerned about a possible cervical spinal stenosis/myelopathy superimposed. in addition, I am not certain why he is unable to or against lying down flat. Recommendations: 1. physical and occupational therapy, increasing activity as able. He is likely a rehabilitation hospital candidates. 2. EMG and nerve conduction studies of all 4 limbs, but I can only do this study as an outpatient. 3. CT scan of the chest to look for thymus area tumor 4. CT scan of the cervical spine to evaluate for spinal stenosis /myelopathy. An MRI would be idea,l but he would not tolerate that length of time lying. 5. Continue pyridostigmine 30 milligrams 3 times a day for now. I can titrate this depending on his clinical course. Watch for GI side effects including diarrhea from this medication. 6. Continue prednisone 30 milligrams daily for now. Alternatively, we might give him a pulsed corticosteroid course for myasthenia which would consist of 1 gram IV Solu-Medrol a day for 2 days followed by 30 milligrams prednisone orally. I would titrate from there as an outpatient. 7. pharmacy has verified there are no other contraindications on his medication list regarding his myasthenia Overall, I spent 25 minutes with this case including review of records, direct evaluation of the patient, and discussion of the case with patient at bedside and Dr. Goldman, including differential diagnosis and treatment options. Admission and Anticipated Discharge Date Admission Date: June 15, 2021 Subjective patient feels stronger today. He is able stand better and hold his neck up better. He is swallowing without choking issues and breathing better. He feels that he is less bent over in his low back as well. Blood pressure is 148/74. Results & Data ([facility]) Vital Signs (Past 12 Hours) Vital Signs Temp Pulse Resp BP Pulse Ox 06/27/21 08:06 36.3 C L 56 L 16 148/74 H 98 Exam (Neuro) Physical Exam: He is awake and alert. Speech is without aphasia or dysarthria. Mood is reasonable. Affect is appropriate. Thought processes are intact to conversation. Extraocular eye muscles are intact without nystagmus. He has weakness in his forehead muscles bilaterally but can wrinkle some. Upper lids can only come up to the tops of the corneas bilaterally. He has no facial droop and his tongue is midline and of reasonable strength. He is actually stronger and his proximal arm muscles being 4 to 4+/5 bilaterally. Distally he is close to 5/5. The patient can stand and take a few steps and strength is reasonable in the legs bilaterally. PG Care Time/CCT Total # of Minutes Spent Total Time Spent with Patient: Total time spent is greater than 50% in coordination of care (as documented) at patient's floor/unit and/or counseling patient: Coding Level of Care Code 94480 Subseq Hosp Care Lvl 2 Diagnoses Myasthenia gravis G70.00 Muscle weakness (generalized) M62.81 Diabetic polyneuropathy E11.42 Time Spent (min) 25
--- NOTE | 2021-06-27 20:16 | Discharge Summary ---
Date of Service June 27, 2021 Admission HPI Per Admitting Provider 80-year-old male who has been in [place] for just over a day, moving from a physical rehab in [place] to be closer to family. The patient has been having weakness and falling for the last 5 or so weeks. He has fallen at least 5 times. He complains of being short of breath doing anything and he is very short of breath lying flat. He has to sleep sitting up. The patient states there is a sore forming on the area of his sacrum which has been present for months. He has not had fever, chills or cough. No urinary burning although, he does have some urinary incontinence. The patient states that he has lost 40 pounds in the last few months. Of note, the patient's blood pressure was 70/30 prior to arrival. He was given a 400 cc saline bolus and the blood pressure has improved. His blood sugar was recorded at 317. He initially, when his blood pressure was low, complained of left facial numbness. The numbness seems to have resolved. The patient blames the Moderna vaccine for his issues. All his problems started after this vaccination. Principal Diagnosis Myasthenia gravis Acute on chronic respiratory failure secondary to myasthenia gravis Hyponatremia resolved Hypomagnesemia resolved Discharge Exam The patient appeared improved with increased strength and vitality Vital signs as documented. Lungs are clear to auscultation and appear unlabored good air movement over previous Cardiac exam, Rhythm is regular.. No murmurs, rubs or gallops. Abdominal exam reveals normal bowel sounds, soft non tender, no masses Extremities are trace edematous and both pedal pulses are normal. Neurologic exam is alert and oriented, improvement of axial weakness Skin is with sacral area skin breakdown improving Psychologically is without concerns for anxiety or depression. Discharge Data Allergies Allergy/AdvReac Type Severity Reaction Status Date / Time lisinopril Allergy Unknown Unknown Verified 06/15/21 17:27 Consultations 06/15/21 18:24 ED Decision to Admit Stat 06/15/21 18:47 ED Decision to Admit Stat 06/15/21 21:56 Consult Neurology Routine 06/16/21 16:08 Consult Anesthesiology Routine 06/17/21 01:49 Consult Tool Crib Supervisor Routine 06/22/21 18:27 Consult Health Information Management Routine 06/22/21 18:29 Consult Health Information Management Routine 06/25/21 22:59 Consult Neurology Routine Ordered Studies 06/15/21 16:20 CT head/brain wo con Stat 06/21/21 00:01 FL video swallow Routine 06/25/21 22:46 US venous doppler LE Urgent Hospital Course (1) Myasthenia gravis: Myasthenia gravis (CSF ACh receptor binding and serum modulating Ab detected) Immunoglobulin treatment was begun on the evening of 06/16 with movement intensive care unit, very slight improvement in NIF and FVC, finished 5 days Steroids added to the immunoglobulin therapy beginning 06/18. Continue prednisone taper will taper slowly and follow-up with neurology as an outpatient. Patient unable to complete CTs at this stage as unable to lie flat neurology may still wish to pursue CTs of spine HIM request for [place] clinic notes and from [place] requested - although no LP was performed in [place]. NCS/EMG would be useful. Repetitive nerve stimulation to be done in clinic. Appreciate neurology recommendations - pyridostigmine 30 mg 3 times daily and traumatic clinical improvement neurology wishes to remain at this dose and follow-up as an outpatient with EMGs There is a concern for sepsis has been ruled out (2) Shortness of breath: Secondary to myasthenia gravis as above. (3) Bilateral leg edema: US venous doppler negative for DVT, echocardiogram shows preserved ejection fraction Suspect from steroid use and immobility. Leg edema persist however patient is stable without diuretics at this time continue to elevate and watch dietary intake of sodium (4) Anemia: Iron, B12 and folate WNL Progressive anemia, appears stable Patient respiratory status excludes him from having EGD therefore no need to consult GI at this stage. (5) Acute hyponatremia: Now resolved Patient's hyponatremia is mild in presentation did improve with fluid restrict (6) Hypomagnesemia: Hypomagnesemia on admission. Now resolved (7) Diabetes mellitus: HbA1C 10 Will remain on sliding scale insulin (8) Hypertension: Hypotension on presentation. Nifedipine on hold, would avoid restarting this due to peripheral edema. Continue losartan 100 mg PO daily Continue carvedilol (9) BPH (benign prostatic hyperplasia): Continue tamsulosin 4mg PO BID (10) DVT prophylaxis: Lovenox 40mg SQ daily recommend keeping some Lovenox DVT prevention until the patient's more readily able to ambulate Total Time Total Time Spent Total Time Spent (In Minutes): It required greater than 30 minutes to prepare this patient for discharge Discharge Plan Discharge Items Patient Disposition: Transfer Inpatient Rehab Fac Reason For Visit: RESPIRATORY FAILURE, HYPOMAGNESMIA, POSSIBLE SEPSI Discharge Diagnosis: myesthesia Gravis Condition on Discharge: Fair Activity: Per Instructions section Activity Comment: per PT OT Non-emergency contact: Primary Care Provider and Neurologist Call non-emergency contact if: you have any medication questions and your symptoms worsen Follow-up/Referrals: Krystian Guzman, [employer] [Primary Care Provider] - Diet: Regular Addtl Attending Provider Instructions: please be sure to have follow up with Dr Moreira continue the pyridostigmine and steroids until you see Dr Moreira Pending Studies at Discharge: Yes Studies:: there are a few send away tests that have yet resulted Stand-Alone Forms: My [facility] Skilled Items Patient informed of condition?: Yes DNR: Yes Discharge Level of Care: Acute rehab Communicable Disease: No Discharge Prognosis: Improving Lines: None Urinary Catheter: No Medications and DC Order Prescriptions: New carvedilol 12.5 mg Tablet 12.5 mg PO BID Qty: 60 RF: 0 pyridostigmine bromide 60 mg Tablet 30 mg PO TID Qty: 90 RF: 0 Novolin N NPH U-100 Insulin 100 unit/mL Suspension 30 unit SC QAM Qty: 10 RF: 0 enoxaparin 40 mg/0.4 mL Syringe 40 mg subcut HS 7 Days Qty: 2.8 RF: 0 insulin aspart U-100 [Novolog Flexpen U-100 Insulin] 100 unit/mL (3 mL) Insulin Pen 1 unit SC ACHS Qty: 3 RF: 0 prednisone 20 mg Tablet 20 mg PO DAILY Qty: 30 RF: 0 Continued acetaminophen 325 mg Tablet 650 mg PO Q6 PRN (Reason: Fever Or Pain) RF: 0 Lantus U-100 Insulin 100 unit/mL Solution 10 unit SUBCUT BID RF: 0 aspirin [Aspirin Low Dose] 81 mg Tablet,Delayed Release (Dr/Ec) 81 mg PO DAILY RF: 0 levothyroxine 88 mcg Tablet 88 mcg PO DAILY RF: 0 finasteride 5 mg Tablet 5 mg PO DAILY RF: 0 omega 2-atd-vxi-fish oil [Fish Oil] 1,000 mg (120 mg-180 mg) Capsule 1 cap PO BID RF: 0 omeprazole 20 mg Capsule,Delayed Release(Dr/Ec) 20 mg PO BID RF: 0 tamsulosin 0.4 mg Capsule 0.4 mg PO BID RF: 0 polyethylene glycol 3350 [Miralax] 17 gram/dose Powder 17 g PO DAILY PRN (Reason: Constipation) RF: 0 terbinafine HCl 1 % Cream 1 applic TOPICAL BID RF: 0 ketoconazole 2 % Shampoo 1 ea TOPICAL 3XWK RF: 0 melatonin 3 mg Tablet 3 mg PO HS PRN (Reason: Sleep) RF: 0 carboxymethylcellulose sodium 0.5 % Drops 1 drp OPHTHALMIC (EYE) 6XD PRN (Reason: Dry Eye(S)) RF: 0 glucose 4 gram Tablet,Chewable 16 g PO UD PRN (Reason: Hypoglycemia) RF: 0 losartan 100 mg Tablet 100 mg PO DAILY RF: 0 fluticasone propionate 50 mcg/actuation [place],Suspension 1 spray INTRANASAL BID PRN (Reason: breathing) RF: 0 multivitamin with iron-mineral Tablet 1 tab PO DAILY RF: 0 ferrous sulfate 324 mg (65 mg iron) Tablet,Delayed Release (Dr/Ec) 324 mg PO 3XWK RF: 0 PreserVision AREDS-2 250-90-40-1 mg Capsule 1 tab PO BID RF: 0 Discontinued atorvastatin 20 mg Tablet 10 mg PO DAILY RF: 0 carvedilol 25 mg Tablet 25 mg PO Q12H RF: 0 trazodone 50 mg Tablet 50 mg PO HS RF: 0 Ozempic 0.25 mg or 0.5 mg(2 mg/1.5 mL) Pen Injector 0.5 mg SUBCUT WK RF: 0 nifedipine 90 mg Tablet Extended Release 24hr 90 mg PO QAM RF: 0 metformin 1,000 mg Tablet 1,000 mg PO BID RF: 0 loratadine 10 mg Tablet 10 mg PO DAILY RF: 0 Calmoseptine 0.44-20.6 % Ointment 1 applic TOPICAL DAILY RF: 0 lidocaine 5 % Ointment 1 applic TOPICAL Q6 PRN (Reason: right foot nerve pain) RF: 0 Discharge Orders: Discharge Order (Routine); Ordered 06/27/21 Ordered By: Jerry Parks/Other Patient Handouts: Myasthenia Gravis Dc Admission Data Admit Date/Time: 06/15/21 19:32 Attending Provider: Jerry Goldman Admit Provider: Jerry Goldman Primary Care Provider: Krystian Guzman Other Providers: [facility] ; Christy Coello ; Jerry Goldman ; Malik Chand ; Shelton Beatty ; Malik Frank ; [facility] ; [place] ; Sandeep Moreira Other Interventions: Discharge Summary Assessment (RN) Last Done: 06/27/21 13:20 Coding Level of Care Code D/C DAY MANAGEMENT >30 MINS Diagnoses Myasthenia gravis G70.00 Shortness of breath R06.02 Bilateral leg edema R60.0 Anemia D64.9 Acute hyponatremia E87.1 Hypomagnesemia E83.42 Diabetes mellitus E11.9 Hypertension I10 BPH (benign prostatic hyperplasia) N40.0 DVT prophylaxis Z29.9
[2021-06-30 09:46] LABS: Acetylcholine Recep Modulating 84; Anti-Striated Muscle NEGATIVE (NEGATIVE); Voltage-gated Ca Channel Ab <30 pmol/L (<30)
== END 2021-06-27 15:03 | DRG 56 ==
LOC: ED 15:12 → SUATTDRO 19:32 → 2S 19:32 → 1E 06-16 16:30 → 2E 06-17 16:22 → 3N 06-22 12:42

== ENCOUNTER 2021-07-15 22:30 | Observation (INO) ==
[2021-07-15] MEDS ORDERED: PIPERACILLIN/TAZOBACTAM 4.5 GM/120 ML BAG IV ONE (23:04)
[2021-07-15] MEDS ORDERED: PIPERACILL/TAZOBAC CONSULT ACTIVE PRN (23:04)
[2021-07-15 23:33] LABS: Basophils # (auto) 0.01 K/uL (0-0.2); Basophils % (auto) 0.3 %; Eosinophils # (auto) 0.06 K/uL (0-0.5); Eosinophils % (auto) 1.5 %; Hematocrit (blood only) 29.9 % (42-52); Hemoglobin 9.7 g/dL (14.0-18.0); Immature Granulocytes # (auto) 0.01 K/uL (0.00-0.02); Immature Granulocytes % (auto) 0.3 %; Lymphocytes % (auto) 25.3 %; Mean Corpuscular Hemoglobin 32.3 pg (25-34); Mean Corpuscular Hgb Conc 32.4 g/dL (32-36); Mean Corpuscular Volume 99.7 fL (80-100); Mean Platelet Volume 8.8 fL (7.4-10.4); Monocytes # (auto) 0.31 K/uL (0.11-0.59); Monocytes % (auto) 7.8 %; Neutrophils # (auto) 2.57 K/uL (1.4-6.5); Neutrophils % (auto) 64.8 %; Platelet Count 304 K/uL (130-400); RDW Coefficient of Variation 16.7 % (11.5-14.5); RDW Standard Deviation 60.9 fL (36.4-46.3); White Blood Count 3.96 K/uL (4.8-10.8)
[2021-07-15 23:42] LABS: Partial Thromboplastin Time 26.3 Seconds (21.0-31.0); Prothrombin Time 9.8 Seconds (9.0-12.0)
[2021-07-15 23:43] LABS: HCO3 VBG 29 mmol/L; Oxygen Saturation VBG < 60.0 %; PCO2 VBG 54 mmHg (38-50); PO2 VBG 24 mmHg; pH VBG 7.36 (7.36-7.41)
[2021-07-15 23:53] LABS: Appearance Urine Clear (Clear); Bacteria Urine Automated Negative (Negative); Bilirubin Urine Negative (Negative); Blood Urine Negative (Negative); Cast Urine Automated 0 /lpf (0-5); Color Urine Yellow; Glucose Urine UA 3+ (Negative); Ketones Urine Negative (Negative); Leukocyte Esterase Urine Negative (Negative); Nitrite Urine Negative (Negative); Protein Urine Trace (Negative); RBC Urine Automated 0-4 /hpf (0-4); Specific Gravity Urine 1.032 (1.000-1.030); Urobilinogen Urine Negative (Negative); pH Urine 5.5 (4.5-7.5)
[2021-07-15 23:58] LABS: Albumin Globulin Ratio 0.7 (0.9-2); Albumin Level 2.3 gm/dl (3.4-5.0); Bilirubin,Total 0.3 mg/dl (0.2-1); Calcium 8.5 mg/dl (8.5-10.1); Creatinine Clr Calc Pharmacy 69.2 ml/min; Est GFR (African American) 88.4 ml/min; Est GFR (Non-African American) 76.3 ml/min; Globulin 3.5 gm/dl (2.5-4.0); Magnesium 2.1 mg/dl (1.8-2.4); Potassium 3.7 mmol/L (3.5-5.1); Total Protein 5.8 gm/dl (6.4-8.2); Troponin I 0.021 ng/ml (0-0.045)
[2021-07-15] MEDS ORDERED: NovoLIN-R INSULIN PER UNIT CHARGE IV STA (23:59)
--- NOTE | 2021-07-15 23:59 | Emergency Department Note ---
History of Present Illness General Chief complaint: Hyperglycemia Stated complaint: BLOOD SUGAR OVER 600 Time Seen by Provider: 07/15/21 22:46 History of Present Illness Maximum Pain Intensity: 2 This 80 yo presents to the ER complaining of high BS who has been on antibiotics for lower leg cellulitis today. Blood sugar at the long term was over 600 Location: generalized Quality: High blood sugar Severity: Moderate Duration: Today Timing: Today Context: Blood sugar was over 600 and patient was sent in Modifying factors: better with insulin; worse with nothing Patient's been amoxicillin for lower leg cellulitis. This has not gotten better. He has had increased urination. He has been short of breath. He had a recent diagnosis of myasthenia gravis. He is unable to lie flat secondary to his breathing. Patient denies chest pain, vomiting, diarrhea, urinary problems. No fever no chills. Dr. Moreira from neurology doubled up his myasthenia gravis medicine yesterday. Home Medications Medication Instructions Recorded Confirmed Type acetaminophen 325 mg tablet 650 mg PO Q4H PRN 06/15/21 07/15/21 History aspirin 81 mg tablet,delayed 81 mg PO DAILY 06/15/21 07/15/21 History release (Aspirin Low Dose) carboxymethylcellulose sodium 0.5 1 drp OPHTHALMIC (EYE) 6XD PRN 06/15/21 History % eye drops ferrous sulfate 324 mg (65 mg 324 mg PO 3XWK 06/15/21 07/15/21 History iron) tablet,delayed release finasteride 5 mg tablet 5 mg PO DAILY 06/15/21 07/15/21 History fluticasone propionate 50 1 spray INTRANASAL BID PRN 06/15/21 07/15/21 History mcg/actuation nasal spray,suspension insulin glargine 100 unit/mL 10 unit SUBCUT BID 06/15/21 07/15/21 History subcutaneous solution (Lantus U-100 Insulin) ketoconazole 2 % shampoo 1 ea TOPICAL 3XWK 06/15/21 07/15/21 History levothyroxine 88 mcg tablet 88 mcg PO DAILY 06/15/21 07/15/21 History losartan 100 mg tablet 100 mg PO DAILY 06/15/21 07/15/21 History melatonin 3 mg tablet 3 mg PO HS PRN 06/15/21 07/15/21 History omega 6-jrt-mxc-fish oil 1,000 mg 1 cap PO BID 06/15/21 07/15/21 History (120 mg-180 mg) capsule (Fish Oil) omeprazole 20 mg capsule,delayed 20 mg PO BID 06/15/21 07/15/21 History release tamsulosin 0.4 mg capsule 0.4 mg PO BID 06/15/21 07/15/21 History terbinafine HCl 1 % topical cream 1 applic TOPICAL BID 06/15/21 07/15/21 History vit C 250 mg-vit E 90 mg-zinc 40 1 tab PO BID 06/15/21 07/15/21 History mg-copper 1 pz-[id number] capsule (PreserVision AREDS-2) carvedilol 12.5 mg tablet 12.5 mg PO BID #60 tab 06/27/21 07/15/21 Rx amoxicillin 500 mg capsule 500 mg PO TID 07/15/21 07/15/21 History docusate sodium 100 mg capsule 100 mg PO BID 07/15/21 07/15/21 History (Stool Softener) furosemide 20 mg tablet (Lasix) 20 mg PO DAILY 07/15/21 07/15/21 History insulin aspart U-100 100 unit/mL 38 unit SC QDB 07/15/21 07/15/21 History (3 mL) subcutaneous pen (Novolog Flexpen U-100 Insulin aspart) loperamide 2 mg capsule 2 mg PO DIRECTED PRN 07/15/21 07/15/21 History menthol 0.44 %-zinc oxide 20.6 % 1 applic TOPICAL TID 07/15/21 07/15/21 History topical ointment (Calmoseptine) prednisone 5 mg tablet 5 mg PO DAILY 07/15/21 07/15/21 History pyridostigmine bromide 60 mg tablet 60 mg PO TID 07/15/21 07/16/21 History Allergies Allergy/AdvReac Type Severity Reaction Status Date / Time lisinopril Allergy Unknown Unknown Verified 07/15/21 23:35 Past Med/Surg History Medical History (Updated 07/16/21 @ 01:18 by Miryam Ford DO) Anemia BPH (benign prostatic hyperplasia) Diabetes mellitus GERD (gastroesophageal reflux disease) Hypertension Hypothyroid Myasthenia gravis Surgical History (Updated 07/16/21 @ 01:12 by Miryam Ford DO) AICD (automatic cardioverter/defibrillator) present H/O heart surgery Family History (Updated 07/16/21 @ 01:12 by Miryam Ford DO) Other Diabetes Heart disease Hypertension Social History Smoking Status: Never smoker Hx Alcohol Use: Yes Alcohol type: wine Hx Substance Use: No Preferred Language: Urdu Communication Ability: Effective Beliefs That Will Affect Care: None Current Living Situation: Custodial Feels Safe at Home: Yes Assistive Devices: Walker Review of Systems A total of 10 systems reviewed and were otherwise negative Physical Exam Vital Signs Vital Signs - 24 hr 07/15/21 22:31 07/15/21 23:02 07/15/21 23:32 Temperature 36.2 C L Temperature Source Temporal Artery Scan Pulse Rate 71 Respiratory Rate 18 Respiratory Effort / Characteristics Non-Labored Spontaneous Non-Labored Spontaneous Non-Labored Spontaneous Respiratory Depth Normal Respiratory Pattern Regular Blood Pressure 199/81 H Blood Pressure Mean 120 Pulse Oximetry 98 Oxygen Delivery Method Room Air Room Air Sepsis Recent Fever Within 48 Hours No Sepsis New/Unexplained Change in Mental Status No Sepsis Action Taken by Nursing No Action Required 07/15/21 23:47 07/15/21 23:48 Temperature Temperature Source Pulse Rate Respiratory Rate Respiratory Effort / Characteristics Non-Labored Spontaneous Respiratory Depth Respiratory Pattern Blood Pressure Blood Pressure Mean Pulse Oximetry 98 98 Oxygen Delivery Method Room Air Room Air Sepsis Recent Fever Within 48 Hours Sepsis New/Unexplained Change in Mental Status Sepsis Action Taken by Nursing VITALS: Vitals are noted on the nurse's note and reviewed by myself. Vital signs hypertensive. GENERAL: Pleasant male who appears short of breath, in no acute distress, nondiaphoretic, well-developed well-nourished. SKIN: Bilateral lower legs erythematous and edematous, the rest of the skin was without rashes, erythema, edema, or bruising. There is no tenting of the skin. Capillary reflex less than 2 seconds. HEAD: Normocephalic atraumatic. EARS: External auditory canals clear, EYES: Pupils equal round and reactive to light and accommodation. Conjunctivae without injection, sclerae without icterus. Extraocular movements intact. NOSE: Patent, turbinates without inflammation or discharge. MOUTH: Mucous membranes moist. Pharynx without erythema or exudate. Uvula midline. Airway patent. Tongue does not deviate. NECK: Supple without nuchal rigidity. No lymphadenopathy. No thyromegaly. Cervical spine is nontender. No JVD. HEART: Regular rate and rhythm LUNGS: Clear to auscultation bilaterally without wheezes, rales or rhonchi. No retractions or accessory muscle use. ABDOMEN: Positive bowel sounds x 4. Normal tympanic percussion. Soft, nontender, without masses or organomegaly. Thorne sign negative. No guarding or rebound tenderness. No CVA tenderness MUSCULOSKELETAL: No muscle atrophy. +1 pitting edema up to the mid tib-fib and the legs are quite erythematous concerning for possible infection bilaterally. NEURO: Patient was alert and oriented to person place and time. Normal sensation to light and sharp touch. No focal neurological deficits. Course Administered Medications Discontinued Medications Furosemide (Furosemide 40 Mg/4 Ml Vial) 40 mg IV NOW STA Stop: 07/16/21 00:53 Last Admin: 07/16/21 01:16 Dose: 40 mg Documented by: [id number] Piperacillin Sod/Tazobactam Sod (Zosyn) 4.5 gm in 120 mls @ 240 mls/hr IV NOW ONE Stop: 07/15/21 23:33 Last Infusion: 07/16/21 00:13 Dose: 0 mls/hr Documented by: [id number] Admin: 07/15/21 23:47 Dose: 240 mls/hr Documented by: [id number] Insulin Human Regular (Novolin-R Insulin Per Unit Charge) 10 units IV NOW STA Stop: 07/16/21 00:00 Last Admin: 07/16/21 00:00 Dose: 10 units Documented by: [id number] Cosigned by: [id number] Medical Decision Making Medical Records Attestation: I reviewed the patient's medical records. Home Medications Current Medication List: was personally reviewed by me Laboratory Data Attestation: I reviewed the patient's lab results. Result diagrams: 07/15/21 23:22 07/15/21 23:22 Lab Results 07/15/21 07/15/21 07/15/21 Range/Units 22:42 23:22 23:22 WBC (4.8-10.8) K/uL RBC (4.7-6.1) M/uL Hgb (14.0-18.0) g/dL Hct (42-52) % MCV (80-100) fL MCH (25-34) pg MCHC (32-36) g/dL RDW Std Deviation (36.4-46.3) fL RDW Coeff of Dinorah (11.5-14.5) % Plt Count (130-400) K/uL MPV (7.4-10.4) fL Immature Gran % (Auto) % Neut % (Auto) % Lymph % (Auto) % [place] % (Auto) % Eos % (Auto) % Baso % (Auto) % Neut # (Auto) (1.4-6.5) K/uL Lymph # (Auto) (1.2-3.4) K/uL [place] # (Auto) (0.11-0.59) K/uL Eos # (Auto) (0-0.5) K/uL Baso # (Auto) (0-0.2) K/uL Immature Gran # (Auto) (0.00-0.02) K/uL PT (9.0-12.0) Seconds INR (0.9-1.1) APTT (21.0-31.0) Seconds PTT Ratio VBG pH (7.36-7.41) VBG pCO2 (38-50) mmHg VBG pO2 mmHg VBG HCO3 mmol/L VBG O2 Saturation % VBG Base Excess mEq/L Barometric Pressure mm/Hg Sodium 138 (136-145) mmol/L Potassium 3.7 (3.5-5.1) mmol/L Chloride 104 (98-107) mmol/L Carbon Dioxide 29 (21-32) mmol/L Anion Gap 4.0 (3-11) BUN 15 (7-18) mg/dl Creatinine 0.94 (0.6-1.4) mg/dl Est Cr Clr Drug Dosing 69.2 ml/min Est GFR ( Amer) 88.4 ml/min Est GFR (Non-Af Amer) 76.3 ml/min BUN/Creatinine Ratio 16.0 (10-20) Glucose 366 H* (70-99) mg/dl POC Glucose 441 H* (70-99) mg/dl Lactate (0.4-2.0) mmol/L Calcium 8.5 (8.5-10.1) mg/dl Magnesium 2.1 (1.8-2.4) mg/dl Total Bilirubin 0.3 (0.2-1) mg/dl AST 10 L (15-37) U/L ALT 22 (12-78) U/L Alkaline Phosphatase 103 (45-117) U/L Troponin I 0.021 (0-0.045) ng/ml NT-Pro-B Natriuret Pep 2430 H (0-1800) pg/ml Total Protein 5.8 L (6.4-8.2) gm/dl Albumin 2.3 L (3.4-5.0) gm/dl Globulin 3.5 (2.5-4.0) gm/dl Albumin/Globulin Ratio 0.7 L (0.9-2) Beta-Hydroxybutyric Acd 0.97 (0.2-2.81) mg/dl Procalcitonin < 0.05 (0-0.5) ng/ml Urine Color Urine Appearance (Clear) Urine pH (4.5-7.5) Ur Specific [place] (1.000-1.030) Urine Protein (Negative) Urine Glucose (UA) (Negative) Urine Ketones (Negative) Urine Blood (Negative) Urine Nitrite (Negative) Urine Bilirubin (Negative) Urine Urobilinogen (Negative) Ur Leukocyte Esterase (Negative) Urine WBC (Auto) (0-5) /hpf Urine RBC (Auto) (0-4) /hpf U Hyaline Cast (Auto) (0-5) /lpf U Epithel Cells (Auto) (0-5) /lpf Urine Bacteria (Auto) (Negative) COVID-19 Eval Order 07/15/21 07/15/21 07/15/21 Range/Units 23:22 23:22 23:22 WBC 3.96 L (4.8-10.8) K/uL RBC 3.00 L (4.7-6.1) M/uL Hgb 9.7 L (14.0-18.0) g/dL Hct 29.9 L (42-52) % MCV 99.7 (80-100) fL MCH 32.3 (25-34) pg MCHC 32.4 (32-36) g/dL RDW Std Deviation 60.9 H (36.4-46.3) fL RDW Coeff of Dinorah 16.7 H (11.5-14.5) % Plt Count 304 (130-400) K/uL MPV 8.8 (7.4-10.4) fL Immature Gran % (Auto) 0.3 % Neut % (Auto) 64.8 % Lymph % (Auto) 25.3 % [place] % (Auto) 7.8 % Eos % (Auto) 1.5 % Baso % (Auto) 0.3 % Neut # (Auto) 2.57 (1.4-6.5) K/uL Lymph # (Auto) 1.00 L (1.2-3.4) K/uL [place] # (Auto) 0.31 (0.11-0.59) K/uL Eos # (Auto) 0.06 (0-0.5) K/uL Baso # (Auto) 0.01 (0-0.2) K/uL Immature Gran # (Auto) 0.01 (0.00-0.02) K/uL PT 9.8 (9.0-12.0) Seconds INR 1.0 (0.9-1.1) APTT 26.3 (21.0-31.0) Seconds PTT Ratio 1.0 VBG pH 7.36 (7.36-7.41) VBG pCO2 54 H (38-50) mmHg VBG pO2 24 mmHg VBG HCO3 29 mmol/L VBG O2 Saturation < 60.0 % VBG Base Excess 3.0 mEq/L Barometric Pressure 737.4 mm/Hg Sodium (136-145) mmol/L Potassium (3.5-5.1) mmol/L Chloride (98-107) mmol/L Carbon Dioxide (21-32) mmol/L Anion Gap (3-11) BUN (7-18) mg/dl Creatinine (0.6-1.4) mg/dl Est Cr Clr Drug Dosing ml/min Est GFR ( Amer) ml/min Est GFR (Non-Af Amer) ml/min BUN/Creatinine Ratio (10-20) Glucose (70-99) mg/dl POC Glucose (70-99) mg/dl Lactate (0.4-2.0) mmol/L Calcium (8.5-10.1) mg/dl Magnesium (1.8-2.4) mg/dl Total Bilirubin (0.2-1) mg/dl AST (15-37) U/L ALT (12-78) U/L Alkaline Phosphatase (45-117) U/L Troponin I (0-0.045) ng/ml NT-Pro-B Natriuret Pep (0-1800) pg/ml Total Protein (6.4-8.2) gm/dl Albumin (3.4-5.0) gm/dl Globulin (2.5-4.0) gm/dl Albumin/Globulin Ratio (0.9-2) Beta-Hydroxybutyric Acd (0.2-2.81) mg/dl Procalcitonin (0-0.5) ng/ml Urine Color Urine Appearance (Clear) Urine pH (4.5-7.5) Ur Specific [place] (1.000-1.030) Urine Protein (Negative) Urine Glucose (UA) (Negative) Urine Ketones (Negative) Urine Blood (Negative) Urine Nitrite (Negative) Urine Bilirubin (Negative) Urine Urobilinogen (Negative) Ur Leukocyte Esterase (Negative) Urine WBC (Auto) (0-5) /hpf Urine RBC (Auto) (0-4) /hpf U Hyaline Cast (Auto) (0-5) /lpf U Epithel Cells (Auto) (0-5) /lpf Urine Bacteria (Auto) (Negative) COVID-19 Eval Order 07/15/21 07/15/21 07/16/21 Range/Units 23:22 23:40 00:04 WBC (4.8-10.8) K/uL RBC (4.7-6.1) M/uL Hgb (14.0-18.0) g/dL Hct (42-52) % MCV (80-100) fL MCH (25-34) pg MCHC (32-36) g/dL RDW Std Deviation (36.4-46.3) fL RDW Coeff of Dinorah (11.5-14.5) % Plt Count (130-400) K/uL MPV (7.4-10.4) fL Immature Gran % (Auto) % Neut % (Auto) % Lymph % (Auto) % [place] % (Auto) % Eos % (Auto) % Baso % (Auto) % Neut # (Auto) (1.4-6.5) K/uL Lymph # (Auto) (1.2-3.4) K/uL [place] # (Auto) (0.11-0.59) K/uL Eos # (Auto) (0-0.5) K/uL Baso # (Auto) (0-0.2) K/uL Immature Gran # (Auto) (0.00-0.02) K/uL PT (9.0-12.0) Seconds INR (0.9-1.1) APTT (21.0-31.0) Seconds PTT Ratio VBG pH (7.36-7.41) VBG pCO2 (38-50) mmHg VBG pO2 mmHg VBG HCO3 mmol/L VBG O2 Saturation % VBG Base Excess mEq/L Barometric Pressure mm/Hg Sodium (136-145) mmol/L Potassium (3.5-5.1) mmol/L Chloride (98-107) mmol/L Carbon Dioxide (21-32) mmol/L Anion Gap (3-11) BUN (7-18) mg/dl Creatinine (0.6-1.4) mg/dl Est Cr Clr Drug Dosing ml/min Est GFR ( Amer) ml/min Est GFR (Non-Af Amer) ml/min BUN/Creatinine Ratio (10-20) Glucose (70-99) mg/dl POC Glucose 404 H* (70-99) mg/dl Lactate 1.5 (0.4-2.0) mmol/L Calcium (8.5-10.1) mg/dl Magnesium (1.8-2.4) mg/dl Total Bilirubin (0.2-1) mg/dl AST (15-37) U/L ALT (12-78) U/L Alkaline Phosphatase (45-117) U/L Troponin I (0-0.045) ng/ml NT-Pro-B Natriuret Pep (0-1800) pg/ml Total Protein (6.4-8.2) gm/dl Albumin (3.4-5.0) gm/dl Globulin (2.5-4.0) gm/dl Albumin/Globulin Ratio (0.9-2) Beta-Hydroxybutyric Acd (0.2-2.81) mg/dl Procalcitonin (0-0.5) ng/ml Urine Color Yellow Urine Appearance Clear (Clear) Urine pH 5.5 (4.5-7.5) Ur Specific [place] 1.032 H (1.000-1.030) Urine Protein Trace H (Negative) Urine Glucose (UA) 3+ H (Negative) Urine Ketones Negative (Negative) Urine Blood Negative (Negative) Urine Nitrite Negative (Negative) Urine Bilirubin Negative (Negative) Urine Urobilinogen Negative (Negative) Ur Leukocyte Esterase Negative (Negative) Urine WBC (Auto) 1-5 (0-5) /hpf Urine RBC (Auto) 0-4 (0-4) /hpf U Hyaline Cast (Auto) 0 (0-5) /lpf U Epithel Cells (Auto) 5-10 H (0-5) /lpf Urine Bacteria (Auto) Negative (Negative) COVID-19 Eval Order 07/16/21 07/16/21 Range/Units 00:35 01:14 WBC (4.8-10.8) K/uL RBC (4.7-6.1) M/uL Hgb (14.0-18.0) g/dL Hct (42-52) % MCV (80-100) fL MCH (25-34) pg MCHC (32-36) g/dL RDW Std Deviation (36.4-46.3) fL RDW Coeff of Dinorah (11.5-14.5) % Plt Count (130-400) K/uL MPV (7.4-10.4) fL Immature Gran % (Auto) % Neut % (Auto) % Lymph % (Auto) % [place] % (Auto) % Eos % (Auto) % Baso % (Auto) % Neut # (Auto) (1.4-6.5) K/uL Lymph # (Auto) (1.2-3.4) K/uL [place] # (Auto) (0.11-0.59) K/uL Eos # (Auto) (0-0.5) K/uL Baso # (Auto) (0-0.2) K/uL Immature Gran # (Auto) (0.00-0.02) K/uL PT (9.0-12.0) Seconds INR (0.9-1.1) APTT (21.0-31.0) Seconds PTT Ratio VBG pH (7.36-7.41) VBG pCO2 (38-50) mmHg VBG pO2 mmHg VBG HCO3 mmol/L VBG O2 Saturation % VBG Base Excess mEq/L Barometric Pressure mm/Hg Sodium (136-145) mmol/L Potassium (3.5-5.1) mmol/L Chloride (98-107) mmol/L Carbon Dioxide (21-32) mmol/L Anion Gap (3-11) BUN (7-18) mg/dl Creatinine (0.6-1.4) mg/dl Est Cr Clr Drug Dosing ml/min Est GFR ( Amer) ml/min Est GFR (Non-Af Amer) ml/min BUN/Creatinine Ratio (10-20) Glucose (70-99) mg/dl POC Glucose 342 H* (70-99) mg/dl Lactate (0.4-2.0) mmol/L Calcium (8.5-10.1) mg/dl Magnesium (1.8-2.4) mg/dl Total Bilirubin (0.2-1) mg/dl AST (15-37) U/L ALT (12-78) U/L Alkaline Phosphatase (45-117) U/L Troponin I (0-0.045) ng/ml NT-Pro-B Natriuret Pep (0-1800) pg/ml Total Protein (6.4-8.2) gm/dl Albumin (3.4-5.0) gm/dl Globulin (2.5-4.0) gm/dl Albumin/Globulin Ratio (0.9-2) Beta-Hydroxybutyric Acd (0.2-2.81) mg/dl Procalcitonin (0-0.5) ng/ml Urine Color Urine Appearance (Clear) Urine pH (4.5-7.5) Ur Specific [place] (1.000-1.030) Urine Protein (Negative) Urine Glucose (UA) (Negative) Urine Ketones (Negative) Urine Blood (Negative) Urine Nitrite (Negative) Urine Bilirubin (Negative) Urine Urobilinogen (Negative) Ur Leukocyte Esterase (Negative) Urine WBC (Auto) (0-5) /hpf Urine RBC (Auto) (0-4) /hpf U Hyaline Cast (Auto) (0-5) /lpf U Epithel Cells (Auto) (0-5) /lpf Urine Bacteria (Auto) (Negative) COVID-19 Eval Order Covid19 at [facility] Imaging Data Attestation: I personally reviewed and interpreted this imaging study as follows: MDM Narrative Prior records/ancillary studies reviewed and summarized above. Nursing notes reviewed. Additional history obtained from family. The patient's history was concerning for elevated blood sugar and lower leg cellulitis. Differential diagnosis: Etiologies such as metabolic, infection, hypo/hyperglycemia, electrolyte abnormalities, cardiac sources, intracerebral event, toxicologic, neurologic, as well as others were entertained. Physical examination: As above. ER treatment provided: IV Lock An order was placed for continuous cardiac monitoring. The monitor shows a rate of 60-100 with a sinus rhythm. Zosyn, insulin On reassessment the patient felt better. Diagnostics interpretation by me: ECG: Ordered for weakness EKG: Atrial-sensed ventricular-paced rhythm, no acute ST-T wave changes. EKG compared to prior EKG. atrial sensed ventricular paced rhythm interpreted by mys elf unchanged from prior The labs revealed hyperglycemia without DKA Elevated BNP. Negative troponin Anemia Imaging studies: Chest x-ray with pacemaker present, no acute consolidation, pneumothorax or free air per my interpretation Consultation: A consultation was placed with the hospitalist. The case was discussed and diagnostics were reviewed. The patient was evaluated in the ER for further treatment. Exam and history seem consistent with lower leg cellulitis with hyperglycemia with DKA and persistent dyspnea with concerns for CHF. Patient was started on antibiotics. He was given insulin. Medicine was consulted. By the evaluation outlined above emergent etiologies such as electrolyte abnormalities, intracerebral event, neurologic, as well as others were deemed relatively unlikely. The pt informed about the findings as listed above. All questions were answered and pleased with the treatment. The chart was completed utilizing [employer] Speech voice recognition software. Grammatical errors, random word insertions, pronoun errors, and incomplete sente nces are an occassional consequence of this system due to software limitations, ambient noise, and hardware issues. Any formal questions or concerns about the content, text, or information contained within the body of this dictation should be directly addressed to the physician trust manager assistant for clarification. Impression & Plan Bilateral cellulitis of lower leg, Diabetes mellitus with hyperglycemia, Dyspnea Discharge Plan Visit Data Chief Complaint: Hyperglycemia Stated Complaint: BLOOD SUGAR OVER 600 ED Provider: Evelyn Walker ED Midlevel Provider: Neema Foreman Discharge Problem: Bilateral cellulitis of lower leg, Diabetes mellitus with hyperglycemia, Dyspnea Patient Disposition: Admitted As Inpatient Condition: Fair Forms Stand Alone Forms: My [facility] Prescriptions Prescriptions: No Action acetaminophen 325 mg Tablet 650 mg PO Q4H PRN (Reason: Fever Or Pain) RF: 0 Lantus U-100 Insulin 100 unit/mL Solution 10 unit SUBCUT BID RF: 0 aspirin [Aspirin Low Dose] 81 mg Tablet,Delayed Release (Dr/Ec) 81 mg PO DAILY RF: 0 levothyroxine 88 mcg Tablet 88 mcg PO DAILY RF: 0 finasteride 5 mg Tablet 5 mg PO DAILY RF: 0 omega 1-xjf-oob-fish oil [Fish Oil] 1,000 mg (120 mg-180 mg) Capsule 1 cap PO BID RF: 0 omeprazole 20 mg Capsule,Delayed Release(Dr/Ec) 20 mg PO BID RF: 0 tamsulosin 0.4 mg Capsule 0.4 mg PO BID RF: 0 terbinafine HCl 1 % Cream 1 applic TOPICAL BID RF: 0 ketoconazole 2 % Shampoo 1 ea TOPICAL 3XWK RF: 0 melatonin 3 mg Tablet 3 mg PO HS PRN (Reason: Sleep) RF: 0 carboxymethylcellulose sodium 0.5 % Drops 1 drp OPHTHALMIC (EYE) 6XD PRN (Reason: Dry Eye(S)) RF: 0 losartan 100 mg Tablet 100 mg PO DAILY RF: 0 fluticasone propionate 50 mcg/actuation [place],Suspension 1 spray INTRANASAL BID PRN (Reason: breathing) RF: 0 ferrous sulfate 324 mg (65 mg iron) Tablet,Delayed Release (Dr/Ec) 324 mg PO 3XWK RF: 0 PreserVision AREDS-2 250-90-40-1 mg Capsule 1 tab PO BID RF: 0 carvedilol 12.5 mg Tablet 12.5 mg PO BID Qty: 60 RF: 0 amoxicillin 500 mg Capsule 500 mg PO TID RF: 0 loperamide [Imodium] 2 mg Capsule 2 mg PO DIRECTED PRN (Reason: Diarrhea) RF: 0 prednisone 5 mg Tablet 5 mg PO DAILY RF: 0 docusate sodium [Stool Softener] 100 mg Capsule 100 mg PO BID RF: 0 furosemide [Lasix] 20 mg Tablet 20 mg PO DAILY RF: 0 menthol-zinc oxide [Calmoseptine] 0.44-20.6 % Ointment 1 applic TOPICAL TID RF: 0 pyridostigmine bromide 60 mg tablet 60 mg PO TID RF: 0 insulin aspart U-100 [Novolog Flexpen U-100 Insulin] 100 unit/mL (3 mL) insulin pen 38 unit SC QDB RF: 0 Referrals Referrals: MARYLIN Beltre [Primary Care Provider] -
[2021-07-16 00:14] LABS: Beta-Hydroxybutyrate 0.97 mg/dl (0.2-2.81)
[2021-07-16] MEDS ORDERED: FUROSEMIDE 40 MG/4 ML VIAL IV STA (00:52)
--- NOTE | 2021-07-16 00:53 | History & Physical Report ---
Date of Service July 16, 2021 Assessment & Plan (1) Diabetes mellitus with hyperglycemia: Plan: With elevated blood sugar > 600 prior to arrival. No anion gap or acidemia present. Patient was given 10u of IV insulin in the ER - repeat blood sugar 342. Last A1C=10 -Repeat IV insulin dosing. If does not improve may need insulin gtt -Lantus 10u BID -ISS, CF 15, CR 5, adjust as needed -Fingersticks q 2 hours until controlled (2) Myasthenia gravis: Plan: New diagnosis. Patient seems stable at this point. No respiratory distress, good inspiratory effort on exam. No concern for crisis at this time. -Check NIF and VC q shift -Continue PO steroids - Prednisone 5mg daily -Continue Pyridostigmine 60mg po TID -Cautious medication use as not to exacerbate myasthenic symptoms (3) Bilateral leg edema: Plan: Patient with significant bilateral LE edema. ?poor nutritional state as well as possible CHF -Lasix 40mg IV x 1 given -Continue PO Lasix -Encourage elevation of legs as tolerated -Will continue Amoxicillin to complete course for presumed bilateral LE cellulitis. He is to take this medication until 07/19 (4) Hypertension: Plan: Blood pressure elevated at present -Continue Losartan 100mg po daily -Continue Carvedilol - ?discontinuing this medication as BB can worsen myasthenia symptoms. Uncertain if patient has a history of CAD. He does report a history of CHF 9 years ago and, by CXR, looks to have a BiV AICD in place. 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 No bleeding. He had workup at last admission to include normal iron, B12 and Folate levels. -Continue to monitor -GI evaluation in future (6) BPH (benign prostatic hyperplasia): Plan: Chronic -Continue Finasteride and Tamsulosin -Monitor UOP (7) Hypothyroid: Plan: Chronic. TSH within normal limits on 06/15/21 at 4.49 -Continue Synthroid 88mcg po daily (8) GERD (gastroesophageal reflux disease): Plan: Chronic. Well controlled -Protonix 40mg po daily -May resume home Omeprazole on DC Plan: F/E/N - Lasix 40mg IV x 1 then home 20mg po daily, monitor electrolytes, check PO4 x 1, Heart healthy diet as tolerated with aspiration precautions. Consider Nutrition consultation- patient with chronic illness, poor albumin Ppx- Lovenox Code - DNR/DNI per discussion with patient Dispo - Observation to medical History of Present Illness Chief Complaint: Hyperglycemia Primary Care Provider: [facility] Eamon Florentino is an 80yo male with history of DM, HTN, recently diagnosed Myasthenia Gravis on pyridostigmine and prednisone therapy. He was recently admitted to [facility] from 06/15/21 - 06/27/21 when he presented with weakness and falling as well as severe SOB. Patient diagnosed with Myasthenia gravis - CSF with ACh receptor binding and serum modulating Ab detected. He was treated with immunoglobulin and received a 5 day course as well as a Prednisone slow taper. He was discharged to [facility] in stable condition. Patient was seen in Neurology clinic on 07/14/21 - had his pyridostigmine increased to 60mg po TID. He presents today with complaint of hyperglycemia. Blood sugar reported to be >600 at [facility] today. Patient reports he has been given his insulin as prescribed and has been following his diabetic diet. He is presently being treated with Amoxicillin for bilateral LE cellulitis. He is uncertain if the redness in his legs has been improving with his Amoxicillin. His course is scheduled to finish on 07/19. He reports stable, persistent orthopnea - he is unable to lay flat and sits up in a chair all day. He has some early skin breakdown of his sacrum and gluteal cleft as well as an ulcer on his right great toe and left second toe. He has persistent bilateral LE edema which has become worse. No additional complaints at this time. Reports that his breathing is much improved. In the ER he is afebrile, hypertensive ER course: Insulin 10u IV, Zosyn Allergies Allergy/AdvReac Type Severity Reaction Status Date / Time lisinopril Allergy Unknown Unknown Verified 07/15/21 23:35 Home Medications Medication Instructions Recorded Confirmed Type acetaminophen 325 mg tablet 650 mg PO Q4H PRN 06/15/21 07/15/21 History aspirin 81 mg tablet,delayed 81 mg PO DAILY 06/15/21 07/15/21 History release (Aspirin Low Dose) carboxymethylcellulose sodium 0.5 1 drp OPHTHALMIC (EYE) 6XD PRN 06/15/21 07/15/21 History % eye drops ferrous sulfate 324 mg (65 mg 324 mg PO 3XWK 06/15/21 07/15/21 History iron) tablet,delayed release finasteride 5 mg tablet 5 mg PO DAILY 06/15/21 07/15/21 History fluticasone propionate 50 1 spray INTRANASAL BID PRN 06/15/21 07/15/21 History mcg/actuation nasal spray,suspension insulin glargine 100 unit/mL 10 unit SUBCUT BID 06/15/21 07/15/21 History subcutaneous solution (Lantus U-100 Insulin) ketoconazole 2 % shampoo 1 ea TOPICAL 3XWK 06/15/21 07/15/21 History levothyroxine 88 mcg tablet 88 mcg PO DAILY 06/15/21 07/15/21 History losartan 100 mg tablet 100 mg PO DAILY 06/15/21 07/15/21 History melatonin 3 mg tablet 3 mg PO HS PRN 06/15/21 07/15/21 History omega 0-wwt-zmn-fish oil 1,000 mg 1 cap PO BID 06/15/21 07/15/21 History (120 mg-180 mg) capsule (Fish Oil) omeprazole 20 mg capsule,delayed 20 mg PO BID 06/15/21 07/15/21 History release tamsulosin 0.4 mg capsule 0.4 mg PO BID 06/15/21 07/15/21 History terbinafine HCl 1 % topical cream 1 applic TOPICAL BID 06/15/21 07/15/21 History vit C 250 mg-vit E 90 mg-zinc 40 1 tab PO BID 06/15/21 07/15/21 History mg-copper 1 [id number]-[id number] capsule (PreserVision AREDS-2) carvedilol 12.5 mg tablet 12.5 mg PO BID #60 tab 06/27/21 07/15/21 Rx amoxicillin 500 mg capsule 500 mg PO TID 07/15/21 07/15/21 History docusate sodium 100 mg capsule 100 mg PO BID 07/15/21 07/15/21 History (Stool Softener) furosemide 20 mg tablet (Lasix) 20 mg PO DAILY 07/15/21 07/15/21 History insulin aspart U-100 100 unit/mL 38 unit SC QDB 07/15/21 07/15/21 History (3 mL) subcutaneous pen (Novolog Flexpen U-100 Insulin aspart) loperamide 2 mg capsule 2 mg PO DIRECTED PRN 07/15/21 07/15/21 History menthol 0.44 %-zinc oxide 20.6 % 1 applic TOPICAL TID 07/15/21 07/15/21 History topical ointment (Calmoseptine) prednisone 5 mg tablet 5 mg PO DAILY 07/15/21 07/15/21 History pyridostigmine bromide 60 mg tablet 60 mg PO TID 07/15/21 07/16/21 History Past Med/Surg History Medical History (Updated 07/16/21 @ 01:18 by Miryam Ford DO) Anemia BPH (benign prostatic hyperplasia) Diabetes mellitus GERD (gastroesophageal reflux disease) Hypertension Hypothyroid Myasthenia gravis Surgical History (Updated 07/16/21 @ 01:12 by Miryam Ford DO) AICD (automatic cardioverter/defibrillator) present H/O heart surgery Family History (Updated 07/16/21 @ 01:12 by Miryam Ford DO) Other Diabetes Heart disease Hypertension Social History Smoking Status: Never smoker Hx Alcohol Use: Yes Alcohol type: wine Hx Substance Use: No Preferred Language: Palauan Communication Ability: Effective Beliefs That Will Affect Care: None Current Living Situation: Group Home Feels Safe at Home: Yes Assistive Devices: Walker Review of Systems Review of Systems: All systems reviewed & are unremarkable except as noted in HPI & below Physical Exam Physical Exam: General: patient resting comfortably, sitting upright in chair, NAD, non-toxic in appearance, AA&O x 4 Skin: warm, 3+ pitting edema of bilateral LE to sacrum, induration of sacrum with breakdown noted at gluteal cleft, shallow ulcer on right great toe and 2nd toe on left foot with serous drainage, well demarcated area of redness of bilateral LE HEENT: NC/AT, PERRL, EOMI, anicteric sclera, conjunctiva without injection, external ear normal to inspection and nontender, nares patent, moist mucus membranes, dentition intact, no oropharyngeal lesions, neck supple, trachea midline, no LAD, no thyromegaly, no JVD Heart: +S1/S2, regular, no m/r/g Lungs: equal air entry bilaterally, no rales/rhonchi/wheezes, good inspiratory effort Abd: +BS, soft, NT/ND, no masses/organomegaly/ascites Ext: feet cool, 3+ edema of bilateral LE to sacrum, redness of bilateral LE to below knees with weeping, cool to touch Neuro: nonfocal, patient AA&O x 4, speech intact, no facial droop, moving all extremities on command with equal strength 5/5 Results & Data Results & Data ([facility]) Vital Signs (Past 12 Hours) Vital Signs Temp Pulse Resp BP Pulse Ox 07/15/21 23:48 98 07/15/21 23:47 98 07/15/21 22:31 36.2 C L 71 18 199/81 H 98 Laboratory Results Laboratory Results WBC 3.96 K/uL (4.8-10.8) L 07/15/21 23:22 RBC 3.00 M/uL (4.7-6.1) L 07/15/21 23:22 Hgb 9.7 g/dL (14.0-18.0) L 07/15/21 23:22 Hct 29.9 % (42-52) L 07/15/21 23:22 MCV 99.7 fL (80-100) 07/15/21 23:22 MCH 32.3 pg (25-34) 07/15/21 23:22 MCHC 32.4 g/dL (32-36) 07/15/21 23:22 RDW Std Deviation 60.9 fL (36.4-46.3) H 07/15/21 23:22 RDW Coeff of Dinorah 16.7 % (11.5-14.5) H 07/15/21 23:22 Plt Count 304 K/uL (130-400) 07/15/21 23:22 MPV 8.8 fL (7.4-10.4) 07/15/21 23:22 Immature Gran % (Auto) 0.3 % 07/15/21 23:22 Neut % (Auto) 64.8 % 07/15/21 23:22 Lymph % (Auto) 25.3 % 07/15/21 23:22 Morris % (Auto) 7.8 % 07/15/21 23:22 Eos % (Auto) 1.5 % 07/15/21 23:22 Baso % (Auto) 0.3 % 07/15/21 23:22 Neut # (Auto) 2.57 K/uL (1.4-6.5) 07/15/21 23:22 Lymph # (Auto) 1.00 K/uL (1.2-3.4) L 07/15/21 23:22 Morris # (Auto) 0.31 K/uL (0.11-0.59) 07/15/21 23:22 Eos # (Auto) 0.06 K/uL (0-0.5) 07/15/21 23:22 Baso # (Auto) 0.01 K/uL (0-0.2) 07/15/21 23: Immature Gran # (Auto) 0.01 K/uL (0.00-0.02) 07/15/21 23: PT 9.8 Seconds (9.0-12.0) 07/15/21 23: INR 1.0 (0.9-1.1) 07/15/21 23: APTT 26.3 Seconds (21.0-31.0) 07/15/21 23: PTT Ratio 1.0 07/15/21 23: VBG pH 7.36 (7.36-7.41) 07/15/21 23:22 VBG pCO2 54 mmHg (38-50) H 07/15/21 23:22 VBG pO2 24 mmHg 07/15/21 23:22 VBG HCO3 29 mmol/L 07/15/21 23:22 VBG O2 Saturation < 60.0 % 07/15/21 23:22 VBG Base Excess 3.0 mEq/L 07/15/21 23:22 Barometric Pressure 737.4 mm/Hg 07/15/21 23:22 Sodium 138 mmol/L (136-145) 07/15/21 23: Potassium 3.7 mmol/L (3.5-5.1) 07/15/21 23: Chloride 104 mmol/L (98-107) 07/15/21 23:22 Carbon Dioxide 29 mmol/L (21-32) 07/15/21 23: Anion Gap 4.0 (3-11) 07/15/21 23:22 BUN 15 mg/dl (7-18) 07/15/21 23:22 Creatinine 0.94 mg/dl (0.6-1.4) 07/15/21 23:22 Est Cr Clr Drug Dosing 69.2 ml/min 07/15/21 23:22 Est GFR ( Amer) 88.4 ml/min 07/15/21 23:22 Est GFR (Non-Af Amer) 76.3 ml/min 07/15/21 23:22 BUN/Creatinine Ratio 16.0 (10-20) 07/15/21 23:22 Glucose 366 mg/dl (70-99) H* 07/15/21 23:22 POC Glucose 404 mg/dl (70-99) H* 07/16/21 00:04 Lactate 1.5 mmol/L (0.4-2.0) 07/15/21 23:22 Calcium 8.5 mg/dl (8.5-10.1) 07/15/21 23: Magnesium 2.1 mg/dl (1.8-2.4) 07/15/21 23:22 Total Bilirubin 0.3 mg/dl (0.2-1) 07/15/21 23:22 AST 10 U/L (15-37) L 07/15/21 23:22 ALT 22 U/L (12-78) 07/15/21 23:22 Alkaline Phosphatase 103 U/L (45-117) 07/15/21 23:22 Troponin I 0.021 ng/ml (0-0.045) 07/15/21 23:22 NT-Pro-B Natriuret Pep 2430 pg/ml (0-1800) H 07/15/21 23:22 Total Protein 5.8 gm/dl (6.4-8.2) L 07/15/21 23:22 Albumin 2.3 gm/dl (3.4-5.0) L 07/15/21 23:22 Globulin 3.5 gm/dl (2.5-4.0) 07/15/21 23:22 Albumin/Globulin Ratio 0.7 (0.9-2) L 07/15/21 23:22 Beta-Hydroxybutyric Acd 0.97 mg/dl (0.2-2.81) 07/15/21 23:22 Procalcitonin < 0.05 ng/ml (0-0.5) 07/15/21 23:22 Urine Color Yellow 07/15/21 23:40 Urine Appearance Clear (Clear) 07/15/21 23:40 Urine pH 5.5 (4.5-7.5) 07/15/21 23:40 Ur Specific [place] 1.032 (1.000-1.030) H 07/15/21 23:40 Urine Protein Trace (Negative) H 07/15/21 23:40 Urine Glucose (UA) 3+ (Negative) H 07/15/21 23:40 Urine Ketones Negative (Negative) 07/15/21 23:40 Urine Blood Negative (Negative) 07/15/21 23:40 Urine Nitrite Negative (Negative) 07/15/21 23:40 Urine Bilirubin Negative (Negative) 07/15/21 23:40 Urine Urobilinogen Negative (Negative) 07/15/21 23:40 Ur Leukocyte Esterase Negative (Negative) 07/15/21 23:40 Urine WBC (Auto) 1-5 /hpf (0-5) 07/15/21 23:40 Urine RBC (Auto) 0-4 /hpf (0-4) 07/15/21 23:40 U Hyaline Cast (Auto) 0 /lpf (0-5) 07/15/21 23:40 U Epithel Cells (Auto) 5-10 /lpf (0-5) H 07/15/21 23:40 Urine Bacteria (Auto) Negative (Negative) 07/15/21 23:40 COVID-19 Eval Order Covid19 at [facility] 07/16/21 00:35 PG Care Time/CCT Total # of Minutes Spent Total Time Spent with Patient: Total time spent is greater than 50% in coordination of care (as documented) at patient's floor/unit and/or counseling patient: Coding Level of Care Code INT OBSERVATION CARE 70M LVL 3 Diagnoses Myasthenia gravis G70.00 Diabetes mellitus with hyperglycemia E11.65 Bilateral leg edema R60.0 Hypertension I10 Anemia D64.9 BPH (benign prostatic hyperplasia) N40.0 Hypothyroid E03.9 GERD (gastroesophageal reflux disease) K21.9
[2021-07-16] MEDS ORDERED: NovoLIN-R INSULIN PER UNIT CHARGE IV STA (01:37)
[2021-07-16] MEDS ORDERED: MELATONIN 3 MG TAB PO PRN (03:20)
[2021-07-16] MEDS ORDERED: FLUTICASONE PROPIONATE NA SPR 16 GM BTL PRN (03:20)
[2021-07-16] MEDS ORDERED: ACETAMINOPHEN 325 MG TAB PO PRN (03:20)
[2021-07-16] MEDS ORDERED: GLUCOSE 40% GEL 15 GM TUBE PO PRN (03:20)
[2021-07-16] MEDS ORDERED: CARBOHYDRATES FOR HYPOGLYCEMIA PO PRN (03:20)
[2021-07-16] MEDS ORDERED: GLUCAGON FOR INJ 1 MG VIAL SQ PRN (03:20)
[2021-07-16] MEDS ORDERED: DOCUSATE SODIUM 100 MG CAP PO PRN (03:20)
[2021-07-16] MEDS ORDERED: GLUCOSE 10 TABS/TUBE PO PRN (03:20)
[2021-07-16] MEDS ORDERED: DEXTROSE 50% 50 ML SYRINGE IV PRN (03:20)
[2021-07-16 03:55] LABS: Phosphorus 3.1 mg/dl (2.5-4.9)
[2021-07-16] MEDS: INSULIN ASPART 100 UNITS/ML 3 ML PEN SC SCH ×5 (04:18→21:35)
[2021-07-16] MEDS: INSULIN GLARGINE SOLOSTAR 100 UNITS/ML 3 ML PEN SC SCH ×2 (04:18→21:35)
[2021-07-16] MEDS: LEVOTHYROXINE SODIUM 88 MCG TABLET PO SCH (06:09)
--- NOTE | 2021-07-16 08:11 | XRay Report ---
XR chest 1V portable HISTORY: SEPSIS COMPARISON: Chest 06/20/2021. FINDINGS: No pneumothorax. The heart is top normal in size. Left-sided pacemaker/defibrillator. There is mild central pulmonary vascular congestion without overt edema. Trace left pleural effusion and p atchy left basilar densities are noted. IMPRESSION: 1. Trace left pleural effusion and patchy left basilar densities. This could represent atelectasis or pneumonia. 2. Mild central pulmonary vascular congestion without overt edema. ACT 112: Negative or not required by law. Electronically signed by: Ap Gandih M.D. 07/16/2021 8:10 AM
[2021-07-16 09:17] LABS: Hematocrit (blood only) 32.1 % (42-52); Hemoglobin 10.6 g/dL (14.0-18.0); Mean Corpuscular Hemoglobin 32.2 pg (25-34); Mean Corpuscular Volume 97.6 fL (80-100); Mean Platelet Volume 9.3 fL (7.4-10.4); Platelet Count 289 K/uL (130-400); RDW Coefficient of Variation 16.5 % (11.5-14.5); RDW Standard Deviation 58.9 fL (36.4-46.3); Red Blood Count 3.29 M/uL (4.7-6.1); White Blood Count 5.44 K/uL (4.8-10.8)
[2021-07-16 09:24] LABS: BUN Creatinine Ratio 17.6 (10-20); Calcium 8.4 mg/dl (8.5-10.1); Creatinine Clr Calc Pharmacy 78.8 ml/min; Est GFR (African American) 96.8 ml/min; Est GFR (Non-African American) 83.5 ml/min; Magnesium 1.8 mg/dl (1.8-2.4); Potassium 3.1 mmol/L (3.5-5.1)
[2021-07-16] MEDS: AMOXICILLIN 500 MG CAP PO SCH ×3 (09:27→20:04)
[2021-07-16] MEDS: ASPIRIN 81 MG ECTAB PO SCH (09:28)
[2021-07-16] MEDS: ENOXAPARIN INJ 40 MG/0.4 ML SYR SQ SCH (09:28)
[2021-07-16] MEDS: carvediloL 12.5 MG TAB PO SCH ×2 (09:28→20:03)
[2021-07-16] MEDS: PYRIDOSTIGMINE BROMIDE 60 MG TAB PO SCH ×3 (09:29→20:03)
[2021-07-16] MEDS: predniSONE 5 MG TAB PO SCH (09:29)
[2021-07-16] MEDS: TAMSULOSIN HCL 0.4 MG CAP PO SCH ×2 (09:29→20:03)
[2021-07-16] MEDS: PANTOprazole 40 MG TAB PO SCH (09:29)
[2021-07-16] MEDS: FUROSEMIDE 20 MG TAB PO SCH (09:30)
[2021-07-16] MEDS: LOSARTAN POTASSIUM 50 MG TAB PO SCH (09:30)
[2021-07-16] MEDS: FINASTERIDE 5 MG TAB PO SCH (09:30)
[2021-07-16] MEDS: MENTHOL-ZINC OXIDE 360 APPLN/120 GM TUBE EXT SCH ×3 (09:31→20:04)
[2021-07-16] MEDS: TERBINAFINE CR 30 GM TUBE EXT SCH ×2 (10:40→20:04)
[2021-07-16] MEDS ORDERED: POTASSIUM CHLORIDE CRTAB 20 MEQ TABCR PO STA (12:47)
--- NOTE | 2021-07-16 13:36 | History & Physical Bridge Note ---
Date of Service July 16, 2021 History & Physical Bridge Note I have examined the patient, reviewed the History & Physical and in the interval since the performance of the History & Physical I have noted the following changes of clinical significance: no changes noted Given 10u insulin in ER, repeated 10u insulin. BSGs improved, most recent 119 and will change BSGs to AC/HS. Likely 2nd to steroid taper. No further diarrhea. Patient states feeling well with exception of some cramping. Discussed low K and replacement ordered and will continue to monitor. If any considers for MG flare, can consult with Dr. Moreira in AM (recently doubled his physostigmine at most recent visit since June/ with diagnosis) Patient from [facility] but had gone to [facility] for rehab and returned to [facility] following where he was found to have BSG >600. Will obtain PT/OT evals to ensure able to return to [facility] Continue to monitor labs in AM/therapy evals but suspect will be able to return to [facility] tomorrow. May need to give alejandra instructions for SSI at [facility] if remains on prednisone 5mg daily for now? Supervising Physician Co-Signing Physician Notes PA Supervision Note: I did not personally see or examine the patient today, but I verified all tafoya points of GUY Soares's assessment and plan with the following exceptions/additions: Patient here with hyperglycemia secondary to steroids Improved control throughout the day. Review of previous neurology notes-requested CT of the chest to look for residual thymus. Also had requested CT of the cervical spine to look for myelopathy versus MRI of the cervical spine. It seems the patient at that time was unable to lie flat as is mentioned on this admission. At some point, he should have these imaging studies-perhaps as an outpatient.
[2021-07-16] MEDS ORDERED: POTASSIUM CHLORIDE CRTAB 20 MEQ TABCR PO ONE (18:00)
[2021-07-17] MEDS: LEVOTHYROXINE SODIUM 88 MCG TABLET PO SCH (06:28)
[2021-07-17 08:45] LABS: Hematocrit (blood only) 31.7 % (42-52); Hemoglobin 10.3 g/dL (14.0-18.0); Mean Corpuscular Hemoglobin 31.9 pg (25-34); Mean Corpuscular Hgb Conc 32.5 g/dL (32-36); Mean Corpuscular Volume 98.1 fL (80-100); Platelet Count 310 K/uL (130-400); RDW Coefficient of Variation 16.4 % (11.5-14.5); RDW Standard Deviation 59.2 fL (36.4-46.3); Red Blood Count 3.23 M/uL (4.7-6.1); White Blood Count 4.82 K/uL (4.8-10.8)
[2021-07-17] MEDS: AMOXICILLIN 500 MG CAP PO SCH ×3 (09:04→21:06)
[2021-07-17] MEDS: ASPIRIN 81 MG ECTAB PO SCH (09:05)
[2021-07-17] MEDS: FUROSEMIDE 20 MG TAB PO SCH (09:05)
[2021-07-17] MEDS: FINASTERIDE 5 MG TAB PO SCH (09:05)
[2021-07-17] MEDS: PANTOprazole 40 MG TAB PO SCH (09:06)
[2021-07-17] MEDS: LOSARTAN POTASSIUM 50 MG TAB PO SCH (09:06)
[2021-07-17] MEDS: predniSONE 5 MG TAB PO SCH (09:06)
[2021-07-17] MEDS: PYRIDOSTIGMINE BROMIDE 60 MG TAB PO SCH ×3 (09:06→21:06)
[2021-07-17] MEDS: TAMSULOSIN HCL 0.4 MG CAP PO SCH ×2 (09:06→21:07)
[2021-07-17] MEDS: carvediloL 12.5 MG TAB PO SCH ×2 (09:06→21:06)
[2021-07-17] MEDS: TERBINAFINE CR 30 GM TUBE EXT SCH ×2 (09:07→21:02)
[2021-07-17] MEDS: MENTHOL-ZINC OXIDE 360 APPLN/120 GM TUBE EXT SCH ×3 (09:07→21:01)
[2021-07-17] MEDS: ENOXAPARIN INJ 40 MG/0.4 ML SYR SQ SCH (09:09)
[2021-07-17] MEDS: INSULIN GLARGINE SOLOSTAR 100 UNITS/ML 3 ML PEN SC SCH ×2 (09:10→21:07)
[2021-07-17] MEDS: INSULIN ASPART 100 UNITS/ML 3 ML PEN SC SCH ×4 (09:11→21:13)
[2021-07-17 09:21] LABS: BUN Creatinine Ratio 15.6 (10-20); Calcium 8.4 mg/dl (8.5-10.1); Creatinine Clr Calc Pharmacy 64.6 ml/min; Est GFR (Non-African American) 70.8 ml/min; Potassium 4.1 mmol/L (3.5-5.1)
[2021-07-17 09:31] LABS: Folate (Folic Acid) > 20.00 ng/ml (>5.38); Vitamin B12 460 pg/ml (193-986)
[2021-07-17] MEDS ORDERED: PHARMACY GLYCEMIC MGMT CONSULT PRN (16:52)
--- NOTE | 2021-07-17 22:55 | Hospitalist Progress Note ---
Date of Service July 17, 2021 Assessment & Plan (1) Diabetes mellitus with hyperglycemia: Plan: HbA1C 10 in June Will consult pharmacy for glycemic control given glucose levels still > 200 (2) Myasthenia gravis: Plan: New diagnosis last admission. Patient seems stable at this point. No respiratory distress, good inspiratory effort on exam. No concern for crisis at this time. -Can discontinue NIF/FVC checks as no acute exacerbation suspected. -Continue PO steroids - Prednisone 5mg daily -Continue Pyridostigmine 60mg po TID -Cautious medication use as not to exacerbate myasthenic symptoms (3) Bilateral leg edema: Plan: Patient with significant bilateral LE edema. ?poor nutritional state as well as possible CHF -Lasix 40mg IV x 1 given -Continue PO Lasix -Encourage elevation of legs as tolerated -Will continue Amoxicillin to complete course for presumed bilateral LE cellulitis. He is to take this medication until 07/19. (4) Hypertension: Plan: Blood pressure elevated at present -Continue Losartan 100mg po daily -Continue Carvedilol - ?discontinuing this medication as BB can worsen myasthenia symptoms. Uncertain if patient has a history of CAD. He does report a history of CHF 9 years ago and, by CXR, looks to have a BiV AICD in place. 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 Continue Lasix. (5) Anemia: Plan: Patient with normochromic, normocytic anemia with Hgb=9.7, near baseline. No bleeding. He had workup at last admission to include normal iron, B12 and Rhonda te levels. -Continue to monitor -GI evaluation in future (6) BPH (benign prostatic hyperplasia): Plan: Chronic -Continue Finasteride and Tamsulosin -Monitor UOP (7) Hypothyroid: Plan: Chronic. TSH within normal limits on 06/15/21 at 4.49 -Continue Synthroid 88mcg po daily (8) GERD (gastroesophageal reflux disease): Plan: Chronic. Well controlled -Protonix 40mg po daily -May resume home Omeprazole on DC Plan: F/E/N - Lasix 40mg IV x 1 then home 20mg po daily, monitor electrolytes, check PO4 x 1, Heart healthy diet as tolerated with aspiration precautions. Consider Nutrition consultation- patient with chronic illness, poor albumin Ppx- Lovenox Code - DNR/DNI per discussion with patient Dispo - Continue inpatient stay to get glucose levels better controlled. Admission and Anticipated Discharge Date Admission Date: July 16, 2021 Subjective Did well with physical therapy today. Recommended discharge to [facility]. Glucose levels not well controlled however. No concern for worsening myasthenia per patient. Much improved since I last saw the patient (prior to pyridostigmine use) however still unable to lie flat for CT of thymus. Review of Systems Review of Systems: All systems reviewed & are unremarkable except as noted in HPI & below Physical Exam Constitutional: WD/WN, vitals as above + obese Eyes: + anicteric sclerae; normal pupil size ENMT: external ear and nose normal, oropharynx normal Respiratory: normal respiratory effort, lungs clear to auscultation Cardiovascular: Rate/Rhythm: regular rate and regular rhythm Extremities: + pedal edema (1+ pitting equal pre-tibial) Gastrointestinal (Abdomen): normal bowel sounds, soft, nontender, no hepatosplenomegaly Skin: no rashes, warm and dry Neurologic: moves all extremities, + focal motor deficit (generalized proximal UE/LE muscle weakness, equal b/l) and awake; not confused Psychiatric: A+Ox3, euthymic affect Results & Data Results & Data ([facility]) Vital Signs (Past 12 Hours) Vital Signs Temp Pulse Resp BP Pulse Ox 07/17/21 21:04 36.7 C 70 18 174/73 H 98 07/17/21 15:47 36.6 C 55 L 16 145/60 H 98 PG Care Time/CCT Total # of Minutes Spent Total Time Spent with Patient: Total time spent is greater than 50% in coordination of care (as documented) at patient's floor/unit and/or counseling patient: Coding Level of Care Code 78238 Subseq Obs Care Lvl 2 Diagnoses Diabetes mellitus with hyperglycemia E11.65 Myasthenia gravis G70.00 Bilateral leg edema R60.0 Hypertension I10 Anemia D64.9 BPH (benign prostatic hyperplasia) N40.0 Hypothyroid E03.9 GERD (gastroesophageal reflux disease) K21.9
[2021-07-18] MEDS ORDERED: INSULIN ASPART 100 UNITS/ML 3 ML PEN SC SCH (02:00)
[2021-07-18] MEDS: LEVOTHYROXINE SODIUM 88 MCG TABLET PO SCH (06:18)
[2021-07-18] MEDS: ASPIRIN 81 MG ECTAB PO SCH (09:19)
[2021-07-18] MEDS: PANTOprazole 40 MG TAB PO SCH (09:19)
[2021-07-18] MEDS: LOSARTAN POTASSIUM 50 MG TAB PO SCH (09:19)
[2021-07-18] MEDS: predniSONE 5 MG TAB PO SCH (09:19)
[2021-07-18] MEDS: AMOXICILLIN 500 MG CAP PO SCH ×2 (09:20→13:11)
[2021-07-18] MEDS: PYRIDOSTIGMINE BROMIDE 60 MG TAB PO SCH ×2 (09:20→13:11)
[2021-07-18] MEDS: TAMSULOSIN HCL 0.4 MG CAP PO SCH (09:20)
[2021-07-18] MEDS: TERBINAFINE CR 30 GM TUBE EXT SCH ×2 (09:21→09:38)
[2021-07-18] MEDS: INSULIN ASPART 100 UNITS/ML 3 ML PEN SC SCH ×2 (09:22→13:13)
[2021-07-18] MEDS: FINASTERIDE 5 MG TAB PO SCH (09:24)
[2021-07-18] MEDS: ENOXAPARIN INJ 40 MG/0.4 ML SYR SQ SCH (09:25)
[2021-07-18] MEDS: carvediloL 12.5 MG TAB PO SCH (09:25)
[2021-07-18] MEDS: INSULIN GLARGINE SOLOSTAR 100 UNITS/ML 3 ML PEN SC SCH (09:26)
[2021-07-18] MEDS: MENTHOL-ZINC OXIDE 360 APPLN/120 GM TUBE EXT SCH ×2 (09:27→13:12)
[2021-07-18] MEDS: FUROSEMIDE 20 MG TAB PO SCH (09:39)
--- NOTE | 2021-07-18 15:28 | Discharge Summary ---
Date of Service July 18, 2021 Admission HPI Per Admitting Provider Eamon Florentino is an 80yo male with history of DM, HTN, recently diagnosed Myasthenia Gravis on pyridostigmine and prednisone therapy. He was recently admitted to [facility] from 06/15/21 - 06/27/21 when he presented with weakness and falling as well as severe SOB. Patient diagnosed with Myasthenia gravis - CSF with ACh receptor binding and serum modulating Ab detected. He was treated with immunoglobulin and received a 5 day course as well as a Prednisone slow taper. He was discharged to [facility] in stable condition. Patient was seen in Neurology clinic on 07/14/21 - had his pyridostigmine i ncreased to 60mg po TID. He presents today with complaint of hyperglycemia. Blood sugar reported to be >600 at [facility] today. Patient reports he has been given his insulin as prescribed and has been following his diabetic diet. He is presently being treated with Amoxicillin for bilateral LE cellulitis. He is uncertain if the redness in his legs has been improving with his Amoxicillin. His course is scheduled to finish on 07/19. He reports stable, persistent orthopnea - he is unable to lay flat and sits up in a chair all day. He has some early skin breakdown of his sacrum and gluteal cleft as well as an ulcer on his right great toe and left second toe. He has persistent bilateral LE edema which has become worse. No additional complaints at this time. Reports that his breathing is much improved. In the ER he is afebrile, hypertensive ER course: Insulin 10u IV, Zosyn Discharge Data Allergies Allergy/AdvReac Type Severity Reaction Status Date / Time lisinopril Allergy Unknown Unknown Verified 07/15/21 23:35 Consultations 07/16/21 00:08 ED Decision to Admit Stat Hospital Course (1) Diabetes mellitus with hyperglycemia: HbA1C 10 in June Will consult pharmacy for glycemic control given glucose levels still > 200 (2) Myasthenia gravis: New diagnosis last admission. Patient seems stable at this point. No respiratory distress, good inspiratory effort on exam. No concern for crisis at this time. -Can discontinue NIF/FVC checks as no acute exacerbation suspected. -Continue PO steroids - Prednisone 5mg daily -Continue Pyridostigmine 60mg po TID -Cautious medication use as not to exacerbate myasthenic symptoms (3) Bilateral leg edema: Patient with significant bilateral LE edema. ?poor nutritional state as well as possible CHF -Lasix 40mg IV x 1 given -Continue PO Lasix -Encourage elevation of legs as tolerated -Will continue Amoxicillin to complete course for presumed bilateral LE cellulitis. He is to take this medication until 07/19. (4) Hypertension: Blood pressure elevated at present -Continue Losartan 100mg po daily -Continue Carvedilol - ?discontinuing this medication as BB can worsen myasthenia symptoms. Uncertain if patient has a history of CAD. He does report a history of CHF 9 years ago and, by CXR, looks to have a BiV AICD in place. Records to be requested from patient's Manager Entry in [place] as well as [facility] where he received his care prior to moving to [place]. Continue Lasix. (5) Anemia: Patient with normochromic, normocytic anemia with Hgb=9.7, near baseline. No bleeding. He had workup at last admission to include normal iron, B12 and Folate levels. -Continue to monitor -GI evaluation in future (6) BPH (benign prostatic hyperplasia): Chronic -Continue Finasteride and Tamsulosin -Monitor UOP (7) Hypothyroid: Chronic. TSH within normal limits on 06/15/21 at 4.49 -Continue Synthroid 88mcg po daily (8) GERD (gastroesophageal reflux disease): Chronic. Well controlled -Protonix 40mg po daily -May resume home Omeprazole on DC F/E/N - Lasix 40mg IV x 1 then home 20mg po daily, monitor electrolytes, check PO4 x 1, Heart healthy diet as tolerated with aspiration precautions. Consider Nutrition consultation- patient with chronic illness, poor albumin Ppx- Lovenox Code - DNR/DNI per discussion with patient Dispo - Continue inpatient stay to get glucose levels better controlled. Discharge Plan Discharge Items Patient Disposition: Home - Home Health Services Reason For Visit: ELEVATED BLOOD SUGAR Discharge Diagnosis: Hyperglycemia Condition on Discharge: Fair Activity: Resume your previous activity Non-emergency contact: Primary Care Provider Call non-emergency contact if: you have any medication questions and your symptoms worsen Follow-up/Referrals: Jonathan Leos MD [Physician] - (Routine diabetes follow up) [facility] - Diet: Carb Consistent or DM2 and Heart Healthy Diet Texture: Easy to Chew Addtl Attending Provider Instructions: You were admitted to [facility] from July 16 - 2020 due to high glucose levels. Your insulin has been adjusted to help control your glucose levels better with a basal bolus regimen. Please continue to follow up with your primary care physician for ongoing adjustments of this. A referral has also been made to endocrinology. Continue on your usual Lantus regimen. You have now been started on Novolog for meal and correction coverage. Use 5 units for each meals (this has been your average during your inpatient admission). Use an addition 2 units for every 30mg above 140 before each meal and at night. Ie. if your glucose level is 200: 210 - 140 = 70. Therefore use 4 additional units. Please use compression stockings to continue to help with your leg edema. Pending Studies at Discharge: No Stand-Alone Forms: My [facility], Smoking Cessation Medications and DC Order Prescriptions: New insulin aspart U-100 [Novolog Flexpen U-100 Insulin] 100 unit/mL (3 mL) insulin pen See Rx Instructions .ROUTE .COMPLEX Qty: 15 RF: 0 Continued acetaminophen 325 mg Tablet 650 mg PO Q4H PRN (Reason: Fever Or Pain) RF: 0 Lantus U-100 Insulin 100 unit/mL Solution 10 unit SUBCUT BID RF: 0 aspirin [Aspirin Low Dose] 81 mg Tablet,Delayed Release (Dr/Ec) 81 mg PO DAILY RF: 0 levothyroxine 88 mcg Tablet 88 mcg PO DAILY RF: 0 finasteride 5 mg Tablet 5 mg PO DAILY RF: 0 omega 3-amm-slw-fish oil [Fish Oil] 1,000 mg (120 mg-180 mg) Capsule 1 cap PO BID RF: 0 omeprazole 20 mg Capsule,Delayed Release(Dr/Ec) 20 mg PO BID RF: 0 tamsulosin 0.4 mg Capsule 0.4 mg PO BID RF: 0 terbinafine HCl 1 % Cream 1 applic TOPICAL BID RF: 0 ketoconazole 2 % Shampoo 1 ea TOPICAL 3XWK RF: 0 melatonin 3 mg Tablet 3 mg PO HS PRN (Reason: Sleep) RF: 0 carboxymethylcellulose sodium 0.5 % Drops 1 drp OPHTHALMIC (EYE) 6XD PRN (Reason: Dry Eye(S)) RF: 0 losartan 100 mg Tablet 100 mg PO DAILY RF: 0 fluticasone propionate 50 mcg/actuation [place],Suspension 1 spray INTRANASAL BID PRN (Reason: breathing) RF: 0 ferrous sulfate 324 mg (65 mg iron) Tablet,Delayed Release (Dr/Ec) 324 mg PO 3XWK RF: 0 PreserVision AREDS-2 250-90-40-1 mg Capsule 1 tab PO BID RF: 0 carvedilol 12.5 mg Tablet 12.5 mg PO BID Qty: 60 RF: 0 amoxicillin 500 mg Capsule 500 mg PO TID RF: 0 loperamide 2 mg Capsule 2 mg PO DIRECTED PRN (Reason: Diarrhea) RF: 0 prednisone 5 mg Tablet 5 mg PO DAILY RF: 0 docusate sodium [Stool Softener] 100 mg Capsule 100 mg PO BID RF: 0 furosemide [Lasix] 20 mg Tablet 20 mg PO DAILY RF: 0 menthol-zinc oxide [Calmoseptine] 0.44-20.6 % Ointment 1 applic TOPICAL TID RF: 0 pyridostigmine bromide 60 mg tablet 60 mg PO TID RF: 0 Discontinued insulin aspart U-100 [Novolog Flexpen U-100 Insulin] 100 unit/mL (3 mL) insulin pen 38 unit SC QDB RF: 0 Discharge Orders: Discharge Order (Routine); Ordered 07/18/21 Ordered By: Les Parks/Other Patient Handouts: Diabetes- Measuring Glucose at Home Admission Data Admit Date/Time: 07/16/21 00:52 Attending Provider: Les Padgett Admit Provider: Miryam Ford [facility] Other Providers: Miryam Ford ; [facility] Coding Diagnoses Diabetes mellitus with hyperglycemia E11.65 Myasthenia gravis G70.00 Bilateral leg edema R60.0 Hypertension I10 Anemia D64.9 BPH (benign prostatic hyperplasia) N40.0 Hypothyroid E03.9 GERD (gastroesophageal reflux disease) K21.9
--- NOTE | 2021-07-18 16:19 | Pharmacy Report ---
Pharmacy Glycemic Short Note 2 - Date of Service July 18, 2021 - Glycemic Short BSG Results (Last 24 hours): 07/17/21 07/17/21 07/18/21 17:15 20:35 02:03 POC Glucose 90 88 107 H 07/18/21 07/18/21 08:14 12:13 POC Glucose 111 H 252 H OUTPATIENT ANTIDIABETIC REGIMEN: * Lantus 10 units BID, novolog 5 units TIDM * a1c 10% 06/16/21 ASSESSMENT: * Fasting BSG within goal range with current lantus dosing, continue 10 units BID * Lunch BSG above goal range, will tighten carb ratio with breakfast, loosen with dinner/bedtime PLAN FOR INPATIENT GLYCEMIC CONTROL: * Hold outpatient oral diabetes medications * Basal insulin * Lantus 10 units SQ BID * Bolus insulin * NovoLog per scale ACHS or Q6hrs while NPO * Goal Range: Low 100 mg/dL - High 140 mg/dL * Correction Factor: 15 mg/dL/unit * Nutritional / Prandial insulin per carb ratio of 1 unit per 4 grams CHO consumed with breakfast, 1 units per 5 grams lunch, dinner, bed
[2021-07-18] MEDS ORDERED: FUROSEMIDE 20 MG TAB PO SCH (17:00)
== END 2021-07-18 16:58 | disposition home health service (06) ==
LOC: 3W 22:30 → ED 22:30 → SUATTDRO 07-16 00:52 → 3W 07-16 02:46
DX: D64.9 Anemia, unspecified; Z79.82 Long term (current) use of aspirin; K21.9 Gastro-esophageal reflux disease without esophagitis; E11.65 Type 2 diabetes mellitus with hyperglycemia; G70.00 Myasthenia gravis without (acute) exacerbation; R60.0 Localized edema; I10 Essential (primary) hypertension; Z79.899 Other long term (current) drug therapy; N40.0 Benign prostatic hyperplasia without lower urinary tract symptoms; E03.9 Hypothyroidism, unspecified; Z79.4 Long term (current) use of insulin

== ENCOUNTER 2021-08-02 05:55 | Inpatient (IN) ==
[2021-08-02 06:55] LABS: Partial Thromboplastin Time 25.8 Seconds (21.0-31.0); Prothrombin Time 10.3 Seconds (9.0-12.0)
[2021-08-02 06:59] LABS: Hematocrit (blood only) 31.2 % (42-52); Hemoglobin 10.1 g/dL (14.0-18.0); Mean Corpuscular Hemoglobin 31.2 pg (25-34); Mean Corpuscular Hgb Conc 32.4 g/dL (32-36); Mean Corpuscular Volume 96.3 fL (80-100); Mean Platelet Volume 9.2 fL (7.4-10.4); Platelet Count 364 K/uL (130-400); RDW Coefficient of Variation 13.6 % (11.5-14.5); RDW Standard Deviation 48.2 fL (36.4-46.3); Red Blood Count 3.24 M/uL (4.7-6.1); White Blood Count 7.02 K/uL (4.8-10.8)
[2021-08-02 07:13] LABS: Albumin Globulin Ratio 0.6 (0.9-2); Albumin Level 2.2 gm/dl (3.4-5.0); BUN Creatinine Ratio 17.8 (10-20); Bilirubin,Total 0.2 mg/dl (0.2-1); Calcium 8.4 mg/dl (8.5-10.1); Est GFR (African American) 78.2 ml/min; Est GFR (Non-African American) 67.5 ml/min; Globulin 3.8 gm/dl (2.5-4.0); Potassium 4.2 mmol/L (3.5-5.1)
--- NOTE | 2021-08-02 07:44 | Emergency Department Note ---
History of Present Illness General Chief complaint: Rectal Bleed Stated complaint: RECTAL BLEED/ABD PAIN/DIARRHEA Time Seen by Provider: 08/02/21 06:37 History of Present Illness 80-year-old male presents to the ED with a chief complaint of rectal bleeding. His symptoms started around 430 this morning. He states that he has had at least 10 episodes where he has passed bloody stools. He had 2 episodes here in the ED, once prior to me seeing him and once while I was seeing him. The patient reports some stomach cramps that are mild. He has had these for couple of months. He denies any fevers, nausea or vomiting. He does take a baby aspirin. He reports feeling a little lightheaded. Nothing makes his symptoms better. Home Medications Medication Instructions Recorded Confirmed Type acetaminophen 325 mg tablet 650 mg PO Q4H PRN 06/15/21 08/02/21 History aspirin 81 mg tablet,delayed 81 mg PO DAILY 06/15/21 08/02/21 History release (Aspirin Low Dose) carboxymethylcellulose sodium 0.5 1 drp OPHTHALMIC (EYE) 6XD PRN 06/15/21 08/02/21 History % eye drops ferrous sulfate 324 mg (65 mg 324 mg PO 3XWK 06/15/21 08/02/21 History iron) tablet,delayed release finasteride 5 mg tablet 5 mg PO DAILY 06/15/21 08/02/21 History fluticasone propionate 50 1 spray INTRANASAL BID PRN 06/15/21 08/02/21 History mcg/actuation nasal spray,suspension insulin glargine 100 unit/mL 10 unit SUBCUT BID 06/15/21 08/02/21 History subcutaneous solution (Lantus U-100 Insulin) ketoconazole 2 % shampoo 1 ea TOPICAL 3XWK 06/15/21 08/02/21 History levothyroxine 88 mcg tablet 88 mcg PO DAILY 06/15/21 08/02/21 History losartan 100 mg tablet 100 mg PO DAILY 06/15/21 08/02/21 History melatonin 3 mg tablet 3 mg PO HS PRN 06/15/21 08/02/21 History omega 8-djm-gbd-fish oil 1,000 mg 1 cap PO BID 06/15/21 08/02/21 History (120 mg-180 mg) capsule (Fish Oil) omeprazole 20 mg capsule,delayed 20 mg PO BID 06/15/21 08/02/21 History release tamsulosin 0.4 mg capsule 0.4 mg PO BID 06/15/21 08/02/21 History terbinafine HCl 1 % topical cream 1 applic TOPICAL BID 06/15/21 08/02/21 History vit C 250 mg-vit E 90 mg-zinc 40 1 tab PO BID 06/15/21 08/02/21 History mg-copper 1 vm-[id number] capsule (PreserVision AREDS-2) carvedilol 12.5 mg tablet 12.5 mg PO BID #60 tab 06/27/21 08/02/21 Rx docusate sodium 100 mg capsule 100 mg PO BID 07/15/21 08/02/21 History (Stool Softener) furosemide 20 mg tablet (Lasix) 20 mg PO DAILY 07/15/21 08/02/21 History loperamide 2 mg capsule 2 mg PO DIRECTED PRN 07/15/21 08/02/21 History menthol 0.44 %-zinc oxide 20.6 % 1 applic TOPICAL TID 07/15/21 08/02/21 History topical ointment (Calmoseptine) prednisone 5 mg tablet 5 mg PO DAILY 07/15/21 08/02/21 History pyridostigmine bromide 60 mg tablet 60 mg PO TID 07/15/21 08/02/21 History insulin aspart U-100 100 unit/mL See Rx Instructions .ROUTE 07/18/21 08/02/21 Rx (3 mL) subcutaneous pen (Novolog .COMPLEX #15 ml Flexpen U-100 Insulin aspart) Allergies Allergy/AdvReac Type Severity Reaction Status Date / Time lisinopril Allergy Unknown Unknown Verified 07/15/21 23:35 Past Med/Surg History Medical History Anemia BPH (benign prostatic hyperplasia) Diabetes mellitus GERD (gastroesophageal reflux disease) Hypertension Hypothyroid Myasthenia gravis Surgical History AICD (automatic cardioverter/defibrillator) present H/O heart surgery Family History Other Diabetes Heart disease Hypertension Social History (Reviewed 08/02/21 @ 07:41 by CLAUDIA Owens Smoking Status: Never smoker Hx Alcohol Use: Yes Alcohol type: wine Hx Substance Use: No Preferred Language: [place]er Communication Ability: Effective Neon Sign Maker Required: No Beliefs That Will Affect Care: None marital status: Single Current Living Situation: Personal Care Facility Feels Safe at Home: Yes Assistive Devices: Walker Review of Systems A total of 10 systems reviewed and were otherwise negative Physical Exam Vital Signs Vital Signs - 24 hr 08/02/21 06:07 08/02/21 06:35 08/02/21 07:00 Temperature 36.5 C Temperature Source Oral Pulse Rate 68 65 Pulse Rate from SpO2 Sensor 61 Respiratory Rate 20 20 Respiratory Effort / Characteristics Non-Labored Spontaneous Blood Pressure 162/75 H 136/63 Blood Pressure Mean 104 87 Blood Pressure Position Lying Pulse Oximetry 97 96 96 Oxygen Delivery Method Room Air Room Air Sepsis Recent Fever Within 48 Hours No Sepsis New/Unexplained Change in Mental Status No Sepsis Action Taken by Nursing No Action Required CONSTITUTIONAL/VITAL SIGNS: Reviewed / noted above. GENERAL: Non-toxic in appearance. INTEGUMENTARY: Warm, dry, and [place]. HEAD: Normocephalic. EYES: without scleral icterus or trauma. ENT/OROPHARYNX: clear and moist. LYMPHADENOPATHY/NECK: Is supple without lymphadenopathy or meningismus. RESPIRATORY: Clear to auscultation bilaterally. No increased work of breathing. CARDIOVASCULAR: Regular rate and rhythm. GI/ABDOMEN: Soft and nontender. No organomegaly or pulsatile mass. EXTREMITIES: Warm and well perfused. BACK: No CVA tenderness. NEUROLOGICAL: Intact without focal deficits. PSYCHIATRIC: normal affect. MUSCULOSKELETAL: Normally developed with good muscle tone. RECTAL: Patient had a bloody bowel movement while I was seeing him. There was clots as well as dark and bright blood. His diaper was filled with blood. TRIAGE NURSING DOCUMENTATION REVIEWED. Course Administered Medications Discontinued Medications Ioversol (Optiray 320 100ml) 94 ml IV ONCE ONE Stop: 08/02/21 07:51 Last Admin: 08/02/21 07:50 Dose: 94 ml Documented by: [id number] Medical Decision Making Differential Diagnosis Differential includes acute coronary syndrome, myocardial infarction, CVA, TIA, anemia, infection, pneumonia, UTI, pyelonephritis, poor nutrition, dehydration, electrolyte disturbance,hypoglycemia, upper GI bleeding, lower GI bleeding. Medical Records Attestation: I reviewed the patient's medical records. Home Medications Current Medication List: was personally reviewed by me Laboratory Data Attestation: I reviewed the patient's lab results. Result diagrams: 08/02/21 06:15 08/02/21 06:15 Lab Results 08/02/21 08/02/21 08/02/21 Range/Units 06:15 06:15 06:15 WBC 7.02 (4.8-10.8) K/uL RBC 3.24 L (4.7-6.1) M/uL Hgb 10.1 L (14.0-18.0) g/dL Hct 31.2 L (42-52) % MCV 96.3 (80-100) fL MCH 31.2 (25-34) pg MCHC 32.4 (32-36) g/dL RDW Std Deviation 48.2 H (36.4-46.3) fL RDW Coeff of [place]or[place] 13.6 (11.5-14.5) % Plt Count 364 (130-400) K/uL MPV 9.2 (7.4-10.4) fL PT 10.3 (9.0-12.0) Seconds INR 1.0 (0.9-1.1) APTT 25.8 (21.0-31.0) Seconds PTT Ratio 1.0 Sodium (136-145) mmol/L Potassium (3.5-5.1) mmol/L Chloride (98-107) mmol/L Carbon Dioxide (21-32) mmol/L Anion Gap (3-11) BUN (7-18) mg/dl Creatinine (0.6-1.4) mg/dl Est Cr Clr Drug Dosing ml/min Est GFR ( Amer) ml/min Est GFR (Non-Af Amer) ml/min BUN/Creatinine Ratio (10-20) Glucose (70-99) mg/dl Calcium (8.5-10.1) mg/dl Total Bilirubin (0.2-1) mg/dl AST (15-37) U/L ALT (12-78) U/L Alkaline Phosphatase (45-117) U/L Total Protein (6.4-8.2) gm/dl Albumin (3.4-5.0) gm/dl Globulin (2.5-4.0) gm/dl Albumin/Globulin Ratio (0.9-2) Beta-Hydroxybutyric Acd (0.2-2.81) mg/dl Blood Type A Positive Antibody Screen NEGATIVE 08/02/21 Range/Units 06:15 WBC (4.8-10.8) K/uL RBC (4.7-6.1) M/uL Hgb (14.0-18.0) g/dL Hct (42-52) % MCV (80-100) fL MCH (25-34) pg MCHC (32-36) g/dL RDW Std Deviation (36.4-46.3) fL RDW Coeff of Dinorah (11.5-14.5) % Plt Count (130-400) K/uL MPV (7.4-10.4) fL PT (9.0-12.0) Seconds INR (0.9-1.1) APTT (21.0-31.0) Seconds PTT Ratio Sodium 137 (136-145) mmol/L Potassium 4.2 (3.5-5.1) mmol/L Chloride 105 (98-107) mmol/L Carbon Dioxide 28 (21-32) mmol/L Anion Gap 5.0 (3-11) BUN 19 H (7-18) mg/dl Creatinine 1.04 (0.6-1.4) mg/dl Est Cr Clr Drug Dosing 60.0 ml/min Est GFR ( Amer) 78.2 ml/min Est GFR (Non-Af Amer) 67.5 ml/min BUN/Creatinine Ratio 17.8 (10-20) Glucose 317 H* (70-99) mg/dl Calcium 8.4 L (8.5-10.1) mg/dl Total Bilirubin 0.2 (0.2-1) mg/dl AST 16 (15-37) U/L ALT 15 (12-78) U/L Alkaline Phosphatase 96 (45-117) U/L Total Protein 6.0 L (6.4-8.2) gm/dl Albumin 2.2 L (3.4-5.0) gm/dl Globulin 3.8 (2.5-4.0) gm/dl Albumin/Globulin Ratio 0.6 L (0.9-2) Beta-Hydroxybutyric Acd 1.05 (0.2-2.81) mg/dl Blood Type Antibody Screen Imaging Data Radiologist's Impression: Abdomen/Pelvis CT 08/02/21 06:52 CT OF THE ABDOMEN AND PELVIS WITH CONTRAST CLINICAL HISTORY: Rectal bleeding. COMPARISON STUDY: None. TECHNIQUE: Following IV administration of 94 mL of Optiray, axial images of the abdomen and pelvis were obtained from the lung bases to the proximal femurs. Images were reviewed in the axial, sagittal, and coronal planes. IV contrast was administered without complication. Automated exposure control was utilized for the study. A dose lowering technique was utilized adhering to the principles of ALARA. CT DOSE: 563.39 mGy.cm FINDINGS: Pacer leads are partially imaged. There are numerous small nodules within the lower lungs that measure up to 5 mm. These are probably benign. There is a small hiatal hernia. No pneumatosis, free air or portal venous gas is present. The liver, spleen, adrenal glands and pancreas are unremarkable. There is no biliary or pancreatic ductal dilatation. Note is made of a 2.6 cm cyst within lower pole of the left kidney. Subcentimeter left renal lesions likely reflect cysts as well. Multiple right renal calculi measure up to 4 mm. There are no ureteral calculi. There is no hydronephrosis. There is moderate plaque of the abdominal aorta which is normal in caliber. The mesenteric vessels appear pa tent although are suboptimally assessed on this non-CTA exam. A fat-containing 2.2 cm left anterior abdominal density may reflect an old torsed epiploic appendage or focus of fat necrosis. There is extensive colonic diverticulosis. Note is made of wall thickening of the ascending colon and the signal: Pericolonic infiltration. No free air or abscess. No intraluminal contrast is noted. The appendix is normal. There is no evidence for a bowel obstruction. No suspicious lesions are identified within the visualized skeletal structures. Prostate is mildly enlarged. Mild bladder wall thickening is likely chronic. IMPRESSION: 1. Wall thickening of the descending colon and sigmoid colon with mild pericolonic infiltration. Extensive colonic diverticulosis. The long segment involvement favors a nonspecific colitis. Acute diverticulitis could appear similar. No free air or abscess. No intraluminal contrast within the bowel. 2. No bowel obstruction. Normal appendix. 3. Right-sided nephrolithiasis. 2. Multiple small nodules within the lower lungs which are likely benign. A follow-up chest CT in 6 months could be obtained to ensure stability. ACT 112: Negative or not required by law. Electronically signed by: Lalo Hough M.D. 08/02/2021 8:15 AM ECG Data Additional Comments: AV pacemaker with ventricular pacing at a rate of 64. No ST elevation. No PVCs. Normal QTC. MDM Narrative Patient presents to the ED with moderate rectal bleeding numerous times since 430 this morning. Reports some mild lightheadedness but otherwise no concerning symptoms. His vital signs here are stable. His initial blood pressure was 162/75. His hemoglobin is 10.1. Glucose is 317. Twelve-lead EKG shows a AV paced rhythm at a rate of 64. CT scan of the abdomen pelvis shows findings suggesting a nonspecific colitis versus acute diverticulitis. The patient was treated with IV Zosyn. He has been typed and screened. His hemoglobin currently is 10.1. He will require further inpatient evaluation and care as he does have a seen amount of rectal bleeding based on history and exam. Impression & Plan GI bleed, Colitis Discharge Plan Visit Data Chief Complaint: Rectal Bleed Stated Complaint: RECTAL BLEED/ABD PAIN/DIARRHEA ED Provider: Sergio Benavidez Discharge Problem: GI bleed, Colitis Patient Disposition: Being Evaluated by Hospitalist Forms Stand Alone Forms: My [facility] Prescriptions Prescriptions: No Action acetaminophen 325 mg Tablet 650 mg PO Q4H PRN (Reason: Fever Or Pain) RF: 0 Lantus U-100 Insulin 100 unit/mL Solution 10 unit SUBCUT BID RF: 0 aspirin [Aspirin Low Dose] 81 mg Tablet,Delayed Release (Dr/Ec) 81 mg PO DAILY RF: 0 levothyroxine 88 mcg Tablet 88 mcg PO DAILY RF: 0 finasteride 5 mg Tablet 5 mg PO DAILY RF: 0 omega 4-dka-kqe-fish oil [Fish Oil] 1,000 mg (120 mg-180 mg) Capsule 1 cap PO BID RF: 0 omeprazole 20 mg Capsule,Delayed Release(Dr/Ec) 20 mg PO BID RF: 0 tamsulosin 0.4 mg Capsule 0.4 mg PO BID RF: 0 terbinafine HCl 1 % Cream 1 applic TOPICAL BID RF: 0 ketoconazole 2 % Shampoo 1 ea TOPICAL 3XWK RF: 0 melatonin 3 mg Tablet 3 mg PO HS PRN (Reason: Sleep) RF: 0 carboxymethylcellulose sodium 0.5 % Drops 1 drp OPHTHALMIC (EYE) 6XD PRN (Reason: Dry Eye(S)) RF: 0 losartan 100 mg Tablet 100 mg PO DAILY RF: 0 fluticasone propionate 50 mcg/actuation [place],Suspension 1 spray INTRANASAL BID PRN (Reason: breathing) RF: 0 ferrous sulfate 324 mg (65 mg iron) Tablet,Delayed Release (Dr/Ec) 324 mg PO 3XWK RF: 0 PreserVision AREDS-2 250-90-40-1 mg Capsule 1 tab PO BID RF: 0 carvedilol 12.5 mg Tablet 12.5 mg PO BID Qty: 60 RF: 0 loperamide 2 mg Capsule 2 mg PO DIRECTED PRN (Reason: Diarrhea) RF: 0 prednisone 5 mg Tablet 5 mg PO DAILY RF: 0 docusate sodium [Stool Softener] 100 mg Capsule 100 mg PO BID RF: 0 furosemide [Lasix] 20 mg Tablet 20 mg PO DAILY RF: 0 menthol-zinc oxide [Calmoseptine] 0.44-20.6 % Ointment 1 applic TOPICAL TID RF: 0 pyridostigmine bromide 60 mg tablet 60 mg PO TID RF: 0 insulin aspart U-100 [Novolog Flexpen U-100 Insulin] 100 unit/mL (3 mL) in sulin pen See Rx Instructions .ROUTE .COMPLEX Qty: 15 RF: 0 Referrals Referrals: MARYLIN Beltre [Primary Care Provider] -
[2021-08-02 07:49] LABS: Beta-Hydroxybutyrate 1.05 mg/dl (0.2-2.81)
[2021-08-02] MEDS ORDERED: OPTIRAY 320 100ml IV ONE (07:50)
--- NOTE | 2021-08-02 08:17 | CT Scan Report ---
CT OF THE ABDOMEN AND PELVIS WITH CONTRAST CLINICAL HISTORY: Rectal bleeding. COMPARISON STUDY: None. TECHNIQUE: Following IV administration of 94 mL of Optiray, axial images of the abdomen and pelvis we re obtained from the lung bases to the proximal femurs. Images were reviewed in the axial, sagittal, and coronal planes. IV contrast was administered without complication. Automated exposure control wa s utilized for the study. A dose lowering technique was utilized adhering to the principles of ALARA . CT DOSE: 563.39 mGy.cm FINDINGS: Pacer leads are partially imaged. There are numerous small nodules within the lower lungs t hat measure up to 5 mm. These are probably benign. There is a small hiatal hernia. No pneumatosis, fr ee air or portal venous gas is present. The liver, spleen, adrenal glands and pancreas are unremarkab le. There is no biliary or pancreatic ductal dilatation. Note is made of a 2.6 cm cyst within lower p ole of the left kidney. Subcentimeter left renal lesions likely reflect cysts as well. Multiple right renal calculi measure up to 4 mm. There are no ureteral calculi. There is no hydronephrosis. There i s moderate plaque of the abdominal aorta which is normal in caliber. The mesenteric vessels appear pa tent although are suboptimally assessed on this non-CTA exam. A fat-containing 2.2 cm left anterior a bdominal density may reflect an old torsed epiploic appendage or focus of fat necrosis. There is exte nsive colonic diverticulosis. Note is made of wall thickening of the ascending colon and the signal: Pericolonic infiltration. No free air or abscess. No intraluminal contrast is noted. The appendix is normal. There is no evidence for a bowel obstruction. No suspicious lesions are identified within the visualized skeletal structures. Prostate is mildly enlarged. Mild bladder wall thickening is likely chronic. IMPRESSION: 1. Wall thickening of the descending colon and sigmoid colon with mild pericolonic infiltration. Exte nsive colonic diverticulosis. The long segment involvement favors a nonspecific colitis. Acute divert iculitis could appear similar. No free air or abscess. No intraluminal contrast within the bowel. 2. No bowel obstruction. Normal appendix. 3. Right-sided nephrolithiasis. 2. Multiple small nodules within the lower lungs which are likely benign. A follow-up chest CT in 6 m [facility] could be obtained to ensure stability. ACT 112: Negative or not required by law. Electronically signed by: Lalo Hough M.D. 08/02/2021 8:15 AM
[2021-08-02] MEDS ORDERED: PIPERACILLIN/TAZOBACTAM 4.5 GM/120 ML BAG IV ONE (08:48)
[2021-08-02] MEDS ORDERED: PIPERACILL/TAZOBAC CONSULT ACTIVE PRN ×2 (08:48→15:06)
[2021-08-02] MEDS ORDERED: ACETAMINOPHEN 1,000 MG/100 ML VIAL IV STA (09:33)
[2021-08-02] MEDS ORDERED: PANTOPRAZOLE BOLUS/DRIP 1 EA IV STA (09:44)
[2021-08-02] MEDS ORDERED: SODIUM CHLORIDE 0.9% 250 ML IV PRN ×2 (09:59→10:00)
[2021-08-02] MEDS ORDERED: PANTOprazole 80 MG in DEXTROSE 5% 100 ML IV SCH (10:15)
--- NOTE | 2021-08-02 10:38 | History & Physical Report ---
Date of Service August 02, 2021 Assessment & Plan (1) GI bleed: Plan: Impression: This is a 80-year-old male with a history of GERD and chronic anemia that presented with multiple episodes of hematochezia and melena occurring since 4 AM this morning. The patient had a presenting hemoglobin of 10.1. In the course of evaluation and admission the patient had a syncopal event that did not appear to be vagal. Very minimal chest compressions were completed. Patient never had loss of pulse or respiration. Multiple episodes with clots mixed with bright red and dark blood in depends undergarment. Repeat hemoglobin is pending. Pantoprazole drip initiated 1 unit of packed red blood cells being transfused. * H&H every 6 hours * GI consult requested Patient is on aspirin at home as well as daily prednisone. No other significant NSAID use No prior history of ulcers or GI bleed Patient does have evidence of possible diverticulitis on CT scan of the abdomen * Will start Zosyn and Flagyl Follow daily labs (2) Syncope: Plan: Unclear etiology Patient was not having a forced bowel movement or any other indication for vagal response at the time of the event Patient did receive 2 or 3 compressions as a CODE BLUE was called We will monitor on telemetry Check troponin Repeat EKG Continue to treat GI bleed and monitor vital signs per protocol (3) Colitis: Plan: Evidence of diverticular disease and possible diverticulitis on CT imaging Zosyn and Flagyl started Pantoprazole started Lactated Ringer's at 80 cc an hour Follow on telemetry (4) GERD (gastroesophageal reflux disease): Plan: Patient is on omeprazole twice daily at home Hold omeprazole and start pantoprazole drip Consult GI for GI bleed (5) Hypothyroid: Plan: Continue levothyroxine 88 mcg daily (6) BPH (benign prostatic hyperplasia): Plan: Continue tamsulosin (7) Anemia: Plan: Chronic anemia Hemoglobin currently 10.1 but with GI bleed Receiving 1 unit of packed red blood cells Follow serial H&H Hold ferrous sulfate during this acute phase (8) Myasthenia gravis: Plan: No acute exacerbation Continue on prednisone 5 mg daily No indication for stress dose steroids at this time (9) Diabetes mellitus: Plan: Poorly controlled -most recent hemoglobin A1c was 10% Check repeat hemoglobin A1c Hold outpatient medications while n.p.o. NovoLog sliding scale insulin Glycemic consult with pharmacy (10) Hypertension: Plan: Patient currently hemodynamically stable Even with GI bleed blood pressure is 123/65 Continue usual antihypertensives Follow on telemetry unit (11) DVT prophylaxis: Plan: Hold all chemical prophylaxis secondary to GI bleed SCDs and NOVA stearns ordered History of Present Illness Chief Complaint: GI bleed Primary Care Provider: [facility] Attending: Dr. Edwards This is an 80-year-old male with a history of GERD, hypothyroidism, BPH, chronic anemia, myasthenia gravis, bilateral cellulitis of lower leg hist ory, diabetes mellitus insulin-dependent with hemoglobin A1c of 10, diabetic polyneuropathy, history of generalized muscle weakness, hypertension. The patient reports that he has had cramping for the last 2 weeks. This morning approximately 4 AM he awoke to bloody stool. There was bright red blood as well as some dark blood and clots. The patient presented emergency department where he has had several episodes of clots and mixed bright red and dark stool in his depends. He has been hemodynamically stable but did have one episode of unresponsiveness which resulted in approximately 2-3 compressions on his chest. He had no loss of pulse. He had no respiratory failure. He was not hypoxic. Patient was pale with no evidence of cyanosis around lips or fingertips. Within short order the patient was oriented to person place and time but stated that he felt as though he was going to . He denies any chest pain, tightness, fever, chills, rigors, sweats. He has no radiation of pain into his neck jaw or arms. He denies any back pain. Other than the incontinence from the GI bleed he had no other incontinence that he is aware of. The patient denies any acute lower extremity pain or unusual edema. He has no history of thromboembolic disease. The patient's daughter is present and states that over the last 2 weeks he has had decrease in appetite. He has also had 1 or 2 episodes of vomiting but no hematic emesis at home. The patient is a lifelong non-smoker. He denies any ethanol abuse history. The patient is on aspirin 81 mg p.o. daily and is on chronic prednisone at 5 mg daily for myasthenia gravis. He denies any excessive use of NSAIDs. He states that he had a colonoscopy years ago but is not able to recollect results. He is unaware of any history of diverticular disease or history of ulcers. The patient does wish to be a level of V DNR/DNI. This is confirmed with the daughter who is present. Allergies Allergy/AdvReac Type Severity Reaction Status Date / Time lisinopril Allergy Unknown Unknown Verified 07/15/21 23:35 Home Medications Medication Instructions Recorded Confirmed Type acetaminophen 325 mg tablet 650 mg PO Q4H PRN 06/15/21 08/02/21 History aspirin 81 mg tablet,delayed 81 mg PO DAILY 06/15/21 08/02/21 History release (Aspirin Low Dose) carboxymethylcellulose sodium 0.5 1 drp OPHTHALMIC (EYE) 6XD PRN 06/15/21 08/02/21 History % eye drops ferrous sulfate 324 mg (65 mg 324 mg PO 3XWK 06/15/21 08/02/21 History iron) tablet,delayed release finasteride 5 mg tablet 5 mg PO DAILY 06/15/21 08/02/21 History fluticasone propionate 50 1 spray INTRANASAL BID PRN 06/15/21 08/02/21 History mcg/actuation nasal spray,suspension insulin glargine 100 unit/mL 10 unit SUBCUT BID 06/15/21 08/02/21 History subcutaneous solution (Lantus U-100 Insulin) ketoconazole 2 % shampoo 1 ea TOPICAL 3XWK 06/15/21 08/02/21 History levothyroxine 88 mcg tablet 88 mcg PO DAILY 06/15/21 08/02/21 History losartan 100 mg tablet 100 mg PO DAILY 06/15/21 08/02/21 History melatonin 3 mg tablet 3 mg PO HS PRN 06/15/21 08/02/21 History omega 2-hfq-vwt-fish oil 1,000 mg 1 cap PO BID 06/15/21 08/02/21 History (120 mg-180 mg) capsule (Fish Oil) omeprazole 20 mg capsule,delayed 20 mg PO BID 06/15/21 08/02/21 History release tamsulosin 0.4 mg capsule 0.4 mg PO BID 06/15/21 08/02/21 History terbinafine HCl 1 % topical cream 1 applic TOPICAL BID 06/15/21 08/02/21 History vit C 250 mg-vit E 90 mg-zinc 40 1 tab PO BID 06/15/21 08/02/21 History mg-copper 1 [id number] capsule (PreserVision AREDS-2) carvedilol 12.5 mg tablet 12.5 mg PO BID #60 tab 06/27/21 08/02/21 Rx docusate sodium 100 mg capsule 100 mg PO BID 07/15/21 08/02/21 History (Stool Softener) furosemide 20 mg tablet (Lasix) 20 mg PO DAILY 07/15/21 08/02/21 History loperamide 2 mg capsule 2 mg PO DIRECTED PRN 07/15/21 08/02/21 History menthol 0.44 %-zinc oxide 20.6 % 1 applic TOPICAL TID 07/15/21 08/02/21 History topical ointment (Calmoseptine) prednisone 5 mg tablet 5 mg PO DAILY 07/15/21 08/02/21 History pyridostigmine bromide 60 mg tablet 60 mg PO TID 07/15/21 08/02/21 History insulin aspart U-100 100 unit/mL See Rx Instructions .ROUTE 07/18/21 08/02/21 Rx (3 mL) subcutaneous pen (Novolog .COMPLEX #15 ml Flexpen U-100 Insulin aspart) Past Med/Surg History Medical History Anemia Bilateral leg edema BPH (benign prostatic hyperplasia) Colitis Diabetes mellitus Diabetic polyneuropathy GERD (gastroesophageal reflux disease) GI bleed Hypertension Hypothyroid Myasthenia gravis Syncope Surgical History AICD (automatic cardioverter/defibrillator) present H/O heart surgery Family History Other Diabetes Heart disease Hypertension Social History Smoking Status: Never smoker Hx Alcohol Use: Yes Alcohol type: wine Hx Substance Use: No Preferred Language: Togolese Communication Ability: Effective Criminalist Required: No Beliefs That Will Affect Care: None marital status: Single Current Living Situation: Personal Care Facility Feels Safe at Home: Yes Assistive Devices: Walker Review of Systems Review of Systems: All systems reviewed & are unremarkable except as noted in Subjective Physical Exam Physical Exam: GENERAL : No acute distress EYES: No icterus, gaze conjugate NOSE: No evidence of epistaxis. Oxymask in place MOUTH: No lesions or candidiasis. Mucosa moist. NECK: Supple LUNGS: CTA B/L, no wheezes, rales or rhonchi HEART: Regular, rate controlled ABDOMEN: Soft, NT, ND, BS Present EXTREMITIES: No LE edema, pedal pulses intact : [place] catheter in place GI: Blood in depends NEURO: A&OX3. Pupils equal round and reactive to light. Patient denies headache or acute visual changes. Results & Data Results & Data ([facility]) Vital Signs (Past 12 Hours) Vital Signs Temp Pulse Resp BP Pulse Ox 08/02/21 10:13 62 18 172/69 H 100 08/02/21 09:30 60 18 122/61 100 08/02/21 09:00 64 18 138/71 100 08/02/21 07:00 65 20 136/63 96 08/02/21 06:35 96 08/02/21 06:07 36.5 C 68 20 162/75 H 97 Laboratory Results 08/02/21 06:15 08/02/21 06:15 INR 1.0 (0.9-1.1) 08/02/21 06:15 Diagnostic Findings Abdomen/Pelvis CT 08/02/21 06:52 CT OF THE ABDOMEN AND PELVIS WITH CONTRAST CLINICAL HISTORY: Rectal bleeding. COMPARISON STUDY: None. TECHNIQUE: Following IV administration of 94 mL of Optiray, axial images of the abdomen and pelvis were obtained from the lung bases to the proximal femurs. Images were reviewed in the axial, sagittal, and coronal planes. IV contrast was administered without complication. Automated exposure control was utilized for the study. A dose lowering technique was utilized adhering to the principles of ALARA. CT DOSE: 563.39 mGy.cm FINDINGS: Pacer leads are partially imaged. There are numerous small nodules within the lower lungs that measure up to 5 mm. These are probably benign. There is a small hiatal hernia. No pneumatosis, free air or portal venous gas is present. The liver, spleen, adrenal glands and pancreas are unremarkable. There is no biliary or pancreatic ductal dilatation. Note is made of a 2.6 cm cyst within lower pole of the left kidney. Subcentimeter left renal lesions likely reflect cysts as well. Multiple right renal calculi measure up to 4 mm. There are no ureteral calculi. There is no hydronephrosis. There is moderate plaque of the abdominal aorta which is normal in caliber. The mesenteric vessels appear patent although are suboptimally assessed on this non-CTA exam. A fat-containing 2.2 cm left anterior abdominal density may reflect an old torsed epiploic appendage or focus of fat necrosis. There is extensive colonic diverticulosis. Note is made of wall thickening of the ascending colon and the signal: Pericolonic infiltration. No free air or abscess. No intraluminal contrast is noted. The appendix is normal. There is no evidence for a bowel obstruction. No suspicious lesions are identified within the visualized skeletal structures. Prostate is mildly enlarged. Mild bladder wall thickening is likely chronic. IMPRESSION: 1. Wall thickening of the descending colon and sigmoid colon with mild pericolonic infiltration. Extensive colonic diverticulosis. The long segment involvement favors a nonspecific colitis. Acute diverticulitis could appear similar. No free air or abscess. No intraluminal contrast within the bowel. 2. No bowel obstruction. Normal appendix. 3. Right-sided nephrolithiasis. 2. Multiple small nodules within the lower lungs which are likely benign. A follow-up chest CT in 6 months could be obtained to ensure stability. ACT 112: Negative or not required by law. Electronically signed by: Lalo Hough M.D. 08/02/2021 8:15 AM ECG Additional Comments: EKG from 08/02/2021 at 060 7 AM reviewed Ventricular rate is paced at 64 bpm SD interval is 128 ms QRS duration 142 ms QT/QTc 494/509 ms No significant changes as compared to EKG from 06/15/2021 other than decreased rate of 6 bpm Code Status & VTE Plan Code Status Resuscitation status is DNR/DNI VTE Prophylaxis Plan VTE Prophylaxis will be ordered: Yes Supervising Physician Co-Signing Physician Notes Patient seen and examined with Amaury Slade PA-C. I agree with his exam findings, review of systems, assessment and plan. I personally reviewed the lab work and imaging as well. patient presented with 2 weeks of abdominal cramping, poor appetite, nausea but then developed bloody bowel movements, rectal bleeding suddenly on 08/02/21 no history of such, had a colonoscopy many years ago, no h/o peptic ulcer disease several bloody bowel movements in the ED, Hb was 10, blood pressure stable had a brief syncopal episode in the ED but did not lose pulse, code blue was called and 2 or 3 compressions done by RN who initially came into the room EGD with no ulcers, no gastritis, plan for colonoscopy tomorrow - Acute GI bleed, acute blood loss anemia transfused one unit of PRBC in the ED after he had syncopal event follow H/H q6 can stop protonix drip as EGD normal, plan for colonoscopy tomorrow appreciate GI consultation and recommendations refer to the full H&P by Amaury TOVAR for full details PG Care Time/CCT Total # of Minutes Spent Total Time Spent with Patient: Total time spent is greater than 50% in coordination of care (as documented) at patient's floor/unit and/or counseling patient: [place] [address] Initial Inpt Care Lvl 3 Patient Type New Medical Decision Making High Complexity Diagnoses GI bleed K92.2 GI bleed type/associated pathology: unspecified gastrointestinal hemorrhage type Colitis K52.9 GERD (gastroesophageal reflux disease) K21.9 Hypothyroid E03.9 BPH (benign prostatic hyperplasia) N40.0 Anemia D64.9 Myasthenia gravis G70.00 Diabetes mellitus E11.9 Hypertension I10 DVT prophylaxis Z29.9 Syncope R55 Time Spent (min) 65 (1) GI bleed GI bleed type/associated pathology: unspecified gastrointestinal hemorrhage type Qualified Code(s): K92.2 - Gastrointestinal hemorrhage, unspecified
[2021-08-02] MEDS: PANTOprazole 40 MG in DEXTROSE 5% 100 ML IV SCH ×2 (10:44→15:45)
--- NOTE | 2021-08-02 11:12 | XRay Report ---
XR chest 1V portable CLINICAL HISTORY: Chest compressions, rule out fracture COMPARISON STUDY: July 15, 2021 FINDINGS: No pneumothorax. No pleural effusion. No large infiltrates or consolidative lesions are seen. Minimal atelectasis at the left base is impro semaj since prior. Cardiomediastinal silhouette is within normal limits in size. No significant pulmonary vascular congestion.. Osseous structures: No evidence of rib fractures. Degenerative changes of the spine. Stable position of left-sided triple lead AICD with battery pack partially obscuring left lateral costa g parenchyma and left rib cage. IMPRESSION: 1. No definite displaced rib fractures are seen on current exam. 2. No large infiltrates or consolidative lesions. 3. The rest of findings as above. ACT 112: Negative or not required by law. The above report was generated using voice recognition software. It may contain grammatical, syntax o r spelling errors. Electronically signed by: Blank Up DO 08/02/2021 11:11 AM
[2021-08-02] MEDS ORDERED: METOCLOPRAMIDE HCL INJ 5 MG/ML 2 ML VIAL IV STA (11:16)
--- NOTE | 2021-08-02 11:17 | Gastrointestinal Consultation ---
Date of Consultation August 02, 2021 Assessment & Plan (1) GI bleed: (2) Colitis: DDX: NSAID induced PUD/AVM/Diverticular bleed vs Diverticulitis vs other. Given timing, expect bleeding is related to recent NSAID use. Plan: * NPO for now. * Reglan 10 mg IV push x 1 now. * Maintain 2 large bore IVs at all times. * Continue PPI ggt at 8 mg/hr. * Transfuse as per primary team to maintain hgb >8. * EGD in the OR for further evaluation by Dr. Edwards. * Continue Zosyn 375 mg IV every 8 hours as coverage for possible acute diverticulitis. * Further recommendations pending results of testing. Thank you for allowing us to participate in the care of this pleasant patient. If you have any questions or concerns, please do not hesitate to contact us. Supervising Physician Co-Signing Physician Notes I personally evaluated the patient and agree with the findings as documented by LUTHER Pagan Exam: abd: soft, nt, nd History of Present Illness Reason for Consultation: GIB Requesting Physician: Amaury Slade PA-C Attending Physician: Amaury Slade PA-C History of Present Illness Patient is a 80 y.o. male with a history of GERD and chronic anemia recently diagnosed with lower extremity cellulitis. As part of treatment, he reports he was prescribed Meloxicam approximately two weeks ago. He had been taking the medication for one week and developed a sudden onset of abdominal pain and inte rmittent nausea with vomiting. There was also associated diarrhea. This morning, however, he states he had an abrupt onset of melena and BRBPR that resulted in significant fatigue and syncope. Upon arrival at the ER, he was pronounced a CODE BLUE and chest compressions were initiated although per view of H&P it appears the patient did not lose pulse or respirations. BP and pulse are stable at this time. He has been transfused 1 unit of PRBCS. Last episode of bleeding was approximately 20 minutes ago. O2 sat is 100% on room air. At present, the patient reports mild lower abdominal tenderness. CT with nonspecific thickening and possible acute diverticulitis. Has been started on IV Zosyn in this regard. He is also on a PPI ggt. No nausea or vomiting in the past 24 hours. H&H from 614 was 10.1/31.2. Reports last [facility] was [facility]. Allergies Allergy/AdvReac Type Severity Reaction Status Date / Time lisinopril Allergy Unknown Unknown Verified 07/15/21 23:35 Home Medications Medication Instructions Recorded Confirmed Type acetaminophen 325 mg tablet 650 mg PO Q4H PRN 06/15/21 08/02/21 History aspirin 81 mg tablet,delayed 81 mg PO DAILY 06/15/21 08/02/21 History release (Aspirin Low Dose) carboxymethylcellulose sodium 0.5 1 drp OPHTHALMIC (EYE) 6XD PRN 06/15/21 08/02/21 History % eye drops ferrous sulfate 324 mg (65 mg 324 mg PO 3XWK 06/15/21 08/02/21 History iron) tablet,delayed release finasteride 5 mg tablet 5 mg PO DAILY 06/15/21 08/02/21 History fluticasone propionate 50 1 spray INTRANASAL BID PRN 06/15/21 08/02/21 History mcg/actuation nasal spray,suspension insulin glargine 100 unit/mL 10 unit SUBCUT BID 06/15/21 08/02/21 History subcutaneous solution (Lantus U-100 Insulin) ketoconazole 2 % shampoo 1 ea TOPICAL 3XWK 06/15/21 08/02/21 History levothyroxine 88 mcg tablet 88 mcg PO DAILY 06/15/21 08/02/21 History losartan 100 mg tablet 100 mg PO DAILY 06/15/21 08/02/21 History melatonin 3 mg tablet 3 mg PO HS PRN 06/15/21 08/02/21 History omega 5-niv-zqr-fish oil 1,000 mg 1 cap PO BID 06/15/21 08/02/21 History (120 mg-180 mg) capsule (Fish Oil) omeprazole 20 mg capsule,delayed 20 mg PO BID 06/15/21 08/02/21 History release tamsulosin 0.4 mg capsule 0.4 mg PO BID 06/15/21 08/02/21 History terbinafine HCl 1 % topical cream 1 applic TOPICAL BID 06/15/21 08/02/21 History vit C 250 mg-vit E 90 mg-zinc 40 1 tab PO BID 06/15/21 08/02/21 History mg-copper 1 tc-ksqlzo-sxeywv capsule (PreserVision AREDS-2) carvedilol 12.5 mg tablet 12.5 mg PO BID #60 tab 06/27/21 08/02/21 Rx docusate sodium 100 mg capsule 100 mg PO BID 07/15/21 08/02/21 History (Stool Softener) furosemide 20 mg tablet (Lasix) 20 mg PO DAILY 07/15/21 08/02/21 History loperamide 2 mg capsule 2 mg PO DIRECTED PRN 07/15/21 08/02/21 History menthol 0.44 %-zinc oxide 20.6 % 1 applic TOPICAL TID 07/15/21 08/02/21 History topical ointment (Calmoseptine) prednisone 5 mg tablet 5 mg PO DAILY 07/15/21 08/02/21 History pyridostigmine bromide 60 mg tablet 60 mg PO TID 07/15/21 08/02/21 History insulin aspart U-100 100 unit/mL See Rx Instructions .ROUTE 07/18/21 08/02/21 Rx (3 mL) subcutaneous pen (Novolog .COMPLEX #15 ml Flexpen U-100 Insulin aspart) Patient History Medical History Anemia BPH (benign prostatic hyperplasia) Diabetes mellitus GERD (gastroesophageal reflux disease) Hypertension Hypothyroid Myasthenia gravis Surgical History AICD (automatic cardioverter/defibrillator) present H/O heart surgery Family History Other Diabetes Heart disease Hypertension Social History Smoking Status: Never smoker Hx Alcohol Use: Yes Alcohol type: wine Hx Substance Use: No Preferred Language: Albanian Communication Ability: Effective Quiller Runner Required: No Beliefs That Will Affect Care: None marital status: Single Current Living Situation: Personal Care Facility Feels Safe at Home: Yes Assistive Devices: Walker Review of Systems Constitutional: as per Subjective / HPI Respiratory: no cough, no dyspnea and no pain on inspiration Cardiovascular: no chest pain and no palpitations Gastrointestinal: as per Subjective / HPI Integumentary: + change in skin color Neurologic: as per Subjective / HPI Physical Exam Constitutional: WD/WN, vitals as above Eyes: EOM intact bilaterally Respiratory: normal respiratory effort, lungs clear to auscultation Cardiovascular: Rate/Rhythm: regular rate and regular rhythm Gastrointestinal (Abdomen): Inspection/Auscultation: + hyperactive bowel sounds Percussion/Palpation: + abdomen tender (LLQ) and abdomen soft Neurologic: awake Psychiatric: A+Ox3, euthymic affect Results & Data ([facility]) Vital Signs (Past 12 Hours) Vital Signs Temp Pulse Resp BP Pulse Ox 08/02/21 11:00 61 18 145/71 H 08/02/21 10:45 36.8 C 60 18 154/71 H 08/02/21 10:30 36.9 C 60 18 121/71 08/02/21 10:22 36.5 C 60 19 123/65 08/02/21 10:13 62 18 172/69 H 08/02/21 10:01 172/69 H 08/02/21 09:57 75 23 128/64 08/02/21 09:30 60 18 122/61 08/02/21 09:00 64 18 138/71 08/02/21 07:00 65 20 136/63 96 08/02/21 06:35 96 08/02/21 06:07 36.5 C 68 20 162/75 H 97 Laboratory Results Abnormal lab results 08/02/21 08/02/21 08/02/21 Range/Units 06:15 06:15 06:15 RBC 3.24 L (4.7-6.1) M/uL Hgb 10.1 L (14.0-18.0) g/dL Hct 31.2 L (42-52) % RDW Std Deviation 48.2 H (36.4-46.3) fL BUN 19 H (7-18) mg/dl Glucose 317 H* (70-99) mg/dl Calcium 8.4 L (8.5-10.1) mg/dl Total Protein 6.0 L (6.4-8.2) gm/dl Albumin 2.2 L (3.4-5.0) gm/dl Albumin/Globulin Ratio 0.6 L (0.9-2) Crossmatch See Detail PG Care Time/CCT Total # of Minutes Spent Total Time Spent with Patient: Total time spent is greater than 50% in coordination of care (as documented) at patient's floor/unit and/or counseling patient: Coding Level of Care Code 10330 Initial Inpt Care Lvl 3 Diagnoses GI bleed K92.2 GI bleed type/associated pathology: unspecified gastrointestinal hemorrhage type Colitis K52.9 (1) GI bleed GI bleed type/associated pathology: unspecified gastrointestinal hemorrhage type Qualified Code(s): K92.2 - Gastrointestinal hemorrhage, unspecified
[2021-08-02] MEDS ORDERED: LIDOCAINE 2% 2 ML VIAL/AMP(20MG/ML) INFIL ONE (11:49)
[2021-08-02] MEDS ORDERED: PROPOFOL IV EMULSION 10 MG/ML 20 ML VIAL IV ONE (11:49)
[2021-08-02] MEDS ORDERED: ONDANSETRON INJ 2 MG/ML 2 ML VIAL ONE (11:49)
[2021-08-02] MEDS ORDERED: SUCCINYLCHOLINE CHLORIDE 20 MG/ML 10 ML VIAL IV ONE (11:49)
--- NOTE | 2021-08-02 12:05 | Anesthesiology Consultation ---
Date of Service August 02, 2021 Assessment & Plan (1) Encounter for pre-operative examination: Plan for RSI with GETA. Will avoid geremias if possible given myasthenia gravis. If paralysis needed, will consider sugammadex reversal. Chart Review Chart Review: Acceptable Risk for Surgery and Patient NOT seen in Pre Admission Testing covid neg 08/02/21. 1 unit pRBC transfused 08/02/21. 3 units pRBC's ready. Consults Requested none History Surgery Operation Date: 08/02/21 12:35 Proposed Procedures p Esophagogastroduodenoscopy - Kristian Edwards MD Height/Weight Height: 5 ft 8 in Weight: 84.5 kg Allergies Allergy/AdvReac Type Severity Reaction Status Date / Time lisinopril Allergy Unknown Unknown Verified 07/15/21 23:35 Medications Home Medications Medication Instructions Recorded Confirmed Last Taken acetaminophen 325 mg tablet 650 mg PO Q4H PRN 06/15/21 08/02/21 Unknown aspirin 81 mg tablet,delayed 81 mg PO DAILY 06/15/21 08/02/21 07/15/21 release (Aspirin Low Dose) carboxymethylcellulose sodium 0.5 1 drp OPHTHALMIC (EYE) 6XD PRN 06/15/21 08/02/21 Unknown % eye drops ferrous sulfate 324 mg (65 mg 324 mg PO 3XWK 06/15/21 08/02/21 07/14/21 iron) tablet,delayed release finasteride 5 mg tablet 5 mg PO DAILY 06/15/21 08/02/21 07/15/21 fluticasone propionate 50 1 spray INTRANASAL BID PRN 06/15/21 08/02/21 Unknown mcg/actuation nasal spray,suspension insulin glargine 100 unit/mL 10 unit SUBCUT BID 06/15/21 08/02/21 07/15/21 subcutaneous solution (Lantus U-100 Insulin) ketoconazole 2 % shampoo 1 ea TOPICAL 3XWK 06/15/21 08/02/21 07/14/21 levothyroxine 88 mcg tablet 88 mcg PO DAILY 06/15/21 08/02/21 07/15/21 losartan 100 mg tablet 100 mg PO DAILY 06/15/21 08/02/21 07/15/21 melatonin 3 mg tablet 3 mg PO HS PRN 06/15/21 08/02/21 Unknown omega 0-zjh-ebs-fish oil 1,000 mg 1 cap PO BID 06/15/21 08/02/21 07/15/21 (120 mg-180 mg) capsule (Fish Oil) omeprazole 20 mg capsule,delayed 20 mg PO BID 06/15/21 08/02/21 07/15/21 release tamsulosin 0.4 mg capsule 0.4 mg PO BID 06/15/21 08/02/21 07/15/21 terbinafine HCl 1 % topical cream 1 applic TOPICAL BID 06/15/21 08/02/21 07/15/21 vit C 250 mg-vit E 90 mg-zinc 40 1 tab PO BID 06/15/21 08/02/21 07/15/21 mg-copper 1 qn-ikphed-nbelgm capsule (PreserVision AREDS-2) carvedilol 12.5 mg tablet 12.5 mg PO BID #60 tab 06/27/21 08/02/21 07/15/21 docusate sodium 100 mg capsule 100 mg PO BID 07/15/21 08/02/21 07/15/21 (Stool Softener) furosemide 20 mg tablet (Lasix) 20 mg PO DAILY 07/15/21 08/02/21 07/15/21 loperamide 2 mg capsule 2 mg PO DIRECTED PRN 07/15/21 08/02/21 Unknown menthol 0.44 %-zinc oxide 20.6 % 1 applic TOPICAL TID 07/15/21 08/02/21 07/15/21 topical ointment (Calmoseptine) prednisone 5 mg tablet 5 mg PO DAILY 07/15/21 08/02/21 07/15/21 pyridostigmine bromide 60 mg tablet 60 mg PO TID 07/15/21 08/02/21 07/15/21 insulin aspart U-100 100 unit/mL See Rx Instructions .ROUTE 07/18/21 08/02/21 U nknown (3 mL) subcutaneous pen (Novolog .COMPLEX #15 ml Flexpen U-100 Insulin aspart) Active Medications Generic Name Dose Route Start Last Admin Trade Name Freq PRN Reason Stop Dose Admin Pantoprazole Sodium 40 mg/ 100 mls @ 20 mls/hr 08/02/21 10:30 08/02/21 10:44 Dextrose IV 09/01/21 10:29 8 mg/hr Q5H DINORAH 20 mls/hr Administration 8 MG/HR NPO Date Last Intake of Fluids: 08/01/21 Date Last Intake of Solids: 08/01/21 Past Medical History Medical History Anemia Bilateral leg edema BPH (benign prostatic hyperplasia) Colitis Diabetes mellitus Diabetic polyneuropathy GERD (gastroesophageal reflux disease) GI bleed Hypertension Hypothyroid Myasthenia gravis Syncope Past Family History Family History Other Diabetes Heart disease Hypertension Past Surgical History Surgical History AICD (automatic cardioverter/defibrillator) present H/O heart surgery Social History Smoking Status: Never smoker tobacco type: cigarettes Hx Alcohol Use: Yes Alcohol type: wine alcohol intake frequency: a few times a month Hx Substance Use: No substance use type: does not use Physical Exam Vital Signs Last Vital Signs Temp 36.6 C 08/02/21 12:10 Pulse 69 08/02/21 12:10 Resp 18 08/02/21 12:10 BP 154/70 H 08/02/21 12:10 Pulse Ox 100 08/02/21 12:10 Testing Laboratory Results 08/02/21 06:15 PT 10.3 Seconds (9.0-12.0) 08/02/21 06:15 INR 1.0 (0.9-1.1) 08/02/21 06:15 APTT 25.8 Seconds (21.0-31.0) 08/02/21 06:15 Blood Type A Positive 08/02/21 06:15 Antibody Screen NEGATIVE 08/02/21 06:15 Troponin 08/02/21: less than 0.015 Electrocardiogram Date: 08/02/21 AV dual-paced rhythm with prolonged AV conduction with occasional V-paced complexes. Biventricular pacemaker detected. Abnormal ECG. HR 61 Chest X-Ray Date: 08/02/21 XR chest 1V portable CLINICAL HISTORY: Chest compressions, rule out fracture COMPARISON STUDY: July 15, 2021 FINDINGS: No pneumothorax. No pleural effusion. No large infiltrates or consolidative lesions are seen. Minimal atelectasis at the left base is improved since prior. Cardiomediastinal silhouette is within normal limits in size. No significant pulmonary vascular congestion.. Osseous structures: No evidence of rib fractures. Degenerative changes of the spine. Stable position of left-sided triple lead AICD with battery pack partially obscuring left lateral lung parenchyma and left rib cage. IMPRESSION: 1. No definite displaced rib fractures are seen on current exam. 2. No large infiltrates or consolidative lesions. 3. The rest of findings as above. Echocardiogram Date: 06/16/21 LV systolic function is normal. No valvular heart disease. EF 65-70% Other Testing CT abdomen 08/02/21: IMPRESSION: 1. Wall thickening of the descending colon and sigmoid colon with mild hannah colonic infiltration. Extensive colonic diverticulosis. The long segment involvement favors a nonspecific colitis. Acute diverticulitis could appear similar. No free air or abscess. No intraluminal contrast within the bowel. 2. No bowel obstruction. Normal appendix. 3. Right-sided nephrolithiasis. 2. Multiple small nodules within the lower lungs which are likely benign. A follow-up chest CT in 6 months could be obtained to ensure stability.
[2021-08-02] MEDS ORDERED: fentaNYL citrate 100 MCG/2 ML VIAL ONE (12:29)
--- NOTE | 2021-08-02 12:42 | GI REPORT ---
Patient Name: Eamon Florentino Procedure Date: 08/02/2021 11:45 AM Date of : 1940 Admit Type: Emergency Department Age: 80 Gender: Male Attending MD: Kristian Edwards MD Procedure: Upper GI endoscopy Providers: Kristian Edwards MD Referring MD: Loreta Short Indications: Hematochezia Medicines: Monitored Anesthesia Care Complications: No immediate complications. Estimated blood loss: None. Estimated Blood Loss: Estimated blood loss: none. Procedure: Pre-Anesthesia Assessment: - Prior Anticoagulants: The patient has taken no previous anticoagulant or antiplatelet agents. - After reviewing the risks and benefits, the patient was deemed in satisfactory condition to undergo the procedure. - ASA Grade Assessment: II - A patient with mild systemic disease. After obtaining informed consent, the endoscope was passed under direct vision. Throughout the procedure, the patient's blood pressure, pulse, and oxygen saturations were monitored continuously. The Endoscope was introduced through the mouth, and advanced to the second part of duodenum. The upper GI endoscopy was accomplished without difficulty. The patient tolerated the procedure well. Findings: A small hiatal hernia was present. The entire examined stomach was normal. The duodenal bulb and second portion of the duodenum were normal. No evidence of blood, ulcers, AVM throughout entire exam. Impression: - Small hiatal hernia. - Normal stomach. - Normal duodenal bulb and second portion of the duodenum. - No specimens collected. Recommendation: - Return patient to hospital [facility] for ongoing care. - Clear liquid diet today. NPO post midnight except for prep -prep with golytely 4L starting at 6 pm today -colonoscopy tomorrow to further evaluate hematochezia Kristian Edwards MD 08/02/2021 12:42:30 PM This report has been signed electronically. Note Initiated On: 08/02/2021 11:45 AM Number of Addenda: 0 I attest to the content of the Intraoperative Record and orders documented therein, exceptions below {[id number]}
--- NOTE | 2021-08-02 12:44 | Procedure Note ---
Procedure Note Date of Service August 02, 2021 Note GI brief note egd findings: normal exam, small hiatal hernia, no evidence of blood nor ulcers. Recs: --colonoscopy tomorrow --prep with golytely 4L tonight at 6pm --clear liquids for now, NPO post midnight except for prep --supportive care, rest as per primary team --can d/c protonix drip at this time Kristian Edwards MD Gastroenterology Coding
[2021-08-02] MEDS ORDERED: fentaNYL citrate 100 MCG/2 ML VIAL IV PRN (12:57)
[2021-08-02] MEDS ORDERED: ONDANSETRON INJ 2 MG/ML 2 ML VIAL IV PRN ×2 (12:57→15:06)
[2021-08-02] MEDS ORDERED: ATROPINE SULFATE 0.1 MG/ML 10ML SYR IV PRN (12:57)
[2021-08-02] MEDS ORDERED: ePHEDrine sulfate 50 MG/ML AMP IV PRN (12:57)
[2021-08-02] MEDS ORDERED: ESMOLOL HCL INJ 10 MG/ML 10ML VIAL IV ONE (13:10)
[2021-08-02] MEDS ORDERED: PHENYLEPHRINE HCL 10 MG/ML VIAL ONE (13:28)
[2021-08-02] MEDS ORDERED: INSULIN ASPART PER UNIT ONE (13:39)
[2021-08-02] MEDS ORDERED: INSULIN ASPART PER UNIT 10 UNITS in SYRINGE 0 ML SC STA (13:47)
[2021-08-02] MEDS ORDERED: INSULIN ASPART PER UNIT SC ONE (13:55)
--- NOTE | 2021-08-02 14:41 | Anesthesiology Progress Note ---
Date of Service August 02, 2021 Anesthesia Post Procedure Vital Signs Vital Signs: Temp Pulse Pulse Pulse Resp BP BP 08/02/21 14:30 73 15 119/61 08/02/21 14:20 63 18 119/61 08/02/21 14:10 63 20 118/57 L 08/02/21 14:00 66 21 116/58 L 08/02/21 13:50 68 20 119/62 08/02/21 13:40 68 20 122/59 L 08/02/21 13:33 36.0 C L 70 19 117/65 08/02/21 12:10 36.6 C 69 18 154/70 H 08/02/21 11:45 61 18 154/73 H 08/02/21 11:30 60 18 147/66 H 08/02/21 11:15 60 18 156/74 H 08/02/21 11:00 61 18 145/71 H 08/02/21 10:45 36.8 C 60 18 154/71 H 08/02/21 10:30 36.9 C 60 18 121/71 08/02/21 10:22 36.5 C 60 19 123/65 08/02/21 10:13 62 18 172/69 H 08/02/21 10:01 172/69 H 08/02/21 09:57 75 23 128/64 08/02/21 09:30 60 18 122/61 08/02/21 09:00 64 18 138/71 08/02/21 07:00 65 20 136/63 08/02/21 06:35 08/02/21 06:07 36.5 C 68 20 162/75 H Pulse Ox 08/02/21 14:30 98 08/02/21 14:20 98 08/02/21 14:10 95 08/02/21 14:00 98 08/02/21 13:50 98 08/02/21 13:40 100 08/02/21 13:33 100 08/02/21 12:10 100 08/02/21 11:45 100 08/02/21 11:30 100 08/02/21 11:15 100 08/02/21 11:00 100 08/02/21 10:45 100 08/02/21 10:30 100 08/02/21 10:22 100 08/02/21 10:13 100 08/02/21 10:01 100 08/02/21 09:57 100 08/02/21 09:30 100 08/02/21 09:00 100 08/02/21 07:00 96 08/02/21 06:35 96 08/02/21 06:07 97 Transfer of Care Handoff Completed per policy Notes Mental Status: alert / awake / arousable and participated in evaluation Patient Amnestic to Procedure: Yes Nausea / Vomiting: adequately controlled Pain: adequately controlled Airway Patency, RR, SpO2: stable & adequate BP & HR: stable & adequate Hydration State: stable & adequate Anesthetic Complications: no major complications apparent and Pt Satisfied with anesthetic care Notes: pt had a prolonged wakeup and recovery but at end of pacu sty was meeting transfer criteria. blood glucose elevated and treated but pacu nurse to pass along to primary team that pt may require insulin ggt. will leave to their discretion.
[2021-08-02] MEDS ORDERED: metroNIDAZOLE 500 MG/100 ML BAG IV SCH (15:06)
[2021-08-02] MEDS ORDERED: PANTOprazole 80 MG in DEXTROSE 5% 100 ML IV ONE (15:06)
[2021-08-02] MEDS ORDERED: GLUCOSE 40% GEL 15 GM TUBE PO PRN (15:06)
[2021-08-02] MEDS ORDERED: ACETAMINOPHEN 325 MG TAB PO PRN (15:06)
[2021-08-02] MEDS ORDERED: GLUCAGON FOR INJ 1 MG VIAL SQ PRN (15:06)
[2021-08-02] MEDS ORDERED: LACTATED RINGER'S 1,000 ML IV SCH (15:06)
[2021-08-02] MEDS ORDERED: CARBOHYDRATES FOR HYPOGLYCEMIA PO PRN (15:06)
[2021-08-02] MEDS ORDERED: GLUCOSE 10 TABS/TUBE PO PRN (15:06)
[2021-08-02] MEDS ORDERED: DEXTROSE 50% 50 ML SYRINGE IV PRN (15:06)
[2021-08-02] MEDS ORDERED: PHARMACY GLYCEMIC MGMT CONSULT PRN (15:06)
[2021-08-02] MEDS ORDERED: PANTOprazole 40 MG in DEXTROSE 5% 100 ML IV SCH (15:06)
[2021-08-02] MEDS ORDERED: ARTIFICIAL TEARS OP PRN (15:27)
[2021-08-02] MEDS ORDERED: PIPERACILLIN/TAZOBACTAM 3.375 GM in DEXTROSE 5% 100 ML IV ONE (15:30)
[2021-08-02] MEDS ORDERED: INSULIN GLARGINE SOLOSTAR 100 UNITS/ML 3 ML PEN SC STA (15:34)
[2021-08-02 15:50] LABS: Hematocrit (blood only) 28.9 % (42-52); Hemoglobin 9.4 g/dL (14.0-18.0)
[2021-08-02] MEDS: carvediloL 12.5 MG TAB PO SCH ×2 (16:46→20:52)
[2021-08-02] MEDS: LOSARTAN POTASSIUM 50 MG TAB PO SCH (16:47)
[2021-08-02] MEDS: PYRIDOSTIGMINE BROMIDE 60 MG TAB PO SCH ×2 (16:48→20:51)
[2021-08-02] MEDS: INSULIN ASPART 100 UNITS/ML 3 ML PEN SC SCH ×3 (16:56→20:40)
[2021-08-02] MEDS ORDERED: LAVAGE SOLUTION 4000ML PO SCH (18:00)
[2021-08-02] MEDS ORDERED: STAT IV Infusion **Titration per Protocol STA (20:04)
[2021-08-02] MEDS ORDERED: INSULIN PROTOCOL GOAL RANGE ONE (20:04)
[2021-08-02] MEDS ORDERED: INSULIN REGULAR 250 UNITS in SODIUM CHLORIDE 0.9% 247.5 ML IV SCH (20:15)
[2021-08-02] MEDS ORDERED: INSULIN HUMAN REGULAR IV BOLUS 3 UNITS in SYRINGE 0 ML IV ONE (20:15)
--- NOTE | 2021-08-02 20:21 | Communication Note ---
Date of Service: August 02, 2021 Notified by nursing around 19:55 that patient had finished 1/4 of the prep, but felt very dizzy with BP 89/49. Recheck BP about 15 minutes later was 131/65. Patient noted to nursing that he would be unable to complete the prep. -Prep paused at this time per patient intolerance -Recheck vitals in 1 hour -If continues to be hypotensive will draw for H&H and consider IVF Resident Activity Tracking Resident Involvement: Resident Care Provided and Lime Supervisor Coverage Note Care Provided: Adult Hospital Medicine
[2021-08-02] MEDS: PIPERACILLIN/TAZOBACTAM 3.375 GM in DEXTROSE 5% 100 ML IV SCH (20:36)
[2021-08-02] MEDS: TAMSULOSIN HCL 0.4 MG CAP PO SCH (20:51)
[2021-08-02] MEDS ORDERED: INSULIN GLARGINE SOLOSTAR 100 UNITS/ML 3 ML PEN SC SCH (21:00)
[2021-08-02 21:01] LABS: Hematocrit (blood only) 26.2 % (42-52); Hemoglobin 8.7 g/dL (14.0-18.0)
[2021-08-02] MEDS ORDERED: SODIUM CHLORIDE 0.9% 1000ML 500 ML IV ONE (23:57)
[2021-08-03] MEDS: PIPERACILLIN/TAZOBACTAM 3.375 GM in DEXTROSE 5% 100 ML IV SCH ×3 (03:32→20:15)
[2021-08-03 03:53] LABS: Basophils # (auto) 0.02 K/uL (0-0.2); Basophils % (auto) 0.1 %; Eosinophils # (auto) 0.04 K/uL (0-0.5); Eosinophils % (auto) 0.3 %; Hematocrit (blood only) 23.1 % (42-52); Hemoglobin 7.8 g/dL (14.0-18.0); Immature Granulocytes # (auto) 0.03 K/uL (0.00-0.02); Immature Granulocytes % (auto) 0.2 %; Lymphocytes # (auto) 2.46 K/uL (1.2-3.4); Lymphocytes % (auto) 16.9 %; Mean Corpuscular Hemoglobin 31.6 pg (25-34); Mean Corpuscular Hgb Conc 33.8 g/dL (32-36); Mean Corpuscular Volume 93.5 fL (80-100); Monocytes # (auto) 0.83 K/uL (0.11-0.59); Monocytes % (auto) 5.7 %; Neutrophils # (auto) 11.15 K/uL (1.4-6.5); Neutrophils % (auto) 76.8 %; Platelet Count 331 K/uL (130-400); RDW Coefficient of Variation 14.4 % (11.5-14.5); RDW Standard Deviation 49.8 fL (36.4-46.3); Red Blood Count 2.47 M/uL (4.7-6.1); White Blood Count 14.53 K/uL (4.8-10.8)
[2021-08-03 04:16] LABS: BUN Creatinine Ratio 20.4 (10-20); Calcium 7.7 mg/dl (8.5-10.1); Creatinine Clr Calc Pharmacy 52.7 ml/min; Est GFR (African American) 67.1 ml/min; Est GFR (Non-African American) 57.9 ml/min
[2021-08-03 04:31] LABS: RBC Morphology Unremarkable
--- NOTE | 2021-08-03 05:46 | Electrocardiogram Report ---
Test Reason : Blood Pressure : / mmHG Vent. Rate : 064 BPM Atrial Rate : 064 BPM P-R Int : 128 ms QRS Dur : 142 ms QT Int : 494 ms P-R-T Axes : 000 -33 067 degrees QTc Int : 509 ms AV dual-paced rhythm with frequent ventricular-paced complexes Biventricular pacemaker detected Abnormal ECG When compared with ECG of 15-JUN-2021 15:27, Vent. rate has decreased BY 6 BPM Confirmed by Gianluca Fuentes ([id number]) on 08/03/2021 5:45:49 AM Referred By: [facility] Confirmed By:Gianluca Fuentes
--- NOTE | 2021-08-03 05:56 | Electrocardiogram Report ---
Test Reason : Blood Pressure : / mmHG Vent. Rate : 061 BPM Atrial Rate : 061 BPM P-R Int : 226 ms QRS Dur : 106 ms QT Int : 532 ms P-R-T Axes : 091 132 083 degrees QTc Int : 535 ms AV dual-paced rhythm with prolonged AV conduction Biventricular pacemaker detected Abnormal ECG When compared with ECG of 02-AUG-2021 06:07, Vent. rate has decreased BY 3 BPM Confirmed by Gianluca Fuentes ([id number]) on 08/03/2021 5:55:51 AM Referred By: [facility] Confirmed By:Gianluca Fuentes
[2021-08-03] MEDS: LEVOTHYROXINE SODIUM 88 MCG TABLET PO SCH (06:01)
[2021-08-03 07:41] LABS: Estimated Average Glucose 169 mg/dl; Hemoglobin A1C 7.5 % (4.5-5.6)
[2021-08-03] MEDS ORDERED: SODIUM CHLORIDE 0.9% 250 ML IV PRN (07:49)
--- NOTE | 2021-08-03 08:09 | XRay Report ---
XR chest 1V portable HISTORY: Unresponsive episode with chest compressions COMPARISON: Chest 08/02/2021. FINDINGS: No pneumothorax. No pleural effusions. The cardiac silhouette remains top normal in size. T he left-sided pacemaker/defibrillator. No new focal lung consolidations to suggest pneumonia. No evid ence for pulmonary edema. IMPRESSION: No significant change compared to the prior study. No acute process. ACT 112: Negative or not required by law. Electronically signed by: Ap Gandhi M.D. 08/03/2021 8:08 AM
[2021-08-03] MEDS ORDERED: LIDOCAINE 2% 2 ML VIAL/AMP(20MG/ML) INFIL ONE (08:11)
[2021-08-03] MEDS ORDERED: PROPOFOL IV EMULSION 10 MG/ML 20 ML VIAL IV ONE (08:11)
[2021-08-03] MEDS: INSULIN GLARGINE SOLOSTAR 100 UNITS/ML 3 ML PEN SC SCH ×2 (08:15→21:55)
--- NOTE | 2021-08-03 08:21 | History & Physical Bridge Note ---
Date of Service August 03, 2021 History & Physical Bridge Note I have examined the patient, reviewed the History & Physical and in the interval since the performance of the History & Physical I have noted the following changes of clinical significance: no changes noted proceed with colonoscopy. risks/benefits and procedure discussed with patient, who agrees to proceed
[2021-08-03] MEDS: INSULIN ASPART 100 UNITS/ML 3 ML PEN SC SCH ×4 (08:36→21:53)
--- NOTE | 2021-08-03 08:53 | Anesthesiology Consultation ---
Date of Service August 03, 2021 Assessment & Plan (1) Encounter for pre-operative examination: Chart Review Chart Review: Acceptable Risk for Surgery History Surgery Operation Date: 08/02/21 12:35 Proposed Procedures p Esophagogastroduodenoscopy - Kristian Edwards MD Operation Date: 08/03/21 17:15 Proposed Procedures p Colonoscopy Dr. Edwards - Kristian Edwards MD Height/Weight Height: 5 ft 8 in Weight: 83.7 kg Allergies Allergy/AdvReac Type Severity Reaction Status Date / Time lisinopril Allergy Unknown Unknown Verified 08/03/21 08:42 Medications Home Medications Medication Instructions Recorded Confirmed Last Taken acetaminophen 325 mg tablet 650 mg PO Q4H PRN 06/15/21 08/02/21 Unknown aspirin 81 mg tablet,delayed 81 mg PO DAILY 06/15/21 08/02/21 07/15/21 release (Aspirin Low Dose) carboxymethylcellulose sodium 0.5 1 drp OPHTHALMIC (EYE) 6XD PRN 06/15/21 08/02/21 Unknown % eye drops ferrous sulfate 324 mg (65 mg 324 mg PO 3XWK 06/15/21 08/02/21 07/14/21 iron) tablet,delayed release finasteride 5 mg tablet 5 mg PO DAILY 06/15/21 08/02/21 07/15/21 fluticasone propionate 50 1 spray INTRANASAL BID PRN 06/15/21 08/02/21 Unknown mcg/actuation nasal spray,suspension insulin glargine 100 unit/mL 10 unit SUBCUT BID 06/15/21 08/02/21 07/15/21 subcutaneous solution (Lantus U-100 Insulin) ketoconazole 2 % shampoo 1 ea TOPICAL 3XWK 06/15/21 08/02/21 07/14/21 levothyroxine 88 mcg tablet 88 mcg PO DAILY 06/15/21 08/02/21 07/15/21 losartan 100 mg tablet 100 mg PO DAILY 06/15/21 08/02/21 07/15/21 melatonin 3 mg tablet 3 mg PO HS PRN 06/15/21 08/02/21 Unknown omega 7-fec-oty-fish oil 1,000 mg 1 cap PO BID 06/15/21 08/02/21 07/15/21 (120 mg-180 mg) capsule (Fish Oil) omeprazole 20 mg capsule,delayed 20 mg PO BID 06/15/21 08/02/21 07/15/21 release tamsulosin 0.4 mg capsule 0.4 mg PO BID 06/15/21 08/02/21 07/15/21 terbinafine HCl 1 % topical cream 1 applic TOPICAL BID 06/15/21 08/02/21 07/15/21 vit C 250 mg-vit E 90 mg-zinc 40 1 tab PO BID 06/15/21 08/02/21 07/15/21 mg-copper 1 pr-dysbjh-keimgo capsule (PreserVision AREDS-2) carvedilol 12.5 mg tablet 12.5 mg PO BID #60 tab 06/27/21 08/02/21 07/15/21 docusate sodium 100 mg capsule 100 mg PO BID 07/15/21 08/02/21 07/15/21 (Stool Softener) furosemide 20 mg tablet (Lasix) 20 mg PO DAILY 07/15/21 08/02/21 07/15/21 loperamide 2 mg capsule 2 mg PO DIRECTED PRN 07/15/21 08/02/21 Unknown menthol 0.44 %-zinc oxide 20.6 % 1 applic TOPICAL TID 07/15/21 08/02/21 07/15/21 topical ointment (Calmoseptine) prednisone 5 mg tablet 5 mg PO DAILY 07/15/21 08/02/21 07/15/21 pyridostigmine bromide 60 mg tablet 60 mg PO TID 07/15/21 08/02/21 07/15/21 insulin aspart U-100 100 unit/mL See Rx Instructions .ROUTE 07/18/21 08/02/21 Unknown (3 mL) subcutaneous pen (Novolog .COMPLEX #15 ml Flexpen U-100 Insulin aspart) Active Medications Generic Name Dose Route Start Last Admin Trade Name Freq PRN Reason Stop Dose Admin Carvedilol 12.5 mg 08/02/21 15:06 08/02/21 20:52 Carvedilol 12.5 Mg Tab PO 09/01/21 15:05 12.5 mg BID DINORAH Administration Piperacillin Sod/Tazobactam 115 mls @ 28.75 mls/hr 08/02/21 20:00 08/03/21 07:51 Sod 3.375 gm/ Dextrose IV 08/12/21 19:59 Infused Q8H DINORAH Infusion Protocol Insulin Human Regular 250 250 mls @ 1.2 mls/hr 08/02/21 20:15 08/03/21 08:17 units/ Sodium Chloride IV 08/03/21 11:00 1.2 units/hr .Q24H DINORAH 1.2 mls/hr Titration Protocol 1.2 UNITS/HR Insulin Aspart 0 units 08/02/21 21:00 08/03/21 08:36 Insulin Aspart 100 Units/Ml 3 Ml Pen SC 09/01/21 20:59 Not Given ACHS DINORAH Insulin Glargine 0 units 08/03/21 08:00 08/03/21 08:15 Insulin Glargine Solostar 100 Units/Ml 3 Ml Pen SC 09/02/21 07:59 10 units BID DINORAH Administration Protocol Levothyroxine Sodium 88 mcg 08/03/21 06:30 08/03/21 06:01 Levothyroxine Sodium 88 Mcg Tablet PO 09/02/21 06:29 88 mcg DAILYBB DINORAH Administration Losartan Potassium 100 mg 08/02/21 15:06 08/02/21 16:47 Losartan Potassium 50 Mg Tab PO 09/01/21 15:05 100 mg DAILY DINORAH Administration Pyridostigmine Talent 60 mg 08/02/21 15:06 08/02/21 20:51 Pyridostigmine Talent 60 Mg Tab PO 09/01/21 15:05 60 mg TID DINORAH Administration Tamsulosin HCl 0.4 mg 08/02/21 21:00 08/02/21 20:51 Tamsulosin Hcl 0.4 Mg Cap PO 09/01/21 20:59 0.4 mg BID DINORAH Administration NPO Date Last Intake of Fluids: 08/01/21 Time Last Intake of Fluids: 22:00 Date Last Intake of Solids: 08/01/21 Time Last Intake of Solids: 22:00 Past Medical History Medical History Anemia Bilateral leg edema BPH (benign prostatic hyperplasia) Colitis Diabetes mellitus Diabetic polyneuropathy GERD (gastroesophageal reflux disease) GI bleed Hypertension Hypothyroid Myasthenia gravis Syncope Past Family History Family History Other Diabetes Heart disease Hypertension Past Surgical History Surgical History AICD (automatic cardioverter/defibrillator) present H/O heart surgery Social History Smoking Status: Former smoker tobacco type: cigarettes Do You Dip or Chew Tobacco: No Hx Alcohol Use: No Alcohol type: wine alcohol intake frequency: a few times a month Hx Substance Use: No substance use type: does not use Physical Exam Vital Signs Last Vital Signs Temp 36.3 C L 08/03/21 07:17 Pulse 65 08/03/21 07:44 Resp 18 08/03/21 07:17 BP 103/51 L 08/03/21 07:17 Pulse Ox 96 08/03/21 07:17 Testing Laboratory Results 08/03/21 03:19 08/03/21 03:19 PT 10.3 Seconds (9.0-12.0) 08/02/21 06:15 INR 1.0 (0.9-1.1) 08/02/21 06:15 APTT 25.8 Seconds (21.0-31.0) 08/02/21 06:15 Hemoglobin A1c 7.5 % (4.5-5.6) H 08/03/21 03:19 Blood Type A Positive 08/02/21 06:15 Antibody Screen NEGATIVE 08/02/21 06:15 08/03/21 08/03/21 08/03/21 08:00 07:01 06:00 POC Glucose 116 H 121 H 109 H 08/03/21 08/03/21 08/03/21 04:35 03:34 01:31 POC Glucose 104 H 108 H 162 H 08/03/21 08/02/21 08/02/21 00:29 23:31 22:39 POC Glucose 202 H 261 H 310 H* 08/02/21 08/02/21 21:59 21:31 POC Glucose 368 H* 349 H*
--- NOTE | 2021-08-03 09:16 | Pharmacy Report ---
Pharmacy Glycemic Short Note 2 - Date of Service August 03, 2021 - Glycemic Short BSG Results (Last 24 hours): 08/02/21 08/02/21 08/02/21 13:36 14:19 15:23 Glucose POC Glucose 446 H* 474 H* 452 H* 08/02/21 08/02/21 08/02/21 19:49 19:53 20:39 Glucose POC Glucose 467 H* 487 H* 437 H* 08/02/21 08/02/21 08/02/21 21:31 21:59 22:39 Glucose POC Glucose 349 H* 368 H* 310 H* 08/02/21 08/03/21 08/03/21 23:31 00:29 01:31 Glucose POC Glucose 261 H 202 H 162 H 08/03/21 08/03/21 08/03/21 03:19 03:34 04:35 Glucose 98 POC Glucose 108 H 104 H 08/03/21 08/03/21 08/03/21 06:00 07:01 08:00 Glucose POC Glucose 109 H 121 H 116 H OUTPATIENT ANTIDIABETIC REGIMEN: * Lantus 10 units BID * Novolog 5 units TID with meals + CF 30mg/dl/unit * A1c 7.5% 08/03/21 ASSESSMENT: * 80 year old male admitted with GIB, was on IV protonix drip, now just on IV Zosyn, NPO today for colonoscopy * Patient hyperglycemic on admission, started on insulin drip last evening, drip rates from 3.5units/hr now down to 1.2 units per hour * Transition patient to basal bolus insulin today PLAN FOR INPATIENT GLYCEMIC CONTROL: * IV insulin drip, running at 1.2 units/hr, stop at 1100 today or earlier if it stops itself per insulin infusion calculator * Basal insulin * Lantus 15 units SQ x 1 yesterday while on insulin drip * Lantus 10 units SQ BID, starting now, overlap x 3 hours with insulin drip * Bolus insulin * NovoLog per scale ACHS or Q6hrs while NPO * Goal Range: Low 110 mg/dL - High 140 mg/dL * Correction Factor: 20 mg/dL/unit * Nutritional / Prandial insulin per carb ratio of 1 unit per 6 grams CHO consumed PLAN FOR DISCHARGE: * A1c 7.5%, continue home regimen unless having hypoglycemia at home
--- NOTE | 2021-08-03 09:26 | GI REPORT ---
Patient Name: Eamon Florentino Procedure Date: 08/03/2021 9:00 AM Date of : 1940 Admit Type: Inpatient Age: 80 Gender: Male Attending MD: Kristian Edwards MD Procedure: Colonoscopy Providers: Kristian Edwards MD Referring MD: David Edwards Indications: Hematochezia Medicines: Monitored Anesthesia Care Complications: No immediate complications. Estimated blood loss: None. Estimated Blood Loss: Estimated blood loss: none. Procedure: Pre-Anesthesia Assessment: - Prior Anticoagulants: The patient has taken no previous anticoagulant or antiplatelet agents. - ASA Grade Assessment: II - A patient with mild systemic disease. After I obtained informed consent, the scope was passed under direct vision. Throughout the procedure, the patient's blood pressure, pulse, and oxygen saturations were monitored continuously. The Colonoscope was introduced through the anus and advanced to the cecum, identified by appendiceal orifice and ileocecal valve. The colonoscopy was performed without difficulty. The patient tolerated the procedure well. The quality of the bowel preparation was poor. Findings: Three sessile polyps were found in the ascending colon. The polyps were 3 to 5 mm in size. These polyps were removed with a cold snare. Resection and retrieval were complete. Estimated blood loss: none. Multiple small and large-mouthed diverticula were found in the sigmoid colon and descending colon. Purulent discharge was seen in association with the diverticular opening, consistent with diverticulitis. Estimated blood loss: none. no evidence of bleeding or blood loss. Impression: - Preparation of the colon was poor. - Three 3 to 5 mm polyps in the ascending colon, removed with a cold snare. Resected and retrieved. - Moderate diverticulosis in the sigmoid colon and in the descending colon. Purulent discharge was seen in association with the diverticular opening, indicative of diverticulitis. Recommendation: - Return patient to hospital [facility] for ongoing care. - Resume previous diet today. - Await pathology results. - complete 10 day course of antibiotics for diverticulitis -supportive care Kristian Edwards MD 08/03/2021 9:25:38 AM This report has been signed electronically. Note Initiated On: 08/03/2021 9:00 AM Number of Addenda: 0 I attest to the content of the Intraoperative Record and orders documented therein, exceptions below {[id number]}
--- NOTE | 2021-08-03 10:15 | Anesthesiology Progress Note ---
Date of Service August 03, 2021 Anesthesia Post Procedure Vital Signs Vital Signs: Temp Pulse Pulse Pulse Resp BP BP 08/03/21 09:51 58 L 16 08/03/21 09:36 77 16 129/57 L 08/03/21 09:21 64 12 08/03/21 08:44 37.1 C 72 16 129/54 L 08/03/21 07:44 65 08/03/21 07:17 36.3 C L 66 18 103/51 L 08/03/21 03:59 36.7 C 63 19 103/53 L 08/02/21 23:39 36.8 C 61 19 97/59 L 08/02/21 23:03 60 08/02/21 23:00 08/02/21 20:50 35.5 C L 118/64 08/02/21 20:11 131/65 08/02/21 19:57 62 22 89/49 L 08/02/21 15:06 36.3 C L 61 14 118/69 08/02/21 14:59 61 08/02/21 14:30 73 15 119/61 08/02/21 14:20 63 18 119/61 08/02/21 14:10 63 20 118/57 L 08/02/21 14:00 66 21 116/58 L 08/02/21 13:50 68 20 119/62 08/02/21 13:40 68 20 122/59 L 08/02/21 13:33 36.0 C L 70 19 117/65 08/02/21 12:10 36.6 C 69 18 154/70 H 08/02/21 11:45 61 18 154/73 H 08/02/21 11:30 60 18 147/66 H 08/02/21 11:15 60 18 156/74 H 08/02/21 11:00 61 18 145/71 H 08/02/21 10:45 36.8 C 60 18 154/71 H 08/02/21 10:30 36.9 C 60 18 121/71 08/02/21 10:22 36.5 C 60 19 123/65 Pulse Ox Pulse Ox 08/03/21 09:51 100 08/03/21 09:36 100 08/03/21 09:21 96 08/03/21 08:44 95 08/03/21 07:44 08/03/21 07:17 96 08/03/21 03:59 98 08/02/21 23:39 97 08/02/21 23:03 08/02/21 23:00 08/02/21 20:50 08/02/21 20:11 08/02/21 19:57 08/02/21 15:06 08/02/21 14:59 08/02/21 14:30 08/02/21 14:20 08/02/21 14:10 08/02/21 14:00 08/02/21 13:50 08/02/21 13:40 08/02/21 13:33 08/02/21 12:10 08/02/21 11:45 08/02/21 11:30 08/02/21 11:15 08/02/21 11:00 08/02/21 10:45 08/02/21 10:30 08/02/21 10:22 100 Transfer of Care Handoff Completed per policy Notes Mental Status: alert / awake / arousable Patient Amnestic to Procedure: Yes Nausea / Vomiting: adequately controlled Pain: adequately controlled Airway Patency, RR, SpO2: stable & adequate BP & HR: stable & adequate Hydration State: stable & adequate Anesthetic Complications: no major complications apparent
[2021-08-03] MEDS: carvediloL 12.5 MG TAB PO SCH ×2 (10:50→21:52)
[2021-08-03] MEDS: FUROSEMIDE 20 MG TAB PO SCH (10:51)
[2021-08-03] MEDS: CEROVITE ADV FORMULA TAB PO SCH (10:51)
[2021-08-03] MEDS: PYRIDOSTIGMINE BROMIDE 60 MG TAB PO SCH ×3 (10:52→21:52)
[2021-08-03] MEDS: TAMSULOSIN HCL 0.4 MG CAP PO SCH ×2 (10:52→21:52)
[2021-08-03] MEDS: PANTOprazole 40 MG TAB PO SCH (10:52)
[2021-08-03] MEDS: predniSONE 5 MG TAB PO SCH (10:52)
[2021-08-03] MEDS: LOSARTAN POTASSIUM 50 MG TAB PO SCH (10:53)
[2021-08-03] MEDS ORDERED: INSULIN ASPART 100 UNITS/ML 3 ML PEN SC SCH (12:00)
--- NOTE | 2021-08-03 12:08 | Hospitalist Progress Note ---
Date of Service August 03, 2021 Assessment & Plan (1) Sigmoid diverticulitis: Plan: evidence of inflammation/infection on CT abdomen/pelvis confirmed on colonoscopy on 08/03 treated with Zosyn IV since admission, continue for 10 days, change to Augmentin once clinically better clear liquids for now, no IV fluids needed was hypothermic, temperature improved with daysi hugger WBC is 14k (2) GI bleed: Plan: Impression: This is a 80-year-old male with a history of GERD and chronic anemia that presented with multiple episodes of hematochezia and melena occurring since 4 AM this morning. The patient had a presenting hemoglobin of 10.1. In the course of evaluation and admission the patient had a syncopal event that did not appear to be vagal. Very minimal chest compressions were completed. Patient never had loss of pulse or respiration. Multiple episodes with clots mixed with bright red and dark blood in depends undergarment EGD on 08/02 with no ulcers, no gastritic, no evidence of bleeding, protonix drip stopped colonoscopy on 08/03 with no bleeding, just showed diverticulitis Hb dropped to 7.8 this morning after getting one unit of PRBC yesterday will give one more unit of PRBC, continue to monitor H/H q12 keep on tele today full admission (3) Syncope: Plan: Unclear etiology Patient was not having a forced bowel movement or any other indication for vagal response at the time of the event Patient did receive 2 or 3 compressions as a CODE BLUE was called no further issues, suspect it might have been from pain from diverticulitis, bleeding? he had an echo in June 2021 that showed EF of 70%, no valve issues he has a pacemaker so it was not due to bradycardia most likely a transient drop in blood pressure tele for today, likely medical tomorrow (4) GERD (gastroesophageal reflux disease): Plan: resume Protonix PO, protonix drip stopped (5) Hypothyroid: Plan: Continue levothyroxine 88 mcg daily (6) BPH (benign prostatic hyperplasia): Plan: Continue tamsulosin (7) Anemia: Plan: Chronic anemia Hemoglobin was 10.1 on admission but with GI bleed Received 1 unit of packed red blood cells in the ED due to acute syncopal episode Hb down to 7.8 this morning, was hypotensive over night give one additional unit PRBC this morning (8) Myasthenia gravis: Plan: No acute exacerbation Continue on prednisone 5 mg daily No indication for stress dose steroids at this time (9) Diabetes mellitus: Plan: Poorly controlled -most recent hemoglobin A1c was 10% Glycemic consult with pharmacy - required insulin drip overnight and this morning transition back to basal and bolus regimen clear liquids, diabetic diet (10) Hypertension: Plan: Patient currently hemodynamically stable (11) DVT prophylaxis: Plan: Hold all chemical prophylaxis secondary to GI bleed SCDs and NOVA stearns ordered Admission and Anticipated Discharge Date Admission Date: August 02, 2021 Subjective patient was slightly hypotensive, hypothermic over night, Hb dropped to 7.8 last night he had some melena and now a brown BM with specks of blood no vomiting, breathing well, no cough, no chest pain did not do well with bowel prep sugars now better after initiating insulin drip, management per pharmacy Cr and electrolytes are stable today colonoscopy today: poor prep, 3 polyps in ascending colon, removed with snare, descending and sigmoid colon with diverticulitis, diverticular disease updated his daughter over the phone Review of Systems Review of Systems: All systems reviewed & are unremarkable except as noted in Subjective Physical Exam Constitutional: well developed, well nourished, + ill appearing and + frail appearing; no acute distress Neck: trachea midline, no thyromegaly Respiratory: normal respiratory effort, lungs clear to auscultation Cardiovascular: RRR, no murmur, no edema Gastrointestinal (Abdomen): Inspection/Auscultation: abdomen normal to inspection and normal bowel sounds; abdomen not distended Percussi on/Palpation: + abdomen tender (slightly TTP LLQ) and abdomen soft; no guarding and abdomen not rigid Musculoskeletal: no cyanosis or clubbing, extremities motor strength 5/5 Skin: no rashes, warm and dry Neurologic: normal touch/pain/proprioception, CN's II-XI intact bilaterally, moves all extremities and awake; no focal motor deficits Psychiatric: A+Ox3, euthymic affect Results & Data Results & Data ([facility]) Vital Signs (Past 12 Hours) Vital Signs Temp Pulse Pulse Pulse Resp BP BP 08/03/21 11:19 36.6 C 64 18 132/64 08/03/21 11:04 36.7 C 66 18 130/67 08/03/21 10:44 36.8 C 78 20 116/54 L 08/03/21 10:32 36.8 C 64 20 116/54 L 08/03/21 10:18 08/03/21 09:51 58 L 16 08/03/21 09:36 77 16 129/57 L 08/03/21 09:21 64 12 08/03/21 08:44 37.1 C 72 16 129/54 L 08/03/21 07:44 65 08/03/21 07:17 36.3 C L 66 18 103/51 L 08/03/21 03:59 36.7 C 63 19 103/53 L Pulse Ox 08/03/21 11:19 94 08/03/21 11:04 94 08/03/21 10:44 95 08/03/21 10:32 94 08/03/21 10:18 95 08/03/21 09:51 100 08/03/21 09:36 100 08/03/21 09:21 96 08/03/21 08:44 95 08/03/21 07:44 08/03/21 07:17 96 08/03/21 03:59 98 Laboratory Results Laboratory Results - last 24 hr 08/02/21 08/02/21 08/02/21 06:15 13:36 14:19 WBC RBC Hgb Hct MCV MCH MCHC RDW Std Deviation RDW Coeff of Dinorah Plt Count MPV Immature Gran % (Auto) Neut % (Auto) Lymph % (Auto) Keith % (Auto) Eos % (Auto) Baso % (Auto) Neut # (Auto) Lymph # (Auto) Keith # (Auto) Eos # (Auto) Baso # (Auto) Immature Gran # (Auto) RBC Morphology Sodium Potassium Chloride Carbon Dioxide Anion Gap BUN Creatinine Est Cr Clr Drug Dosing Est GFR ( Amer) Est GFR (Non-Af Amer) BUN/Creatinine Ratio Glucose POC Glucose 446 H* 474 H* Estimat Average Glucose Hemoglobin A1c Calcium Blood Type A Positive Antibody Screen NEGATIVE Crossmatch See Detail 08/02/21 08/02/21 08/02/21 15:23 15:38 19:49 WBC RBC Hgb 9.4 L Hct 28.9 L MCV MCH MCHC RDW Std Deviation RDW Coeff of Dinorah Plt Count MPV Immature Gran % (Auto) Neut % (Auto) Lymph % (Auto) Keith % (Auto) Eos % (Auto) Baso % (Auto) Neut # (Auto) Lymph # (Auto) Keith # (Auto) Eos # (Auto) Baso # (Auto) Immature Gran # (Auto) RBC Morphology Sodium Potassium Chloride Carbon Dioxide Anion Gap BUN Creatinine Est Cr Clr Drug Dosing Est GFR ( Amer) Est GFR (Non-Af Amer) BUN/Creatinine Ratio Glucose POC Glucose 452 H* 467 H* Estimat Average Glucose Hemoglobin A1c Calcium Blood Type Antibody Screen Crossmatch 08/02/21 08/02/21 08/02/21 19:53 20:39 20:53 WBC RBC Hgb 8.7 L Hct 26.2 L MCV MCH MCHC RDW Std Deviation RDW Coeff of Dinorah Plt Count MPV Immature Gran % (Auto) Neut % (Auto) Lymph % (Auto) Keith % (Auto) Eos % (Auto) Baso % (Auto) Neut # (Auto) Lymph # (Auto) Keith # (Auto) Eos # (Auto) Baso # (Auto) Immature Gran # (Auto) RBC Morphology Sodium Potassium Chloride Carbon Dioxide Anion Gap BUN Creatinine Est Cr Clr Drug Dosing Est GFR ( Amer) Est GFR (Non-Af Amer) BUN/Creatinine Ratio Glucose POC Glucose 487 H* 437 H* Estimat Average Glucose Hemoglobin A1c Calcium Blood Type Antibody Screen Crossmatch 08/02/21 08/02/21 08/02/21 21:31 21:59 22:39 WBC RBC Hgb Hct MCV MCH MCHC RDW Std Deviation RDW Coeff of Dinorah Plt Count MPV Immature Gran % (Auto) Neut % (Auto) Lymph % (Auto) Keith % (Auto) Eos % (Auto) Baso % (Auto) Neut # (Auto) Lymph # (Auto) Keith # (Auto) Eos # (Auto) Baso # (Auto) Immature Gran # (Auto) RBC Morphology Sodium Potassium Chloride Carbon Dioxide Anion Gap BUN Creatinine Est Cr Clr Drug Dosing Est GFR ( Amer) Est GFR (Non-Af Amer) BUN/Creatinine Ratio Glucose POC Glucose 349 H* 368 H* 310 H* Estimat Average Glucose Hemoglobin A1c Calcium Blood Type Antibody Screen Crossmatch 08/02/21 08/03/21 08/03/21 23:31 00:29 01:31 WBC RBC Hgb Hct MCV MCH MCHC RDW Std Deviation RDW Coeff of Dinorah Plt Count MPV Immature Gran % (Auto) Neut % (Auto) Lymph % (Auto) Keith % (Auto) Eos % (Auto) Baso % (Auto) Neut # (Auto) Lymph # (Auto) Keith # (Auto) Eos # (Auto) Baso # (Auto) Immature Gran # (Auto) RBC Morphology Sodium Potassium Chloride Carbon Dioxide Anion Gap BUN Creatinine Est Cr Clr Drug Dosing Est GFR ( Amer) Est GFR (Non-Af Amer) BUN/Creatinine Ratio Glucose POC Glucose 261 H 202 H 162 H Estimat Average Glucose Hemoglobin A1c Calcium Blood Type Antibody Screen Crossmatch 08/03/21 08/03/21 08/03/21 02:40 03:19 03:19 WBC 14.53 H RBC 2.47 L Hgb 7.8 L Hct 23.1 L MCV 93.5 MCH 31.6 MCHC 33.8 RDW Std Deviation 49.8 H RDW Coeff of Dinorah 14.4 Plt Count 331 MPV 9.0 Immature Gran % (Auto) 0.2 Neut % (Auto) 76.8 Lymph % (Auto) 16.9 Keith % (Auto) 5.7 Eos % (Auto) 0.3 Baso % (Auto) 0.1 Neut # (Auto) 11.15 H Lymph # (Auto) 2.46 Keith # (Auto) 0.83 H Eos # (Auto) 0.04 Baso # (Auto) 0.02 Immature Gran # (Auto) 0.03 H RBC Morphology Unremarkable Sodium 141 Potassium 4.0 Chloride 108 H Carbon Dioxide 29 Anion Gap 4.0 BUN 24 H Creatinine 1.18 Est Cr Clr Drug Dosing 52.7 Est GFR ( Amer) 67.1 Est GFR (Non-Af Amer) 57.9 BUN/Creatinine Ratio 20.4 H Glucose 98 POC Glucose 124 H Estimat Average Glucose Hemoglobin A1c Calcium 7.7 L Blood Type Antibody Screen Crossmatch 08/03/21 08/03/21 08/03/21 03:19 03:34 04:35 WBC RBC Hgb Hct MCV MCH MCHC RDW Std Deviation RDW Coeff of Dinorah Plt Count MPV Immature Gran % (Auto) Neut % (Auto) Lymph % (Auto) Keith % (Auto) Eos % (Auto) Baso % (Auto) Neut # (Auto) Lymph # (Auto) Keith # (Auto) Eos # (Auto) Baso # (Auto) Immature Gran # (Auto) RBC Morphology Sodium Potassium Chloride Carbon Dioxide Anion Gap BUN Creatinine Est Cr Clr Drug Dosing Est GFR ( Amer) Est GFR (Non-Af Amer) BUN/Creatinine Ratio Glucose POC Glucose 108 H 104 H Estimat Average Glucose 169 Hemoglobin A1c 7.5 H Calcium Blood Type Antibody Screen Crossmatch 08/03/21 08/03/21 08/03/21 06:00 07:01 08:00 WBC RBC Hgb Hct MCV MCH MCHC RDW Std Deviation RDW Coeff of Dinorah Plt Count MPV Immature Gran % (Auto) Neut % (Auto) Lymph % (Auto) Keith % (Auto) Eos % (Auto) Baso % (Auto) Neut # (Auto) Lymph # (Auto) Keith # (Auto) Eos # (Auto) Baso # (Auto) Immature Gran # (Auto) RBC Morphology Sodium Potassium Chloride Carbon Dioxide Anion Gap BUN Creatinine Est Cr Clr Drug Dosing Est GFR ( Amer) Est GFR (Non-Af Amer) BUN/Creatinine Ratio Glucose POC Glucose 109 H 121 H 116 H Estimat Average Glucose Hemoglobin A1c Calcium Blood Type Antibody Screen Crossmatch 08/03/21 11:04 WBC RBC Hgb Hct MCV MCH MCHC RDW Std Deviation RDW Coeff of Dinorah Plt Count MPV Immature Gran % (Auto) Neut % (Auto) Lymph % (Auto) Keith % (Auto) Eos % (Auto) Baso % (Auto) Neut # (Auto) Lymph # (Auto) Keith # (Auto) Eos # (Auto) Baso # (Auto) Immature Gran # (Auto) RBC Morphology Sodium Potassium Chloride Carbon Dioxide Anion Gap BUN Creatinine Est Cr Clr Drug Dosing Est GFR ( Amer) Est GFR (Non-Af Amer) BUN/Creatinine Ratio Glucose POC Glucose 122 H Estimat Average Glucose Hemoglobin A1c Calcium Blood Type Antibody Screen Crossmatch Medications Administered Current Inpatient Medications Acetaminophen (Acetaminophen 325 Mg Tab) 650 mg PO Q4H PRN PRN Reason: pain/fever Stop: 09/01/21 15:05 Artificial Tears (Artificial Tears) 1 drops OP .up to 6 times daily PRN PRN Reason: Dry Eye(S) Stop: 09/01/21 15:26 Carvedilol (Carvedilol 12.5 Mg Tab) 12.5 mg PO BID DINORAH Stop: 09/01/21 15:05 Last Admin: 08/03/21 10:50 Dose: 12.5 mg Documented by: Dextrose (Dextrose 50% 50 Ml Syringe) 25 - 50 ml IV UD PRN; Protocol PRN Reason: Hypoglycemia Protocol Stop: 09/01/21 15:05 Furosemide (Furosemide 20 Mg Tab) 20 mg PO DAILY DINORAH Stop: 09/02/21 08:59 Last Admin: 08/03/21 10:51 Dose: 20 mg Documented by: Glucagon (Glucagon For Inj 1 Mg Vial) 1 mg SQ UD PRN; Protocol PRN Reason: Hypoglycemia Protocol Stop: 09/01/21 15:05 Glucose (Glucose 10 Tabs/Tube) 4 - 8 tabs PO UD PRN; Protocol PRN Reason: Hypoglycemia Protocol Stop: 09/01/21 15:05 Glucose (Glucose 40% Gel 15 Gm Tube) 15 - 30 gm PO UD PRN; Protocol PRN Reason: Hypoglycemia Protocol Stop: 09/01/21 15:05 Piperacillin Sod/Tazobactam (Sod 3.375 gm/ Dextrose) 115 mls @ 28.75 mls/hr IV Q8H DINORAH; Protocol Stop: 08/12/21 19:59 Last Infusion: 08/03/21 07:51 Dose: Infused Documented by: Sodium Chloride (Nss) 250 mls @ 15 mls/hr IV .[id number] PRN PRN Reason: For Transfusion Stop: 08/03/21 17:49 Insulin Aspart (Insulin Aspart 100 Units/Ml 3 Ml Pen) 0 units SC Q6 DINORAH; Protocol Stop: 09/02/21 11:59 Insulin Glargine (Insulin Glargine Solostar 100 Units/Ml 3 Ml Pen) 0 units SC BID DINORAH; Protocol Stop: 09/02/21 07:59 Last Admin: 08/03/21 08:15 Dose: 10 units Documented by: Levothyroxine Sodium (Levothyroxine Sodium 88 Mcg Tablet) 88 mcg PO DAILYBB [facility] Stop: 09/02/21 06:29 Last Admin: 08/03/21 06:01 Dose: 88 mcg Documented by: Losartan Potassium (Losartan Potassium 50 Mg Tab) 100 mg PO DAILY DINORAH Stop: 09/01/21 15:05 Last Admin: 08/03/21 10:53 Dose: 100 mg Documented by: Miscellaneous (Carbohydrates For Hypoglycemia ) 15 - 30 gm PO UD PRN PRN Reason: Hypoglycemia Protocol Stop: 09/01/21 15:05 Miscellaneous Information (Pharmacy Glycemic Mgmt Consult) 1 ea N/A UD PRN; Protocol PRN Reason: Consult Stop: 09/01/21 15:05 Miscellaneous Information (Piperacill/Tazobac Consult Active) 1 ea N/A UD PRN PRN Reason: Consult Stop: 09/01/21 15:05 Multivitamins/Minerals (Cerovite Adv Formula Tab) 1 tab PO DAILY DINORAH Stop: 09/02/21 08:59 Last Admin: 08/03/21 10:51 Dose: 1 tab Documented by: Ondansetron HCl (Ondansetron Inj 2 Mg/Ml 2 Ml Vial) 4 mg IV Q6H PRN PRN Reason: Nausea Stop: 09/01/21 15:05 Pantoprazole Sodium (Pantoprazole 40 Mg Tab) 40 mg PO QAM DINORAH Stop: 09/02/21 08:59 Last Admin: 08/03/21 10:52 Dose: 40 mg Documented by: Prednisone (Prednisone 5 Mg Tab) 5 mg PO DAILY DINORAH Stop: 09/02/21 08:59 Last Admin: 08/03/21 10:52 Dose: 5 mg Documented by: Pyridostigmine [place] (Pyridostigmine [place] 60 Mg Tab) 60 mg PO TID DINORAH Stop: 09/01/21 15:05 Last Admin: 08/03/21 10:52 Dose: 60 mg Documented by: Tamsulosin HCl (Tamsulosin Hcl 0.4 Mg Cap) 0.4 mg PO BID DINORAH Stop: 09/01/21 20:59 Last Admin: 08/03/21 10:52 Dose: 0.4 mg Documented by: PG Care Time/CCT Total # of Minutes Spent Total Time Spent with Patient: Total time spent is greater than 50% in coordination of care (as documented) at patient's floor/unit and/or counseling patient: Coding Level of Care Code 27226 Subseq Hosp Care Lvl 3 Diagnoses GI bleed K92.2 GI bleed type/associated pathology: unspecified gastrointestinal hemorrhage type Syncope R55 GERD (gastroesophageal reflux disease) K21.9 Hypothyroid E03.9 BPH (benign prostatic hyperplasia) N40.0 Anemia D64.9 Myasthenia gravis G70.00 Diabetes mellitus E11.9 Hypertension I10 DVT prophylaxis Z29.9 Sigmoid diverticulitis K57.32 (1) GI bleed GI bleed type/associated pathology: unspecified gastrointestinal hemorrhage type Qualified Code(s): K92.2 - Gastrointestinal hemorrhage, unspecified
[2021-08-03 18:37] LABS: Basophils # (auto) 0.02 K/uL (0-0.2); Basophils % (auto) 0.2 %; Eosinophils # (auto) 0.03 K/uL (0-0.5); Eosinophils % (auto) 0.3 %; Hematocrit (blood only) 26.7 % (42-52); Hemoglobin 8.6 g/dL (14.0-18.0); Immature Granulocytes # (auto) 0.02 K/uL (0.00-0.02); Immature Granulocytes % (auto) 0.2 %; Lymphocytes # (auto) 1.61 K/uL (1.2-3.4); Lymphocytes % (auto) 16.5 %; Mean Corpuscular Hemoglobin 30.2 pg (25-34); Mean Corpuscular Hgb Conc 32.2 g/dL (32-36); Mean Corpuscular Volume 93.7 fL (80-100); Monocytes # (auto) 0.53 K/uL (0.11-0.59); Monocytes % (auto) 5.4 %; Neutrophils # (auto) 7.57 K/uL (1.4-6.5); Neutrophils % (auto) 77.4 %; Platelet Count 327 K/uL (130-400); RDW Coefficient of Variation 15.7 % (11.5-14.5); RDW Standard Deviation 53.6 fL (36.4-46.3); Red Blood Count 2.85 M/uL (4.7-6.1); White Blood Count 9.78 K/uL (4.8-10.8)
[2021-08-03 18:38] LABS: Hematocrit (blood only) 26.7 % (42-52); Hemoglobin 8.8 g/dL (14.0-18.0)
[2021-08-04] MEDS: PIPERACILLIN/TAZOBACTAM 3.375 GM in DEXTROSE 5% 100 ML IV SCH ×3 (04:45→19:23)
[2021-08-04] MEDS: LEVOTHYROXINE SODIUM 88 MCG TABLET PO SCH (05:28)
[2021-08-04 06:48] LABS: Basophils # (auto) 0.03 K/uL (0-0.2); Basophils % (auto) 0.4 %; Eosinophils # (auto) 0.07 K/uL (0-0.5); Eosinophils % (auto) 0.8 %; Hematocrit (blood only) 25.9 % (42-52); Hemoglobin 8.7 g/dL (14.0-18.0); Immature Granulocytes # (auto) 0.02 K/uL (0.00-0.02); Immature Granulocytes % (auto) 0.2 %; Lymphocytes # (auto) 1.88 K/uL (1.2-3.4); Lymphocytes % (auto) 22.6 %; Mean Corpuscular Hgb Conc 33.6 g/dL (32-36); Mean Corpuscular Volume 92.2 fL (80-100); Mean Platelet Volume 9.1 fL (7.4-10.4); Monocytes # (auto) 0.57 K/uL (0.11-0.59); Monocytes % (auto) 6.9 %; Neutrophils # (auto) 5.75 K/uL (1.4-6.5); Neutrophils % (auto) 69.1 %; Platelet Count 345 K/uL (130-400); RDW Coefficient of Variation 15.6 % (11.5-14.5); RDW Standard Deviation 53.1 fL (36.4-46.3); Red Blood Count 2.81 M/uL (4.7-6.1); White Blood Count 8.32 K/uL (4.8-10.8)
[2021-08-04 07:15] LABS: BUN Creatinine Ratio 14.5 (10-20); Calcium 8.1 mg/dl (8.5-10.1); Creatinine Clr Calc Pharmacy 55.5 ml/min; Est GFR (African American) 71.5 ml/min; Est GFR (Non-African American) 61.7 ml/min; Potassium 3.6 mmol/L (3.5-5.1)
[2021-08-04] MEDS: INSULIN GLARGINE SOLOSTAR 100 UNITS/ML 3 ML PEN SC SCH ×2 (08:26→21:00)
[2021-08-04] MEDS: INSULIN ASPART 100 UNITS/ML 3 ML PEN SC SCH ×4 (08:27→20:58)
[2021-08-04] MEDS: FUROSEMIDE 20 MG TAB PO SCH (08:29)
[2021-08-04] MEDS: TAMSULOSIN HCL 0.4 MG CAP PO SCH ×2 (08:29→20:56)
[2021-08-04] MEDS: predniSONE 5 MG TAB PO SCH (08:29)
[2021-08-04] MEDS: carvediloL 12.5 MG TAB PO SCH ×2 (08:30→20:55)
[2021-08-04] MEDS: CEROVITE ADV FORMULA TAB PO SCH (08:30)
[2021-08-04] MEDS: PYRIDOSTIGMINE BROMIDE 60 MG TAB PO SCH ×3 (08:32→20:57)
[2021-08-04] MEDS: PANTOprazole 40 MG TAB PO SCH (08:32)
[2021-08-04] MEDS: LOSARTAN POTASSIUM 50 MG TAB PO SCH (08:32)
--- NOTE | 2021-08-04 10:13 | Gastroenterology Progress Note ---
Date of Service August 04, 2021 Assessment & Plan (1) GI bleed: (2) Sigmoid diverticulitis: Plan: No further bleeding and H&H is stable. 1. Advance diet as tolerated to a low residue diet. 2. Continue IV antibiotics and recommend completion of a 10 day course of oral abx upon discharge. 3. Supportive care per primary team. Will sign off at this time. If you have any questions or concerns, please do not hesitate to contact us. Admission and Anticipated Discharge Date Admission Date: August 02, 2021 Subjective Patient is status post colonoscopy yesterday with findings of acute diverticulitis. He remains on IV antibiotics. Today, he reports resolution of rectal bleeding. No abdominal pain, nausea or vomiting or other GI complaints. H&H stable. PPI ggt has been discontinued and he remains on a clear liquid diet. Review of Systems Constitutional: no fever and no chills Gastrointestinal: as per Subjective / HPI Physical Exam Constitutional: WD/WN, vitals as above Respiratory: normal respiratory effort, lungs clear to auscultation Cardiovascular: RRR, no murmur, no edema Gastrointestinal (Abdomen): Inspection/Auscultation: + abdomen distended and normal bowel sounds Percussion/Palpation: abdomen soft; abdomen nontender Psychiatric: A+Ox3, euthymic affect Results & Data Results & Data ([facility]) Vital Signs (Past 12 Hours) Vital Signs Temp Pulse Pulse Pulse Resp BP Pulse Ox 08/04/21 08:00 70 08/04/21 07:42 36.9 C 58 L 17 148/66 H 94 08/04/21 04:09 36.6 C 75 19 159/55 H 97 08/04/21 00:41 72 08/03/21 22:58 36.6 C 60 22 152/68 H 94 Laboratory Results Abnormal lab results 08/02/21 08/03/21 08/03/21 Range/Units 06:15 02:40 08:55 RBC (4.7-6.1) M/uL Hgb (14.0-18.0) g/dL Hct (42-52) % RDW Std Deviation (36.4-46.3) fL RDW Coeff of Dinorah (11.5-14.5) % Neut # (Auto) (1.4-6.5) K/uL Glucose (70-99) mg/dl POC Glucose 124 H 124 H (70-99) mg/dl Calcium (8.5-10.1) mg/dl Crossmatch See Detail 08/03/21 08/03/21 08/03/21 Range/Units 09:53 11:04 16:10 RBC (4.7-6.1) M/uL Hgb (14.0-18.0) g/dL Hct (42-52) % RDW Std Deviation (36.4-46.3) fL RDW Coeff of Dinorah (11.5-14.5) % Neut # (Auto) (1.4-6.5) K/uL Glucose (70-99) mg/dl POC Glucose 112 H 122 H 265 H (70-99) mg/dl Calcium (8.5-10.1) mg/dl Crossmatch 08/03/21 08/03/21 08/03/21 Range/Units 18:23 18:23 20:50 RBC 2.85 L (4.7-6.1) M/uL Hgb 8.6 L 8.8 L (14.0-18.0) g/dL Hct 26.7 L 26.7 L (42-52) % RDW Std Deviation 53.6 H (36.4-46.3) fL RDW Coeff of Dinorah 15.7 H (11.5-14.5) % Neut # (Auto) 7.57 H (1.4-6.5) K/uL Glucose (70-99) mg/dl POC Glucose 177 H (70-99) mg/dl Calcium (8.5-10.1) mg/dl Crossmatch 08/04/21 08/04/21 08/04/21 Range/Units 06:18 06:18 07:25 RBC 2.81 L (4.7-6.1) M/uL Hgb 8.7 L (14.0-18.0) g/dL Hct 25.9 L (42-52) % RDW Std Deviation 53.1 H (36.4-46.3) fL RDW Coeff of Dinorah 15.6 H (11.5-14.5) % Neut # (Auto) (1.4-6.5) K/uL Glucose 155 H (70-99) mg/dl POC Glucose 197 H (70-99) mg/dl Calcium 8.1 L (8.5-10.1) mg/dl Crossmatch PG Care Time/CCT Total # of Minutes Spent Total Time Spent with Patient: Total time spent is greater than 50% in coordination of care (as documented) at patient's floor/unit and/or counseling patient: Coding Level of Care Code 52748 Subseq Hosp Care Lvl 3 Diagnoses GI bleed K92.2 GI bleed type/associated pathology: unspecified gastrointestinal hemorrhage type Sigmoid diverticulitis K57.32 (1) GI bleed GI bleed type/associated pathology: unspecified gastrointestinal hemorrhage type Qualified Code(s): K92.2 - Gastrointestinal hemorrhage, unspecified
--- NOTE | 2021-08-04 11:09 | Hospitalist Progress Note ---
Date of Service August 04, 2021 Assessment & Plan (1) Sigmoid diverticulitis: Plan: evidence of inflammation/infection on CT abdomen/pelvis confirmed on colonoscopy on 08/03 treated with Zosyn IV since admission, continue for 10 days, change to Augmentin once clinically better, maybe tomorrow advance to low residue today afebrile, vitals stable WBC is down to 8k (2) GI bleed: Plan: EGD on 08/02 with no ulcers, no gastritic, no evidence of bleeding, protonix drip stopped colonoscopy on 08/03 with no bleeding, just showed diverticulitis Hb is 8.7 today, s/p 2 units of PRBC no further signs of bleeding for 48 hours (3) Syncope: Plan: Unclear etiology Patient was not having a forced bowel movement or any other indication for vagal response at the time of the event Patient did receive 2 or 3 compressions as a CODE BLUE was called no further issues, suspect it might have been from pain from diverticulitis, bleeding? he had an echo in June 2021 that showed EF of 70%, no valve issues he has a pacemaker so it was not due to bradycardia most likely a transient drop in blood pressure no issues on tele while here, move to medical floor (4) GERD (gastroesophageal reflux disease): Plan: resume Protonix PO (5) Hypothyroid: Plan: Continue levothyroxine 88 mcg daily (6) BPH (benign prostatic hyperplasia): Plan: Continue tamsulosin (7) Anemia: Plan: Chronic anemia Hemoglobin was 10.1 on admission but with GI bleed Received 1 unit of packed red blood cells in the ED due to acute syncopal episode Hb down to 7.8 on 08/03, gave one more unit, Hb is 8.7 this morning (8) Myasthenia gravis: Plan: No acute exacerbation Continue on prednisone 5 mg daily No indication for stress dose steroids at this time (9) Diabetes mellitus: Plan: Poorly controlled -most recent hemoglobin A1c was 10% Glycemic consult with pharmacy - required insulin drip overnight and this morning transition back to basal and bolus regimen diabetic diet (10) Hypertension: Plan: Patient currently hemodynamically stable (11) DVT prophylaxis: Plan: Hold all chemical prophylaxis secondary to GI bleed SCDs and NOVA stearns ordered Plan: move to medical floor check H/H in the morning PT/OT evaluations try for [facility] tomorrow Admission and Anticipated Discharge Date Admission Date: August 02, 2021 Subjective patient doing well, tolerating liquids, per GI can advance to low residue diet breathing well, no chest pain, no fever Hb is 8.7, no further signs of bleeding, no vomiting, no abdominal pain Cr is stable no issues on tele, will downgrade to medical status get PT/OT since he is from [facility], need to make sure he is strong enough to return Review of Systems Review of Systems: All systems reviewed & are unremarkable except as noted in Subjective Physical Exam Constitutional: well developed and well nourished; no acute distress Neck: trachea midline, no thyromegaly Respiratory: normal respiratory effort, lungs clear to auscultation Cardiovascular: RRR, no murmur, no edema Gastrointestinal (Abdomen): Inspection/Auscultation: abdomen normal to inspection and normal bowel sounds; abdomen not distended Percussion/Palpation: abdomen soft; abdomen nontender, no guarding and abdomen not rigid Musculoskeletal: no cyanosis or clubbing, extremities motor strength 5/5 Skin: no rashes, warm and dry Neurologic: normal touch/pain/proprioception, CN's II-XI intact bilaterally, moves all extremities and awake; no focal motor deficits Psychiatric: A+Ox3, euthymic affect Results & Data Results & Data ([facility]) Vital Signs (Past 12 Hours) Vital Signs Temp Pulse Pulse Pulse Resp BP Pulse Ox 08/04/21 08:00 70 08/04/21 07:42 36.9 C 58 L 17 148/66 H 94 08/04/21 04:09 36.6 C 75 19 159/55 H 97 08/04/21 00:41 72 Laboratory Results Laboratory Results - last 24 hr 08/02/21 08/03/21 08/03/21 06:15 08:55 09:53 WBC RBC Hgb Hct MCV MCH MCHC RDW Std Deviation RDW Coeff of Dinorah Plt Count MPV Immature Gran % (Auto) Neut % (Auto) Lymph % (Auto) [place] % (Auto) Eos % (Auto) Baso % (Auto) Neut # (Auto) Lymph # (Auto) [place] # (Auto) Eos # (Auto) Baso # (Auto) Immature Gran # (Auto) Sodium Potassium Chloride Carbon Dioxide Anion Gap BUN Creatinine Est Cr Clr Drug Dosing Est GFR ( Amer) Est GFR (Non-Af Amer) BUN/Creatinine Ratio Glucose POC Glucose 124 H 112 H Calcium Crossmatch See Detail 08/03/21 08/03/21 08/03/21 11:04 16:10 18:23 WBC 9.78 RBC 2.85 L Hgb 8.6 L Hct 26.7 L MCV 93.7 MCH 30.2 MCHC 32.2 RDW Std Deviation 53.6 H RDW Coeff of Dinorah 15.7 H Plt Count 327 MPV 9.0 Immature Gran % (Auto) 0.2 Neut % (Auto) 77.4 Lymph % (Auto) 16.5 [place] % (Auto) 5.4 Eos % (Auto) 0.3 Baso % (Auto) 0.2 Neut # (Auto) 7.57 H Lymph # (Auto) 1.61 [place] # (Auto) 0.53 Eos # (Auto) 0.03 Baso # (Auto) 0.02 Immature Gran # (Auto) 0.02 Sodium Potassium Chloride Carbon Dioxide Anion Gap BUN Creatinine Est Cr Clr Drug Dosing Est GFR ( Amer) Est GFR (Non-Af Amer) BUN/Creatinine Ratio Glucose POC Glucose 122 H 265 H Calcium Crossmatch 08/03/21 08/03/21 08/04/21 18:23 20:50 06:18 WBC 8.32 RBC 2.81 L Hgb 8.8 L 8.7 L Hct 26.7 L 25.9 L MCV 92.2 MCH 31.0 MCHC 33.6 RDW Std Deviation 53.1 H RDW Coeff of Dinorah 15.6 H Plt Count 345 MPV 9.1 Immature Gran % (Auto) 0.2 Neut % (Auto) 69.1 Lymph % (Auto) 22.6 [place] % (Auto) 6.9 Eos % (Auto) 0.8 Baso % (Auto) 0.4 Neut # (Auto) 5.75 Lymph # (Auto) 1.88 [place] # (Auto) 0.57 Eos # (Auto) 0.07 Baso # (Auto) 0.03 Immature Gran # (Auto) 0.02 Sodium Potassium Chloride Carbon Dioxide Anion Gap BUN Creatinine Est Cr Clr Drug Dosing Est GFR ( Amer) Est GFR (Non-Af Amer) BUN/Creatinine Ratio Glucose POC Glucose 177 H Calcium Crossmatch 08/04/21 08/04/21 06:18 07:25 WBC RBC Hgb Hct MCV MCH MCHC RDW Std Deviation RDW Coeff of Dinorah Plt Count MPV Immature Gran % (Auto) Neut % (Auto) Lymph % (Auto) [place] % (Auto) Eos % (Auto) Baso % (Auto) Neut # (Auto) Lymph # (Auto) [place] # (Auto) Eos # (Auto) Baso # (Auto) Immature Gran # (Auto) Sodium 141 Potassium 3.6 Chloride 107 Carbon Dioxide 29 Anion Gap 4.0 BUN 16 Creatinine 1.12 Est Cr Clr Drug Dosing 55.5 Est GFR ( Amer) 71.5 Est GFR (Non-Af Amer) 61.7 BUN/Creatinine Ratio 14.5 Glucose 155 H POC Glucose 197 H Calcium 8.1 L Crossmatch Medications Administered Current Inpatient Medications Acetaminophen (Acetaminophen 325 Mg Tab) 650 mg PO Q4H PRN PRN Reason: pain/fever Stop: 09/01/21 15:05 Artificial Tears (Artificial Tears) 1 drops OP .up to 6 times daily PRN PRN Reason: Dry Eye(S) Stop: 09/01/21 15:26 Carvedilol (Carvedilol 12.5 Mg Tab) 12.5 mg PO BID DINORAH Stop: 09/01/21 15:05 Last Admin: 08/04/21 08:30 Dose: 12.5 mg Documented by: Dextrose (Dextrose 50% 50 Ml Syringe) 25 - 50 ml IV UD PRN; Protocol PRN Reason: Hypoglycemia Protocol Stop: 09/01/21 15:05 Furosemide (Furosemide 20 Mg Tab) 20 mg PO DAILY DINORAH Stop: 09/02/21 08:59 Last Admin: 08/04/21 08:29 Dose: 20 mg Documented by: Glucagon (Glucagon For Inj 1 Mg Vial) 1 mg SQ UD PRN; Protocol PRN Reason: Hypoglycemia Protocol Stop: 09/01/21 15:05 Glucose (Glucose 10 Tabs/Tube) 4 - 8 tabs PO UD PRN; Protocol PRN Reason: Hypoglycemia Protocol Stop: 09/01/21 15:05 Glucose (Glucose 40% Gel 15 Gm Tube) 15 - 30 gm PO UD PRN; Protocol PRN Reason: Hypoglycemia Protocol Stop: 09/01/21 15:05 Piperacillin Sod/Tazobactam (Sod 3.375 gm/ Dextrose) 115 mls @ 28.75 mls/hr IV Q8H DINORAH; Protocol Stop: 08/12/21 19:59 Last Infusion: 08/04/21 09:51 Dose: Infused Documented by: Insulin Aspart (Insulin Aspart 100 Units/Ml 3 Ml Pen) 0 units SC ACHS [facility]; Protocol Stop: 09/02/21 12:29 Last Admin: 08/04/21 08:27 Dose: 8 units Documented by: Insulin Glargine (Insulin Glargine Solostar 100 Units/Ml 3 Ml Pen) 0 units SC BID [facility]; Protocol Stop: 09/02/21 07:59 Last Admin: 08/04/21 08:26 Dose: 10 units Documented by: Levothyroxine Sodium (Levothyroxine Sodium 88 Mcg Tablet) 88 mcg PO DAILYBB [facility] Stop: 09/02/21 06:29 Last Admin: 08/04/21 05:28 Dose: 88 mcg Documented by: Losartan Potassium (Losartan Potassium 50 Mg Tab) 100 mg PO DAILY [facility] Stop: 09/01/21 15:05 Last Admin: 08/04/21 08:32 Dose: 100 mg Documented by: Miscellaneous (Carbohydrates For Hypoglycemia ) 15 - 30 gm PO UD PRN PRN Reason: Hypoglycemia Protocol Stop: 09/01/21 15:05 Miscellaneous Information (Pharmacy Glycemic Mgmt Consult) 1 ea N/A UD PRN; Protocol PRN Reason: Consult Stop: 09/01/21 15:05 Miscellaneous Information (Piperacill/Tazobac Consult Active) 1 ea N/A UD PRN PRN Reason: Consult Stop: 09/01/21 15:05 Multivitamins/Minerals (Cerovite Adv Formula Tab) 1 tab PO DAILY [facility] Stop: 09/02/21 08:59 Last Admin: 08/04/21 08:30 Dose: 1 tab Documented by: Ondansetron HCl (Ondansetron Inj 2 Mg/Ml 2 Ml Vial) 4 mg IV Q6H PRN PRN Reason: Nausea Stop: 09/01/21 15:05 Pantoprazole Sodium (Pantoprazole 40 Mg Tab) 40 mg PO QAM [facility] Stop: 09/02/21 08:59 Last Admin: 08/04/21 08:32 Dose: 40 mg Documented by: Prednisone (Prednisone 5 Mg Tab) 5 mg PO DAILY [facility] Stop: 09/02/21 08:59 Last Admin: 08/04/21 08:29 Dose: 5 mg Documented by: Pyridostigmine Bowie (Pyridostigmine Bowie 60 Mg Tab) 60 mg PO TID DINORAH Stop: 09/01/21 15:05 Last Admin: 08/04/21 08:32 Dose: 60 mg Documented by: Tamsulosin HCl (Tamsulosin Hcl 0.4 Mg Cap) 0.4 mg PO BID [facility] Stop: 09/01/21 20:59 Last Admin: 08/04/21 08:29 Dose: 0.4 mg Documented by: PG Care Time/CCT Total # of Minutes Spent Total Time Spent with Patient: Total time spent is greater than 50% in coordination of care (as documented) at patient's floor/unit and/or counseling patient: Coding Level of Care Code 21377 Subseq Hosp Care Lvl 3 Diagnoses Sigmoid diverticulitis K57.32 GI bleed K92.2 GI bleed type/associated pathology: unspecified gastrointestinal hemorrhage type Syncope R55 GERD (gastroesophageal reflux disease) K21.9 Hypothyroid E03.9 BPH (benign prostatic hyperplasia) N40.0 Anemia D64.9 Myasthenia gravis G70.00 Diabetes mellitus E11.9 Hypertension I10 DVT prophylaxis Z29.9 (1) GI bleed GI bleed type/associated pathology: unspecified gastrointestinal hemorrhage type Qualified Code(s): K92.2 - Gastrointestinal hemorrhage, unspecified
--- NOTE | 2021-08-04 12:52 | Pharmacy Report ---
Pharmacy Glycemic Short Note 2 - Date of Service August 04, 2021 - Glycemic Short BSG Results (Last 24 hours): 08/03/21 08/03/21 08/03/21 08:55 09:53 16:10 Glucose POC Glucose 124 H 112 H 265 H 08/03/21 08/04/21 08/04/21 20:50 06:18 07:25 Glucose 155 H POC Glucose 177 H 197 H 08/04/21 11:24 Glucose POC Glucose 238 H OUTPATIENT ANTIDIABETIC REGIMEN: * Lantus 10 units BID * Novolog 5 units TID with meals + CF 30mg/dl/unit * A1c 7.5% 08/03/21 ASSESSMENT: 08/04/21 * Patient transitioned off of insulin drip yesterday, blood sugars 122-265mg/dl since drip off, patient needs more basal and bolus insulin at this time, will increase both and titrate to goal. 08/03/21 * 80 year old male admitted with GIB, was on IV protonix drip, now just on IV Zosyn, NPO today for colonoscopy * Patient hyperglycemic on admission, started on insulin drip last evening, drip rates from 3.5units/hr now down to 1.2 units per hour * Transition patient to basal bolus insulin today PLAN FOR INPATIENT GLYCEMIC CONTROL: * Basal insulin * Lantus 15 units SQ BID (10 units for BSG < 100) * Bolus insulin * NovoLog per scale ACHS or Q6hrs while NPO * Goal Range: Low 110 mg/dL - High 140 mg/dL * Correction Factor: 15 mg/dL/unit * Nutritional / Prandial insulin per carb ratio of 1 unit per 5 grams CHO consumed PLAN FOR DISCHARGE: * A1c 7.5% - likely low d/t anemia, agree with CDE recommendations to increase Novolog: * RECOMMENDATIONS AT DISCHARGE: 1.) Increase Novolog 10-20% at time of discharge. Recommend increase to 8 units TID with meals. 2.) Hold Novolog meal coverage if meal intake < 50% to minimize risk of hypoglycemia. 3.) Continue to SMBG ACHS. 4.) Notify provider of BG values persistently > 220 or below 90.
[2021-08-05 02:40] LABS: Basophils # (auto) 0.04 K/uL (0-0.2); Basophils % (auto) 0.4 %; Hematocrit (blood only) 26.8 % (42-52); Hemoglobin 8.9 g/dL (14.0-18.0); Immature Granulocytes # (auto) 0.03 K/uL (0.00-0.02); Immature Granulocytes % (auto) 0.3 %; Lymphocytes # (auto) 3.96 K/uL (1.2-3.4); Lymphocytes % (auto) 39.5 %; Mean Corpuscular Hemoglobin 30.9 pg (25-34); Mean Corpuscular Hgb Conc 33.2 g/dL (32-36); Mean Corpuscular Volume 93.1 fL (80-100); Mean Platelet Volume 8.8 fL (7.4-10.4); Monocytes # (auto) 0.87 K/uL (0.11-0.59); Monocytes % (auto) 8.7 %; Neutrophils # (auto) 5.02 K/uL (1.4-6.5); Neutrophils % (auto) 50.1 %; Platelet Count 388 K/uL (130-400); RDW Coefficient of Variation 14.9 % (11.5-14.5); RDW Standard Deviation 50.6 fL (36.4-46.3); Red Blood Count 2.88 M/uL (4.7-6.1); White Blood Count 10.02 K/uL (4.8-10.8)
[2021-08-05 02:59] LABS: Creatinine Clr Calc Pharmacy 39.3 ml/min; Est GFR (African American) 47.2 ml/min; Est GFR (Non-African American) 40.7 ml/min; Potassium 3.5 mmol/L (3.5-5.1)
--- NOTE | 2021-08-05 03:13 | Communication Note ---
Date of Service: August 05, 2021 Overnight a CODE BLUE was called after patient used the restroom, passed out and reportedly stopped breathing for a short time. CODE BLUE was shortly canceled. Nursing staff reported a toilet bowel full of blood. On my assessment of the patient, he was hemodynamically stable. He was able to answer questions appropriately. He endorsed some nausea but no pain. Upon chart review, I learned an identical occurence had happened earlier today with this patient. I ordered a stat H+H, which showed a Hgb of 8.8, up from 8.7 on previous check. Suspect bloody BM is due to a diverticular bleed. Repeat H+H ordered for 7am.
[2021-08-05] MEDS: PIPERACILLIN/TAZOBACTAM 3.375 GM in DEXTROSE 5% 100 ML IV SCH ×3 (03:47→22:00)
[2021-08-05] MEDS: LEVOTHYROXINE SODIUM 88 MCG TABLET PO SCH (05:47)
[2021-08-05 07:43] LABS: Hematocrit (blood only) 19.6 % (42-52); Hemoglobin 6.6 g/dL (14.0-18.0)
[2021-08-05] MEDS ORDERED: SODIUM CHLORIDE 0.9% 250 ML IV PRN ×2 (07:46→14:29)
[2021-08-05] MEDS ORDERED: SODIUM CHLORIDE 0.9% 1000ML 500 ML IV ONE (07:56)
[2021-08-05] MEDS: FINASTERIDE 5 MG TAB PO SCH (08:07)
[2021-08-05] MEDS: PYRIDOSTIGMINE BROMIDE 60 MG TAB PO SCH ×3 (08:08→22:01)
[2021-08-05] MEDS: CEROVITE ADV FORMULA TAB PO SCH (08:08)
[2021-08-05] MEDS: predniSONE 5 MG TAB PO SCH (08:08)
[2021-08-05] MEDS: PANTOprazole 40 MG TAB PO SCH (08:08)
[2021-08-05] MEDS: TAMSULOSIN HCL 0.4 MG CAP PO SCH ×2 (08:08→22:01)
--- NOTE | 2021-08-05 08:51 | Hospitalist Progress Note ---
Date of Service August 05, 2021 Assessment & Plan (1) GI bleed: Plan: EGD on 08/02 with no ulcers, no gastritic, no evidence of bleeding, protonix drip stopped colonoscopy on 08/03 with no bleeding, just showed diverticulitis no signs of bleeding for over 48 hours, transferred to medical floor on 08/04 over night had melena, clots starting around 2am on 08/05 now Hb down to 6.6, BP is low normal transfer back to PCU for closer monitoring, transfuse two units PRBC, give 500cc NSS bolus while awaiting blood hold Coreg, losartan, Lasix d/w Dr. Edwards, unsure of source of bleeding, could be post polypectomy bleed? tentatively plan for colonoscopy tomorrow after GoLytely prep can have clears later today (2) Sigmoid diverticulitis: Plan: evidence of inflammation/infection on CT abdomen/pelvis confirmed on colonoscopy on 08/03 treated with Zosyn IV since admission, day 4 today afebrile, vitals stable WBC is 10k, no abdominal pain (3) Syncope: Plan: Unclear etiology Patient was not having a forced bowel movement or any other indication for vagal response at the time of the event Patient did receive 2 or 3 compressions as a CODE BLUE was called no further issues, suspect it might have been from pain from diverticulitis, bleeding? he had an echo in June 2021 that showed EF of 70%, no valve issues he has a pacemaker so it was not due to bradycardia most likely a transient drop in blood pressure no issues on tele, moved to medical on 08/04 since he was stable move back to tele today since he is having recurrent bleeding (4) GERD (gastroesophageal reflux disease): Plan: resume Protonix PO (5) Hypothyroid: Plan: Continue levothyroxine 88 mcg daily (6) BPH (benign prostatic hyperplasia): Plan: Continue tamsulosin (7) Anemia: Plan: Chronic anemia Hemoglobin was 10.1 on admission but with GI bleed got 2 units of PRBC earlier in admission Hb had been stable, now dropped to 6.6 will transfuse two more units (8) Myasthenia gravis: Plan: No acute exacerbation Continue on prednisone 5 mg daily No indication for stress dose steroids at this time (9) Diabetes mellitus: Plan: Poorly controlled -most recent hemoglobin A1c was 10% Glycemic consult with pharmacy - required insulin drip initially transition back to basal and bolus regimen now that he will be NPO will reduce Lantus dose, pharmacy following (10) Hypertension: Plan: Patient currently hemodynamically stable hold Lasix, Coreg and losartan given his blood loss (11) DVT prophylaxis: Plan: Hold all chemical prophylaxis secondary to GI bleed SCDs and NOVA hose ordered Plan: move to tele, transfuse 2 units, follow up Dr. Edwards recommendations Admission and Anticipated Discharge Date Admission Date: August 02, 2021 Subjective patient had some recurrent melena starting around 2am, did not stop moving his bowels until 8am had some nausea, vomited once but it was just mucous Hb dropped to 6.6 this morning from 8.9, BP 100's systolic, HR in 60's patient is pale again, feels very weak and fatigued, breathing okay, no chest pain/pressure, no fever/chills denies abdominal pain, it has completely resolved discussed plan with RN, keep him NPO, held his Lasix, Coreg and losartan will give two units PRBC, move back to tele due to the bleeding and drop in H/H d/w Dr. Edwards, tentatively plan for colonoscopy tomorrow, try prep this evening called patient's daughter to provide update Review of Systems Review of Systems: All systems reviewed & are unremarkable except as noted in Subjective Constitutional: + fatigue and + weakness; no fever Respiratory: no cough and no dyspnea Cardiovascular: no chest pain, no palpitations and no edema Gastrointestinal: + nausea, + vomiting, + diarrhea/loose stools, + blood in stools and + melena; no abdominal pain and no constipation Physical Exam Constitutional: well developed and well nourished; no acute distress Neck: trachea midline, no thyromegaly Respiratory: normal respiratory effort, lungs clear to auscultation Cardiovascular: RRR, no murmur, no edema Gastrointestinal (Abdomen): Inspection/Auscultation: abdomen normal to inspection and normal bowel sounds; abdomen not distended Percussion/Palpation: abdomen soft; abdomen nontender, no guarding and abdomen not rigid Musculoskeletal: no cyanosis or clubbing, extremities motor strength 5/5 Skin: no rashes, warm and dry + pallor Neurologic: normal touch/pain/proprioception, CN's II-XI intact bilaterally, moves all extremities and awake; no focal motor deficits Psychiatric: A+Ox3, euthymic affect Results & Data Results & Data ([facility]) Vital Signs (Past 12 Hours) Vital Signs Temp Pulse Pulse Resp BP BP Pulse Ox 08/05/21 07:25 36.2 C L 60 16 104/63 97 08/05/21 06:22 111/72 08/05/21 05:19 73 129/79 08/05/21 02:41 36.6 C 60 16 147/68 H 94 08/05/21 02:15 61 20 184/75 H 98 08/04/21 23:52 178/85 H 08/04/21 23:00 36.7 C 69 16 178/69 H 98 08/04/21 20:52 67 172/76 H Laboratory Results Laboratory Results - last 24 hr 08/02/21 08/04/21 08/04/21 06:15 11:24 17:18 WBC RBC Hgb Hct MCV MCH MCHC RDW Std Deviation RDW Coeff of Dinorah Plt Count MPV Immature Gran % (Auto) Neut % (Auto) Lymph % (Auto) Dubois % (Auto) Eos % (Auto) Baso % (Auto) Neut # (Auto) Lymph # (Auto) Dubois # (Auto) Eos # (Auto) Baso # (Auto) Immature Gran # (Auto) Sodium Potassium Chloride Carbon Dioxide Anion Gap BUN Creatinine Est Cr Clr Drug Dosing Est GFR ( Amer) Est GFR (Non-Af Amer) BUN/Creatinine Ratio Glucose POC Glucose 238 H 223 H Calcium Blood Type Antibody Screen Crossmatch See Detail 08/04/21 08/05/21 08/05/21 20:45 02:18 02:28 WBC 10.02 RBC 2.88 L Hgb 8.9 L Hct 26.8 L MCV 93.1 MCH 30.9 MCHC 33.2 RDW Std Deviation 50.6 H RDW Coeff of Dinorah 14.9 H Plt Count 388 MPV 8.8 Immature Gran % (Auto) 0.3 Neut % (Auto) 50.1 Lymph % (Auto) 39.5 Dubois % (Auto) 8.7 Eos % (Auto) 1.0 Baso % (Auto) 0.4 Neut # (Auto) 5.02 Lymph # (Auto) 3.96 H Dubois # (Auto) 0.87 H Eos # (Auto) 0.10 Baso # (Auto) 0.04 Immature Gran # (Auto) 0.03 H Sodium Potassium Chloride Carbon Dioxide Anion Gap BUN Creatinine Est Cr Clr Drug Dosing Est GFR ( Amer) Est GFR (Non-Af Amer) BUN/Creatinine Ratio Glucose POC Glucose 221 H 218 H Calcium Blood Type Antibody Screen Crossmatch 08/05/21 08/05/21 08/05/21 02:28 02:28 07:08 WBC RBC Hgb Cancelled 6.6 L* Hct Cancelled 19.6 L* MCV MCH MCHC RDW Std Deviation RDW Coeff of Dinorah Plt Count MPV Immature Gran % (Auto) Neut % (Auto) Lymph % (Auto) Dubois % (Auto) Eos % (Auto) Baso % (Auto) Neut # (Auto) Lymph # (Auto) Dubois # (Auto) Eos # (Auto) Baso # (Auto) Immature Gran # (Auto) Sodium 139 Potassium 3.5 Chloride 108 H Carbon Dioxide 30 Anion Gap 1.0 L BUN 19 H Creatinine 1.58 H D Est Cr Clr Drug Dosing 39.3 Est GFR ( Amer) 47.2 Est GFR (Non-Af Amer) 40.7 BUN/Creatinine Ratio 12.0 Glucose 195 H POC Glucose Calcium 8.0 L Blood Type Antibody Screen Crossmatch 08/05/21 08/05/21 07:56 08:09 WBC RBC Hgb Hct MCV MCH MCHC RDW Std Deviation RDW Coeff of Dinorah Plt Count MPV Immature Gran % (Auto) Neut % (Auto) Lymph % (Auto) Dubois % (Auto) Eos % (Auto) Baso % (Auto) Neut # (Auto) Lymph # (Auto) Dubois # (Auto) Eos # (Auto) Baso # (Auto) Immature Gran # (Auto) Sodium Potassium Chloride Carbon Dioxide Anion Gap BUN Creatinine Est Cr Clr Drug Dosing Est GFR ( Amer) Est GFR (Non-Af Amer) BUN/Creatinine Ratio Glucose POC Glucose 281 H Calcium Blood Type Pending Antibody Screen Pending Crossmatch See Detail Medications Administered Current Inpatient Medications Acetaminophen (Acetaminophen 325 Mg Tab) 650 mg PO Q4H PRN PRN Reason: pain/fever Stop: 09/01/21 15:05 Artificial Tears (Artificial Tears) 1 drops OP .up to 6 times daily PRN PRN Reason: Dry Eye(S) Stop: 09/01/21 15:26 Carvedilol (Carvedilol 12.5 Mg Tab) 12.5 mg PO BID [facility] Stop: 09/01/21 15:05 Last Admin: 08/04/21 20:55 Dose: 12.5 mg Documented by: Dextrose (Dextrose 50% 50 Ml Syringe) 25 - 50 ml IV UD PRN; Protocol PRN Reason: Hypoglycemia Protocol Stop: 09/01/21 15:05 Finasteride (Finasteride 5 Mg Tab) 5 mg PO DAILY DINORAH Stop: 09/04/21 08:59 Last Admin: 08/05/21 08:07 Dose: 5 mg Documented by: Furosemide (Furosemide 20 Mg Tab) 20 mg PO DAILY DINORAH Stop: 09/02/21 08:59 Last Admin: 08/04/21 08:29 Dose: 20 mg Documented by: Glucagon (Glucagon For Inj 1 Mg Vial) 1 mg SQ UD PRN; Protocol PRN Reason: Hypoglycemia Protocol Stop: 09/01/21 15:05 Glucose (Glucose 10 Tabs/Tube) 4 - 8 tabs PO UD PRN; Protocol PRN Reason: Hypoglycemia Protocol Stop: 09/01/21 15:05 Glucose (Glucose 40% Gel 15 Gm Tube) 15 - 30 gm PO UD PRN; Protocol PRN Reason: Hypoglycemia Protocol Stop: 09/01/21 15:05 Piperacillin Sod/Tazobactam (Sod 3.375 gm/ Dextrose) 115 mls @ 28.75 mls/hr IV Q8H [facility]; Protocol Stop: 08/12/21 19:59 Last Infusion: 08/05/21 07:31 Dose: Infused Documented by: Sodium Chloride (Nss) 250 mls @ 15 mls/hr IV .[id number] PRN PRN Reason: For Transfusion Stop: 08/05/21 17:46 Insulin Aspart (Insulin Aspart 100 Units/Ml 3 Ml Pen) 0 units SC ACHS [facility]; Protocol Stop: 09/02/21 12:29 Last Admin: 08/04/21 20:58 Dose: 6 units Documented by: Insulin Glargine (Insulin Glargine Solostar 100 Units/Ml 3 Ml Pen) 0 units SC BID [facility]; Protocol Stop: 09/02/21 07:59 Last Admin: 08/04/21 21:00 Dose: 15 units Documented by: Levothyroxine Sodium (Levothyroxine Sodium 88 Mcg Tablet) 88 mcg PO DAILYBB [facility] Stop: 09/02/21 06:29 Last Admin: 08/05/21 05:47 Dose: 88 mcg Documented by: Losartan Potassium (Losartan Potassium 50 Mg Tab) 100 mg PO DAILY DINORAH Stop: 09/01/21 15:05 Last Admin: 08/04/21 08:32 Dose: 100 mg Documented by: Miscellaneous (Carbohydrates For Hypoglycemia ) 15 - 30 gm PO UD PRN PRN Reason: Hypoglycemia Protocol Stop: 09/01/21 15:05 Miscellaneous Information (Pharmacy Glycemic Mgmt Consult) 1 ea N/A UD PRN; Protocol PRN Reason: Consult Stop: 09/01/21 15:05 Miscellaneous Information (Piperacill/Tazobac Consult Active) 1 ea N/A UD PRN PRN Reason: Consult Stop: 09/01/21 15:05 Multivitamins/Minerals (Cerovite Adv Formula Tab) 1 tab PO DAILY DINORAH Stop: 09/02/21 08:59 Last Admin: 08/05/21 08:08 Dose: 1 tab Documented by: Ondansetron HCl (Ondansetron Inj 2 Mg/Ml 2 Ml Vial) 4 mg IV Q6H PRN PRN Reason: Nausea Stop: 09/01/21 15:05 Pantoprazole Sodium (Pantoprazole 40 Mg Tab) 40 mg PO QAM DINORAH Stop: 09/02/21 08:59 Last Admin: 08/05/21 08:08 Dose: 40 mg Documented by: Prednisone (Prednisone 5 Mg Tab) 5 mg PO DAILY DINORAH Stop: 09/02/21 08:59 Last Admin: 08/05/21 08:08 Dose: 5 mg Documented by: Pyridostigmine Kingman (Pyridostigmine Kingman 60 Mg Tab) 60 mg PO TID DINORAH Stop: 09/01/21 15:05 Last Admin: 08/05/21 08:08 Dose: 60 mg Documented by: Tamsulosin HCl (Tamsulosin Hcl 0.4 Mg Cap) 0.4 mg PO BID DINORAH Stop: 09/01/21 20:59 Last Admin: 08/05/21 08:08 Dose: 0.4 mg Documented by: PG Care Time/CCT Total # of Minutes Spent Total Time Spent with Patient: Total time spent is greater than 50% in coordi nation of care (as documented) at patient's floor/unit and/or counseling patient: Coding Level of Care Code 22880 Subseq Hosp Care Lvl 3 Diagnoses Sigmoid diverticulitis K57.32 GI bleed K92.2 GI bleed type/associated pathology: unspecified gastrointestinal hemorrhage type Syncope R55 GERD (gastroesophageal reflux disease) K21.9 Hypothyroid E03.9 BPH (benign prostatic hyperplasia) N40.0 Anemia D64.9 Myasthenia gravis G70.00 Diabetes mellitus E11.9 Hypertension I10 DVT prophylaxis Z29.9 (1) GI bleed GI bleed type/associated pathology: unspecified gastrointestinal hemorrhage type Qualified Code(s): K92.2 - Gastrointestinal hemorrhage, unspecified
[2021-08-05] MEDS: INSULIN ASPART 100 UNITS/ML 3 ML PEN SC SCH ×3 (08:57→18:16)
[2021-08-05] MEDS ORDERED: INSULIN GLARGINE SOLOSTAR 100 UNITS/ML 3 ML PEN SC ONE (09:00)
[2021-08-05] MEDS ORDERED: Nursing to Pharmacy Communication SCH (09:15)
--- NOTE | 2021-08-05 12:16 | Electrocardiogram Report ---
Test Reason : Blood Pressure : / mmHG Vent. Rate : 069 BPM Atrial Rate : 061 BPM P-R Int : 000 ms QRS Dur : 116 ms QT Int : 466 ms P-R-T Axes : 000 -21 156 degrees QTc Int : 499 ms Atrial sensed- Ventricular-paced rhythm Abnormal ECG When compared with ECG of 02-AUG-2021 10:56, Vent. rate has increased BY 8 BPM Confirmed by Modesto Knight ([id number]) on 08/05/2021 12:15:45 PM Referred By: [facility] Confirmed By:Eric Knight
--- NOTE | 2021-08-05 13:28 | Pharmacy Report ---
Pharmacy Glycemic Short Note 2 - Date of Service August 05, 2021 - Glycemic Short BSG Results (Last 24 hours): 08/04/21 08/04/21 08/05/21 17:18 20:45 02:18 Glucose POC Glucose 223 H 221 H 218 H 08/05/21 08/05/21 08/05/21 02:28 07:56 11:58 Glucose 195 H POC Glucose 281 H 225 H OUTPATIENT ANTIDIABETIC REGIMEN: * Lantus 10 units BID * Novolog 5 units TID with meals + CF 30mg/dl/unit * A1c 7.5% 08/03/21 ASSESSMENT: 08/05/21 * Patient's BSGs yesterday were [phone] mg/dL and he received 67 units of insulin (25 units of basal and 42 units of bolus). Patient is NPO. * Will increase Lantus slightly - cautious though because patient is now NPO and has a slight bump in kidney function. * Be more aggressive with Novolog as this is shorter acting. Tighten both CF and CR. 08/04/21 * Patient transitioned off of insulin drip yesterday, blood sugars 122-265mg/dl since drip off, patient needs more basal and bolus insulin at this time, will increase both and titrate to goal. 08/03/21 * 80 year old male admitted with GIB, was on IV protonix drip, now just on IV Zosyn, NPO today for colonoscopy * Patient hyperglycemic on admission, started on insulin drip last evening, drip rates from 3.5units/hr now down to 1.2 units per hour * Transition patient to basal bolus insulin today PLAN FOR INPATIENT GLYCEMIC CONTROL: * Basal insulin * Lantus 15 units SQ BID (10 units for BSG < 140 and 20 units for BSG > 200 mg/dL) * Bolus insulin * NovoLog per scale ACHS or Q6hrs while NPO * Goal Range: Low 110 mg/dL - High 140 mg/dL * Correction Factor: 15 mg/dL/unit * Nutritional / Prandial insulin per carb ratio of 1 unit per 4 grams CHO consumed PLAN FOR DISCHARGE: * A1c 7.5% - likely low d/t anemia, agree with CDE recommendations to increase Novolog: * RECOMMENDATIONS AT DISCHARGE: 1.) Increase Novolog 10-20% at time of discharge. Recommend increase to 8 units TID with meals. 2.) Hold Novolog meal coverage if meal intake < 50% to minimize risk of hypoglycemia. 3.) Continue to SMBG ACHS. 4.) Notify provider of BG values persistently > 220 or below 90.
[2021-08-05] MEDS ORDERED: FUROSEMIDE 20 MG in SYRINGE 0 ML IV SCH (15:30)
[2021-08-05] MEDS ORDERED: MAGNESIUM CITRATE 296 ML/BTL PO STA (17:11)
--- NOTE | 2021-08-05 17:11 | Gastroenterology Progress Note ---
Date of Service August 05, 2021 Assessment & Plan (1) Anemia: (2) Melena: Plan: possible recurrent diverticular bleeding vs. post polypectomy bleeding or other cause. Recs: mg citrate prep tonight starting at 6 pm NPO post midnight except for prep colonoscopy tomorrow morning to further evaluate complete prbc transfusion as ordered, trend h/h rest as per primary team Admission and Anticipated Discharge Date Admission Date: August 02, 2021 Subjective developed melena overnight and hgb subsequently dropped to 6.6 from 8.8 this mor kristal. He is still having hematochezia today currently, no abdominal pains. on abx for diverticulitis. labs reviewed, VSS. receiving PRBC transfusion currently. Review of Systems Constitutional: no fever and no chills Respiratory: no cough, no dyspnea and no dyspnea on exertion Cardiovascular: no chest pain and no dyspnea Gastrointestinal: as per Subjective / HPI Psychiatric: no depression and no anxiety Physical Exam Constitutional: WD/WN, vitals as above Respiratory: normal respiratory effort, lungs clear to auscultation Cardiovascular: RRR, no murmur, no edema Gastrointestinal (Abdomen): normal bowel sounds, soft, nontender, no hepatosplenomegaly Musculoskeletal: no lower extremity edema Psychiatric: A+Ox3, euthymic affect Results & Data Results & Data ([facility]) Vital Signs (Past 12 Hours) Vital Signs Temp Pulse Pulse Resp BP BP BP 08/05/21 15:22 37 C 74 18 162/94 H 08/05/21 15:08 36.5 C 81 18 153/62 H 08/05/21 13:43 37.2 C 65 18 158/60 H 08/05/21 12:43 36.8 C 67 18 145/72 H 08/05/21 11:59 36.8 C 63 18 161/74 H 08/05/21 11:43 37.2 C 73 18 136/77 08/05/21 11:13 36.8 C 63 18 147/63 H 08/05/21 10:58 36.9 C 62 18 120/46 L 08/05/21 10:38 36.6 C 53 L 18 159/66 H 08/05/21 07:25 36.2 C L 60 16 104/63 08/05/21 06:22 111/72 08/05/21 05:19 73 129/79 Pulse Ox 08/05/21 15:22 94 08/05/21 15:08 94 08/05/21 13:43 98 08/05/21 12:43 99 08/05/21 11:59 95 08/05/21 11:43 95 08/05/21 11:13 93 08/05/21 10:58 98 08/05/21 10:38 97 08/05/21 07:25 97 08/05/21 06:22 08/05/21 05:19 PG Care Time/CCT Total # of Minutes Spent Total Time Spent with Patient: Total time spent is greater than 50% in coordination of care (as documented) at patient's floor/unit and/or counseling patient: Coding Level of Care Code 62666 Subseq Hosp Care Lvl 3 Diagnoses Anemia D64.9 Melena K92.1
[2021-08-05] MEDS ORDERED: METOPROLOL TARTRATE 1 MG/ML VIAL IV ONE (18:01)
[2021-08-05] MEDS ORDERED: METOPROLOL TARTRATE 1 MG/ML VIAL IV STA (18:03)
--- NOTE | 2021-08-05 20:15 | Communication Note ---
Date of Service: August 05, 2021 Pt has had continue hematochezia/clots and melena. He became dizzy and short of breath around 1800. He was found to have approximately 1 minutes of V tach and then a subsequent episode of V tach of 3 minutes while maintaining a pulse. Pt was given Lopressor 5 mg IV x 1 dose with successful return to a paced rhythm. Pt just completed 2nd unit of blood and awaiting initiation of 3rd unit. Discussed the case with Dr. Knight. Review of patient's records show that his pacer is an ICD as well. Pacer will be interrogated and determine if needs reprogramming vs maybe setting was turned off? Pending pacer interrogation, if he has several episodes of V tach it may be worth initiating amiodarone in addition to utilizing the ICD. Patient is a DNR/DNI and the ICD setting will be discussed with him to see if he would want that to be utilized. Patient was assessed at bedside prior to transfer. Vitals are stable. Hgb improved to 10.4.
[2021-08-05 20:26] LABS: Hematocrit (blood only) 31.5 % (42-52); Hemoglobin 10.4 g/dL (14.0-18.0)
[2021-08-05] MEDS ORDERED: SOD PHOSPHATE/SOD BIPHOSPHATE ENEMA 132 ML BTL PR ONE (21:00)
--- NOTE | 2021-08-05 21:29 | Cardiology Consultation ---
Date of Consultation August 05, 2021 Assessment & Plan (1) Syncope: (2) Ventricular tachycardia: (3) Cardiomyopathy: 1. Syncope: This appears to be related to ventricular arrhythmias. The patient did have episodes of SVT recorded through his device today. However, these episodes were relatively brief lasting less than 1 minute. QRS morphology of his 3 minutes event differs significantly from his [place] QRS complex and I do suspect this was ventricular tachycardia. A couple of episodes during his hospitalization occurred before he was on telemetry. It is possible that 1 episode in the bathroom a occurred due to his gastrointestinal hemorrhage. However, we need to maintain a high level of suspicion that all episodes were related to ventricular arrhythmias. 2. Ventricular tachycardia: He did have wide complex rhythm lasting 3 minutes. The rate of the tachyarrhythmia was approximately 160 beats per minute. This was below the detection limit for his device. His current programming was 175 beats per minute. No episodes were logged into the device as result and no th erapy was provided. I changed his settings to detect and treat episodes of ventricular tachycardia as slow as 155 beats per minute. I think we can monitor him on telemetry for the time being. Do not think he requires amiodarone immediately. I think continuing his carvedilol is reasonable intervention for the time being. For recurrent events we can certainly increase his carvedilol dose or consider initiating amiodarone. 3. Normally functioning biventricular ICD. Patient has quite favorable QRS morphology with pacing. He appears to have had normalization of his ventricular function with initiation of biventricular pacing and 2009. History of Present Illness Reason for Consultation: Ventricular tachycardia Requesting Physician: Jerry Attending Physician: David Edwards DO History of Present Illness The patient is an 80-year-old gentleman with a history of a nonischemic cardiomyopathy and prior implantation of a [employer] biventricular ICD. He is currently admitted to the [facility] for gastrointestinal hemorrhage requiring blood transfusion. During his admission the patient has experienced episodes of dizziness and witnessed syncope. Today he was also noted to have syncope in the setting of wide complex tachycardia lasting up to 3 minutes on telemetry. The patient's cardiac history began in 2007 when he was diagnosed with a nonischemic cardiomyopathy. He did undergo cardiac catheterization in 2008 which did not demonstrate any obstructive coronary disease that same year he underwent implantation of a biventricular ICD and had normalization of his ejection fraction on echocardiogram in 2009. He did have some chest pain in 2013 and underwent a stress test which was normal. In 2019 he underwent a pulse generator change and has a [employer] biventricular ICD. He was previously followed by a cardiology group in [facility], but has recently moved to the area and as of June is enquiring about care through the [place] Allergies Allergy/AdvReac Type Severity Reaction Status Date / Time lisinopril Allergy Unknown Unknown Verified 08/03/21 08:42 Home Medications Medication Instructions Recorded Confirmed Type acetaminophen 325 mg tablet 650 mg PO Q4H PRN 06/15/21 08/14/21 History carboxymethylcellulose sodium 0.5 1 drp OPHTHALMIC (EYE) 6XD PRN 06/15/21 08/14/21 History % eye drops finasteride 5 mg tablet 5 mg PO DAILY 06/15/21 08/14/21 History fluticasone propionate 50 1 spray INTRANASAL BID PRN 06/15/21 08/14/21 History mcg/actuation nasal spray,suspension insulin glargine 100 unit/mL 10 unit SUBCUT BID 06/15/21 08/14/21 History subcutaneous solution (Lantus U-100 Insulin) ketoconazole 2 % shampoo 1 ea TOPICAL 3XWK 06/15/21 08/14/21 History levothyroxine 88 mcg tablet 88 mcg PO DAILY 06/15/21 08/14/21 History losartan 100 mg tablet 100 mg PO DAILY 06/15/21 08/14/21 History melatonin 3 mg tablet 3 mg PO HS PRN 06/15/21 08/14/21 History omega 7-rmb-nvn-fish oil 1,000 mg 1 cap PO BID 06/15/21 08/14/21 History (120 mg-180 mg) capsule (Fish Oil) omeprazole 20 mg capsule,delayed 20 mg PO BID 06/15/21 08/14/21 History release tamsulosin 0.4 mg capsule 0.4 mg PO BID 06/15/21 08/14/21 History terbinafine HCl 1 % topical cream 1 applic TOPICAL BID 06/15/21 08/14/21 History vit C 250 mg-vit E 90 mg-zinc 40 1 tab PO BID 06/15/21 08/02/21 History mg-copper 1 [id number] capsule (PreserVision AREDS-2) docusate sodium 100 mg capsule 100 mg PO BID 07/15/21 08/02/21 History (Stool Softener) furosemide 20 mg tablet (Lasix) 20 mg PO DAILY 07/15/21 08/02/21 History loperamide 2 mg capsule 2 mg PO DIRECTED PRN 07/15/21 08/14/21 History menthol 0.44 %-zinc oxide 20.6 % 1 applic TOPICAL TID 07/15/21 08/02/21 History topical ointment (Calmoseptine) pyridostigmine bromide 60 mg tablet 60 mg PO TID 07/15/21 08/14/21 History aspirin 81 mg tablet,delayed 81 mg PO DAILY #0 tab 08/08/21 08/14/21 Rx release (Aspirin Low Dose) carvedilol 25 mg tablet 25 mg PO BID #60 tab 08/08/21 08/14/21 Rx ciprofloxacin HCl 500 mg tablet 500 mg PO BID #6 tab 08/08/21 Rx ferrous sulfate 324 mg (65 mg 324 mg PO BID #60 tab 08/08/21 08/14/21 Rx iron) tablet,delayed release insulin aspart U-100 100 unit/mL See Rx Instructions .ROUTE 08/08/21 08/02/21 Rx (3 mL) subcutaneous pen (Novolog .COMPLEX #15 ml Flexpen U-100 Insulin aspart) metronidazole 500 mg tablet 500 mg PO TID #9 tab 08/08/21 Rx prednisone 5 mg tablet 5 mg PO .COMPLEX 08/14/21 08/14/21 History Patient History Medical History Anemia Bilateral leg edema BPH (benign prostatic hyperplasia) Diabetes mellitus Diabetic polyneuropathy GERD (gastroesophageal reflux disease) GI bleed Hypertension Hypothyroid Myasthenia gravis Syncope Surgical History AICD (automatic cardioverter/defibrillator) present H/O heart surgery Family History Other Diabetes Heart disease Hypertension Social History Smoking Status: Former smoker Second Hand Exposure: No; Hx Alcohol Use: No Hx Substance Use: No Preferred Language: Algerian Communication Ability: Effective Hearing Ability: Normal Packaging Manager Required: No Beliefs That Will Affect Care: None marital status: Unknown Current Living Situation: Personal Care Facility Current Living Situation Comment: ASSISTED LIVING AT [facility] Feels Safe at Home: Yes Assistive Devices: Walker Results & Data ([facility]) Vital Signs (Past 12 Hours) Vital Signs Temp Pulse Pulse Pulse Resp BP BP 08/05/21 19:46 69 08/05/21 18:12 36.8 C 72 18 129/61 08/05/21 18:11 88 117/77 08/05/21 18:10 88 117/77 08/05/21 18:00 88 117/77 08/05/21 17:12 36.4 C L 68 18 164/91 H 08/05/21 16:12 37 C 70 18 161/55 H 08/05/21 15:42 37.1 C 80 18 151/72 H 08/05/21 15:27 37 C 18 162/74 H 08/05/21 15:22 37 C 74 18 162/94 H 08/05/21 15:08 36.5 C 81 18 153/62 H 08/05/21 13:43 37.2 C 65 18 158/60 H 08/05/21 12:43 36.8 C 67 18 145/72 H 08/05/21 11:59 36.8 C 63 18 161/74 H 08/05/21 11:43 37.2 C 73 18 136/77 08/05/21 11:13 36.8 C 63 18 147/63 H 08/05/21 10:58 36.9 C 62 18 120/46 L 08/05/21 10:38 36.6 C 53 L 18 159/66 H Pulse Ox 08/05/21 19:46 08/05/21 18:12 98 08/05/21 18:11 08/05/21 18:10 08/05/21 18:00 97 08/05/21 17:12 98 08/05/21 16:12 98 08/05/21 15:42 97 08/05/21 15:27 94 08/05/21 15:22 94 08/05/21 15:08 94 08/05/21 13:43 98 08/05/21 12:43 99 08/05/21 11:59 95 08/05/21 11:43 95 08/05/21 11:13 93 08/05/21 10:58 98 08/05/21 10:38 97 PG Care Time/CCT Total # of Minutes Spent Total Time Spent with Patient: Total time spent is greater than 50% in coordination of care (as documented) at patient's floor/unit and/or counseling patient: Coding Level of Care Code 18937 Initial Inpt Care Lvl 3 Diagnoses Syncope R55 Ventricular tachycardia I47.2 Cardiomyopathy I42.9
--- NOTE | 2021-08-05 21:36 | Critical Care Consultation ---
Date of Consultation August 05, 2021 Assessment & Plan (1) Admitted to intensive care unit: Reason Critically Ill: 80-year-old male with ongoing lower GI bleeding and episodes of V. tach requiring close hemodynamic monitoring in the setting of new dysrhythmia and concerning ongoing GI bleed. NEURO - * CAM ICU: NEGATIVE * Myasthenia gravis: * Recent diagnosis. * Continue with daily prednisone. CARDIAC/VASCULAR - * Recurrent V. tach: * Patient with AICD in place. * Interrogated at bedside by cardiology. * Settings changed to help override/cardiovert in the event of sustained V. tach. * Hold on antirheumatics at the recommendation of cardiology. * Hypertension: Continue home medications as tolerated. * Monitor on telemetry. RESPIRATORY - * No history of pulmonary disease. * Saturating well on room air. GI/NUTRITION - * Lower gastrointestinal bleeding: * Ongoing melanotic stools. * Drop in H&H earlier today. * Plan for repeat colonoscopy tomorrow. * Diverticulitis: * Continue with IV Zosyn. * Prophylaxis: Protonix RENAL/LYTES - * BEKA: * Likely secondary to transient episodes of hypotension with anemia. * Monitor for improvement pending transfusion. - * History of BPH ENDO - * DMII: * BSGs per unit protocol. ISS --> gtt per unit policy. * Hypothyroidism: * Continue home Levothyroxine dosing. HEME - * Gastrointestinal Hemorrhage: * Likely from Lower GI source. * Worsening bleeding earlier today. * Continue to transfuse PRBCs as needed. ID - * Diverticulitis: * Continue IV Zosyn in the acutely ill setting. * Patient w/o significant abdominal pain. * No need for repeat imaging currently. LINES/IV ACCESS - * PIVs x2 DVT PROPHYLAXIS - * Hold on chemoprophylaxis in the setting of GIB * SCDs I have personally spent 35 minutes of critical care time in the direct management of this patient. This is a life/limb threatening event. This includes time spent evaluating patient, direct bedside care, chart review, placing orders, interpretation of diagnostic studies, discussion with consultants, patient, and family members, as well as other required patient management activ ities. This time is exclusive of all separately billable procedures, and teaching time and separate from and in addition to any other critical care service time. Thank you for allowing us to participate in the care of this patient. Please refer to my attending physician's documentation for any further recommendations. (2) Ventricular tachycardia: (3) Syncope: (4) Melena: (5) Sigmoid diverticulitis: (6) Myasthenia gravis: (7) Hypothyroid: (8) Diabetes mellitus: History of Present Illness Attending Physician: David Edwards DO History of Present Illness Patient is an 80-year-old male with a past medical history of diabetes, hypertension, BPH, hypothyroidism, and GERD. Patient developed bright red blood per rectum around the date of 08/02. He presented to the emergency department and was noted to have possible colitis on CT. While in the emergency department and weight admission, the patient had an episode of syncope with loss of consciousness. Patient received "a few" chest compressions prior to patient waking. Patient received packed cells at this point. Patient underwent EGD without acute findings. Colonoscopy demonstrated polyps, however he was unable to tolerate bowel prep secondary to nausea and vomiting. Patient had an episode of syncope while on the toilet yesterday while admitted in the third floor. Throughout the day, the patient had a substantial drop in his H&H. He had ongoing melanotic bowel movements. He was seen again by GI and the plan is for additional bowel prep with colonoscopy to be performed tomorrow. Unfortunately, the patient had a few isolated runs of V. tach of which the patient was asymptomatic. Given the patient's instability and bleeding, it was felt best the patient be moved to the ICU for ongoing management. Cardiology was consulted with need for interrogation of patient's current pacemaker. Cardiology did evaluate the patient and adjusted baseline settings to help hopefully prevent returns of V. tach. We will hold on antirheumatics at this point. Upon evaluation in the ICU, the patient is awake, alert, and oriented. He states that he feels lightheaded with changes in position. Otherwise, he denies complaints of chest pain, palpitations, shortness of breath, nausea, vomiting, or abdominal discomfort. Allergies Allergy/AdvReac Type Severity Reaction Status Date / Time lisinopril Allergy Unknown Unknown Verified 08/03/21 08:42 Home Medications Medication Instructions Recorded Confirmed Type acetaminophen 325 mg tablet 650 mg PO Q4H PRN 06/15/21 08/02/21 History aspirin 81 mg tablet,delayed 81 mg PO DAILY 06/15/21 08/02/21 History release (Aspirin Low Dose) carboxymethylcellulose sodium 0.5 1 drp OPHTHALMIC (EYE) 6XD PRN 06/15/21 09/0 12/22 History % eye drops ferrous sulfate 324 mg (65 mg 324 mg PO 3XWK 06/15/21 08/02/21 History iron) tablet,delayed release finasteride 5 mg tablet 5 mg PO DAILY 06/15/21 08/02/21 History fluticasone propionate 50 1 spray INTRANASAL BID PRN 06/15/21 08/02/21 History mcg/actuation nasal spray,suspension insulin glargine 100 unit/mL 10 unit SUBCUT BID 06/15/21 08/02/21 History subcutaneous solution (Lantus U-100 Insulin) ketoconazole 2 % shampoo 1 ea TOPICAL 3XWK 06/15/21 08/02/21 History levothyroxine 88 mcg tablet 88 mcg PO DAILY 06/15/21 08/02/21 History losartan 100 mg tablet 100 mg PO DAILY 06/15/21 08/02/21 History melatonin 3 mg tablet 3 mg PO HS PRN 06/15/21 08/02/21 History omega 3-tem-dnc-fish oil 1,000 mg 1 cap PO BID 06/15/21 08/02/21 History (120 mg-180 mg) capsule (Fish Oil) omeprazole 20 mg capsule,delayed 20 mg PO BID 06/15/21 08/02/21 History release tamsulosin 0.4 mg capsule 0.4 mg PO BID 06/15/21 08/02/21 History terbinafine HCl 1 % topical cream 1 applic TOPICAL BID 06/15/21 08/02/21 History vit C 250 mg-vit E 90 mg-zinc 40 1 tab PO BID 06/15/21 08/02/21 History mg-copper 1 [id number] capsule (PreserVision AREDS-2) carvedilol 12.5 mg tablet 12.5 mg PO BID #60 tab 06/27/21 08/02/21 Rx docusate sodium 100 mg capsule 100 mg PO BID 07/15/21 08/02/21 History (Stool Softener) furosemide 20 mg tablet (Lasix) 20 mg PO DAILY 07/15/21 08/02/21 History loperamide 2 mg capsule 2 mg PO DIRECTED PRN 07/15/21 08/02/21 History menthol 0.44 %-zinc oxide 20.6 % 1 applic TOPICAL TID 07/15/21 08/02/21 History topical ointment (Calmoseptine) prednisone 5 mg tablet 5 mg PO DAILY 07/15/21 08/02/21 History pyridostigmine bromide 60 mg tablet 60 mg PO TID 07/15/21 08/02/21 History insulin aspart U-100 100 unit/mL See Rx Instructions .ROUTE 07/18/21 08/02/21 Rx (3 mL) subcutaneous pen (Novolog .COMPLEX #15 ml Flexpen U-100 Insulin aspart) Patient History Medical History Anemia Bilateral leg edema BPH (benign prostatic hyperplasia) Diabetes mellitus Diabetic polyneuropathy GERD (gastroesophageal reflux disease) GI bleed Hypertension Hypothyroid Myasthenia gravis Syncope Surgical History AICD (automatic cardioverter/defibrillator) present H/O heart surgery Family History Other Diabetes Heart disease Hypertension Social History Smoking Status: Former smoker Second Hand Exposure: No; Hx Alcohol Use: No Hx Substance Use: No Preferred Language: Turkmen Communication Ability: 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 All else were negative. Physical Exam Physical Exam: VITAL SIGNS - Vital signs and nursing notes were reviewed. GENERAL - 80-year-old male appearing his stated age who is in no acute distress. Communicates well with provider and answers questions appropriately. SKIN - Without rashes. HEAD - NC/AT. EYES - PERRL with EOMI bilaterally. Sclera anicteric. Palpebral conjunctiva pink and moist with no injection noted. EARS - No deformities of external structures noted on gross examination bilaterally. NOSE - Midline and without cyanosis. No epistaxis or purulent drainage noted. MOUTH/OROPHARYNX - Without perioral cyanosis. Buccal mucosa pink and moist and without leukoplakia. NECK - Neck with FROM. No nuchal rigidity. LUNGS - Chest wall symmetric without accessory muscle use, intercostals retractions, or central cyanosis. Normal vesicular breath sounds CTA B/L. No wheezes, rales, or rhonchi appreciated. CARDIAC - RRR with S1/S2. No murmur, rubs, or gallops appreciated. ABDOMEN - Abdominal contour obese without pulsations or visible masses. BS normoactive all four quadrants. Mild TTP in the lower abdomen. No palpable masses, hepatosplenomegaly, or ascites noted. EXTREMITIES - No clubbing or peripheral cyanosis. No pretibial edema present. +3/5 radial and dorsalis pedis pulses palpated throughout. +4/5 strength noted in UE/LE bilaterally. NEUROLOGIC - Cranial nerves II through XII grossly intact. PSYCH - A&Ox3 and cooperates fully with examiner. Pt is very pleasant and interacts well with examiner. Results & Data Results & Data ([facility]) Vital Signs (Past 12 Hours) Vital Signs Temp Pulse Pulse Pulse Resp BP BP 08/05/21 19:46 69 08/05/21 18:12 36.8 C 72 18 129/61 08/05/21 18:11 88 117/77 08/05/21 18:10 88 117/77 08/05/21 18:00 88 117/77 08/05/21 17:12 36.4 C L 68 18 164/91 H 08/05/21 16:12 37 C 70 18 161/55 H 08/05/21 15:42 37.1 C 80 18 151/72 H 08/05/21 15:27 37 C 18 162/74 H 08/05/21 15:22 37 C 74 18 162/94 H 08/05/21 15:08 36.5 C 81 18 153/62 H 08/05/21 13:43 37.2 C 65 18 158/60 H 08/05/21 12:43 36.8 C 67 18 145/72 H 08/05/21 11:59 36.8 C 63 18 161/74 H 08/05/21 11:43 37.2 C 73 18 136/77 08/05/21 11:13 36.8 C 63 18 147/63 H 08/05/21 10:58 36.9 C 62 18 120/46 L 08/05/21 10:38 36.6 C 53 L 18 159/66 H Pulse Ox 08/05/21 19:46 08/05/21 18:12 98 08/05/21 18:11 08/05/21 18:10 08/05/21 18:00 97 08/05/21 17:12 98 08/05/21 16:12 98 08/05/21 15:42 97 08/05/21 15:27 94 08/05/21 15:22 94 08/05/21 15:08 94 08/05/21 13:43 98 08/05/21 12:43 99 08/05/21 11:59 95 08/05/21 11:43 95 08/05/21 11:13 93 08/05/21 10:58 98 08/05/21 10:38 97 Coding Level of Care Code Critical Care 1st 30-74 mins Diagnoses Admitted to intensive care unit Z78.9 Ventricular tachycardia I47.2 Syncope R55 Melena K92.1 Sigmoid diverticulitis K57.32 Myasthenia gravis G70.00 Hypothyroid E03.9 Diabetes mellitus E11.9 Time Spent (min) 35
[2021-08-05] MEDS: INSULIN GLARGINE SOLOSTAR 100 UNITS/ML 3 ML PEN SC SCH (22:04)
[2021-08-05] MEDS ORDERED: MAGNESIUM CITRATE 296 ML/BTL PO ONE (23:15)
[2021-08-06] MEDS: INSULIN ASPART 100 UNITS/ML 3 ML PEN SC SCH ×5 (00:30→21:06)
[2021-08-06 00:36] LABS: Hematocrit (blood only) 29.2 % (42-52); Hemoglobin 9.8 g/dL (14.0-18.0)
[2021-08-06] MEDS: PIPERACILLIN/TAZOBACTAM 3.375 GM in DEXTROSE 5% 100 ML IV SCH ×3 (04:55→20:58)
[2021-08-06] MEDS: LEVOTHYROXINE SODIUM 88 MCG TABLET PO SCH (05:02)
[2021-08-06 05:14] LABS: Hematocrit (blood only) 28.2 % (42-52); Hemoglobin 9.7 g/dL (14.0-18.0); Mean Corpuscular Hemoglobin 30.2 pg (25-34); Mean Corpuscular Hgb Conc 34.4 g/dL (32-36); Mean Corpuscular Volume 87.9 fL (80-100); Mean Platelet Volume 8.5 fL (7.4-10.4); Platelet Count 294 K/uL (130-400); RDW Coefficient of Variation 16.8 % (11.5-14.5); RDW Standard Deviation 53.5 fL (36.4-46.3); Red Blood Count 3.21 M/uL (4.7-6.1); White Blood Count 6.32 K/uL (4.8-10.8)
[2021-08-06 05:30] LABS: Prothrombin Time 10.5 Seconds (9.0-12.0)
[2021-08-06 05:33] LABS: Calcium 7.7 mg/dl (8.5-10.1); Creatinine Clr Calc Pharmacy 59.8 ml/min; Est GFR (African American) 78.2 ml/min; Est GFR (Non-African American) 67.5 ml/min; Magnesium 2.1 mg/dl (1.8-2.4); Phosphorus 2.8 mg/dl (2.5-4.9)
--- NOTE | 2021-08-06 06:59 | History & Physical Bridge Note ---
Date of Service August 06, 2021 History & Physical Bridge Note I have examined the patient, reviewed the History & Physical and in the interval since the performance of the History & Physical I have noted the following changes of clinical significance: no changes noted proceed with colonoscopy. risks/benefits and procedure discussed with patient, who agrees to proceed
--- NOTE | 2021-08-06 07:05 | Anesthesiology Consultation ---
Date of Service August 06, 2021 Assessment & Plan Chart Review Chart Review: Acceptable Risk for Surgery and Patient NOT seen in Pre Admission Testing Consults Requested none ASA ASA4 Proposed Anesthesia Anesthesia Type: MAC Risk / Benefits Reviewed With: PT / POA / Parent / Guardian, Accepts Plan and Informed Consent Obtained Additional Comments: covid test negative History Surgery Operation Date: 08/02/21 12:35 Proposed Procedures p Esophagogastroduodenoscopy Abraham Edwards MD Operation Date: 08/03/21 17:15 Proposed Procedures p Colonoscopy Dr. Grace Edwards MD Operation Date: 08/06/21 07:15 Proposed Procedures p Colonoscopy Abraham Edwards MD Height/Weight Height: 5 ft 8 in Weight: 81.9 kg Allergies Allergy/AdvReac Type Severity Reaction Status Date / Time lisinopril Allergy Unknown Unknown Verified 08/03/21 08:42 Medications Home Medications Medication Instructions Recorded Confirmed Last Taken acetaminophen 325 mg tablet 650 mg PO Q4H PRN 06/15/21 08/02/21 Unknown aspirin 81 mg tablet,delayed 81 mg PO DAILY 06/15/21 08/02/21 07/15/21 release (Aspirin Low Dose) carboxymethylcellulose sodium 0.5 1 drp OPHTHALMIC (EYE) 6XD PRN 06/15/21 08/02/21 Unknown % eye drops ferrous sulfate 324 mg (65 mg 324 mg PO 3XWK 06/15/21 08/02/21 07/14/21 iron) tablet,delayed release finasteride 5 mg tablet 5 mg PO DAILY 06/15/21 08/02/21 07/15/21 fluticasone propionate 50 1 spray INTRANASAL BID PRN 06/15/21 08/02/21 Unknown mcg/actuation nasal spray,suspension insulin glargine 100 unit/mL 10 unit SUBCUT BID 06/15/21 08/02/21 07/15/21 subcutaneous solution (Lantus U-100 Insulin) ketoconazole 2 % shampoo 1 ea TOPICAL 3XWK 06/15/21 08/02/21 07/14/21 levothyroxine 88 mcg tablet 88 mcg PO DAILY 06/15/21 08/02/21 07/15/21 losartan 100 mg tablet 100 mg PO DAILY 06/15/21 08/02/21 07/15/21 melatonin 3 mg tablet 3 mg PO HS PRN 06/15/21 08/02/21 Unknown omega 2-qwl-yax-fish oil 1,000 mg 1 cap PO BID 06/15/21 08/02/21 07/15/21 (120 mg-180 mg) capsule (Fish Oil) omeprazole 20 mg capsule,delayed 20 mg PO BID 06/15/21 08/02/21 07/15/21 release tamsulosin 0.4 mg capsule 0.4 mg PO BID 06/15/21 08/02/21 07/15/21 terbinafine HCl 1 % topical cream 1 applic TOPICAL BID 06/15/21 08/02/21 07/15/21 vit C 250 mg-vit E 90 mg-zinc 40 1 tab PO BID 06/15/21 08/02/21 07/15/21 mg-copper 1 [id number] capsule (PreserVision AREDS-2) carvedilol 12.5 mg tablet 12.5 mg PO BID #60 tab 06/27/21 08/02/21 07/15/21 docusate sodium 100 mg capsule 100 mg PO BID 07/15/21 08/02/21 07/15/21 (Stool Softener) furosemide 20 mg tablet (Lasix) 20 mg PO DAILY 07/15/21 08/02/21 07/15/21 loperamide 2 mg capsule 2 mg PO DIRECTED PRN 07/15/21 08/02/21 Unknown menthol 0.44 %-zinc oxide 20.6 % 1 applic TOPICAL TID 07/15/21 08/02/21 07/15/21 topical ointment (Calmoseptine) prednisone 5 mg tablet 5 mg PO DAILY 07/15/21 08/02/21 07/15/21 pyridostigmine bromide 60 mg tablet 60 mg PO TID 07/15/21 08/02/21 07/15/21 insulin aspart U-100 100 unit/mL See Rx Instructions .ROUTE 07/18/21 08/02/21 Unknown (3 mL) subcutaneous pen (Novolog .COMPLEX #15 ml Flexpen U-100 Insulin aspart) Active Medications Generic Name Dose Route Start Last Admin Trade Name Freq PRN Reason Stop Dose Admin Carvedilol 12.5 mg 08/02/21 15:06 08/04/21 20:55 Carvedilol 12.5 Mg Tab PO 09/01/21 15:05 12.5 mg BID DINORAH Administration Finasteride 5 mg 08/05/21 09:00 08/05/21 08:07 Finasteride 5 Mg Tab PO 09/04/21 08:59 5 mg DAILY DINORAH Administration Furosemide 20 mg 08/03/21 09:00 08/04/21 08:29 Furosemide 20 Mg Tab PO 09/02/21 08:59 20 mg DAILY DINORAH Administration Piperacillin Sod/Tazobactam 115 mls @ 28.75 mls/hr 08/02/21 20:00 08/06/21 04:55 Sod 3.375 gm/ Dextrose IV 08/12/21 19:59 28.8 mls/hr Q8H DINORAH Administration Protocol Insulin Aspart 0 units 08/05/21 12:00 08/06/21 05:51 Insulin Aspart 100 Units/Ml 3 Ml Pen SC 09/04/21 11:59 Not Given Q6 DINORAH Protocol Levothyroxine Sodium 88 mcg 08/03/21 06:30 08/06/21 05:02 Levothyroxine Sodium 88 Mcg Tablet PO 09/02/21 06:29 88 mcg DAILYBB DINORAH Administration Losartan Potassium 100 mg 08/02/21 15:06 08/04/21 08:32 Losartan Potassium 50 Mg Tab PO 09/01/21 15:05 100 mg DAILY DINORAH Administration Multivitamins/Minerals 1 tab 08/03/21 09:00 08/05/21 08:08 Cerovite Adv Formula Tab PO 09/02/21 08:59 1 tab DAILY DINORAH Administration Pantoprazole Sodium 40 mg 08/03/21 09:00 08/05/21 08:08 Pantoprazole 40 Mg Tab PO 09/02/21 08:59 40 mg QAM DINORAH Administration Prednisone 5 mg 08/03/21 09:00 08/05/21 08:08 Prednisone 5 Mg Tab PO 09/02/21 08:59 5 mg DAILY DINORAH Administration Pyridostigmine [place] 60 mg 08/02/21 15:06 08/05/21 22:01 Pyridostigmine [place] 60 Mg Tab PO 09/01/21 15:05 60 mg TID DINORAH Administration Tamsulosin HCl 0.4 mg 08/02/21 21:00 08/05/21 22:01 Tamsulosin Hcl 0.4 Mg Cap PO 09/01/21 20:59 0.4 mg BID DINORAH Administration NPO Date Last Intake of Fluids: 08/01/21 Time Last Intake of Fluids: 22:00 Date Last Intake of Solids: 08/01/21 Time Last Intake of Solids: 22:00 Past Medical History Medical History Anemia Bilateral leg edema BPH (benign prostatic hyperplasia) Diabetes mellitus Diabetic polyneuropathy GERD (gastroesophageal reflux disease) GI bleed Hypertension Hypothyroid Myasthenia gravis Syncope Exercise / Class Metabolic Activity III < 4 Walking/Shop/Light housework Past Family History Family History Other Diabetes Heart disease Hypertension Past Surgical History Surgical History AICD (automatic cardioverter/defibrillator) present H/O heart surgery Past Anesthesia History No Hx of Anesthesia Complications and No Family Hx of Anesthesia Complications History of PONV No Hx of PONV and No Hx of Motion Sickness Social History Smoking Status: Former smoker tobacco type: cigarettes Do You Dip or Chew Tobacco: No Hx Alcohol Use: No Alcohol type: wine alcohol intake frequency: a few times a month Hx Substance Use: No substance use type: does not use Physical Exam Vital Signs Last Vital Signs Temp 36.8 C 08/05/21 18:12 Pulse 68 08/06/21 05:38 Resp 20 08/06/21 05:38 BP 161/83 H 08/06/21 05:38 Pulse Ox 100 08/06/21 05:38 Constitutional + obese ENMT Mouth: no dentition abnormality Thyromental Distance: > or= 3.5 Finger Breadths Mallampati Class: II Neck normal visual inspection and trachea midline; neck extension not limited Respiratory normal respiratory effort Auscultation: lungs clear to auscultation bilaterally Cardiovascular Rate/Rhythm: regular rate and regular rhythm Heart Sounds: no murmur Vessels: no carotid bruit Musculoskeletal Spine: normal cervical ROM Neurologic moves all extremities Motor/Sensory: no sensory deficit Psychiatric Orientation: alert and oriented x 3 Testing Laboratory Results 08/06/21 05:01 08/06/21 05:01 PT 10.5 Seconds (9.0-12.0) 08/06/21 05:01 INR 1.0 (0.9-1.1) 08/06/21 05:01 APTT 25.8 Seconds (21.0-31.0) 08/02/21 06:15 Hemoglobin A1c 7.5 % (4.5-5.6) H 08/03/21 03:19 Blood Type A Positive 08/05/21 08:09 Antibody Screen NEGATIVE 08/05/21 08:09 08/06/21 08/06/21 08/05/21 05:00 00:22 21:28 POC Glucose 113 H 108 H 176 H Electrocardiogram Date: 08/05/21 Findings: + pertinent finding (A paced V sensed rhythm @ 69) Chest X-Ray Date: 08/03/21 Findings: + NAD and + other (Left sided AICD in place) Echocardiogram Date: 06/16/21 EF: 50% LV Function: normal RWMA: + none Valvular Disease: + no significant valvular disease and + pertinent finding (Limited study)
[2021-08-06] MEDS: POTASSIUM CHLORIDE / WTR 10 MEQ/100 ML PLCT IV SCH ×4 (07:28→13:11)
--- NOTE | 2021-08-06 08:13 | Critical Care Progress Note ---
Date of Service August 06, 2021 Assessment & Plan (1) Admitted to intensive care unit: Plan: Reason Critically Ill: 80-year-old male with ongoing lower GI bleeding and episodes of V. tach requiring close hemodynamic monitoring in the setting of new dysrhythmia and concerning ongoing GI bleed. NEURO - * CAM ICU: NEGATIVE * Myasthenia gravis: * Recent diagnosis. * Continue with daily prednisone. CARDIAC/VASCULAR - * Recurrent V. tach: * Patient with AICD in place. * Interrogated at bedside by cardiology. * Settings changed to help override/cardiovert in the event of sustained V. tach. * Hold on antirheumatics at the recommendation of cardiology. * Hypertension: Continue home medications as tolerated. * Monitor on telemetry. RESPIRATORY - * No history of pulmonary disease. * Saturating well on room air. GI/NUTRITION - * Lower gastrointestinal bleeding: * Ongoing melanotic stools. * Drop in H&H treated with blood transfusion * Diverticulitis: * Continue with IV Zosyn. * Prophylaxis: Protonix RENAL/LYTES - * BEKA: * Likely secondary to transient episodes of hypotension with anemia. * Monitor for improvement pending transfusion. - * History of BPH ENDO - * DMII: * BSGs per unit protocol. ISS --> gtt per unit policy. * Hypothyroidism: * Continue home Levothyroxine dosing. HEME - * Gastrointestinal Hemorrhage: * Likely from Lower GI source. * Worsening bleeding earlier today. * Continue to transfuse PRBCs as needed. ID - * Diverticulitis: * Continue IV Zosyn in the acutely ill setting. * Patient w/o significant abdominal pain. * No need for repeat imaging currently. LINES/IV ACCESS - * PIVs x2 DVT PROPHYLAXIS - * Hold on chemoprophylaxis in the setting of GIB * SCDs (2) Ventricular tachycardia: (3) Syncope: (4) Melena: (5) Sigmoid diverticulitis: (6) Myasthenia gravis: (7) Hypothyroid: (8) Diabetes mellitus: Admission and Anticipated Discharge Date Admission Date: August 02, 2021 Supervising Physician Co-Signing Physician Notes I have personally spent 35 minutes of critical care time in the direct management of this patient. This is a life/limb threatening event. This includes time spent evaluating patient, direct bedside care, chart review, placing orders, interpretation of diagnostic studies, discussion with consultants, patient, and/or family members regarding treatment decisions, as well as other required patient management activities. This time is exclusive of all separately billable procedures, and teaching time and separate from and in addition to any other critical care service time. Subjective Overnight received 2 units packed red blood cells. Went to GI suite this morning, reported that they placed some clips however no significant bleeding was noted. Patient still being recovered from procedural sedation Physical Exam Physical Exam: General: Drowsy. nontoxic. Skin: Warm, dry, Head: Atraumatic Ears, nose, mouth and throat: airway patent Cardiovascular: Normal peripheral perfusion Respiratory: no respiratory distress Gastrointestinal: Non distended Musculoskeletal: No deformity Results & Data Results & Data ([facility]) Vital Signs (Past 12 Hours) Vital Signs Pulse Resp BP Pulse Ox Pulse Ox 08/06/21 05:38 68 20 161/83 H 100 08/06/21 05:09 74 18 149/80 H 98 08/06/21 04:38 67 16 144/71 H 98 08/06/21 04:08 69 14 172/75 H 96 08/06/21 03:38 67 14 163/65 H 94 08/06/21 03:08 65 13 138/77 95 08/06/21 02:38 64 13 143/67 H 94 08/06/21 02:09 67 15 190/92 H 97 08/06/21 01:38 71 21 142/93 H 98 08/06/21 01:08 68 16 148/77 H 96 08/06/21 00:38 68 16 163/75 H 97 08/06/21 00:08 73 16 163/74 H 99 08/05/21 23:38 67 14 146/93 H 95 08/05/21 23:09 70 19 155/71 H 98 08/05/21 23:00 95 08/05/21 22:38 77 15 133/70 95 08/05/21 22:08 77 21 156/64 H 99 08/05/21 21:38 66 14 143/66 H 98 08/05/21 21:08 69 17 150/67 H 94 08/05/21 20:38 69 17 144/62 H 99 Laboratory Results 08/06/21 08/06/21 08/06/21 Range/Units 05:01 05:01 05:01 WBC 6.32 (4.8-10.8) K/uL RBC 3.21 L (4.7-6.1) M/uL Hgb 9.7 L (14.0-18.0) g/dL Hct 28.2 L (42-52) % MCV 87.9 D (80-100) fL MCH 30.2 (25-34) pg MCHC 34.4 (32-36) g/dL RDW Std Deviation 53.5 H (36.4-46.3) fL RDW Coeff of Dinorah 16.8 H (11.5-14.5) % Plt Count 294 (130-400) K/uL MPV 8.5 (7.4-10.4) fL PT 10.5 (9.0-12.0) Seconds INR 1.0 (0.9-1.1) Sodium 144 (136-145) mmol/L Potassium 3.0 L (3.5-5.1) mmol/L Chloride 113 H (98-107) mmol/L Carbon Dioxide 28 (21-32) mmol/L Anion Gap 3.0 (3-11) BUN 15 (7-18) mg/dl Creatinine 1.04 (0.6-1.4) mg/dl Est Cr Clr Drug Dosing 59.8 ml/min Est GFR ( Amer) 78.2 ml/min Est GFR (Non-Af Amer) 67.5 ml/min BUN/Creatinine Ratio 14.0 (10-20) Glucose 100 H (70-99) mg/dl POC Glucose (70-99) mg/dl Calcium 7.7 L (8.5-10.1) mg/dl Phosphorus 2.8 (2.5-4.9) mg/dl Magnesium 2.1 (1.8-2.4) mg/dl Nasal Screen MRSA (PCR) (Negative) Blood Type Antibody Screen Crossmatch 08/06/21 08/06/21 08/06/21 Range/Units 05:00 00:22 00:20 WBC (4.8-10.8) K/uL RBC (4.7-6.1) M/uL Hgb 9.8 L (14.0-18.0) g/dL Hct 29.2 L (42-52) % MCV (80-100) fL MCH (25-34) pg MCHC (32-36) g/dL RDW Std Deviation (36.4-46.3) fL RDW Coeff of Dinorah (11.5-14.5) % Plt Count (130-400) K/uL MPV (7.4-10.4) fL PT (9.0-12.0) Seconds INR (0.9-1.1) Sodium (136-145) mmol/L Potassium (3.5-5.1) mmol/L Chloride (98-107) mmol/L Carbon Dioxide (21-32) mmol/L Anion Gap (3-11) BUN (7-18) mg/dl Creatinine (0.6-1.4) mg/dl Est Cr Clr Drug Dosing ml/min Est GFR ( Amer) ml/min Est GFR (Non-Af Amer) ml/min BUN/Creatinine Ratio (10-20) Glucose (70-99) mg/dl POC Glucose 113 H 108 H (70-99) mg/dl Calcium (8.5-10.1) mg/dl Phosphorus (2.5-4.9) mg/dl Magnesium (1.8-2.4) mg/dl Nasal Screen MRSA (PCR) (Negative) Blood Type Antibody Screen Crossmatch 08/05/21 08/05/21 08/05/21 Range/Units Unknown 21:28 20:15 WBC (4.8-10.8) K/uL RBC (4.7-6.1) M/uL Hgb 10.4 L D (14.0-18.0) g/dL Hct 31.5 L (42-52) % MCV (80-100) fL MCH (25-34) pg MCHC (32-36) g/dL RDW Std Deviation (36.4-46.3) fL RDW Coeff of Dinorah (11.5-14.5) % Plt Count (130-400) K/uL MPV (7.4-10.4) fL PT (9.0-12.0) Seconds INR (0.9-1.1) Sodium (136-145) mmol/L Potassium (3.5-5.1) mmol/L Chloride (98-107) mmol/L Carbon Dioxide (21-32) mmol/L Anion Gap (3-11) BUN (7-18) mg/dl Creatinine (0.6-1.4) mg/dl Est Cr Clr Drug Dosing ml/min Est GFR ( Amer) ml/min Est GFR (Non-Af Amer) ml/min BUN/Creatinine Ratio (10-20) Glucose (70-99) mg/dl POC Glucose 176 H (70-99) mg/dl Calcium (8.5-10.1) mg/dl Phosphorus (2.5-4.9) mg/dl Magnesium (1.8-2.4) mg/dl Nasal Screen MRSA (PCR) Negative (Negative) Blood Type Antibody Screen Crossmatch 08/05/21 08/05/21 08/05/21 Range/Units 16:21 11:58 08:09 WBC (4.8-10.8) K/uL RBC (4.7-6.1) M/uL Hgb (14.0-18.0) g/dL Hct (42-52) % MCV (80-100) fL MCH (25-34) pg MCHC (32-36) g/dL RDW Std Deviation (36.4-46.3) fL RDW Coeff of Dinorah (11.5-14.5) % Plt Count (130-400) K/uL MPV (7.4-10.4) fL PT (9.0-12.0) Seconds INR (0.9-1.1) Sodium (136-145) mmol/L Potassium (3.5-5.1) mmol/L Chloride (98-107) mmol/L Carbon Dioxide (21-32) mmol/L Anion Gap (3-11) BUN (7-18) mg/dl Creatinine (0.6-1.4) mg/dl Est Cr Clr Drug Dosing ml/min Est GFR ( Amer) ml/min Est GFR (Non-Af Amer) ml/min BUN/Creatinine Ratio (10-20) Glucose (70-99) mg/dl POC Glucose 204 H 225 H (70-99) mg/dl Calcium (8.5-10.1) mg/dl Phosphorus (2.5-4.9) mg/dl Magnesium (1.8-2.4) mg/dl Nasal Screen MRSA (PCR) (Negative) Blood Type A Positive Antibody Screen NEGATIVE Crossmatch See Detail 08/02/21 Range/Units 06:15 WBC (4.8-10.8) K/uL RBC (4.7-6.1) M/uL Hgb (14.0-18.0) g/dL Hct (42-52) % MCV (80-100) fL MCH (25-34) pg MCHC (32-36) g/dL RDW Std Deviation (36.4-46.3) fL RDW Coeff of Dinorah (11.5-14.5) % Plt Count (130-400) K/uL MPV (7.4-10.4) fL PT (9.0-12.0) Seconds INR (0.9-1.1) Sodium (136-145) mmol/L Potassium (3.5-5.1) mmol/L Chloride (98-107) mmol/L Carbon Dioxide (21-32) mmol/L Anion Gap (3-11) BUN (7-18) mg/dl Creatinine (0.6-1.4) mg/dl Est Cr Clr Drug Dosing ml/min Est GFR ( Amer) ml/min Est GFR (Non-Af Amer) ml/min BUN/Creatinine Ratio (10-20) Glucose (70-99) mg/dl POC Glucose (70-99) mg/dl Calcium (8.5-10.1) mg/dl Phosphorus (2.5-4.9) mg/dl Magnesium (1.8-2.4) mg/dl Nasal Screen MRSA (PCR) (Negative) Blood Type Antibody Screen Crossmatch See Detail Coding Level of Care Code Critical Care 1st 30-74 mins Diagnoses Admitted to intensive care unit Z78.9 Ventricular tachycardia I47.2 Syncope R55 Melena K92.1 Sigmoid diverticulitis K57.32 Myasthenia gravis G70.00 Hypothyroid E03.9 Diabetes mellitus E11.9
[2021-08-06] MEDS ORDERED: LIDOCAINE 2% 2 ML VIAL/AMP(20MG/ML) INFIL ONE (08:23)
[2021-08-06] MEDS ORDERED: PROPOFOL IV EMULSION 10 MG/ML 20 ML VIAL IV ONE (08:23)
[2021-08-06] MEDS ORDERED: ePHEDrine sulfate 50 MG/ML AMP IV PRN (08:41)
[2021-08-06] MEDS ORDERED: ATROPINE SULFATE 0.1 MG/ML 10ML SYR IV PRN (08:41)
--- NOTE | 2021-08-06 08:42 | GI REPORT ---
Patient Name: Eamon Florentino Procedure Date: 08/06/2021 7:33 AM Date of : 1940 Admit Type: Inpatient Age: 80 Gender: Male Attending MD: Kristian Edwards MD Procedure: Colonoscopy Providers: Kristian Edwards MD Referring MD: David Edwards Indications: Hematochezia Medicines: Monitored Anesthesia Care Complications: No immediate complications. Estimated blood loss: None. Estimated Blood Loss: Estimated blood loss: none. Procedure: Pre-Anesthesia Assessment: - Prior Anticoagulants: The patient has taken no previous anticoagulant or antiplatelet agents. - ASA Grade Assessment: II - A patient with mild systemic disease. After I obtained informed consent, the scope was passed under direct vision. Throughout the procedure, the patient's blood pressure, pulse, and oxygen saturations were monitored continuously. The Colonoscope was introduced through the anus and advanced to the cecum, identified by appendiceal orifice and ileocecal valve. The colonoscopy was performed without difficulty. The patient tolerated the procedure well. The quality of the bowel preparation was fair. Findings: A localized area of mildly erythematous mucosa was found in the ascending colon. Unclear if this area could have been a bleeding site. To prevent bleeding post-intervention, one hemostatic clip was successfully placed. There was no bleeding at the end of the procedure. Two sessile polyps were found in the ascending colon. The polyps were 3 mm in size. These polyps were removed with a cold snare. Resection and retrieval were complete. To prevent bleeding after the polypectomy, two hemostatic clips were successfully placed. There was no bleeding at the end of the procedure. Estimated blood loss: none. A 2 mm polyp was found in the ascending colon. The polyp was sessile. The polyp was removed with a cold biopsy forceps. Resection and retrieval were complete. Estimated blood loss: none. Multiple small and large-mouthed diverticula were found in the entire colon. Coni-diverticular erythema was seen. No evidence of diverticular bleeding nor blood clots seen. No evidence of active bleeding throughout entire exam. Impression: - Preparation of the colon was fair. - Erythematous mucosa in the ascending colon. Clip was placed. - Two 3 mm polyps in the ascending colon, removed with a cold snare. Resected and retrieved. Clips were placed. - One 2 mm polyp in the ascending colon, removed with a cold biopsy forceps. Resected and retrieved. - Mild diverticulosis in the entire examined colon. Coni-diverticular erythema was seen. suspect his recurrent bleeding was diverticular again in nature Recommendation: - Return patient to hospital [facility] for ongoing care. - Clear liquid diet today. advance diet as tolerated tomorrow if stable - if GI bleeding recurs, would recommend transfer to a tertiary care center for IR angiography with embolization as we have been unable to locate any source of bleeding after two colonoscopies. -avoid NSAIDs -supportive care, trend H/H daily Kristian Edwards MD 08/06/2021 8:41:52 AM This report has been signed electronically. Note Initiated On: 08/06/2021 7:33 AM Number of Addenda: 0 I attest to the content of the Intraoperative Record and orders documented therein, exceptions below {[id number]}
--- NOTE | 2021-08-06 08:43 | Procedure Note ---
Procedure Note Date of Service August 06, 2021 Note GI procedure post op note colonoscopy findings: colon polyps, diverticulosis, no bleeding throughout entire exam Impression: suspect a diverticular bleed that has stopped again. Recs: if bleeds again, transfer to tertiary center for IR embolization clear liquid diet today, advance diet as tolerated tomorrow if stable supportive care, trend H/H avoid NSAIDS Kristian Edwards MD Gastroenterology Coding
--- NOTE | 2021-08-06 09:00 | Anesthesiology Progress Note ---
Date of Service August 06, 2021 Anesthesia Post Procedure Vital Signs Vital Signs: Temp Pulse Pulse Pulse Resp BP BP 08/06/21 08:50 66 20 147/60 H 08/06/21 08:44 36.5 C 69 16 135/53 L 08/06/21 05:38 68 20 161/83 H 08/06/21 05:09 74 18 149/80 H 08/06/21 04:38 67 16 144/71 H 08/06/21 04:08 69 14 172/75 H 08/06/21 03:38 67 14 163/65 H 08/06/21 03:08 65 13 138/77 08/06/21 02:38 64 13 143/67 H 08/06/21 02:09 67 15 190/92 H 08/06/21 01:38 71 21 142/93 H 08/06/21 01:08 68 16 148/77 H 08/06/21 00:38 68 16 163/75 H 08/06/21 00:08 73 16 163/74 H 08/05/21 23:38 67 14 146/93 H 08/05/21 23:09 70 19 155/71 H 08/05/21 23:00 08/05/21 22:38 77 15 133/70 08/05/21 22:08 77 21 156/64 H 08/05/21 21:38 66 14 143/66 H 08/05/21 21:08 69 17 150/67 H 08/05/21 20:38 69 17 144/62 H 08/05/21 20:00 68 8 L 08/05/21 19:46 69 08/05/21 18:12 36.8 C 72 18 129/61 08/05/21 18:11 88 117/77 08/05/21 18:10 88 117/77 08/05/21 18:00 88 08/05/21 17:12 36.4 C L 68 18 164/91 H 08/05/21 16:12 37 C 70 18 161/55 H 08/05/21 15:42 37.1 C 80 18 151/72 H 08/05/21 15:27 37 C 18 162/74 H 08/05/21 15:22 37 C 74 18 162/94 H 08/05/21 15:08 36.5 C 81 18 153/62 H 08/05/21 13:43 37.2 C 65 18 158/60 H 08/05/21 12:43 36.8 C 67 18 145/72 H 08/05/21 11:59 36.8 C 63 18 08/05/21 11:43 37.2 C 73 18 136/77 08/05/21 11:13 36.8 C 63 18 147/63 H 08/05/21 10:58 36.9 C 62 18 120/46 L 08/05/21 10:38 36.6 C 53 L 18 159/66 H BP Pulse Ox Pulse Ox 08/06/21 08:50 100 08/06/21 08:44 100 08/06/21 05:38 100 08/06/21 05:09 98 08/06/21 04:38 98 08/06/21 04:08 96 08/06/21 03:38 94 08/06/21 03:08 95 08/06/21 02:38 94 08/06/21 02:09 97 08/06/21 01:38 98 08/06/21 01:08 96 08/06/21 00:38 97 08/06/21 00:08 99 08/05/21 23:38 95 08/05/21 23:09 98 08/05/21 23:00 95 08/05/21 22:38 95 08/05/21 22:08 99 08/05/21 21:38 98 08/05/21 21:08 94 08/05/21 20:38 99 08/05/21 20:00 08/05/21 19:46 08/05/21 18:12 98 08/05/21 18:11 08/05/21 18:10 08/05/21 18:00 117/77 97 08/05/21 17:12 98 08/05/21 16:12 98 08/05/21 15:42 97 08/05/21 15:27 94 08/05/21 15:22 94 08/05/21 15:08 94 08/05/21 13:43 98 08/05/21 12:43 99 08/05/21 11:59 161/74 H 95 08/05/21 11:43 95 08/05/21 11:13 93 08/05/21 10:58 98 08/05/21 10:38 97 Pain Intensity Buttock: Pain Intensity: 3 Transfer of Care Handoff Completed per policy Notes Mental Status: alert / awake / arousable Patient Amnestic to Procedure: Yes Nausea / Vomiting: adequately controlled Pain: adequately controlled Airway Patency, RR, SpO2: stable & adequate BP & HR: stable & adequate Hydration State: stable & adequate Anesthetic Complications: no major complications apparent
--- NOTE | 2021-08-06 09:14 | Hospitalist Progress Note ---
Date of Service August 06, 2021 Assessment & Plan (1) GI bleed: Plan: EGD on 08/02 with no ulcers, no gastritic, no evidence of bleeding, protonix drip stopped colonoscopy on 08/03 with no bleeding, just showed diverticulitis no signs of bleeding for over 48 hours, transferred to medical floor on 08/04 over night had melena, clots starting around 2am on 08/05 Hb dropped to 6.6 transfused total of three units due to drop in Hb and active hematochezia during the day Hb is 9.6 this morning, appropriate response colonoscopy this morning, no blood seen, likely was a diverticular bleed that has again stopped if he would bleed again would transfer to tertiary care for IR embolization allow clear liquids today (2) Ventricular tachycardia: Plan: on 08/05 he had 3 minutes of ventricular tachycardia at rate of 160's he did have an "uneasy feeling" and light headed toward the end of the episode gave him Lopressor 5mg IV stat and Coreg 12.5mg moved to ICU Dr. Knight evaluated on 08/05 in the evening, he has an ICD but programmed to detect and treat at rate of 170 thus his device did not detect or treat the three minutes of V tach at 160 Dr. Knight reprogrammed device to treat at 155 or greater recommends increasing Coreg to 25mg BID keep on PCU for now, move out of ICU (3) Sigmoid diverticulitis: Plan: evidence of inflammation/infection on CT abdomen/pelvis confirmed on colonoscopy on 08/03 treated with Zosyn IV since admission, day 5 today afebrile, vitals stable WBC is 6.3k, no abdominal pain (4) Syncope: Plan: happened in the ED, he was on the monitor, no V tach or SVT when he had syncope, no pause as he is paced could have been due to pain, bleeding causing vagal episode? has not had further syncope while here, even when he had 3 minutes of V tach on 08/05 PT/OT ordered, he is from [facility] (5) GERD (gastroesophageal reflux disease): Plan: resume Protonix PO no PUD or gastritis seen on EGD (6) Hypothyroid: Plan: Continue levothyroxine 88 mcg daily (7) BPH (benign prostatic hyperplasia): Plan: Continue tamsulosin (8) Anemia: Plan: Chronic anemia Hemoglobin was 10.1 on admission but with GI bleed he is now s/p 5 units of PRBC, Hb is 9.6 this morning (9) Myasthenia gravis: Plan: No acute exacerbation Continue on prednisone 5 mg daily No indication for stress dose steroids at this time (10) Diabetes mellitus: Plan: Poorly controlled -most recent hemoglobin A1c was 10% Glycemic consult with pharmacy - required insulin drip initially transition back to basal and bolus regimen monitor closely (11) Hypertension: Plan: Coreg increased to 25mg BID BP quite high, resume Losartan and Lasix this morning (12) DVT prophylaxis: Plan: Hold all chemical prophylaxis secondary to GI bleed SCDs and NOVA hose ordered Plan: move to [facility], transfuse 2 units, follow up Dr. Edwards recommendations Admission and Anticipated Discharge Date Admission Date: August 02, 2021 Subjective patient seen after colonoscopy this morning, no evidence of bleeding throughout the exam, suspect diverticular bleed if he would bleed again he would need transferred to tertiary care for IR he has no abdominal pain, no chest pain, no dyspnea, no fever / chills no further episodes of ventricular tachycardia, appreciate cardiology consult from last evening currently he is in the 70's on monitor reviewed labs, Hb is 9.6 after three units of blood yesterday will watch in ICU this morning but he can go back to PCU later today if he remains stable called his daughter to update her Review of Systems Review of Systems: All systems reviewed & are unremarkable except as noted in Subjective Constitutional: + fatigue (not sleeping much, lots of interruptions); no fever, no chills, no sweats and no weakness Respiratory: no cough and no dyspnea Cardiovascular: no chest pain and no edema Gastrointestinal: no abdominal pain, no nausea, no vomiting, no constipation, no diarrhea/loose stools, no blood in stools and no melena Physical Exam Constitutional: well developed and well nourished; no acute distress Neck: trachea midline, no thyromegaly Respiratory: normal respiratory effort, lungs clear to auscultation Cardiovascular: RRR, no murmur, no edema Gastrointestinal (Abdomen): Inspection/Auscultation: abdomen normal to inspection and normal bowel sounds; abdomen not distended Percussion/Palpation: abdomen soft; abdomen nontender, no guarding and abdomen not rigid Musculoskeletal: no cyanosis or clubbing, extremities motor strength 5/5 Skin: no rashes, warm and dry no pallor Neurologic: normal touch/pain/proprioception, CN's II-XI intact bilaterally, moves all extremities and awake; no focal motor deficits Psychiatric: A+Ox3, euthymic affect Results & Data Results & Data ([facility]) Vital Signs (Past 12 Hours) Vital Signs Temp Pulse Pulse Resp BP BP Pulse Ox 08/06/21 09:00 36.5 C 64 16 186/75 H 99 08/06/21 08:50 66 20 147/60 H 100 08/06/21 08:44 36.5 C 69 16 135/53 L 100 08/06/21 05:38 68 20 161/83 H 100 08/06/21 05:09 74 18 149/80 H 98 08/06/21 04:38 67 16 144/71 H 98 08/06/21 04:08 69 14 172/75 H 96 08/06/21 03:38 67 14 163/65 H 94 08/06/21 03:08 65 13 138/77 95 08/06/21 02:38 64 13 143/67 H 94 08/06/21 02:09 67 15 190/92 H 97 08/06/21 01:38 71 21 142/93 H 98 08/06/21 01:08 68 16 148/77 H 96 08/06/21 00:38 68 16 163/75 H 97 08/06/21 00:08 73 16 163/74 H 99 08/05/21 23:38 67 14 146/93 H 95 08/05/21 23:09 70 19 155/71 H 98 08/05/21 23:00 08/05/21 22:38 77 15 133/70 95 08/05/21 22:08 77 21 156/64 H 99 08/05/21 21:38 66 14 143/66 H 98 Pulse Ox 08/06/21 09:00 08/06/21 08:50 08/06/21 08:44 08/06/21 05:38 08/06/21 05:09 08/06/21 04:38 08/06/21 04:08 08/06/21 03:38 08/06/21 03:08 08/06/21 02:38 08/06/21 02:09 08/06/21 01:38 08/06/21 01:08 08/06/21 00:38 08/06/21 00:08 08/05/21 23:38 08/05/21 23:09 08/05/21 23:00 95 08/05/21 22:38 08/05/21 22:08 08/05/21 21:38 Laboratory Results Laboratory Results - last 24 hr 08/02/21 08/05/21 08/05/21 06:15 08:09 11:58 WBC RBC Hgb Hct MCV MCH MCHC RDW Std Deviation RDW Coeff of Dinorah Plt Count MPV PT INR Sodium Potassium Chloride Carbon Dioxide Anion Gap BUN Creatinine Est Cr Clr Drug Dosing Est GFR ( Amer) Est GFR (Non-Af Amer) BUN/Creatinine Ratio Glucose POC Glucose 225 H Calcium Phosphorus Magnesium Nasal Screen MRSA (PCR) Blood Type A Positive Antibody Screen NEGATIVE Crossmatch See Detail See Detail 08/05/21 08/05/21 08/05/21 16:21 20:15 21:28 WBC RBC Hgb 10.4 L D Hct 31.5 L MCV MCH MCHC RDW Std Deviation RDW Coeff of Dinorah Plt Count MPV PT INR Sodium Potassium Chloride Carbon Dioxide Anion Gap BUN Creatinine Est Cr Clr Drug Dosing Est GFR ( Amer) Est GFR (Non-Af Amer) BUN/Creatinine Ratio Glucose POC Glucose 204 H 176 H Calcium Phosphorus Magnesium Nasal Screen MRSA (PCR) Blood Type Antibody Screen Crossmatch 08/05/21 08/06/21 08/06/21 Unknown 00:20 00:22 WBC RBC Hgb 9.8 L Hct 29.2 L MCV MCH MCHC RDW Std Deviation RDW Coeff of Dinorah Plt Count MPV PT INR Sodium Potassium Chloride Carbon Dioxide Anion Gap BUN Creatinine Est Cr Clr Drug Dosing Est GFR ( Amer) Est GFR (Non-Af Amer) BUN/Creatinine Ratio Glucose POC Glucose 108 H Calcium Phosphorus Magnesium Nasal Screen MRSA (PCR) Negative Blood Type Antibody Screen Crossmatch 08/06/21 08/06/21 08/06/21 05:00 05:01 05:01 WBC 6.32 RBC 3.21 L Hgb 9.7 L Hct 28.2 L MCV 87.9 D MCH 30.2 MCHC 34.4 RDW Std Deviation 53.5 H RDW Coeff of Dinorah 16.8 H Plt Count 294 MPV 8.5 PT INR Sodium 144 Potassium 3.0 L Chloride 113 H Carbon Dioxide 28 Anion Gap 3.0 BUN 15 Creatinine 1.04 Est Cr Clr Drug Dosing 59.8 Est GFR ( Amer) 78.2 Est GFR (Non-Af Amer) 67.5 BUN/Creatinine Ratio 14.0 Glucose 100 H POC Glucose 113 H Calcium 7.7 L Phosphorus 2.8 Magnesium 2.1 Nasal Screen MRSA (PCR) Blood Type Antibody Screen Crossmatch 08/06/21 05:01 WBC RBC Hgb Hct MCV MCH MCHC RDW Std Deviation RDW Coeff of Dinorah Plt Count MPV PT 10.5 INR 1.0 Sodium Potassium Chloride Carbon Dioxide Anion Gap BUN Creatinine Est Cr Clr Drug Dosing Est GFR ( Amer) Est GFR (Non-Af Amer) BUN/Creatinine Ratio Glucose POC Glucose Calcium Phosphorus Magnesium Nasal Screen MRSA (PCR) Blood Type Antibody Screen Crossmatch Medications Administered Current Inpatient Medications Acetaminophen (Acetaminophen 325 Mg Tab) 650 mg PO Q4H PRN PRN Reason: pain/fever Stop: 09/01/21 15:05 Artificial Tears (Artificial Tears) 1 drops OP .up to 6 times daily PRN PRN Reason: Dry Eye(S) Stop: 09/01/21 15:26 Atropine Sulfate (Atropine Sulfate 0.1 Mg/Ml 10ml Syr) 0.5 mg IV Q1M PRN PRN Reason: PACU Use-HR<40 &/or Bradycardi Stop: 08/06/21 16:41 Carvedilol (Carvedilol 12.5 Mg Tab) 12.5 mg PO BID [facility] Stop: 09/01/21 15:05 Last Admin: 08/04/21 20:55 Dose: 12.5 mg Documented by: Dextrose (Dextrose 50% 50 Ml Syringe) 25 - 50 ml IV UD PRN; Protocol PRN Reason: Hypoglycemia Protocol Stop: 09/01/21 15:05 Ephedrine Sulfate (Ephedrine Sulfate 50 Mg/Ml Amp) 5 mg IV Q5M PRN PRN Reason: PACU Use Only-SBP<90 mmHg Stop: 08/06/21 16:41 Finasteride (Finasteride 5 Mg Tab) 5 mg PO DAILY [facility] Stop: 09/04/21 08:59 Last Admin: 08/05/21 08:07 Dose: 5 mg Documented by: Furosemide (Furosemide 20 Mg Tab) 20 mg PO DAILY [facility] Stop: 09/02/21 08:59 Last Admin: 08/04/21 08:29 Dose: 20 mg Documented by: Glucagon (Glucagon For Inj 1 Mg Vial) 1 mg SQ UD PRN; Protocol PRN Reason: Hypoglycemia Protocol Stop: 09/01/21 15:05 Glucose (Glucose 10 Tabs/Tube) 4 - 8 tabs PO UD PRN; Protocol PRN Reason: Hypoglycemia Protocol Stop: 09/01/21 15:05 Glucose (Glucose 40% Gel 15 Gm Tube) 15 - 30 gm PO UD PRN; Protocol PRN Reason: Hypoglycemia Protocol Stop: 09/01/21 15:05 Piperacillin Sod/Tazobactam (Sod 3.375 gm/ Dextrose) 115 mls @ 28.75 mls/hr IV Q8H DINORAH; Protocol Stop: 08/12/21 19:59 Last Infusion: 08/06/21 09:05 Dose: Infused Documented by: Potassium Chloride (K Jose Luis / Wtr) 10 meq in 100 mls @ 100 mls/hr IV Q1H DINORAH Stop: 08/06/21 10:44 Last Admin: 08/06/21 09:08 Dose: 100 mls/hr Documented by: Insulin Aspart (Insulin Aspart 100 Units/Ml 3 Ml Pen) 0 units SC Q6 DINORAH; Protocol Stop: 09/04/21 11:59 Last Admin: 08/06/21 05:51 Dose: Not Given Documented by: Levothyroxine Sodium (Levothyroxine Sodium 88 Mcg Tablet) 88 mcg PO DAILYBB DINORAH Stop: 09/02/21 06:29 Last Admin: 08/06/21 05:02 Dose: 88 mcg Documented by: Losartan Potassium (Losartan Potassium 50 Mg Tab) 100 mg PO DAILY DINORAH Stop: 09/01/21 15:05 Last Admin: 08/04/21 08:32 Dose: 100 mg Documented by: Miscellaneous (Carbohydrates For Hypoglycemia ) 15 - 30 gm PO UD PRN PRN Reason: Hypoglycemia Protocol Stop: 09/01/21 15:05 Miscellaneous Information (Pharmacy Glycemic Mgmt Consult) 1 ea N/A UD PRN; Protocol PRN Reason: Consult Stop: 09/01/21 15:05 Miscellaneous Information (Piperacill/Tazobac Consult Active) 1 ea N/A UD PRN PRN Reason: Consult Stop: 09/01/21 15:05 Multivitamins/Minerals (Cerovite Adv Formula Tab) 1 tab PO DAILY [facility] Stop: 09/02/21 08:59 Last Admin: 08/05/21 08:08 Dose: 1 tab Documented by: Ondansetron HCl (Ondansetron Inj 2 Mg/Ml 2 Ml Vial) 4 mg IV Q6H PRN PRN Reason: Nausea Stop: 09/01/21 15:05 Pantoprazole Sodium (Pantoprazole 40 Mg Tab) 40 mg PO QAM DINORAH Stop: 09/02/21 08:59 Last Admin: 08/05/21 08:08 Dose: 40 mg Documented by: Prednisone (Prednisone 5 Mg Tab) 5 mg PO DAILY DINORAH Stop: 09/02/21 08:59 Last Admin: 08/05/21 08:08 Dose: 5 mg Documented by: Pyridostigmine Scooba (Pyridostigmine Scooba 60 Mg Tab) 60 mg PO TID DINORAH Stop: 09/01/21 15:05 Last Admin: 08/05/21 22:01 Dose: 60 mg Documented by: Tamsulosin HCl (Tamsulosin Hcl 0.4 Mg Cap) 0.4 mg PO BID DINORAH Stop: 09/01/21 20:59 Last Admin: 08/05/21 22:01 Dose: 0.4 mg Documented by: PG Care Time/CCT Total # of Minutes Spent Total Time Spent with Patient: Total time spent is greater than 50% in coordination of care (as documented) at patient's floor/unit and/or counseling patient: Coding Level of Care Code 01377 Subseq Hosp Care Lvl 3 Diagnoses GI bleed K92.2 GI bleed type/associated pathology: unspecified gastrointestinal hemorrhage type Sigmoid diverticulitis K57.32 Syncope R55 GERD (gastroesophageal reflux disease) K21.9 Hypothyroid E03.9 BPH (benign prostatic hyperplasia) N40.0 Anemia D64.9 Myasthenia gravis G70.00 Diabetes mellitus E11.9 Hypertension I10 DVT prophylaxis Z29.9 Ventricular tachycardia I47.2 (1) GI bleed GI bleed type/associated pathology: unspecified gastrointestinal hemorrhage type Qualified Code(s): K92.2 - Gastrointestinal hemorrhage, unspecified
--- NOTE | 2021-08-06 09:55 | Cardiology Progress Note ---
Date of Service August 06, 2021 Assessment & Plan (1) Syncope: (2) Ventricular tachycardia: (3) Cardiomyopathy: Plan: 1. Syncope: This appears to be related to ventricular arrhythmias. No recurrence overnight. 2. Ventricular tachycardia: He did have 1 rapid rhythm lasting 20 seconds on telemetry. This appeared relatively narrow. I did not interrogate his device to see the exact mechanism as this was very brief. I think we will increase his carvedilol as his blood pressure would allow for a higher dose. This may attenuate some episodes of both SVT and VT. 3. Normally functioning biventricular ICD. Patient has quite favorable QRS morphology with pacing. He appears to have had normalization of his ventricular function with initiation of biventricular pacing in 2008. 4. SVT: Did appear to have a few brief episodes of SVT on his device interroga tion. 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 No symptoms. Possibly attenuated with increased dose of carvedilol. From my standpoint the patient could be discharged home with follow-up either in our clinic or with the [place]. Admission and Anticipated Discharge Date Admission Date: August 02, 2021 Subjective This morning the patient underwent his endoscopy. He had no specific complaints at the time of my interview. He denied breathing difficulty. He denies any sense of palpitations or chest pain. Review of Systems Review of Systems: Per HPI Physical Exam Physical Exam: The patient is alert and oriented. Mood and affect appeared normal. He answered all questions appropriately. HEENT: Pupils are equal and reactive to light and accommodation. Extraocular movements are intact. The sclerae are anicteric. Neuro: Cranial nerves intact Lungs: Clear to auscultation bilaterally. He has good air movement without use of accessory muscles. No rales wheezes or rhonchi. Cardiac: Heart demonstrates a regular rate and rhythm. Normal S1 and S2. No murmurs on examination. Pulses: The patient has palpable radial pulses bilaterally that are equal in intensity Extremities: There was no evidence of hypoperfusion. There is no cyanosis or clubbing. Results & Data ([facility]) Vital Signs (Past 12 Hours) Vital Signs Temp Pulse Pulse Resp BP BP Pulse Ox 08/06/21 09:00 36.5 C 64 16 186/75 H 99 08/06/21 08:50 66 20 147/60 H 100 08/06/21 08:44 36.5 C 69 16 135/53 L 100 08/06/21 05:38 68 20 161/83 H 100 08/06/21 05:09 74 18 149/80 H 98 08/06/21 04:38 67 16 144/71 H 98 08/06/21 04:08 69 14 172/75 H 96 08/06/21 03:38 67 14 163/65 H 94 08/06/21 03:08 65 13 138/77 95 08/06/21 02:38 64 13 143/67 H 94 08/06/21 02:09 67 15 190/92 H 97 08/06/21 01:38 71 21 142/93 H 98 08/06/21 01:08 68 16 148/77 H 96 08/06/21 00:38 68 16 163/75 H 97 08/06/21 00:08 73 16 163/74 H 99 08/05/21 23:38 67 14 146/93 H 95 08/05/21 23:09 70 19 155/71 H 98 08/05/21 23:00 08/05/21 22:38 77 15 133/70 95 08/05/21 22:08 77 21 156/64 H 99 Pulse Ox 08/06/21 09:00 08/06/21 08:50 08/06/21 08:44 08/06/21 05:38 08/06/21 05:09 08/06/21 04:38 08/06/21 04:08 08/06/21 03:38 08/06/21 03:08 08/06/21 02:38 08/06/21 02:09 08/06/21 01:38 08/06/21 01:08 08/06/21 00:38 08/06/21 00:08 08/05/21 23:38 08/05/21 23:09 08/05/21 23:00 95 08/05/21 22:38 08/05/21 22:08 Laboratory Results Abnormal Lab Results 08/02/21 08/05/21 08/05/21 06:15 08:09 11:58 WBC RBC Hgb Hct MCV MCH MCHC RDW Std Deviation RDW Coeff of Dinorah Plt Count MPV PT INR Sodium Potassium Chloride Carbon Dioxide Anion Gap BUN Creatinine Est Cr Clr Drug Dosing Est GFR ( Amer) Est GFR (Non-Af Amer) BUN/Creatinine Ratio Glucose POC Glucose 225 H Calcium Phosphorus Magnesium Nasal Screen MRSA (PCR) Blood Type A Positive Antibody Screen NEGATIVE Crossmatch See Detail See Detail 08/05/21 08/05/21 08/05/21 16:21 20:15 21:28 WBC RBC Hgb 10.4 L D Hct 31.5 L MCV MCH MCHC RDW Std Deviation RDW Coeff of Dinorah Plt Count MPV PT INR Sodium Potassium Chloride Carbon Dioxide Anion Gap BUN Creatinine Est Cr Clr Drug Dosing Est GFR ( Amer) Est GFR (Non-Af Amer) BUN/Creatinine Ratio Glucose POC Glucose 204 H 176 H Calcium Phosphorus Magnesium Nasal Screen MRSA (PCR) Blood Type Antibody Screen Crossmatch 08/05/21 08/06/21 08/06/21 Unknown 00:20 00:22 WBC RBC Hgb 9.8 L Hct 29.2 L MCV MCH MCHC RDW Std Deviation RDW Coeff of Dinorah Plt Count MPV PT INR Sodium Potassium Chloride Carbon Dioxide Anion Gap BUN Creatinine Est Cr Clr Drug Dosing Est GFR ( Amer) Est GFR (Non-Af Amer) BUN/Creatinine Ratio Glucose POC Glucose 108 H Calcium Phosphorus Magnesium Nasal Screen MRSA (PCR) Negative Blood Type Antibody Screen Crossmatch 08/06/21 08/06/21 08/06/21 05:00 05:01 05:01 WBC 6.32 RBC 3.21 L Hgb 9.7 L Hct 28.2 L MCV 87.9 D MCH 30.2 MCHC 34.4 RDW Std Deviation 53.5 H RDW Coeff of Dinorah 16.8 H Plt Count 294 MPV 8.5 PT INR Sodium 144 Potassium 3.0 L Chloride 113 H Carbon Dioxide 28 Anion Gap 3.0 BUN 15 Creatinine 1.04 Est Cr Clr Drug Dosing 59.8 Est GFR ( Amer) 78.2 Est GFR (Non-Af Amer) 67.5 BUN/Creatinine Ratio 14.0 Glucose 100 H POC Glucose 113 H Calcium 7.7 L Phosphorus 2.8 Magnesium 2.1 Nasal Screen MRSA (PCR) Blood Type Antibody Screen Crossmatch 08/06/21 05:01 WBC RBC Hgb Hct MCV MCH MCHC RDW Std Deviation RDW Coeff of Dinorah Plt Count MPV PT 10.5 INR 1.0 Sodium Potassium Chloride Carbon Dioxide Anion Gap BUN Creatinine Est Cr Clr Drug Dosing Est GFR ( Amer) Est GFR (Non-Af Amer) BUN/Creatinine Ratio Glucose POC Glucose Calcium Phosphorus Magnesium Nasal Screen MRSA (PCR) Blood Type Antibody Screen Crossmatch Diagnostic Findings Echocardiogram performed 06/16/2021: Normal LV systolic function ejection fraction is 65-70%. Mild inferior vena cava dilation. No significant valvular heart disease. PG Care Time/CCT Total # of Minutes Spent Total Time Spent with Patient: Total time spent is greater than 50% in coordination of care (as documented) at patient's floor/unit and/or counseling patient: Coding Level of Care Code 10292 Subseq Hosp Care Lvl 2 Diagnoses Syncope R55 Ventricular tachycardia I47.2 Cardiomyopathy I42.9
[2021-08-06] MEDS ORDERED: carvediloL 12.5 MG TAB PO ONE ×2 (09:56→10:30)
[2021-08-06] MEDS: FINASTERIDE 5 MG TAB PO SCH (10:03)
[2021-08-06] MEDS: predniSONE 5 MG TAB PO SCH (10:03)
[2021-08-06] MEDS: TAMSULOSIN HCL 0.4 MG CAP PO SCH ×2 (10:03→21:05)
[2021-08-06] MEDS: CEROVITE ADV FORMULA TAB PO SCH (10:03)
[2021-08-06] MEDS: PANTOprazole 40 MG TAB PO SCH (10:03)
[2021-08-06] MEDS: PYRIDOSTIGMINE BROMIDE 60 MG TAB PO SCH ×3 (10:03→21:05)
[2021-08-06] MEDS ORDERED: FUROSEMIDE 20 MG TAB PO STA (12:24)
[2021-08-06] MEDS ORDERED: INSULIN GLARGINE SOLOSTAR 100 UNITS/ML 3 ML PEN SC ONE (12:45)
[2021-08-06] MEDS: LOSARTAN POTASSIUM 50 MG TAB PO SCH (13:06)
--- NOTE | 2021-08-06 13:11 | Pharmacy Report ---
Pharmacy Glycemic Short Note 2 - Date of Service August 06, 2021 - Glycemic Short BSG Results (Last 24 hours): 08/05/21 08/05/21 08/06/21 16:21 21:28 00:22 Glucose POC Glucose 204 H 176 H 108 H 08/06/21 08/06/21 08/06/21 05:00 05:01 12:06 Glucose 100 H POC Glucose 113 H 198 H OUTPATIENT ANTIDIABETIC REGIMEN: * Lantus 10 units BID * Novolog 5 units TID with meals + CF 30mg/dl/unit * A1c 7.5% 08/03/21 ASSESSMENT: 08/06/21 * Patient's BSGs yesterday were [phone] mg/dL. Patient received 58 units of insulin (30 units of basal and 28 units of bolus). * Fasting today is 113 mg/dL --- significantly decreased compared to yesterday's fasting of 281 mg/dL. * Give Lantus 25 units at lunch- held off giving AM Lantus since fasting decreased significantly plus patient continued to be NPO for colonoscopy. About a 20% reduction in basal insulin. * Continue Novolog doses. 08/05/21 * Patient's BSGs yesterday were [phone] mg/dL and he received 67 units of insulin (25 units of basal and 42 units of bolus). Patient is NPO. * Will increase Lantus slightly - cautious though because patient is now NPO and has a slight bump in kidney function. * Be more aggressive with Novolog as this is shorter acting. Tighten both CF and CR. 08/04/21 * Patient transitioned off of insulin drip yesterday, blood sugars 122-265mg/dl since drip off, patient needs more basal and bolus insulin at this time, will increase both and titrate to goal. 08/03/21 * 80 year old male admitted with GIB, was on IV protonix drip, now just on IV Zosyn, NPO today for colonoscopy * Patient hyperglycemic on admission, started on insulin drip last evening, drip rates from 3.5units/hr now down to 1.2 units per hour * Transition patient to basal bolus insulin today PLAN FOR INPATIENT GLYCEMIC CONTROL: * Basal insulin * Lantus 25 units x 1 then reevaluate * Bolus insulin * NovoLog per scale ACHS or Q6hrs while NPO * Goal Range: Low 110 mg/dL - High 140 mg/dL * Correction Factor: 15 mg/dL/unit * Nutritional / Prandial insulin per carb ratio of 1 unit per 4 grams CHO consumed PLAN FOR DISCHARGE: * A1c 7.5% - likely low d/t anemia, agree with CDE recommendations to increase Novolog: * RECOMMENDATIONS AT DISCHARGE: 1.) Increase Novolog 10-20% at time of discharge. Recommend increase to 8 units TID with meals. 2.) Hold Novolog meal coverage if meal intake < 50% to minimize risk of hypoglycemia. 3.) Continue to SMBG ACHS. 4.) Notify provider of BG values persistently > 220 or below 90.
[2021-08-06] MEDS ORDERED: carvediloL 25 MG TAB PO SCH (21:00)
[2021-08-06] MEDS: carvediloL 25 MG TAB PO SCH (21:04)
[2021-08-07] MEDS: PIPERACILLIN/TAZOBACTAM 3.375 GM in DEXTROSE 5% 100 ML IV SCH ×2 (04:17→14:44)
[2021-08-07] MEDS: LEVOTHYROXINE SODIUM 88 MCG TABLET PO SCH (06:05)
[2021-08-07 06:18] LABS: Hemoglobin 8.8 g/dL (14.0-18.0); Mean Corpuscular Hemoglobin 30.4 pg (25-34); Mean Corpuscular Hgb Conc 33.8 g/dL (32-36); Mean Platelet Volume 8.8 fL (7.4-10.4); Platelet Count 321 K/uL (130-400); RDW Coefficient of Variation 16.3 % (11.5-14.5); Red Blood Count 2.89 M/uL (4.7-6.1); White Blood Count 6.26 K/uL (4.8-10.8)
[2021-08-07 07:00] LABS: BUN Creatinine Ratio 9.9 (10-20); Calcium 7.6 mg/dl (8.5-10.1); Creatinine Clr Calc Pharmacy 64.4 ml/min; Est GFR (African American) 85.1 ml/min; Est GFR (Non-African American) 73.4 ml/min; Magnesium 1.9 mg/dl (1.8-2.4); Potassium 3.4 mmol/L (3.5-5.1)
[2021-08-07] MEDS ORDERED: POTASSIUM CHLORIDE CRTAB 20 MEQ TABCR PO STA (08:30)
[2021-08-07] MEDS ORDERED: INSULIN GLARGINE SOLOSTAR 100 UNITS/ML 3 ML PEN SC SCH ×3 (09:00→21:00)
[2021-08-07] MEDS ORDERED: LOSARTAN POTASSIUM 50 MG TAB PO SCH (09:00)
[2021-08-07] MEDS: INSULIN ASPART 100 UNITS/ML 3 ML PEN SC SCH ×4 (09:59→21:35)
[2021-08-07] MEDS: carvediloL 25 MG TAB PO SCH ×2 (10:20→20:11)
[2021-08-07] MEDS: FUROSEMIDE 20 MG TAB PO SCH (10:21)
[2021-08-07] MEDS: LOSARTAN POTASSIUM 50 MG TAB PO SCH (10:21)
[2021-08-07] MEDS: CEROVITE ADV FORMULA TAB PO SCH (10:21)
[2021-08-07] MEDS: FINASTERIDE 5 MG TAB PO SCH (10:21)
[2021-08-07] MEDS: PANTOprazole 40 MG TAB PO SCH (10:22)
[2021-08-07] MEDS: PYRIDOSTIGMINE BROMIDE 60 MG TAB PO SCH ×3 (10:22→20:11)
[2021-08-07] MEDS: predniSONE 5 MG TAB PO SCH (10:22)
--- NOTE | 2021-08-07 10:22 | Pharmacy Report ---
Pharmacy Glycemic Short Note 2 - Date of Service August 07, 2021 - Glycemic Short BSG Results (Last 24 hours): 08/06/21 08/06/21 08/06/21 12:06 16:35 20:04 Glucose POC Glucose 198 H 166 H 206 H 08/07/21 08/07/21 05:31 07:48 Glucose 80 POC Glucose 97 OUTPATIENT ANTIDIABETIC REGIMEN: * Lantus 10 units BID * Novolog 5 units TID with meals + CF 30mg/dl/unit * A1c 7.5% 08/03/21 ASSESSMENT: 08/07/21: * Eamon received 47 units of insulin yesterday (25 units of basal and 22 units of bolus) * BSGs fluctuated: 113, 198, 166, 206 mg/dL * Fasting BSG of 97 mg/dL is at goal. Fasting trending downward the past three days despite only minor change in Lantus dose. Will continue Lantus dosed per BSG scale and resume BID dosing since this is how patient administered medication at home. * If post prandial BSGs continue to fluctuate, I will tighten carb coverage 08/06/21 * Patient's BSGs yesterday were [phone] mg/dL. Patient received 58 units of insulin (30 units of basal and 28 units of bolus). * Fasting today is 113 mg/dL --- significantly decreased compared to yesterday's fasting of 281 mg/dL. * Give Lantus 25 units at lunch- held off giving AM Lantus since fasting decreased significantly plus patient continued to be NPO for colonoscopy. About a 20% reduction in basal insulin. * Continue Novolog doses. 08/05/21 * Patient's BSGs yesterday were [phone] mg/dL and he received 67 units of insulin (25 units of basal and 42 units of bolus). Patient is NPO. * Will increase Lantus slightly - cautious though because patient is now NPO and has a slight bump in kidney function. * Be more aggressive with Novolog as this is shorter acting. Tighten both CF and CR. 08/04/21 * Patient transitioned off of insulin drip yesterday, blood sugars 122-265mg/dl since drip off, patient needs more basal and bolus insulin at this time, will increase both and titrate to goal. 08/03/21 * 80 year old male admitted with GIB, was on IV protonix drip, now just on IV Zosyn, NPO today for colonoscopy * Patient hyperglycemic on admission, started on insulin drip last evening, drip rates from 3.5units/hr now down to 1.2 units per hour * Transition patient to basal bolus insulin today PLAN FOR INPATIENT GLYCEMIC CONTROL: * Basal insulin * Lantus 15 units SQ this morning, then per scale BID: * 10 units for BSG < 120 * 12 units for BSG 120-180 * 15 units for BSG > 180 * Bolus insulin * NovoLog per scale ACHS or Q6hrs while NPO * Goal Range: Low 110 mg/dL - High 140 mg/dL * Correction Factor: 15 mg/dL/unit * Nutritional / Prandial insulin per carb ratio of 1 unit per 3.5 grams CHO consumed RECOMMENDATIONS AT DISCHARGE: A1c 7.5% - likely low d/t anemia, agree with CDE recommendations to increase Novolo.) Increase Novolog 10-20% at time of discharge. Recommend increase to 8 units TID with meals. 2.) Hold Novolog meal coverage if meal intake < 50% to minimize risk of hypoglycemia. 3.) Continue to SMBG ACHS. 4.) Notify provider of BG values persistently > 220 or below 90.
[2021-08-07] MEDS: TAMSULOSIN HCL 0.4 MG CAP PO SCH ×2 (10:23→20:12)
--- NOTE | 2021-08-07 12:12 | Hospitalist Progress Note ---
Date of Service August 07, 2021 Assessment & Plan (1) GI bleed: Plan: EGD on 08/02 with no ulcers, no gastritic, no evidence of bleeding, protonix drip stopped colonoscopy on 08/03 with no bleeding, just showed diverticulitis no signs of bleeding for over 48 hours, transferred to medical floor on 08/04 over night had melena, clots starting around 2am on 08/05 Hb dropped to 6.6 transfused total of three units due to drop in Hb and active hematochezia during the day colonoscopy w/ no blood seen, likely was a diverticular bleed that has again stopped Hb was up to 9.6 the next day w/ appropriate response, however now back to 8.8 Had 2 brown stools this AM, no further obvious bleeding if he would bleed again would transfer to tertiary care for IR embolization adv diet to full liquids for lunch-tolerated. Now to low fiber for dinner agreeable only to fingersticks for H&H an dnothing more as far as lab draws refuses to have IV replaced--> warned of risk of needing convenient IV access if has rebleed and he uinderstands transfer off tele due to no IV access and patient preference (2) Ventricular tachycardia: Plan: on 08/05 he had 3 minutes of ventricular tachycardia at rate of 160's he did have an "uneasy feeling" and light headed toward the end of the episode gave him Lopressor 5mg IV stat and Coreg 12.5mg moved to ICU Dr. Knight evaluated on 08/05 in the evening, he has an ICD but programmed to detect and treat at rate of 170 thus his device did not detect or treat the three minutes of V tach at 160 Dr. Knight reprogrammed device to treat at 155 or greater recommends increasing Coreg to 25mg BID now move off tele Cardiology ok with discharge to home from their standpoint (3) Anemia: Plan: Acute blood loss anemia in setting of Chronic anemia Hemoglobin was 10.1 on admission but with GI bleed dropped as low as 6.6 as above he is now s/p 5 units of PRBC, Hb is 8.8 this morning as above f/u H&H (4) Sigmoid diverticulitis: Plan: evidence of inflammation/infection on CT abdomen/pelvis in descending colon confirmed on colonoscopy on 08/03 treated with Zosyn IV since admission, day 6 today--> transition to po CIpro and Flagyl to complete 10 day course afebrile, vitals stable WBC is 6.3k, no abdominal pain adv diet (5) Syncope: Plan: happened in the ED, he was on the monitor, no V tach or SVT when he had syncope, no pause as he is paced could have been due to pain, bleeding causing vagal episode? has not had further syncope while here, even when he had 3 minutes of V tach on 08/05 PT/OT ordered, he is from [facility] (6) GERD (gastroesophageal reflux disease): Plan: continue Protonix PO no PUD or gastritis seen on EGD (7) Hypothyroid: Plan: Continue levothyroxine 88 mcg daily TSH 4.4 in 06/2021 (8) BPH (benign prostatic hyperplasia): Plan: Continue tamsulosin no acute issues (9) Myasthenia gravis: Plan: No acute exacerbation Continue on prednisone 5 mg daily No indication for stress dose steroids at this time (10) Diabetes mellitus: Plan: Poorly controlled -most recent hemoglobin A1c was 10% Glycemic consult with pharmacy - required insulin drip initially transition back to basal and bolus regimen monitor closely (11) Hypertension: Plan: Coreg increased to 25mg BID BP was quite high, resumed Losartan and Lasix that were on hold follow BP (12) DVT prophylaxis: Plan: Hold all chemical prophylaxis secondary to GI bleed SCDs and NOVA stearns ordered Dispo-continued stay, transfer to med/surg, possible dc to home tomorrow if continues to remain stable without bleeding Admission and Anticipated Discharge Date Admission Date: August 02, 2021 Subjective Pt frustrated with all blood draws and refusing to get another IV since his IV blew this AM. He is wanting to be transitioned to po abx and stop IV abx and be transferred off tele. Denies abd pain, no nausea. Does not like the full liquids diet. He is agreeable to a fingerstick for an H&H. Tele with paced rhythm in the 60s Review of Systems Review of Systems: All systems reviewed & are unremarkable except as noted in HPI & below Physical Exam Constitutional: WD/WN, vitals as above Eyes: + anicteric sclerae Neck: trachea midline, no thyromegaly Respiratory: normal respiratory effort, lungs clear to auscultation Cardiovascular: RRR, no murmur, no edema Chest (Breasts): Chest: normal inspection of chest Gastrointestinal (Abdomen): normal bowel sounds, soft, nontender, no hepatosplenomegaly Musculoskeletal: Extremities: extremities normal to inspection; no cyanosis and no clubbing Skin: no rashes, warm and dry Neurologic: moves all extremities and awake; no focal motor deficits Psychiatric: A+Ox3, euthymic affect Lymphatic: no lymphedema Results & Data Results & Data ([facility]) Vital Signs (Past 12 Hours) Vital Signs Temp Pulse Pulse Resp BP BP Pulse Ox 08/07/21 11:45 37 C 57 L 18 171/78 H 93 08/07/21 08:00 78 08/07/21 06:59 36.9 C 62 20 173/65 H 96 08/07/21 04:24 36.7 C 62 18 126/65 96 Laboratory Results 08/07/21 08/07/21 08/07/21 Range/Units 11:42 07:48 05:31 WBC (4.8-10.8) K/uL RBC (4.7-6.1) M/uL Hgb (14.0-18.0) g/dL Hct (42-52) % MCV (80-100) fL MCH (25-34) pg MCHC (32-36) g/dL RDW Std Deviation (36.4-46.3) fL RDW Coeff of Dinorah (11.5-14.5) % Plt Count (130-400) K/uL MPV (7.4-10.4) fL Sodium 141 (136-145) mmol/L Potassium 3.4 L (3.5-5.1) mmol/L Chloride 111 H (98-107) mmol/L Carbon Dioxide 27 (21-32) mmol/L Anion Gap 3.0 (3-11) BUN 10 D (7-18) mg/dl Creatinine 0.97 (0.6-1.4) mg/dl Est Cr Clr Drug Dosing 64.4 ml/min Est GFR ( Amer) 85.1 ml/min Est GFR (Non-Af Amer) 73.4 ml/min BUN/Creatinine Ratio 9.9 L (10-20) Glucose 80 (70-99) mg/dl POC Glucose 157 H 97 (70-99) mg/dl Calcium 7.6 L (8.5-10.1) mg/dl Magnesium 1.9 (1.8-2.4) mg/dl Crossmatch 08/07/21 08/06/21 08/06/21 Range/Units 05:31 20:04 16:35 WBC 6.26 (4.8-10.8) K/uL RBC 2.89 L (4.7-6.1) M/uL Hgb 8.8 L (14.0-18.0) g/dL Hct 26.0 L (42-52) % MCV 90.0 (80-100) fL MCH 30.4 (25-34) pg MCHC 33.8 (32-36) g/dL RDW Std Deviation 53.0 H (36.4-46.3) fL RDW Coeff of Dinorah 16.3 H (11.5-14.5) % Plt Count 321 (130-400) K/uL MPV 8.8 (7.4-10.4) fL Sodium (136-145) mmol/L Potassium (3.5-5.1) mmol/L Chloride (98-107) mmol/L Carbon Dioxide (21-32) mmol/L Anion Gap (3-11) BUN (7-18) mg/dl Creatinine (0.6-1.4) mg/dl Est Cr Clr Drug Dosing ml/min Est GFR ( Amer) ml/min Est GFR (Non-Af Amer) ml/min BUN/Creatinine Ratio (10-20) Glucose (70-99) mg/dl POC Glucose 206 H 166 H (70-99) mg/dl Calcium (8.5-10.1) mg/dl Magnesium (1.8-2.4) mg/dl Crossmatch 08/05/21 Range/Units 08:09 WBC (4.8-10.8) K/uL RBC (4.7-6.1) M/uL Hgb (14.0-18.0) g/dL Hct (42-52) % MCV (80-100) fL MCH (25-34) pg MCHC (32-36) g/dL RDW Std Deviation (36.4-46.3) fL RDW Coeff of Dinorah (11.5-14.5) % Plt Count (130-400) K/uL MPV (7.4-10.4) fL Sodium (136-145) mmol/L Potassium (3.5-5.1) mmol/L Chloride (98-107) mmol/L Carbon Dioxide (21-32) mmol/L Anion Gap (3-11) BUN (7-18) mg/dl Creatinine (0.6-1.4) mg/dl Est Cr Clr Drug Dosing ml/min Est GFR ( Amer) ml/min Est GFR (Non-Af Amer) ml/min BUN/Creatinine Ratio (10-20) Glucose (70-99) mg/dl POC Glucose (70-99) mg/dl Calcium (8.5-10.1) mg/dl Magnesium (1.8-2.4) mg/dl Crossmatch See Detail PG Care Time/CCT Total # of Minutes Spent Total Time Spent with Patient: Total time spent is greater than 50% in coordination of care (as documented) at patient's floor/unit and/or counseling patient: Coding Level of Care Code 44361 Subseq Hosp Care Lvl 3 Diagnoses GI bleed K92.2 GI bleed type/associated pathology: unspecified gastrointestinal hemorrhage type Ventricular tachycardia I47.2 Sigmoid diverticulitis K57.32 Syncope R55 GERD (gastroesophageal reflux disease) K21.9 Hypothyroid E03.9 BPH (benign prostatic hyperplasia) N40.0 Anemia D64.9 Myasthenia gravis G70.00 Diabetes mellitus E11.9 Hypertension I10 DVT prophylaxis Z29.9 (1) GI bleed GI bleed type/associated pathology: unspecified gastrointestinal hemorrhage type Qualified Code(s): K92.2 - Gastrointestinal hemorrhage, unspecified
[2021-08-07 12:26] LABS: Hematocrit (blood only) 31.7 % (42-52); Hemoglobin 10.4 g/dL (14.0-18.0)
[2021-08-07] MEDS ORDERED: MELATONIN 3 MG TAB PO PRN (13:43)
[2021-08-07] MEDS: metroNIDAZOLE 500 MG TAB PO SCH ×2 (13:45→20:11)
[2021-08-07] MEDS: CIPROFLOXACIN 500 MG TAB PO SCH (20:12)
[2021-08-08 05:55] LABS: Hematocrit (blood only) 26.8 % (42-52); Hemoglobin 8.7 g/dL (14.0-18.0)
[2021-08-08] MEDS: LEVOTHYROXINE SODIUM 88 MCG TABLET PO SCH (06:07)
[2021-08-08] MEDS ORDERED: INSULIN GLARGINE SOLOSTAR 100 UNITS/ML 3 ML PEN SC SCH (09:00)
[2021-08-08] MEDS: PYRIDOSTIGMINE BROMIDE 60 MG TAB PO SCH (09:10)
[2021-08-08] MEDS: PANTOprazole 40 MG TAB PO SCH (09:10)
[2021-08-08] MEDS: TAMSULOSIN HCL 0.4 MG CAP PO SCH (09:10)
[2021-08-08] MEDS: FINASTERIDE 5 MG TAB PO SCH (09:11)
[2021-08-08] MEDS: FUROSEMIDE 20 MG TAB PO SCH (09:11)
[2021-08-08] MEDS: CIPROFLOXACIN 500 MG TAB PO SCH (09:11)
[2021-08-08] MEDS: metroNIDAZOLE 500 MG TAB PO SCH (09:11)
[2021-08-08] MEDS: carvediloL 25 MG TAB PO SCH (09:11)
[2021-08-08] MEDS: CEROVITE ADV FORMULA TAB PO SCH (09:11)
[2021-08-08] MEDS: LOSARTAN POTASSIUM 50 MG TAB PO SCH (09:11)
[2021-08-08] MEDS: predniSONE 5 MG TAB PO SCH (09:11)
[2021-08-08] MEDS: INSULIN ASPART 100 UNITS/ML 3 ML PEN SC SCH ×2 (09:12→12:39)
--- NOTE | 2021-08-08 09:40 | Pharmacy Report ---
Pharmacy Glycemic Short Note 2 - Date of Service August 08, 2021 - Glycemic Short BSG Results (Last 24 hours): 08/07/21 08/07/21 08/07/21 11:42 16:35 20:32 POC Glucose 157 H 126 H 97 08/08/21 08:26 POC Glucose 203 H OUTPATIENT ANTIDIABETIC REGIMEN: * Lantus 10 units BID * Novolog 5 units TID with meals + CF 30mg/dl/unit * A1c 7.5% 08/03/21 ASSESSMENT: 08/08 * Pt has received 53 units of insulin over the past 24hrs * 25 units of basal with Lantus * 28 units of bolus with NovoLog * BSGs well controlled yesterday with TDD of ~ 53 units/day. Will continue current dosing nd adjust based on BSG trends. Will even out basal insulin dosing BID 08/07/21: * Eamon received 47 units of insulin yesterday (25 units of basal and 22 units of bolus) * BSGs fluctuated: 113, 198, 166, 206 mg/dL * Fasting BSG of 97 mg/dL is at goal. Fasting trending downward the past three days despite only minor change in Lantus dose. Will continue Lantus dosed per BSG scale and resume BID dosing since this is how patient administered medication at home. * If post prandial BSGs continue to fluctuate, I will tighten carb coverage 08/06/21 * Patient's BSGs yesterday were [phone] mg/dL. Patient received 58 units of insulin (30 units of basal and 28 units of bolus). * Fasting today is 113 mg/dL --- significantly decreased compared to yesterday's fasting of 281 mg/dL. * Give Lantus 25 units at lunch- held off giving AM Lantus since fasting decreased significantly plus patient continued to be NPO for colonoscopy. About a 20% reduction in basal insulin. * Continue Novolog doses. 08/05/21 * Patient's BSGs yesterday were [phone] mg/dL and he received 67 units of insulin (25 units of basal and 42 units of bolus). Patient is NPO. * Will increase Lantus slightly - cautious though because patient is now NPO and has a slight bump in kidney function. * Be more aggressive with Novolog as this is shorter acting. Tighten both CF and CR. 08/04/21 * Patient transitioned off of insulin drip yesterday, blood sugars 122-265mg/dl since drip off, patient needs more basal and bolus insulin at this time, will increase both and titrate to goal. 08/03/21 * 80 year old male admitted with GIB, was on IV protonix drip, now just on IV Zosyn, NPO today for colonoscopy * Patient hyperglycemic on admission, started on insulin drip last evening, drip rates from 3.5units/hr now down to 1.2 units per hour * Transition patient to basal bolus insulin today PLAN FOR INPATIENT GLYCEMIC CONTROL: * Basal insulin * Lantus 12 units SQ BID * Bolus insulin * NovoLog per scale ACHS or Q6hrs while NPO * Goal Range: Low 110 mg/dL - High 140 mg/dL * Correction Factor: 15 mg/dL/unit * Nutritional / Prandial insulin per carb ratio of 1 unit per 3.5 grams CHO consumed RECOMMENDATIONS AT DISCHARGE: A1c 7.5% - likely low d/t anemia, agree with CDE recommendations to increase Novolo.) Increase Novolog 10-20% at time of discharge. Recommend increase to 8 units TID with meals. 2.) Hold Novolog meal coverage if meal intake < 50% to minimize risk of hypoglycemia. 3.) Continue to SMBG ACHS. 4.) Notify provider of BG values persistently > 220 or below 90.
--- NOTE | 2021-08-08 11:42 | Discharge Summary ---
Date of Service August 08, 2021 Admission HPI Per Admitting Provider Attending: Dr. Edwards This is an 80-year-old male with a history of GERD, hypothyroidism, BPH, chronic anemia, myasthenia gravis, bilateral cellulitis of lower leg history, diabetes mellitus insulin-dependent with hemoglobin A1c of 10, diabetic polyneuropathy, history of generalized muscle weakness, hypertension. The patient reports that he has had cramping for the last 2 weeks. This morning approximately 4 AM he awoke to bloody stool. There was bright red blood as well as some dark blood and clots. The patient presented emergency department where he has had several episodes of clots and mixed bright red and dark stool in his depends. He has been hemodynamically stable but did have one episode of unresponsiveness which resulted in approximately 2-3 compressions on his chest. He had no loss of pulse. He had no respiratory failure. He was not hypoxic. Patient was pale with no evidence of cyanosis around lips or fingertips. Within short order the patient was oriented to person place and time but stated that he felt as though he was going to . He denies any chest pain, tightness, fever, chills, rigors, sweats. He has no radiation of pain into his neck jaw or arms. He denies any back pain. Other than the incontinence from the GI bleed he had no other incontinence that he is aware of. The patient denies any acute lower extremity pain or unusual edema. He has no history of thromboembolic disease. The patient's daughter is present and states that over the last 2 weeks he has had decrease in appetite. He has also had 1 or 2 episodes of vomiting but no hematic emesis at home. The patient is a lifelong non-smoker. He denies any ethanol abuse history. The patient is on aspirin 81 mg p.o. daily and is on chronic prednisone at 5 mg daily for myasthenia gravis. He denies any excessive use of NSAIDs. He states that he had a colonoscopy years ago but is not able to recollect results. He is unaware of any history of diverticular disease or history of ulcers. The patient does wish to be a level of V DNR/DNI. This is confirmed with the daughter who is present. Principal Diagnosis GI Bleed, Acute blood loss anemia, Syncope, Ventricular tachycardia, Colitis Discharge Exam Constitutional WD/WN, vitals as above Eyes + anicteric sclerae Neck trachea midline, no thyromegaly Respiratory normal respiratory effort, lungs clear to auscultation Cardiovascular RRR, no murmur, no edema Chest (Breasts) Chest: normal inspection of chest Gastrointestinal (Abdomen) normal bowel sounds, soft, nontender, no hepatosplenomegaly Musculoskeletal Extremities: extremities normal to inspection; no cyanosis and no clubbing Skin no rashes, warm and dry Neurologic moves all extremities and awake; no focal motor deficits Psychiatric A+Ox3, euthymic affect Lymphatic no lymphedema Discharge Data Allergies Allergy/AdvReac Type Severity Reaction Status Date / Time lisinopril Allergy Unknown Unknown Verified 08/03/21 08:42 Consultations 08/02/21 09:27 ED Decision to Admit Stat 08/02/21 10:14 Consult Gastroenterology Stat 08/05/21 20:39 Consult Cardiology Stat 08/05/21 21:08 Consult Vending Attendant Routine Procedures Performed Operation Date: 08/02/21 12:35 Actual Procedures p Esophagogastroduodenoscopy - Kristian Edwards MD Operation Date: 08/03/21 17:15 Actual Procedures p Colonoscopy Polypectomy(Not Applicable) - Kristian Edwards MD Operation Date: 08/06/21 07:15 Actual Procedures p Colonoscopy(Not Applicable) - Kristian Edwards MD Ordered Studies 08/02/21 06:52 CT abd pelvis IV con only Stat Abdomen/Pelvis CT 08/02/21 06:52 CT OF THE ABDOMEN AND PELVIS WITH CONTRAST CLINICAL HISTORY: Rectal bleeding. COMPARISON STUDY: None. TECHNIQUE: Following IV administration of 94 mL of Optiray, axial images of the abdomen and pelvis were obtained from the lung bases to the proximal femurs. Images were reviewed in the axial, sagittal, and coronal planes. IV contrast was administered without complication. Automated exposure control was utilized for the study. A dose lowering technique was utilized adhering to the principles of ALARA. CT DOSE: 563.39 mGy.cm FINDINGS: Pacer leads are partially imaged. There are numerous small nodules within the lower lungs that measure up to 5 mm. These are probably benign. There is a small hiatal hernia. No pneumatosis, free air or portal venous gas is present. The liver, spleen, adrenal glands and pancreas are unremarkable. There is no biliary or pancreatic ductal dilatation. Note is made of a 2.6 cm cyst within lower pole of the left kidney. Subcentimeter left renal lesions likely reflect cysts as well. Multiple right renal calculi measure up to 4 mm. There are no ureteral calculi. There is no hydronephrosis. There is moderate plaque of the abdominal aorta which is normal in caliber. The mesenteric vessels appear patent although are suboptimally assessed on this non-CTA exam. A fat-containing 2.2 cm left anterior abdominal density may reflect an old torsed epiploic appendage or focus of fat necrosis. There is extensive colonic diverticulosis. Note is made of wall thickening of the ascending colon and the signal: Pericolonic infiltration. No free air or abscess. No intraluminal contrast is noted. The appendix is normal. There is no evidence for a bowel obstruction. No suspicious lesions are identified within the visualized skeletal structures. Prostate is mildly enlarged. Mild bladder wall thickening is likely chronic. IMPRESSION: 1. Wall thickening of the descending colon and sigmoid colon with mild pericolonic infiltration. Extensive colonic diverticulosis. The long segment involvement favors a nonspecific colitis. Acute diverticulitis could appear similar. No free air or abscess. No intraluminal contrast within the bowel. 2. No bowel obstruction. Normal appendix. 3. Right-sided nephrolithiasis. 2. Multiple small nodules within the lower lungs which are likely benign. A follow-up chest CT in 6 months could be obtained to ensure stability. ACT 112: Negative or not required by law. Electronically signed by: Lalo Hough M.D. 08/02/2021 8:15 AM Chest X-Ray 08/02/21 10:14 XR chest 1V portable CLINICAL HISTORY: Chest compressions, rule out fracture COMPARISON STUDY: July 15, 2021 FINDINGS: No pneumothorax. No pleural effusion. No large infiltrates or consolidative lesions are seen. Minimal atelectasis at the left base is improved since prior. Cardiomediastinal silhouette is within normal limits in size. No significant pulmonary vascular congestion.. Osseous structures: No evidence of rib fractures. Degenerative changes of the spine. Stable position of left-sided triple lead AICD with battery pack partially obscuring left lateral lung parenchyma and left rib cage. IMPRESSION: 1. No definite displaced rib fractures are seen on current exam. 2. No large infiltrates or consolidative lesions. 3. The rest of findings as above. ACT 112: Negative or not required by law. The above report was generated using voice recognition software. It may contain grammatical, syntax or spelling errors. Electronically signed by: Blank Up DO 08/02/2021 11:11 AM Chest X-Ray 08/03/21 10:15 XR chest 1V portable HISTORY: Unresponsive episode with chest compressions COMPARISON: Chest 08/02/2021. FINDINGS: No pneumothorax. No pleural effusions. The cardiac silhouette remains top normal in size. The left-sided pacemaker/defibrillator. No new focal lung consolidations to suggest pneumonia. No evidence for pulmonary edema. IMPRESSION: No significant change compared to the prior study. No acute process. ACT 112: Negative or not required by law. Electronically signed by: Ap Gandhi M.D. 08/03/2021 8:08 AM Hospital Course (1) GI bleed: EGD on 08/02 with no ulcers, no gastritic, no evidence of bleeding, protonix drip stopped colonoscopy on 08/03 with no bleeding, just showed diverticulitis no signs of bleeding for over 48 hours, transferred to medical floor on 08/04 over night had melena, clots starting around 2am on 08/05 Hb dropped to 6.6 transfused total of three units due to drop in Hb and active hematochezia during the day colonoscopy w/ no blood seen, likely was a diverticular bleed that has again stopped. Biopsy shows tubular adenoma Hb was up to 9.6 the next day w/ appropriate response, however then back to 8.8 and then stable at 8.7 on day of discharge Has passed multiple brown stools the last 2 days of discharge, no further obvious bleeding SUspect bleeding from possible ischemic colitis vs infectious colitis-CT abd/pel with descending/sigmoid colitis vs acute diverticulitis Tolerating low fiber diet, po antibiotics Stable for dc to home Check CBC in 1 week as outpt increase ferrous sulfate to 325mg po bid Continue to hold home ASA for 3 more days for a total of one week off ASA (2) Ventricular tachycardia: on 08/05 he had 3 minutes of ventricular tachycardia at rate of 160's he did have an "uneasy feeling" and light headed toward the end of the episode gave him Lopressor 5mg IV stat and Coreg 12.5mg moved to ICU Dr. Knight evaluated on 08/05 in the evening, he has an ICD but programmed to detect and treat at rate of 170 thus his device did not detect or treat the three minutes of V tach at 160 Dr. Knight reprogrammed device to treat at 155 or greater recommends increasing Coreg to 25mg BID Cardiology ok with discharge to home from their standpoint, f/u with [facility] (3) Anemia: Acute blood loss anemia in setting of Chronic anemia Hemoglobin was 10.1 on admission but with GI bleed dropped as low as 6.6 as above he is now s/p 5 units of PRBC, Hb is 8.7 amd stable this morning as above f/u [facility]&H as outpt in 1 week (4) Sigmoid diverticulitis: evidence of inflammation/infection on CT abdomen/pelvis in descending colon confirmed on colonoscopy on 08/03 treated with Zosyn IV x 6 days, then transitioned to po CIpro and Flagyl to complete 10 day course-needs 3 more days after discharge afebrile, vitals stable WBC is 6.3k, no abdominal pain low fiber diet x 2 weeks, then gradual increase in fiber (5) Syncope: happened in the ED, he was on the monitor, no V tach or SVT when he had syncope, no pause as he is paced could have been due to pain, bleeding causing vagal episode? has not had further syncope while here, even when he had 3 minutes of V tach on 08/05 PT/OT ordered, he is from [facility] (6) GERD (gastroesophageal reflux disease): continue Protonix PO no PUD or gastritis seen on EGD (7) Hypothyroid: Continue levothyroxine 88 mcg daily TSH 4.4 in 06/2021 (8) BPH (benign prostatic hyperplasia): Continue tamsulosin no acute issues (9) Myasthenia gravis: No acute exacerbation Continue on prednisone 5 mg daily, Mestinon No indication for stress dose steroids at this time (10) Diabetes mellitus: Poorly controlled -most recent hemoglobin A1c was 10% Glycemic consult with pharmacy - required insulin drip initially transition back to basal and bolus regimen continue home Lantus 10 units bid on discharge and icnrese Novolog home regimen to 10units tid (up from 5 units tid) (11) Hypertension: Coreg increased to 25mg BID BP was quite high, resumed Losartan and Lasix that were on hold follow BP-improved (12) DVT prophylaxis: Hold all chemical prophylaxis secondary to GI bleed SCDs and NOVA stearns ordered Dispo-dc to [facility] today Total Time Total Time Spent Total Time Spent (In Minutes): 40 min Total Time Includes: Examination of the Patient, Discharge Planning and Medication Reconciliation Discharge Plan Discharge Items Patient Disposition: Personal Intermediate Reason For Visit: GI BLEED,UNRESPONSIVE EPISODE Discharge Diagnosis: GI Bleed, Acute blood loss anemia, Syncope, Colitis/Acute diverticulitis, Ventricular tachycardia Condition on Discharge: Good Activity: As commented below Lifting: Gradually increase as tolerated Bathing: No limitations Exercise/Sports: Gradually increase as tolerated Weightbearing: Full weightbearing Non-emergency contact: Primary Care Provider and Secure Software Assessor Call non-emergency contact if: you have any medication questions and your symptoms worsen Follow-up/Referrals: [facility] [place] [Primary Care Provider] - (Follow up within 1-2 weeks.) [facility] [Non-Staff] - (Follow up within 1-2 weeks.) Diet: Carb Consistent or DM2, Heart Healthy and Low Fiber Diet Comment: Low fiber x 2 weeks, then increase fiber intake gradually after that. Ambulatory Orders: Complete Blood Count with Diff (Timed) Timeframe: 1 Week Location: Determined by Patient Ordered By: Christy Javier Attending Provider Instructions: You were admitted with GI bleeding, passing out (syncope) and severe anemia requiring 5 units of blood transfusion. You were found to have an infected portion of your colon called colitis. Please finish out 3 more days of the antibiotics called Cipro and Flagyl. Please have your blood count checked in 1 week to ensure your blood count is continuing to improve. You should take iron pills twice daily to improve your blood count. If you have recurrent bleeding in your stool, please return to the hospital right away. Please continue to HOLD your aspirin for 3 more days, and then you can restart this as long as you have no further bleeding. Your insulin doses were increased due to your uncontrolled diabetes. Your carvedilol dose was also increased as you had ventricular tachycardia as an abnormal rapid heart rhythm. Your pacemaker settings were adjusted by the Secure Software Assessor to assist with this and you should follow up with your Secure Software Assessor at the [place] after discharge. Pending Studies at Discharge: No Stand-Alone Forms: [employer], Smoking Cessation Skilled Items Patient informed of condition?: Yes DNR: Yes Discharge Level of Care: Other Communicable Disease: No Discharge Prognosis: Improving Lines: None Urinary Catheter: No Medications and DC Order Prescriptions: New carvedilol 25 mg Tablet 25 mg PO BID Qty: 60 RF: 0 metronidazole 500 mg Tablet 500 mg PO TID Qty: 9 RF: 0 ciprofloxacin HCl 500 mg Tablet 500 mg PO BID Qty: 6 RF: 0 Continued acetaminophen 325 mg Tablet 650 mg PO Q4H PRN (Reason: Fever Or Pain) RF: 0 Lantus U-100 Insulin 100 unit/mL Solution 10 unit SUBCUT BID RF: 0 levothyroxine 88 mcg Tablet 88 mcg PO DAILY RF: 0 finasteride 5 mg Tablet 5 mg PO DAILY RF: 0 omega 2-mgi-keu-fish oil [Fish Oil] 1,000 mg (120 mg-180 mg) Capsule 1 cap PO BID RF: 0 omeprazole 20 mg Capsule,Delayed Release(Dr/Ec) 20 mg PO BID RF: 0 tamsulosin 0.4 mg Capsule 0.4 mg PO BID RF: 0 terbinafine HCl 1 % Cream 1 applic TOPICAL BID RF: 0 ketoconazole 2 % Shampoo 1 ea TOPICAL 3XWK RF: 0 melatonin 3 mg Tablet 3 mg PO HS PRN (Reason: Sleep) RF: 0 carboxymethylcellulose sodium 0.5 % Drops 1 drp OPHTHALMIC (EYE) 6XD PRN (Reason: Dry Eye(S)) RF: 0 losartan 100 mg Tablet 100 mg PO DAILY RF: 0 fluticasone propionate 50 mcg/actuation [place],Suspension 1 spray INTRANASAL BID PRN (Reason: breathing) RF: 0 PreserVision AREDS-2 250-90-40-1 mg Capsule 1 tab PO BID RF: 0 loperamide 2 mg Capsule 2 mg PO DIRECTED PRN (Reason: Diarrhea) RF: 0 prednisone 5 mg Tablet 5 mg PO DAILY RF: 0 docusate sodium [Stool Softener] 100 mg Capsule 100 mg PO BID RF: 0 furosemide [Lasix] 20 mg Tablet 20 mg PO DAILY RF: 0 menthol-zinc oxide [Calmoseptine] 0.44-20.6 % Ointment 1 applic TOPICAL TID RF: 0 pyridostigmine bromide 60 mg tablet 60 mg PO TID RF: 0 aspirin [Aspirin Low Dose] 81 mg Tablet,Delayed Release (Dr/Ec) 81 mg PO DAILY Qty: 0 RF: 0 Changed ferrous sulfate 324 mg (65 mg iron) Tablet,Delayed Release (Dr/Ec) 324 mg PO BID Qty: 60 RF: 0 insulin aspart U-100 [Novolog Flexpen U-100 Insulin] 100 unit/mL (3 mL) insulin pen See Rx Instructions .ROUTE .COMPLEX Qty: 15 RF: 0 Discontinued carvedilol 12.5 mg Tablet 12.5 mg PO BID Qty: 60 RF: 0 Discharge Orders: Discharge Order (Routine); Ordered 08/08/21 Ordered By: Christy Parks/Other Patient Handouts: A1C, Managing Type 2 Diabetes Admission Data Admit Date/Time: 08/02/21 10:14 Attending Provider: Christy Coello Admit Provider: David Edwards Primary Care Provider: SEBASTIAN Beltre Other Providers: [facility] ; David Edwards ; Joe Shipley ; Jailyn Hendricks ; Nahomi Navarro ; Kristian Edwards ; Benjamin Knight ; Julia Lang Other Interventions: Discharge Summary Assessment (RN) Last Done: 08/08/21 11:00 Coding Level of Care Code D/C DAY MANAGEMENT >30 MINS Diagnoses GI bleed K92.2 GI bleed type/associated pathology: unspecified gastrointestinal hemorrhage type Ventricular tachycardia I47.2 Anemia D64.9 Sigmoid diverticulitis K57.32 Syncope R55 GERD (gastroesophageal reflux disease) K21.9 Hypothyroid E03.9 BPH (benign prostatic hyperplasia) N40.0 Myasthenia gravis G70.00 Diabetes mellitus E11.9 Hypertension I10 DVT prophylaxis Z29.9
== END 2021-08-08 13:50 | disposition home or self-care (01) | DRG 378 ==
LOC: ED 05:55 → SUATTDRO 10:14 → OR 12:07 → 2S 12:08 → 3N 08-04 13:03 → 2N 08-05 11:15 → 1E 08-05 19:25 → 2N 08-06 14:03 → 3N 08-07 16:32